=== PATIENT | male | born 1955 | race Caucasian/White ===

== ENCOUNTER 2019-06-05 11:23 | Outpatient (CLI) | payer OTHER, SELFPAY ==
[2019-06-05 11:47] LABS: Basophils Absolute Auto 0.04 K/mm3 (0.00-0.10); Basophils Percent Auto 0.4 % (0.0-1.0); Eosinophils Absolute Auto 0.12 K/mm3 (0.02-0.50); Eosinophils Percent Auto 1.1 % (1.0-6.0); Hematocrit 37.7 % (40.0-54.0); Hemoglobin 11.5 g/dL (14.0-18.0); Immature Granulocyte Absolute 0.04 K/mm3 (0.00-0.00); Immature Granulocyte Percent A 0.4 % (0.0-0.0); Lymphocytes Absolute Auto 0.83 K/mm3 (1.10-4.50); Lymphocytes Percent Auto 7.3 % (18.0-42.0); Mean Corpuscular HGB Conc 30.5 g/dL (32.0-36.0); Mean Corpuscular Hemoglobin 27.1 pg (27.0-31.0); Mean Corpuscular Volume 88.9 fL (78.0-102.0); Mean Platelet Volume 8.7 fl (8.7-11.0); Monocytes Absolute Auto 1.07 K/mm3 (0.10-0.90); Monocytes Percent Auto 9.5 % (2.0-11.0); Neutrophils Absolute Auto 9.2 K/mm3 (1.7-7.2); Neutrophils Percent Auto 81.3 % (50.0-70.0); Platelet Count Result 253 K/mm3 (150-420); Red Blood Count 4.24 M/mm3 (4.70-6.10); Red Cell Distribution Width 14.9 % (11.6-14.4); White Blood Count 11.3 K/mm3 (4.8-10.8)
[2019-06-05 12:00] LABS: INR 1.1; Partial Thromboplastin Time 34.8 SEC (22.3-31.6); Prothrombin Time 11.7 Seconds (9.64-11.0)
[2019-06-05 13:20] LABS: Alanine Aminotransferase 19 U/L (16-63); Albumin Level 2.6 g/dL (3.4-5.0); Alkaline Phosphatase 91 U/L (46-116); Anion Gap 12.7 mmol/L (7-16); Aspartate Amino Transferase 13 U/L (15-37); Bilirubin,Total 0.4 mg/dL (0.00-1.00); Blood Urea Nitrogen 24 mg/dL (7-18); Calcium 8.7 mg/dL (8.5-10.1); Carbon Dioxide 29 mmol/L (21-32); Chloride 103 mmol/L (98-108); Estimated Glomerular Filt Rate > 60; Ferritin 391 ng/mL (26-388); Glucose 147 mg/dL (70-99); Iron 23 ug/dL (65-175); Magnesium 2.1 mg/dL (1.8-2.4); Osmolality Calculated 297 mOsm/kg (285-295); Percent Iron Saturation 14 % (12-57); Potassium 4.7 mmol/L (3.5-5.1); Sodium 140 mmol/L (136-145); Thyroid Stimulating Hormone Reflex 1.09 u/IU/mL (0.36-3.74); Total Protein 7.8 g/dL (6.4-8.2); Vitamin B12 566 pg/mL (193-986)
[2019-06-05 13:21] LABS: Folic Acid > 20.0 ng/mL (8.6->20)
== END 2019-06-05 11:24 | disposition home or self-care (01) ==
LOC: CHSLAB 11:32
DX: I48.91 Unspecified atrial fibrillation (principal)
CPT/HCPCS: 36415; 80053; 82607; 82728; 82746; 83540; 83550; 83735; 84443; 85025; 85610; 85730

== ENCOUNTER 2019-06-26 14:07 | Outpatient (CLI) | payer OTHER, SELFPAY ==
[2019-06-26 14:26] LABS: Basophils Absolute Auto 0.04 K/mm3 (0.00-0.10); Basophils Percent Auto 0.4 % (0.0-1.0); Eosinophils Absolute Auto 0.29 K/mm3 (0.02-0.50); Eosinophils Percent Auto 3.3 % (1.0-6.0); Hematocrit 38.6 % (40.0-54.0); Hemoglobin 12.1 g/dL (14.0-18.0); Immature Granulocyte Absolute 0.03 K/mm3 (0.00-0.00); Immature Granulocyte Percent A 0.3 % (0.0-0.0); Lymphocytes Absolute Auto 1.45 K/mm3 (1.10-4.50); Lymphocytes Percent Auto 16.3 % (18.0-42.0); Mean Corpuscular HGB Conc 31.3 g/dL (32.0-36.0); Mean Corpuscular Hemoglobin 27.8 pg (27.0-31.0); Mean Corpuscular Volume 88.7 fL (78.0-102.0); Mean Platelet Volume 8.7 fl (8.7-11.0); Monocytes Absolute Auto 0.91 K/mm3 (0.10-0.90); Monocytes Percent Auto 10.2 % (2.0-11.0); Neutrophils Absolute Auto 6.2 K/mm3 (1.7-7.2); Neutrophils Percent Auto 69.5 % (50.0-70.0); Platelet Count Result 242 K/mm3 (150-420); Red Blood Count 4.35 M/mm3 (4.70-6.10); Red Cell Distribution Width 15.8 % (11.6-14.4); White Blood Count 8.9 K/mm3 (4.8-10.8)
[2019-06-26 14:40] LABS: Partial Thromboplastin Time 32.5 SEC (22.3-31.6); Prothrombin Time 10.6 Seconds (9.64-11.0)
[2019-06-26 15:36] LABS: Alanine Aminotransferase 15 U/L (16-63); Albumin Level 2.8 g/dL (3.4-5.0); Alkaline Phosphatase 91 U/L (46-116); Anion Gap 11.3 mmol/L (7-16); Aspartate Amino Transferase 17 U/L (15-37); Bilirubin,Total 0.6 mg/dL (0.00-1.00); Blood Urea Nitrogen 16 mg/dL (7-18); Calcium 9.1 mg/dL (8.5-10.1); Carbon Dioxide 31 mmol/L (21-32); Chloride 102 mmol/L (98-108); Estimated Glomerular Filt Rate > 60; Ferritin 182 ng/mL (26-388); Glucose 75 mg/dL (70-99); Iron 47 ug/dL (65-175); Osmolality Calculated 290 mOsm/kg (285-295); Percent Iron Saturation 24 % (12-57); Potassium 4.3 mmol/L (3.5-5.1); Sodium 140 mmol/L (136-145); Total Protein 7.6 g/dL (6.4-8.2); Vitamin B12 519 pg/mL (193-986)
[2019-06-26 15:45] LABS: Thyroid Stimulating Hormone Reflex 1.49 u/IU/mL (0.36-3.74)
== END 2019-06-26 14:08 | disposition home or self-care (01) ==
DX: I48.91 Unspecified atrial fibrillation (principal)
CPT/HCPCS: 36415; 80053; 82607; 82728; 82746; 83540; 83550; 83735; 84443; 85025; 85610; 85730

== ENCOUNTER 2020-01-15 13:18 | Inpatient (IN) | payer OTHER, SELFPAY ==
[2020-01-15] VITALS (36 sets, daily range): BP systolic 81–107; BP diastolic 56–70; PULSE 68–108; RESP 18–36; TEMP 36.3–37.2; O2SAT 94–100
--- NOTE | ~2020-01-15 | CT_ITS ---
EXAMINATION: CT chest wo con DATE: 01/15/2020 16:01 INDICATION: abnormal chest x-ray TECHNIQUE: Computed tomography (CT) of the chest was performed without intravenous contrast. Addition al 3D reconstructions utilizing coronal maximum intensity projection (MIP) were performed. Automated exposure control and iterative reconstruction technique were employed. The dose-length product was 15 9.97 mGy-cm. COMPARISON: None FINDINGS: Severe emphysema. Scattered bronchiectasis, bandlike lakes/consolidation, thick-walled cavitary lesio n as well as a few more discrete pulmonary nodules. This is most prominent in the right upper lobe, t he lateral basilar segment of the right lower lobe and to a lesser degree at the junction of the left upper lobe and lingula and in the right middle lobe. There are multiple smaller centrilobular pulmon rosibel nodules in the basilar segments of the right lower lobe and at the inferior lingula. No smooth se ptal line thickening to suggest pulmonary edema. Small right pleural effusion. There are few scattere d calcific pulmonary nodules along with calcified right hilar and mediastinal lymph nodes consistent with old granulomatous disease. Heart size is normal. No pericardial effusion. Vasculature is normal in caliber. There is dilation of the central pulmonary arteries consistent with pulmonary arterial hy pertension. Partially visualized at least 1.9 cm right renal cyst and 3.5 cm cyst in the left hepatic lobe. Mild thoracic spondylosis with severe spondylosis at the lower cervical and upper lumbar spine . IMPRESSION: 1. Severe emphysema. 2. Bronchiectasis and bilateral lung disease characterized by bandlike consolidation, thick-walled ca vitary lesions and multiple pulmonary nodules most consistent with infection other than COVID-19 (CO- RADS 2). Differential for any given nodule or thick-walled cavitary lesion would include malignancy a nd would recommend 3-6 month follow-up CT. 3. Small right pleural effusion. 4. Enlargement of the central pulmonary arteries consistent with pulmonary arterial hypertension. Reviewed, dictated and finalized at location A. IMPRESSION: 1. Severe emphysema. 2. Bronchiectasis and bilateral lung disease characterized by bandlike consolid ation, thick-walled cavitary lesions and multiple pulmonary nodules most consis tent with infection other than COVID-19 (CO-RADS 2). Differential for any given nodule or thick-walled cavitary lesion would include malignancy and would aaliyah mmend 3-6 month follow-up CT. 3. Small right pleural effusion. 4. Enlargement of the central pulmonary arteries consistent with pulmonary mary carmen rial hypertension.
--- NOTE | ~2020-01-15 | XR_ITS ---
EXAMINATION: XR chest 1V portable INDICATION: Post bronchoscopy TECHNIQUE: Portable AP chest at 1535 hours COMPARISON: 01/15/2020 FINDINGS: There is severe emphysema. The previously described cavitary lesion of the right lung apex is unchanged. No pneumothorax is identified. There is bandlike airspace opacity of the right lower pretty ng zone, not significantly changed, consistent with atelectasis. No pleural effusion is present. The cardiomediastinal silhouette is stable. IMPRESSION: 1. No pneumothorax. 2. Cavitary lesion of the right lung apex, consistent with malignancy versus infection. Reviewed, dictated and finalized at location A. IMPRESSION: 1. No pneumothorax. 2. Cavitary lesion of the right lung apex, consistent with malignancy versus in fection.
--- NOTE | ~2020-01-15 | XR_ITS ---
EXAMINATION: XR chest 2V DATE: 01/15/2020 14:42 INDICATION: Shortness of breath TECHNIQUE: frontal and lateral views of the chest were obtained. COMPARISON: None FINDINGS: Hyperexpansion of lungs with increased lucency and architectural distortion in the upper lung zones a nd at the medial right lower lung zone consistent with emphysema. Patchy airspace opacities at the le ft upper lung zone and throughout the right lung. No pulmonary edema, pleural effusion or pneumothora x. Small calcified nodule at the left lower lung zone consistent with old granulomatous disease. The cardiomediastinal silhouette is normal. Mild thoracic and moderate upper lumbar spondylosis. IMPRESSION: 1. Patchy bilateral lung disease, right greater than left concerning for pneumonia with differential including atelectasis/scarring. 2. Emphysema. Reviewed, dictated and finalized at location A. IMPRESSION: 1. Patchy bilateral lung disease, right greater than left concerning for pneumo vance with differential including atelectasis/scarring. 2. Emphysema.
--- NOTE | 2020-01-15 13:42 | ED.SOB ---
HPI - SOB/Dyspnea General Chief Complaint: Shortness of Breath/Dyspnea Stated Complaint: coughing up blood/diff breathing Time Seen by Provider: 01/15/20 13:30 History of Present Illness HPI Narrative: 64 yo male w/ h/o COPD presnets to the ED for SOB. He is SOB at baseline. Significant increase recently. Associated with intermittent hemoptysis and fatigue. He is on 2.5 liters O2 at all times. No fever, chills, CP. Related Data Home Medications Medication Instructions Recorded Confirmed albuterol sulfate [ProAir HFA] 2 puff INHALATION Q4H PRN 01/15/20 01/15/20 famotidine [Pepcid] 40 mg PO BID 01/15/20 01/15/20 oxycodone-acetaminophen 2 tablet Q6H PRN 01/15/20 01/15/20 potassium chloride 20 meq PO DAILY 01/15/20 01/15/20 sotalol 40 mg PO BID 01/15/20 01/15/20 umeclidinium [Incruse Ellipta] See Rx Instructions .ROUTE .COMPLEX 01/15/20 01/15/20 Allergies Allergy/AdvReac Type Severity Reaction Status Date / Time No Known Allergies Allergy Verified 01/15/20 13:28 Review of Systems Review of Systems: All systems reviewed & are unremarkable except as noted in HPI and below Constitutional: Constitutional: Denies fever(s) and Reports weakness ENT: Denies dizziness Cardiovascular: Cardiovascular: Denies chest pain Respiratory: Respiratory: Reports cough and Reports dyspnea Gastrointestinal: Gastrointestinal: Denies abdominal pain and Denies nausea Neurologic: Denies dizziness and Denies focal weakness Endocrine: Endocrine: Reports fatigue PMFSH Past Medical History Medical History Anxiety Chronic anemia Chronic respiratory failure with hypoxia, on home oxygen therapy COPD with emphysema Paroxysmal atrial fibrillation No longer on anticoagulation. Pulmonary Mycobacterium avium complex (MAC) infection Treated for 1.5 years with ethambutol and rifampin, completed treatment June 2019. Surgical History Surgical History History of lung biopsy Family History Family History Sibling Colon cancer Father Lymphoma Mother Uterine cancer Daughter Crohn's disease Social History Social History Social History: He designates his as his surrogate decision maker and wishes to be a full code. Smoking packs per day: 2 Smoking cigarettes per day: 40.0 Smoking status: Former smoker Alcohol intake: never Substance use: never Additional living arrangements comments: Lives with his in [place], [place]. 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 Gender identity (if verbalized by the patient): Male Spiritual care concerns: No Exam Const: General: no acute distress, alert and ill appearing Nutritional Appearance: thin Orientation/consciousness: patient oriented x3 HENMT: Head: normal to inspection Neck: Neck: normal visual inspection Chest: Chest palpation & inspection: no tenderness Resp: Effort & Inspection: tachypneic Auscultation: wheezes and diminished lung sounds Cardio: Rate: regular rate Rhythm: regular rhythm GI: GI Palp: Yes Soft to palpation and No Tenderness to palpation present (GI) Skin: General skin exam: normal color Neuro: General: patient oriented x3, moves all extremities, no focal motor deficits and CN's II-XI intact bilaterally Speech: normal speech Extrem: General: no edema Course Vital Signs Vital signs: Vital Signs Temperature 36.6 C 01/15/20 13:24 Pulse Rate 108 H 01/15/20 13:24 Respiratory Rate 22 H 01/15/20 13:24 Blood Pressure 98/56 L 01/15/20 13:24 Pulse Oximetry 100 01/15/20 13:24 Temperature 36.3 C L 01/17/20 14:51 Pulse Rate 75 01/17/20 14:51 Respiratory Rate 32 H 01/17/20 14:51 Blood Pressure 90/49 L 01/17/20 14:51 Pulse Oximetry 97 01/17/20 14:51
--- NOTE | 2020-01-15 13:49 | ECG_ITS ---
Measurements Intervals [place] Rate: 72 P: 86 [place]: 132 QRS: 80 QRSD: 96 T: 73 QT: 375 QTc: 413 Interpretive Statements SINUS RHYTHM INCOMPLETE RIGHT BUNDLE BRANCH BLOCK BORDERLINE T WAVE ABNORMALITY- HIGH LATERAL LEADS BASELINE ARTIFACT- AVL, V1, V3-V5 BORDERLINE ECG Electronically Signed On 01-15-2020 15:10:20 CDT by Odell Montero D.O.
[2020-01-15] MEDS: SODIUM CHLORIDE 0.9% IV 500 ML 999 ML IV CONT (14:01)
[2020-01-15] MEDS: methylPREDNISolone SOD SUCC 125 MG VIAL IV PUSH (14:01)
[2020-01-15] MEDS: ALBUTEROL SULFATE NEB 2.5 MG/0.5 ML INH 10 MG INHALATION (14:03)
[2020-01-15] MEDS: IPRATROPIUM BR 0.02% INH SOLN 0.5 MG/2.5 ML VIAL 1 MG INHALATION (14:03)
[2020-01-15 14:16] LABS: Basophils Absolute Auto 0.1 K/mm3 (0.0-0.1); Basophils Percent Auto 0.6 % (0.2-1.2); Eosinophils Absolute Auto 0.3 K/mm3 (0-0.3); Eosinophils Percent Auto 2.5 % (0-4.4); Hematocrit 33.9 % (42.0-52.0); Hemoglobin 10.1 g/dL (14.0-18.0); Immature Granulocyte Absolute 0.07 K/mm3 (0.00-0.031); Immature Granulocyte Percent A 0.6 % (0-0.5); Lymphocytes Absolute Auto 1.48 K/mm3 (0.9-3.2); Lymphocytes Percent Auto 13.2 % (18.3-44.2); Mean Corpuscular HGB Conc 29.8 g/dl (32-36); Mean Corpuscular Hemoglobin 26.2 pg (26-34); Mean Corpuscular Volume 87.8 fl (80-100); Mean Platelet Volume 8.9 fl (7.4-10.4); Monocytes Absolute Auto 0.9 K/mm3 (0.1-0.6); Monocytes Percent Auto 7.8 % (2.6-8.5); Neutrophils Absolute Auto 8.4 K/mm3 (1.3-6.7); Neutrophils Percent Auto 75.3 % (45.5-73.1); Platelet Count Result 487 k/mm3 (150-375); Red Blood Count 3.86 M/mm3 (4.6-6.20); Red Cell Distribution Width 14.4 % (11.5-14.5); White Blood Count 11.2 K/mm3 (4.5-10.0)
[2020-01-15 14:26] LABS: Anion Gap 5 mmol/L (8-16); Blood Urea Nitrogen 21 mg/dL (9-20); Calcium 9.5 mg/dL (8.4-10.2); Carbon Dioxide 36 mmol/L (22-30); Chloride 98 mmol/L (98-107); Estimated CRCL calculation 70 ml/min; Estimated Glomerular Filt Rate > 60; Glucose 126 mg/dL (75-110); Potassium 4.5 mmol/L (3.4-5.0); Sodium 139 mmol/L (137-145)
[2020-01-15 14:29] LABS: Alveolar/Arterial O2 Gradient 61.5 mmHg; Base Excess ABG 2.4 mEq/l (+/-2.0); Fractional Inspired Oxygen 32 %; HCO3 ABG 27.3 mEq/l (22.0-26.0); Oxygen Content ABG 13.9 %vol (16.0-22.0); Oxygen Saturation ABG 98.2 % (95.0-100.0); Oxyhemoglobin 97.5 % THb (90.0-100.0); PCO2 ABG 43.7 mmHg (35.0-45.0); PO2 ABG 115.5 mmHg (80.0-100.0); PO2 FiO2 Ratio Arterial Blood 3.61 %; Reduced Hemoglobin 2.5 %THb (0-5.0); pH ABG 7.413 (7.350-7.450)
[2020-01-15 14:38] LABS: Device NASAL CANNULA; Modified Allen's Test Pass; Site Drawn LEFT RADIAL
--- NOTE | 2020-01-15 17:26 | ADMGEN ---
This patient, Ramakrishna Zavala, was admitted to Medical Room 257-01. Patient/family oriented to hospital policies and general routines including ID bracelet, bed and alarms, visiting hours, pain management, procedures, bathroom and other care routines, personal items, smoking policy, room service/diet, and visiting hours. Valuables list has been completed. Information on how to activate the Rapid Response Team has been discussed. Patient/Family are encouraged to report perceived risks to care and to ask questions if they do not understand what they are told or what they should do.
[2020-01-15] MEDS: methylPREDNISolone SOD SUCC 125 MG VIAL 60 MG IV PUSH ×2 (18:38→23:16)
[2020-01-15] MEDS: HYDROcodone/acetaminophen (*CRX) 5-325 MG TABLET 2 TAB PO (20:33)
[2020-01-15] MEDS: ALBUTEROL SULFATE NEB 2.5 MG/0.5 ML INH 5 MG INHALATION (20:40)
[2020-01-15] MEDS: IPRATROPIUM BR 0.02% INH SOLN 0.5 MG/2.5 ML VIAL INHALATION (20:40)
--- NOTE | 2020-01-15 21:30 | PM.IMHP ---
H&P: HPI History of Present Illness Date/Time: 01/15/20 21:30 Chief complaint: Shortness of breath. Narrative: Ramakrishna Zavala is a very pleasant 64-year-old gentleman with severe COPD/emphysema, chronic respiratory failure on 2.5 L nasal cannula, MAC lung infection, and paroxysmal atrial fibrillation no longer on anticoagulation who presented to the emergency department earlier today for evaluation of shortness of breath and hemoptysis. He has chronic dyspnea on exertion however over the past 6 months or so it has gotten to the point where he has to rest for 5 minutes after walking from the house to the car before he recovers. He completed a course of what sounds like rifampin and ethambutol for MAC infection sometime in June 2019. He apparently took that combination of drugs for 1 year, and that was extended for another 6 months after repeat chest CT continue to show disease. 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 Jimenez in the next couple of weeks. In any regard, he feels as though his shortness of breath has progressively gotten worse since June, with intermittent cough productive of pinkish colored sputum. He also continues to lose weight; over the years has gone from 160 lb to about 110 lb, despite having a good appetite. He reports being cold all of the time, but denies fever and night sweats. He has not had chest pain or pleuritic pain. No recent travel or sick contacts. He has not had nausea, vomiting, or diarrhea. Review of Systems Review of Systems: Narrative: Twelve systems were reviewed with pertinent positives and negatives as per HPI. No fever or sweats. He reports being cold all of the time. He denies sinus congestion, rhinorrhea, otalgia, and odynophagia. No orthopnea, PND, or lower extremity edema. He states compliance with his maintenance inhaler. He has been using his rescue inhaler a bit more frequently over the past couple of weeks, maybe 2 times per day. He does not have nebulizers at home. He has not noticed lymphadenopathy. No epistaxis. No history of venous thromboembolism. He denies melena. He is somewhat depressed regarding his decline and increased dyspnea on lesser and lesser exertion. Last year he and his family enjoyed going to [employer] and he was able to walk about the park, with minimal shortness of breath. Understandably he is disheartened that his shortness of breath is now a limiting factor in what activities he can do. Except as documented, all other systems were reviewed and are negative. [facility] Past Medical History Medical History (Updated 01/15/20 @ 23:59 by Magnolia West PA-C) Anxiety Chronic anemia Chronic respiratory failure with hypoxia, on home oxygen therapy COPD with emphysema Paroxysmal atrial fibrillation No longer on anticoagulation. Pulmonary Mycobacterium avium complex (MAC) infection Treated for 1.5 years with ethambutol and rifampin, completed treatment June 2019. Surgical History Surgical History (Updated 01/15/20 @ 23:52 by Magnolia West PA-C) History of lung biopsy Family History Family History (Updated 01/15/20 @ 23:53 by Magnolia West PA-C) Sibling Colon cancer Father Lymphoma Mother Uterine cancer Daughter Crohn's disease Social History Social History (Updated 01/15/20 @ 23:55 by Magnolia West PA-C) Social History: He designates his as his surrogate decision maker and wishes to be a full code. Smoking packs per day: 2 Smoking cigarettes per day: 40.0 Smoking status: Former smoker Alcohol intake: never Substance use: never Additional living arrangements comments: Lives with his in [place], [place]. 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 Gender identity (if verbalized by the patient): Male Spiritual care concerns: No Meds Home Medications and Allergies Home Medications Medication Ins
[2020-01-16] VITALS (21 sets, daily range): BP systolic 90–113; BP diastolic 45–63; PULSE 63–95; RESP 20–24; TEMP 36.1–37.1; O2SAT 95–100
[2020-01-16] MEDS: guaiFENesin 12 HR 600 MG TABCR PO ×3 (02:36→20:49)
[2020-01-16] MEDS: ALBUTEROL SULFATE NEB 2.5 MG/0.5 ML INH 5 MG INHALATION ×4 (02:41→21:16)
[2020-01-16] MEDS: IPRATROPIUM BR 0.02% INH SOLN 0.5 MG/2.5 ML VIAL INHALATION ×4 (02:41→21:16)
[2020-01-16] MEDS: FAMOTIDINE 20 MG TABLET PO ×3 (03:21→11:44)
[2020-01-16] MEDS: HYDROcodone/acetaminophen (*CRX) 5-325 MG TABLET 2 TAB PO ×3 (03:23→20:50)
[2020-01-16 05:28] LABS: Basophils Percent Auto 0.1 % (0.2-1.2); Hematocrit 29.7 % (42.0-52.0); Hemoglobin 8.8 g/dL (14.0-18.0); Immature Granulocyte Absolute 0.05 K/mm3 (0.00-0.031); Immature Granulocyte Percent A 0.6 % (0-0.5); Lymphocytes Absolute Auto 0.51 K/mm3 (0.9-3.2); Lymphocytes Percent Auto 5.9 % (18.3-44.2); Mean Corpuscular HGB Conc 29.6 g/dl (32-36); Mean Corpuscular Hemoglobin 25.8 pg (26-34); Mean Corpuscular Volume 87.1 fl (80-100); Mean Platelet Volume 8.7 fl (7.4-10.4); Monocytes Absolute Auto 0.1 K/mm3 (0.1-0.6); Monocytes Percent Auto 1.5 % (2.6-8.5); Neutrophils Percent Auto 91.9 % (45.5-73.1); Platelet Count Result 422 k/mm3 (150-375); Red Blood Count 3.41 M/mm3 (4.6-6.20); Red Cell Distribution Width 14.3 % (11.5-14.5); White Blood Count 8.7 K/mm3 (4.5-10.0)
[2020-01-16 05:39] LABS: Alanine Aminotransferase 15 U/L (4-50); Albumin Level 3.2 g/dL (3.5-5.1); Alkaline Phosphatase 62 U/L (38-126); Anion Gap 5 mmol/L (8-16); Aspartate Amino Transferase 18 U/L (17-59); Bilirubin,Total 0.2 mg/dL (0.2-1.3); Blood Urea Nitrogen 22 mg/dL (9-20); Calcium 9.1 mg/dL (8.4-10.2); Carbon Dioxide 30 mmol/L (22-30); Chloride 102 mmol/L (98-107); Estimated CRCL calculation 78 ml/min; Estimated Glomerular Filt Rate > 60; Glucose 152 mg/dL (75-110); Potassium 4.2 mmol/L (3.4-5.0); Sodium 137 mmol/L (137-145)
[2020-01-16] MEDS: AMPICILLIN SULB 1.5 GM/NS 50ML 1.5 GM/50 ML VIAL IVPB ×3 (08:26→20:51)
[2020-01-16 08:39] LABS: Lactate Dehydrogenase 234 U/L (313-618)
[2020-01-16 08:42] LABS: CRP 3.8 mg/dL (<1.0)
[2020-01-16 09:20] LABS: HIV 1/2 Ab P24 Ag Result Negative (Negative)
--- NOTE | 2020-01-16 10:06 | PM.IMPN ---
Progress Note: A&P Assessment and Plan (1) Bilateral pneumonia: Code(s): J18.9 - Pneumonia, unspecified organism Status: Acute Assessment and Plan: -----CT shows and thick walled cavitary lesions and multiple pulmonary nodules consistent with a reaction but also could be malignancy. COVID-19 less likely. Patient states he has been quarantining. As per the H and P, the patient has been treated for over a year and a half for MAC in the past I believe. He underwent a bronch and HIV testing which we don't have those records at this time. This was all done at [facility]. He is feeling better since being admitted. Will continue Unasyn, vancomycin and azithromycin but I have asked Infectious Disease and pulmonology for additional recommendations. Will obtain 3 AF sputum cultures and sputum for cytology. (2) Hemoptysis: Code(s): R04.2 - Hemoptysis Status: Acute Assessment and Plan: -----2/2 to above. (3) Chronic respiratory failure with hypoxia, on home oxygen therapy: Code(s): J96.11 - Chronic respiratory failure with hypoxia; Z99.81 - Dependence on supplemental oxygen Status: Acute Assessment and Plan: -----Pt is his home o2 settings and we will continue with that to keep sats >90 (4) COPD with emphysema: Code(s): J43.9 - Emphysema, unspecified Status: Acute Assessment and Plan: -----Continue abx, albuterol and atrovent. Looks like he uses incruse ellipta at home. (5) Abnormal chest CT: Code(s): R93.89 - Abnormal findings on diagnostic imaging of other specified body structures Status: Acute Assessment and Plan: -----see above. (6) Paroxysmal atrial fibrillation: Code(s): I48.0 - Paroxysmal atrial fibrillation Status: Acute Assessment and Plan: -----RRR on my exam and on EKG on admission. (7) Anxiety: Code(s): F41.9 - Anxiety disorder, unspecified Status: Acute Assessment and Plan: -----chronic and controlled. (8) Chronic anemia: Code(s): D64.9 - Anemia, unspecified Status: Acute Assessment and Plan: -----hemoglobin 8.8 which is a little lower than yesterday. He has not coughed up blood today but will recheck an H&H later today. Anemia studies earlier this year alec anemia of chronic disease. monitor. Time Spent With Patient Time with patient: 25 - 35 minutes Subjective Date/time seen: 01/16/20 10:06 Interval history: Pt is a 64-year-old male here for shortness of breath and found to have cavitary lesion. Patient seen today and states he is feeling much better compared to yesterday. He is no longer having shortness of breath at rest but does have shortness of breath when walking but that has improved too. He was coughing up more phlegm prior but is still able to get some a. He has not had any fevers. Denies nausea, vomiting, diarrhea, constipation, chest pain or leg swelling. He had all of his previous workup at [facility] in [place] and we are awaiting the records. Review of Systems Review of Systems: All systems reviewed & are unremarkable except as noted in HPI and below Exam Narrative: Exam Narrative: General: Cachectic appearing patient resting comfortably in bed in no acute distress HEENT: normocephalic Neck: supple Neuro: Alert and oriented x4 CV:RRR. Telemetry with no significant abnormalities Resp: 2.5 L of oxygen applied. Some expiratory wheezing and some rhonchi Abd: Soft, non distended. No pain to palpation. Positive bowel sounds Extremities: No swelling, erythema, or pain to palpation. Objective Data Vital Signs Vital Signs: Vital Signs - 24 hr 01/15/20 13:24 01/15/20 13:35 01/15/20 13:38 Temperature 97.9 F Pulse Rate 108 H 82 78 Respiratory Rate 22 H 28 H Blood Pressure 98/56 L Pulse Oximetry 100 100 01/15/20 13:39 01/15/20 13:45 01/15/20 13:47 Tempera
--- NOTE | 2020-01-16 10:35 | PC.NURSE ---
1035-Patient transferred to room 209 for negative pressure room. Report given to IMU RN.
[2020-01-16] MEDS: SOTALOL HCL 40 MG TABLET PO ×2 (11:43→20:49)
[2020-01-16] MEDS: POTASSIUM CHLORIDE 20 MEQ TABLET.ER PO (11:44)
[2020-01-16 11:58] LABS: Hematocrit 30.4 % (42.0-52.0); Hemoglobin 9.1 g/dL (14.0-18.0)
--- NOTE | 2020-01-16 14:02 | PC.NURSE ---
Patient transferred from [address] [place] [address] to [facility] for negative pressure room needs at 1030 01/16/20.
--- NOTE | 2020-01-16 15:24 | PC.NURSE ---
This patient, Ramakrishna Zavala, was received from [facility] on 01/16/20 at 1030. Personal belongings list checked and signed. Patient/family oriented to unit policies and routines
--- NOTE | 2020-01-16 16:35 | PM.CNPUL ---
Assessment and Plan Assessment and plan (1) COPD with emphysema: Code(s): J43.9 - Emphysema, unspecified Status: Acute Assessment and Plan: - duonebs Q6h scheuled - home oxygen assessment prior to discharge - resume Incruses with prn albuterol upon discharge (2) Hemoptysis: Code(s): R04.2 - Hemoptysis Status: Acute (3) Atypical pneumonia: Code(s): J18.9 - Pneumonia, unspecified organism Status: Acute Additional Plan CT findings could be suggestive of recurrent MAC but could also be community acquired pneumonia, malignancy or invasive aspergillosis. - agree with sputum samples for AFB stains but patient says he is no longer producing sputum. - will schedule for bronchoscopy with BAL and possible brushings - recommend continued Ceftriaxone and Azithromycin but consider discontinuing Unasyn - obtain notes and records from Dr. Kate's office as well as last CT chest to compare. - NPO after midnight for possible bronchoscopy tomorrow with Dr. Wu History of Present Illness History of Present Illness Consult date: 01/16/20 Chief complaint: Shortness of breath. Narrative: 64 y/o male with severe COPD/emphysema with history of MAC lung disease is admitted with increasing dyspnea cough productive of some pink colored sputum as well as fatigue weakness and significant weight loss. He was treated for about 18 months with Ethambutol, Rifampin and Azithromycin by Dr. Kate at [facility] he says but I do not have records to confirm. His insurance plan changed and could no longer f/u with Dr. Kate and has been lost to followup. He says a few weeks after stopping the triple cocktail therapy his symptoms from MAC began to slowly come back. He has a long smoking history but quit about two years ago. His CT chest on admission shows RUL subpleural thickening, some consolidation around multiple emphysetamous bullae. Threre is no prior CT chest to compare to. Review of Systems Review of Systems: All systems reviewed & are unremarkable except as noted in HPI and below PMFSH Past Medical History Medical History (Updated 01/16/20 @ 16:47 by Татьяна Jimenez MD) Anxiety Chronic anemia Chronic respiratory failure with hypoxia, on home oxygen therapy COPD with emphysema Paroxysmal atrial fibrillation No longer on anticoagulation. Pulmonary Mycobacterium avium complex (MAC) infection Treated for 1.5 years with ethambutol and rifampin, completed treatment June 2019. Surgical History Surgical History (Updated 01/15/20 @ 23:52 by Magnolia West PA-C) History of lung biopsy Family History Family History (Updated 01/15/20 @ 23:53 by Magnolia West PA-C) Sibling Colon cancer Father Lymphoma Mother Uterine cancer Daughter Crohn's disease Social History Social History (Updated 01/15/20 @ 23:55 by Magnolia West PA-C) Social History: He designates his as his surrogate decision maker and wishes to be a full code. Smoking packs per day: 2 Smoking cigarettes per day: 40.0 Smoking status: Former smoker Alcohol intake: never Substance use: never Additional living arrangements comments: Lives with his in [place], [place]. 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 Gender identity (if verbalized by the patient): Male Spiritual care concerns: No Meds Home Medications and Allergies Home Medications Medication Instructions Recorded Confirmed Type albuterol sulfate [ProAir HFA] 2 puff INHALATION Q4H PRN 01/15/20 01/15/20 History famotidine [Pepcid] 40 mg PO BID 01/15/20 01/15/20 History oxycodone-acetaminophen 2 tablet Q6H PRN 01/15/20 01/15/20 History potassium chloride 20 meq PO DAILY 01/15/20 01/15/20 History sotalol 40 mg PO BID 01/15/20 01/15/20 History umeclidinium [Incruse Ellipta] See Rx Instructions .ROUTE .COMPLEX 01/15/20 01/15/20 History Allergies Allergy/AdvReac Type Severity Reaction Statu
[2020-01-16] MEDS: FAMOTIDINE 20 MG TABLET 40 MG PO (20:49)
[2020-01-17] VITALS (25 sets, daily range): BP systolic 73–155; BP diastolic 44–116; PULSE 58–92; RESP 18–33; TEMP 35.8–36.6; O2SAT 95–100; BMI 17.7
[2020-01-17] MEDS: IPRATROPIUM BR 0.02% INH SOLN 0.5 MG/2.5 ML VIAL INHALATION ×4 (02:30→20:42)
[2020-01-17] MEDS: ALBUTEROL SULFATE NEB 2.5 MG/0.5 ML INH 5 MG INHALATION ×4 (02:30→20:42)
[2020-01-17] MEDS: AMPICILLIN SULB 1.5 GM/NS 50ML 1.5 GM/50 ML VIAL IVPB ×2 (03:03→09:31)
[2020-01-17] MEDS: HYDROcodone/acetaminophen (*CRX) 5-325 MG TABLET 2 TAB PO ×3 (04:00→20:40)
[2020-01-17 04:54] LABS: Basophils Percent Auto 0.3 % (0.2-1.2); Eosinophils Absolute Auto 0.1 K/mm3 (0-0.3); Eosinophils Percent Auto 0.6 % (0-4.4); Hematocrit 29.3 % (42.0-52.0); Hemoglobin 8.6 g/dL (14.0-18.0); Immature Granulocyte Absolute 0.08 K/mm3 (0.00-0.031); Immature Granulocyte Percent A 0.5 % (0-0.5); Lymphocytes Absolute Auto 1.77 K/mm3 (0.9-3.2); Lymphocytes Percent Auto 11.2 % (18.3-44.2); Mean Corpuscular HGB Conc 29.4 g/dl (32-36); Mean Corpuscular Hemoglobin 25.9 pg (26-34); Mean Corpuscular Volume 88.3 fl (80-100); Mean Platelet Volume 8.7 fl (7.4-10.4); Monocytes Absolute Auto 1.1 K/mm3 (0.1-0.6); Monocytes Percent Auto 7.1 % (2.6-8.5); Neutrophils Absolute Auto 12.7 K/mm3 (1.3-6.7); Neutrophils Percent Auto 80.3 % (45.5-73.1); Platelet Count Result 388 k/mm3 (150-375); Red Blood Count 3.32 M/mm3 (4.6-6.20); Red Cell Distribution Width 14.5 % (11.5-14.5); White Blood Count 15.8 K/mm3 (4.5-10.0)
[2020-01-17 05:13] LABS: Anion Gap 2 mmol/L (8-16); Blood Urea Nitrogen 21 mg/dL (9-20); Carbon Dioxide 36 mmol/L (22-30); Chloride 101 mmol/L (98-107); Estimated CRCL calculation 72 ml/min; Estimated Glomerular Filt Rate > 60; Glucose 110 mg/dL (75-110); Potassium 4.3 mmol/L (3.4-5.0); Sodium 139 mmol/L (137-145)
--- NOTE | 2020-01-17 07:00 | ECG_ITS ---
Measurements Intervals [place] Rate: 53 P: 87 SC: 148 QRS: 74 QRSD: 90 T: 73 QT: 421 QTc: 399 Interpretive Statements SINUS BRADYCARDIA INCOMPLETE RIGHT BUNDLE BRANCH BLOCK BASELINE ARTIFACT- V2, V5 BORDERLINE ECG Electronically Signed On 01-17-2020 10:21:08 CDT by Odell Montero D.O.
--- NOTE | 2020-01-17 08:06 | PM.IMPN ---
Progress Note: A&P Assessment and Plan (1) Bilateral pneumonia: Code(s): J18.9 - Pneumonia, unspecified organism Status: Acute Assessment and Plan: -----CT shows and thick walled cavitary lesions and multiple pulmonary nodules consistent with a reaction but also could be malignancy. COVID-[address] report to compare it to. Previous records per [facility] in [place] show he tested negative for TB 04/2018 and had a bronch with bx 04/2018 positive for chronic infec and neg for malignancy. There is a report from [facility] that indicate confirmed MAC infection. He was treated for this but unfortunately pt started to gradually have symptoms again. This cavitary lesion is likely MAC infection recurrance. Pt has no high risk activities such as birds at home. He is HIV negative. TB is on the differential but is less likely. Will ask ID to see if we should test him again for TB. If not, may be able to remove isolation so patient can have visitors. Continue IV abx for now and I will ask Dr. Piper on his recommendations. First AF sputum cx pending. Pt states he is no longer producing sputum. I believe he may go for a bronhoscopy today. (2) Hemoptysis: Code(s): R04.2 - Hemoptysis Status: Acute Assessment and Plan: -----Resolved. 2/ to above. (3) Chronic respiratory failure with hypoxia, on home oxygen therapy: Code(s): J96.11 - Chronic respiratory failure with hypoxia; Z99.81 - Dependence on supplemental oxygen Status: Acute Assessment and Plan: -----Pt is his home o2 settings and we will continue with that to keep sats >90 (4) COPD with emphysema: Code(s): J43.9 - Emphysema, unspecified Status: Acute Assessment and Plan: -----Continue abx, albuterol and atrovent. Looks like he uses incruse ellipta at home. (5) Abnormal chest CT: Code(s): R93.89 - Abnormal findings on diagnostic imaging of other specified body structures Status: Acute Assessment and Plan: -----see above. (6) Paroxysmal atrial fibrillation: Code(s): I48.0 - Paroxysmal atrial fibrillation Status: Acute Assessment and Plan: -----RRR on my exam and on EKG on admission. (7) Anxiety: Code(s): F41.9 - Anxiety disorder, unspecified Status: Acute Assessment and Plan: -----chronic and controlled. (8) Chronic anemia: Code(s): D64.9 - Anemia, unspecified Status: Acute Assessment and Plan: -----hemoglobin 8.6 and appear stable. Anemia studies earlier this year alec anemia of chronic disease. monitor. Subjective Date/time seen: 01/17/20 08:06 Interval history: Pt is a 64-year-old male here for shortness of breath and found to have cavitary lesion. Patient seen today and states he is still feeling better. He has been up walking around and doing okay. He is not longer coughing up blood or sputum. He would like for his to be able to come up and visit. He had a BM today and has been eating and drinking well. Previous records show he tested negative for TB 04/2018 and had a bronch with bx 04/2018 positive for chronic infec and neg for malignancy. I did not see any micro reports or CT scans. Exam Narrative: Exam Narrative: General: Cachectic appearing patient resting comfortably in bed in no acute distress HEENT: normocephalic Neck: supple Neuro: Alert and oriented x4 CV:RRR. Telemetry with no significant abnormalities Resp: 2.5 L of oxygen applied. Some expiratory wheezing and some rhonchi Abd: Soft, non distended. No pain to palpation. Positive bowel sounds Extremities: No swelling, erythema, or pain to palpation. Objective Data Vital Signs Vital Signs: Vital Signs - 24 hr 01/16/20 09:00 01/16/20 09:13 01/16/20 11:43 Temperature Pulse Rate 79 88 88 Respiratory Rate 20 20 Blood Pressure Pulse Oximetry 95 01/16/20 12:00 01/16/20
[2020-01-17 08:37] LABS: Magnesium 2.1 mg/dL (1.6-2.3)
[2020-01-17] MEDS: guaiFENesin 12 HR 600 MG TABCR PO ×2 (09:34→20:42)
[2020-01-17] MEDS: FAMOTIDINE 20 MG TABLET 40 MG PO ×2 (09:34→20:42)
[2020-01-17] MEDS: SOTALOL HCL 40 MG TABLET PO ×2 (09:34→20:42)
[2020-01-17] MEDS: POTASSIUM CHLORIDE 20 MEQ TABLET.ER PO (09:34)
--- NOTE | 2020-01-17 12:20 | WPDINFPN2 ---
Progress Note: A&P Assessment and Plan (1) Bilateral pneumonia: Code(s): J18.9 - Pneumonia, unspecified organism Status: Acute Assessment and Plan: 1. Pulmonary MAC, non cavitary, rx azithro/ethambutol/rifampin x 18 months, partial response clinically (although no repeat sputum done) 2. COPD exacerbation REC New endobronchial cultures for routine/fungal/AFB. Ctx #1 (antibiotic #3). No isolation. Re-treatment anticipated, guided by new culture. Subjective Date/time seen: 01/17/20 12:20 Objective Data Vital Signs Vital Signs: Vital Signs - 24 hr 01/16/20 12:36 01/16/20 15:03 01/16/20 15:15 Temperature 36.4 C Pulse Rate 95 74 81 Respiratory Rate 20 20 20 Blood Pressure 113/63 Pulse Oximetry 100 01/16/20 16:00 01/16/20 20:00 01/16/20 21:06 Temperature 37.1 C Pulse Rate 72 85 Respiratory Rate 24 H Blood Pressure 105/59 L Pulse Oximetry 99 98 01/16/20 21:16 01/16/20 21:26 01/16/20 21:37 Temperature Pulse Rate 73 76 78 Respiratory Rate 20 20 Blood Pressure Pulse Oximetry 01/16/20 23:24 01/16/20 23:26 01/17/20 02:30 Temperature 36.1 C L Pulse Rate 63 63 63 Respiratory Rate 24 H 20 Blood Pressure 92/50 L Pulse Oximetry 100 01/17/20 02:47 01/17/20 03:18 01/17/20 03:20 Temperature 36.1 C L Pulse Rate 60 58 L 58 L Respiratory Rate 20 22 H Blood Pressure 96/44 L Pulse Oximetry 100 01/17/20 08:00 01/17/20 08:01 01/17/20 08:08 Temperature 36.1 C L Pulse Rate 66 59 L 64 Respiratory Rate 18 22 H 22 H Blood Pressure 90/62 L Pulse Oximetry 100 99 01/17/20 09:34 01/17/20 12:00 Temperature Pulse Rate 60 61 Respiratory Rate Blood Pressure Pulse Oximetry Intake/Output Intake/Output: Intake & Output 01/14/20 01/15/20 01/16/20 01/17/20 23:59 23:59 23:59 23:59 Intake Total 790 1330 930 Output Total 1075 800 Balance 790 255 130 Meds/Results Medications: Active Medications Generic Name Dose Route Start Last Admin Trade Name Freq PRN Reason Stop Dose Admin Hydrocodone Bitart/Acetaminophen 2 tab 01/16/20 02:43 01/17/20 09:34 [place] 5-325 Mg PO 2 tab Q4H PRN Administration Pain Rated 4-6 Albuterol 5 mg 01/15/20 20:00 01/17/20 08:00 Albuterol Sulf Neb 2.5mg/0.5ml INHALATION 5 mg Q6HRT ROBBI Administration Famotidine 40 mg 01/16/20 21:00 01/17/20 09:34 Pepcid PO 40 mg Q12HR ROBBI Administration Guaifenesin 600 mg 01/16/20 00:10 01/17/20 09:34 Mucinex 12 Hr Tab PO 600 mg Q12HR ROBBI Administration Lactated Ringer's 1,000 mls @ 150 mls/hr 01/17/20 08:40 Lr - Lactated Ringers Iv IV CONT .Q6H40M ROBBI Ceftriaxone Sodium/Dextrose 1 gm in 50 mls @ 100 mls/hr 01/17/20 12:20 Rocephin 1 Gm/D5w 50 Ml IVPB Q24H ROBBI Ipratropium [place] 0.5 mg 01/15/20 20:00 01/17/20 08:00 Atrovent Neb INHALATION 0.5 mg Q6HRT ROBBI Administration Potassium Chloride 20 meq 01/16/20 09:00 01/17/20 09:34 Kcl Tablet PO 20 meq DAILY ROBBI Administration Sotalol HCl 40 mg 01/16/20 09:00 01/17/20 09:34 Betapace PO 40 mg Q12HR ROBBI Administration Radiology Results: ITS Impressions Chest X-Ray 01/15/20 14:44 IMPRESSION: 1. Patchy bilateral lung disease, right greater than left concerning for pneumonia with differential including atelectasis/scarring. 2. Emphysema. Chest CT 01/15/20 16:12 IMPRESSION: 1. Severe emphysema. 2. Bronchiectasis and bilateral lung disease characterized by bandlike consolidation, thick-walled cavitary lesions and multiple pulmonary nodules most consistent with infection other than COVID-19 (CO-RADS 2). Differential for any given nodule or thick-walled cavitary lesion would include malignancy and would recommend 3-6 month follow-up CT. 3. Small right pleural effusion. 4. Enlargement of the central pulmonary arteries consistent with pulmonary arterial hypertension. Labs Labs: Laboratory Results - last
--- NOTE | 2020-01-17 12:22 | WPDANESEPPF ---
Anes - Initial Pre Proc Eval Procedure: Operation Date: 01/17/20 13:30 Proposed Procedures p Bronchoscopy - Coreen Wu MD Date/Time: 01/17/20 12:22 Surgeon: Kandace Rosario PA-C Pre Op Diagnosis: Shortness of breath. Patient Data Age: 64 Gender: M Height: 5 ft 9 in Weight: 54.5 kg Last Vital Signs Temp 97.0 F L 01/17/20 08:00 Pulse 61 01/17/20 12:00 Resp 22 H 01/17/20 08:08 BP 90/62 L 01/17/20 08:00 Pulse Ox 99 01/17/20 08:01 Allergies Allergy/AdvReac Type Severity Reaction Status Date / Time No Known Allergies Allergy Verified 01/15/20 13:28 Home Medications Medication Instructions Recorded Confirmed Type albuterol sulfate [ProAir HFA] 2 puff INHALATION Q4H PRN 01/15/20 01/15/20 History famotidine [Pepcid] 40 mg PO BID 01/15/20 01/15/20 History oxycodone-acetaminophen 2 tablet Q6H PRN 01/15/20 01/15/20 History potassium chloride 20 meq PO DAILY 01/15/20 01/15/20 History sotalol 40 mg PO BID 01/15/20 01/15/20 History umeclidinium [Incruse Ellipta] See Rx Instructions .ROUTE .COMPLEX 01/15/20 01/15/20 History Laboratory Tests 01/17/20 01/17/20 01/17/20 04:31 04:34 04:34 WBC 15.8 K/mm3 H K/mm3 (4.5-10.0) RBC 3.32 M/mm3 L M/mm3 (4.6-6.20) Hgb 8.6 g/dL L g/dL (14.0-18.0) Hct 29.3 % L % (42.0-52.0) MCV 88.3 fl fl (80-100) MCH 25.9 pg L pg (26-34) MCHC 29.4 g/dl L g/dl (32-36) RDW 14.5 % % (11.5-14.5) Plt Count 388 k/mm3 H k/mm3 (150-375) MPV 8.7 fl fl (7.4-10.4) Immature Gran % (Auto) 0.5 % % (0-0.5) Neut % (Auto) 80.3 % H % (45.5-73.1) Lymph % (Auto) 11.2 % L % (18.3-44.2) [place] % (Auto) 7.1 % % (2.6-8.5) Eos % (Auto) 0.6 % % (0-4.4) Baso % (Auto) 0.3 % % (0.2-1.2) Lymph # (Auto) 1.77 K/mm3 K/mm3 (0.9-3.2) [place] # (Auto) 1.1 K/mm3 H K/mm3 (0.1-0.6) Eos # (Auto) 0.1 K/mm3 K/mm3 (0-0.3) Baso # (Auto) 0.0 K/mm3 K/mm3 (0.0-0.1) Abs Immat Gran (auto) 0.08 K/mm3 H K/mm3 (0.00-0.031) Absolute Neuts (auto) 12.7 K/mm3 H K/mm3 (1.3-6.7) Absolute Nucleated RBC 0.0 K/mm3 K/mm3 (0.0-0.012) Nucleated RBC % 0.0 % % (0.0-0.2) Sodium 139 mmol/L mmol/L (137-145) Potassium 4.3 mmol/L mmol/L (3.4-5.0) Chloride 101 mmol/L mmol/L (98-107) Carbon Dioxide 36 mmol/L H mmol/L (22-30) Anion Gap 2 mmol/L L mmol/L (8-16) BUN 21 mg/dL H mg/dL (9-20) Creatinine 0.70 mg/dL mg/dL (0.7-1.3) Estim Creat Clear Calc 72 ml/min ml/min Estimated GFR > 60 (59 - ) Glucose 110 mg/dL mg/dL (75-110) Calcium 9.0 mg/dL mg/dL (8.4-10.2) Magnesium 2.1 mg/dL mg/dL (1.6-2.3) Patient hx anesthesia problems: none Family hx anesthesia problems: none PENDING SALE TO [facility] Past Medical History Medical History (Updated 01/16/20 @ 16:47 by Татьяна Jimenez MD) Anxiety Chronic anemia Chronic respiratory failure with hypoxia, on home oxygen therapy COPD with emphysema Paroxysmal atrial fibrillation No longer on anticoagulation. Pulmonary Mycobacterium avium complex (MAC) infection Treated for 1.5 years with ethambutol and rifampin, completed treatment June 2019. Surgical History Surgical History (Updated 01/15/20 @ 23:52 by Magnolia West PA-C) History of lung biopsy Family History Family History (Updated 01/15/20 @ 23:53 by Magnolia West PA-C) Sibling Colon cancer Father Lymphoma Mother Uterine cancer Daughter Crohn's disease Social History Social History (Updated 01/15/20 @ 23:55 by Magnolia West PA-C) Social History: He designates his as his surrogate decision maker and wishes to be a full code. Smoking packs per day: 2 Smoking cigarettes per day: 40.0 Smok
--- NOTE | 2020-01-17 12:44 | PM.PNPUL ---
Progress Note: A&P Assessment and Plan (1) COPD with emphysema: Code(s): J43.9 - Emphysema, unspecified Status: Acute Assessment and Plan: - duonebs Q6h scheuled - home oxygen assessment prior to discharge - resume Incruse with prn albuterol upon discharge (2) Hemoptysis: Code(s): R04.2 - Hemoptysis Status: Acute Assessment and Plan: None since admission. (3) Atypical pneumonia: Code(s): J18.9 - Pneumonia, unspecified organism Status: Acute Assessment and Plan: Bilateral infiltrates after treatment ofr 18 months for MAC. He is now on Ceftriaxone alone, and additional therapy witll Additional Plan CT findings could be suggestive of recurrent MAC but could also be community acquired pneumonia, malignancy or invasive aspergillosis. - agree with sputum samples for AFB stains but patient says he is no longer producing sputum. - bronchoscopy later today with BAL and possible brushings - antibiotics per Dr Piper's recommendations, Ceftriaxone alone. - obtain notes and records from Dr. Kate's office as well as last CT chest to compare. Subjective Date/time seen: 01/17/20 12:44 This 64 yo man is seen in follow up before a bronchoscopy for bilateral pneumonia, MAC treatment for 18 months which stopped after he had to change insurances and lost coverage for his doctor and medications. He has lost 25 lb over many months, has a cough with scant infrequent hemoptysis. We talked about the bronchoscopy. He agrees with this procedure and wants to proceed. Review of Systems Review of Systems: All systems reviewed & are unremarkable except as noted in HPI and below Exam Const: General: comfortable and no acute distress Eyes: General: appearance normal, both eyes and all related structures Neck: Neck: supple and no JVD Resp: Auscultation: wheezes and diminished lung sounds Cardio: Rate: regular rate Rhythm: regular rhythm Heart sounds: no murmurs GI: Auscultation: normal bowel sounds Skin: General skin exam: normal color and no rashes or lesions noted Neuro: Speech: normal speech Extrem: General: normal to inspection Psych: Mental Status: mental status grossly normal Objective Data Vital Signs Vital Signs: Vital Signs - 24 hr 01/16/20 15:03 01/16/20 15:15 01/16/20 16:00 Temperature Pulse Rate 74 81 72 Respiratory Rate 20 20 Blood Pressure Pulse Oximetry 01/16/20 20:00 01/16/20 21:06 01/16/20 21:16 Temperature 37.1 C Pulse Rate 85 73 Respiratory Rate 24 H 20 Blood Pressure 105/59 L Pulse Oximetry 99 98 01/16/20 21:26 01/16/20 21:37 01/16/20 23:24 Temperature Pulse Rate 76 78 63 Respiratory Rate 20 Blood Pressure Pulse Oximetry 01/16/20 23:26 01/17/20 02:30 01/17/20 02:47 Temperature 36.1 C L Pulse Rate 63 63 60 Respiratory Rate 24 H 20 20 Blood Pressure 92/50 L Pulse Oximetry 100 01/17/20 03:18 01/17/20 03:20 01/17/20 08:00 Temperature 36.1 C L 36.1 C L Pulse Rate 58 L 58 L 66 Respiratory Rate 22 H 18 Blood Pressure 96/44 L 90/62 L Pulse Oximetry 100 100 01/17/20 08:01 01/17/20 08:08 01/17/20 09:34 Temperature Pulse Rate 59 L 64 60 Respiratory Rate 22 H 22 H Blood Pressure Pulse Oximetry 99 01/17/20 12:00 Temperature Pulse Rate 61 Respiratory Rate Blood Pressure Pulse Oximetry Intake/Output Intake/Output: Intake & Output 01/14/20 01/15/20 01/16/20 01/17/20 23:59 23:59 23:59 23:59 Intake Total 790 1330 930 Output Total 1075 800 Balance 790 255 130 Meds/Results Medications: Active Medications Generic Name Dose Route Start Last Admin Trade Name Freq PRN Reason Stop Dose Admin Hydrocodone Bitart/Acetaminophen 2 tab 01/16/20 02:43 01/17/20 09:34 [place] 5-325 Mg PO 2 tab Q4H PRN Administrat
[2020-01-17] MEDS: LACTATED RINGERS 1,000 ML 150 ML IV CONT (13:13)
--- NOTE | 2020-01-17 14:34 | SUR.OPER ---
130 ML 0.9% Sodium Chloride uses for Bronchoscopy Irrigation, BAL Washings
--- NOTE | 2020-01-17 15:34 | SUR.PHASEII ---
PCXR DONE IN ENDOSCOPY RM 10
[2020-01-17] MEDS: LACTATED RINGERS 500 ML 999 ML IV CONT (17:13)
[2020-01-17 17:37] LABS: Appearance Bronchial Fluid Turbid; Color Bronchial Fluid White; Neutrophils Bronchial Fluid 89 %; Source Bronchial Fluid Bronchial Washings
[2020-01-17 17:38] LABS: Eosinophils Bronchial Fluid 0 %; Lymphocytes Bronchial Fluid 3 %; Macrophages Bronchial Fluid 1; Monocytes Bronchial Fluid 7 %; Other Cells Bronchial Fluid 0 %
--- NOTE | 2020-01-17 17:42 | CONS_ITS ---
DATE OF CONSULTATION: 01/17/2020 REASON FOR CONSULTATION: Pulmonary MAC. HISTORY OF PRESENT ILLNESS: A 64-year-old male who has not been in this hospital previously. He was hospitalized at [facility] for approximately 3 weeks at the end of 2017 and beginning of 2018. He had a bronchoscopy performed at that time for shortness of breath, cough, weight loss, and abnormal radiographs. Culture revealed pulmonary MAC. Fax reports do not indicate susceptibilities being done. He was given azithromycin, ethambutol 800 mg daily and rifampin 600 mg daily for 18 months. This is in contrast to the discharge summary, which indicates azithromycin being given only for several days after discharge. Regardless, the patient reports he took his antibiotics faithfully for the next 18 months. At 12 months, he reports his pulmonary medicine specialist found persistent abnormalities on chest CT and medication was continued for another 6 months. His specialist then moved out of the area and the patient did not get further refills since September of this year. Over those 18 months, he had some improvement in his symptoms. He remained on home O2 p.r.n. 2.5 L. He still had some persistent fatigue, but no cough, sputum production, fever, or chest pain. He did have dyspnea on exertion, relieved with O2. Soon after his antibiotics and until the present admission, he had return in dyspnea on exertion, even with oxygen, sputum production, and generalized weakness. The patient denies any acute events, which prompted his visit to the emergency room on January 14. Other than his insisting that he do so. When was admitted, he has been given ceftriaxone, vancomycin, ampicillin sulbactam, and azithromycin various time. Also was given steroids in the form of methylprednisolone 3 doses. No other steroids. No other recent antibiotics in the last 3 months. He has had no exposures recently, though he was told cleaning birds nests in his attic may have led to his present illness. The patient in recent weeks has been on continuous O2, still at 2.5 L. He has had some blood-tinged sputum. ALLERGIES: NONE KNOWN. PRESENT MEDICATIONS: List reviewed. No ongoing steroids. HABITS: Ex-smoker. No alcohol. No illicit drugs. PAST MEDICAL HISTORY: In addition to the above, PAF, anxiety and chronic anemia. FAMILY HISTORY: No tuberculosis and the patient had a QuantiFERON nonreactive in [place], 21 months ago. Crohn's disease and cancer do run in his family. REVIEW OF SYSTEMS: Weight loss, which had stabilized about 130 pounds earlier this year. Now has lost another 13 pounds since October, down to 117. 14-point review otherwise negative. Appetite has been excellent. PHYSICAL EXAMINATION: GENERAL: This is a cachectic male, in no respiratory distress. VITAL SIGNS: Afebrile since arrival, 99% on 2.5 L, pulse 64, respirations 22, 90/62, similar to previous values. SKIN: Warm and dry. Decreased turgor. No rashes. No jaundice. NODES: He has no supraclavicular, cervical adenopathy. EENT: Pupils equal, round, and reactive to light. He is edentulous. Oropharynx, oral mucosa normal. Sinuses without tenderness, erythema, edema. LUNGS: Diminished breath sounds. Mildly prolonged expiratory phase. No wheezes or rhonchi. Breath sounds are vesicular. Clear to percussion. Chest equal expansion. Normal AP diameter. CARDIAC: Soft, S1, S2. Regular rate and rhythm at present time. Pulses 2+ and equal at radials. ABDOMEN: Scaphoid, nontender. No masses, organomegaly. Nondistended. EXTREMITIES: No clubbing, cyanosis, edema. He does have muscle wasting over the face as well as the upper and lower extremities. LABORATORY DATA: White count was 11.2 on admission, 8.7 yesterday, 15.8 today, hemoglobin 8
[2020-01-17] MEDS: BENZONATATE 100 MG CAPSULE 200 MG PO (17:47)
[2020-01-17] MEDS: guaiFENesin/DEXTROMETHORPHAN 10 ML UDC 5 ML PO ×2 (17:47→23:04)
[2020-01-17] MEDS: LACTATED RINGERS 1,000 ML 100 ML IV CONT ×2 (17:52→23:03)
[2020-01-18] VITALS (23 sets, daily range): BP systolic 91–121; BP diastolic 43–67; PULSE 56–172; RESP 18–24; TEMP 36.2–36.6; O2SAT 96–100
[2020-01-18] MEDS: IPRATROPIUM BR 0.02% INH SOLN 0.5 MG/2.5 ML VIAL INHALATION ×3 (01:55→13:36)
[2020-01-18] MEDS: ALBUTEROL SULFATE NEB 2.5 MG/0.5 ML INH 5 MG INHALATION ×3 (01:55→13:36)
[2020-01-18] MEDS: HYDROcodone/acetaminophen (*CRX) 5-325 MG TABLET 2 TAB PO ×4 (03:46→22:51)
[2020-01-18 04:51] LABS: Basophils Absolute Auto 0.1 K/mm3 (0.0-0.1); Basophils Percent Auto 0.6 % (0.2-1.2); Eosinophils Absolute Auto 0.4 K/mm3 (0-0.3); Eosinophils Percent Auto 3.7 % (0-4.4); Hematocrit 31.8 % (42.0-52.0); Hemoglobin 9.3 g/dL (14.0-18.0); Immature Granulocyte Absolute 0.08 K/mm3 (0.00-0.031); Immature Granulocyte Percent A 0.7 % (0-0.5); Lymphocytes Percent Auto 14.3 % (18.3-44.2); Mean Corpuscular HGB Conc 29.2 g/dl (32-36); Mean Corpuscular Hemoglobin 25.7 pg (26-34); Mean Corpuscular Volume 87.8 fl (80-100); Mean Platelet Volume 8.2 fl (7.4-10.4); Monocytes Absolute Auto 1.1 K/mm3 (0.1-0.6); Monocytes Percent Auto 9.2 % (2.6-8.5); Neutrophils Absolute Auto 8.5 K/mm3 (1.3-6.7); Neutrophils Percent Auto 71.5 % (45.5-73.1); Platelet Count Result 407 k/mm3 (150-375); Red Blood Count 3.62 M/mm3 (4.6-6.20); Red Cell Distribution Width 14.5 % (11.5-14.5); White Blood Count 11.9 K/mm3 (4.5-10.0)
[2020-01-18 05:08] LABS: Alanine Aminotransferase 21 U/L (4-50); Alkaline Phosphatase 56 U/L (38-126); Anion Gap -0.00001 mmol/L (8-16); Aspartate Amino Transferase 25 U/L (17-59); Bilirubin,Total 0.2 mg/dL (0.2-1.3); Blood Urea Nitrogen 21 mg/dL (9-20); CRP 2.2 mg/dL (<1.0); Carbon Dioxide > 40 mmol/L (22-30); Chloride 99 mmol/L (98-107); Estimated CRCL calculation 74 ml/min; Estimated Glomerular Filt Rate > 60; Glucose 84 mg/dL (75-110); Magnesium 2.1 mg/dL (1.6-2.3); Phosphorus 4.3 mg/dL (2.5-4.5); Potassium 4.8 mmol/L (3.4-5.0); Sodium 139 mmol/L (137-145)
--- NOTE | 2020-01-18 07:36 | WPDANESPN ---
Anes - Prog Note Post-Op Date/Time: 01/18/20 07:36 Cardiovascular status: normal Respiratory status: other (baseline SOB, unproductive cough) Airway patency: baseline Mental status: baseline Post-Op hydration status: normal Vital Signs: Last Vital Signs Temp 36.6 C 01/17/20 23:02 Pulse 63 01/18/20 04:00 Resp 24 H 01/18/20 02:03 BP 94/60 L 01/17/20 23:02 Pulse Ox 100 01/17/20 23:02 Pain Score (VAS): 0 I/O: Intake & Output 01/17/20 01/17/20 01/18/20 15:59 23:59 07:59 Intake Total 450 2610 1000 Output Total 200 1280 Balance 450 2410 -280 Laboratory Tests 01/18/20 04:41 01/18/20 04:41 01/17/20 01/17/20 01/17/20 04:31 14:49 14:49 WBC RBC Hgb Hct MCV MCH MCHC RDW Plt Count MPV Immature Gran % (Auto) Neut % (Auto) Lymph % (Auto) [place] % (Auto) Eos % (Auto) Baso % (Auto) Lymph # (Auto) [place] # (Auto) Eos # (Auto) Baso # (Auto) Abs Immat Gran (auto) Absolute Neuts (auto) Absolute Nucleated RBC Nucleated RBC % Sodium Potassium Chloride Carbon Dioxide Anion Gap BUN Creatinine Estim Creat Clear Calc Estimated GFR Glucose Calcium Phosphorus Magnesium 2.1 Total Bilirubin AST ALT Alkaline Phosphatase C-Reactive Protein Total Protein Albumin TSH (Reflex) Bronch Specimen Source Bronchial washings Bronchial Fluid Color White Bronchial Fluid Appearance Turbid Bronchial Neutrophils 89 Bronchial Lymphocytes 3 Bronchial Monocytes 7 Bronchial Eosinophils 0 Bronchial Macrophages 1 Bronchial Other Cells 0 Resp Virus Cult Rapid Pending 01/18/20 01/18/20 01/18/20 04:41 04:41 04:41 WBC 11.9 H RBC 3.62 L Hgb 9.3 L Hct 31.8 L MCV 87.8 MCH 25.7 L MCHC 29.2 L RDW 14.5 Plt Count 407 H MPV 8.2 Immature Gran % (Auto) 0.7 H Neut % (Auto) 71.5 Lymph % (Auto) 14.3 L [place] % (Auto) 9.2 H Eos % (Auto) 3.7 Baso % (Auto) 0.6 Lymph # (Auto) 1.70 [place] # (Auto) 1.1 H Eos # (Auto) 0.4 H Baso # (Auto) 0.1 Abs Immat Gran (auto) 0.08 H Absolute Neuts (auto) 8.5 H Absolute Nucleated RBC 0.0 Nucleated RBC % 0.0 Sodium 139 Potassium 4.8 Chloride 99 Carbon Dioxide > 40 H Anion Gap -0.99904 L BUN 21 H Creatinine 0.70 Estim Creat Clear Calc 74 Estimated GFR > 60 Glucose 84 Calcium 9.0 Phosphorus 4.3 Magnesium 2.1 Total Bilirubin 0.2 AST 25 ALT 21 Alkaline Phosphatase 56 C-Reactive Protein 2.2 H Total Protein 7.0 Albumin 3.0 L TSH (Reflex) 2.510 Bronch Specimen Source Bronchial Fluid Color Bronchial Fluid Appearance Bronchial Neutrophils Bronchial Lymphocytes Bronchial Monocytes Bronchial Eosinophils Bronchial Macrophages Bronchial Other Cells Resp Virus Cult Rapid Microbiology 01/16/20 10:03 Sputum Acid Fast Bacilli Culture - Preliminary Post-procedural complaints: none Patient Feedback: Patient satisfied with anesthetic care.
[2020-01-18] MEDS: FAMOTIDINE 20 MG TABLET 40 MG PO ×2 (09:12→20:24)
[2020-01-18] MEDS: POTASSIUM CHLORIDE 20 MEQ TABLET.ER PO (09:13)
[2020-01-18] MEDS: BENZONATATE 100 MG CAPSULE 200 MG PO ×3 (09:13→17:06)
[2020-01-18] MEDS: guaiFENesin 12 HR 600 MG TABCR PO ×2 (09:13→20:24)
--- NOTE | 2020-01-18 12:49 | PM.IMPN ---
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 Imaging shows a cavitary lesion. Infectious disease and pulmonology following. Appreciate further recommendations. S/p bronchoscopy yesterday 01/16. Today he remains on ceftriaxone monotherapy while awaiting cultures from bronchoscopy washings. (2) Hemoptysis: Code(s): R04.2 - Hemoptysis Status: Acute Assessment and Plan: Secondary to above (3) Chronic respiratory failure with hypoxia, on home oxygen therapy: Code(s): J96.11 - Chronic respiratory failure with hypoxia; Z99.81 - Dependence on supplemental oxygen Status: Acute Assessment and Plan: Patient uses 2.5L/min O2 home. Tolerating his home requirement today. (4) COPD with emphysema: Code(s): J43.9 - Emphysema, unspecified Status: Acute Assessment and Plan: Continue nebulized bronchodilator therapy with albuterol and Atrovent. Incruse Ellipta held in light of duo nebs. Appreciate pulmonology input. (5) Abnormal chest CT: Code(s): R93.89 - Abnormal findings on diagnostic imaging of other specified body structures Status: Acute Assessment and Plan: Imaging shows bronchiectasis and bilateral lung disease with bandlike consolidation, thick-walled cavitary lesions and multiple pulmonary nodules. Follow-up CT in 3-6 months is recommended to rule out malignancy. (6) Paroxysmal atrial fibrillation: Code(s): I48.0 - Paroxysmal atrial fibrillation Status: Acute Assessment and Plan: In sinus rhythm this morning. Given his hypotension, will decrease sotalol and monitor. (7) Anxiety: Code(s): F41.9 - Anxiety disorder, unspecified Status: Acute Assessment and Plan: Stable. (8) Chronic anemia: Code(s): D64.9 - Anemia, unspecified Status: Acute Assessment and Plan: Chronic. H&H low but stable. Anemia studies earlier this year appear consistent with anemia of chronic disease. No evidence of acute bleeding. Monitor CBC. Subjective Date/time seen: 01/18/20 0915 Interval history: Mr. Zavala is a 64yo M admitted for pulmonary mycobacterium avium infection with COPD. He reports feeling a bit improved today. He denies any chest pain per se but is having lower anterior chest wall tenderness with coughing and deep breaths. Coughed up a bit of a sputum this morning that was pink which he describes was new today. Slept well last night. Tolerating oral intake without nausea vomiting. Review of Systems Review of Systems: Narrative: Twelve systems were reviewed with pertinent positives and negatives as per HPI. Exam Narrative: Exam Narrative: General: Cachectic male resting sitting on edge of bed in no acute distress. HEENT: Normocephalic, EOMI, oral mucosa tacky. Cardiovascular: Rate and rhythm are regular. Respiratory: Diffuse expiratory wheezing and rhonchi throughout all [place]. Respirations are even and nonlabored. Tolerating 2.5 L/min NC. Abdomen: Soft, non-tender, non-distended, bowel sounds present. Extremities: Peripheral pulses intact. No edema. Neuro: No focal neurological deficits. Speech is clear. Objective Data Vital Signs Vital Signs: Last Vital Signs Temp 97.8 F 01/18/20 12:31 Pulse 79 01/18/20 1
--- NOTE | 2020-01-18 13:35 | WPDINFPN2 ---
Progress Note: A&P Assessment and Plan (1) Bilateral pneumonia: Code(s): J18.9 - Pneumonia, unspecified organism Status: Acute Assessment and Plan: 1. Pulmonary MAC, non cavitary, rx azithro/ethambutol/rifampin x 18 months, partial response clinically (although no repeat sputum done). New AFB smear negative 2. COPD exacerbation REC New endobronchial cultures for routine/fungal/AFB in process. Ctx #2 (antibiotic #4), maybe for 1 -2 days more. No isolation. Re-treatment anticipated, guided by new culture. If no AFB growth, I plan 12 months more of the same 3 drugs, though back down to 3 times weekly rather than daily. In absence of demonstrable drug resistance, or radiographic/clinical relapse in the next 18 months, I don't think that her requires a totally new regimen. Latter would by necessity be more complex and with higher side effect/toxicity potential. Subjective Date/time seen: 01/18/20 13:35 Interval history: coughing spell x 30 minutes this am, resulting in chest pain. Some hemoptysis Exam Narrative: Exam Narrative: afebrile Const: General: no acute distress Eyes: General: appearance normal, both eyes and all related structures Resp: Effort & Inspection: normal respiratory effort Auscultation: clear to auscultation bilaterally and diminished lung sounds Cardio: Rate: regular rate Rhythm: regular rhythm Heart sounds: no gallops and no murmurs GI: Inspection: non-distended GI Palp: Yes Soft to palpation and No Tenderness to palpation present (GI) Objective Data Vital Signs Vital Signs: Vital Signs - 24 hr 01/17/20 14:31 01/17/20 14:41 01/17/20 14:51 Temperature 36.5 C 36.3 C L Pulse Rate 92 90 75 Respiratory Rate 18 31 H 32 H Blood Pressure 150/116 H 155/97 H 90/49 L Pulse Oximetry 96 95 97 01/17/20 15:01 01/17/20 15:11 01/17/20 15:21 Temperature Pulse Rate 66 63 65 Respiratory Rate 30 H 33 H Blood Pressure 79/50 L 78/55 L 73/45 L Pulse Oximetry 97 98 100 01/17/20 15:31 01/17/20 16:00 01/17/20 16:14 Temperature 35.8 C L Pulse Rate 63 80 86 Respiratory Rate 27 H 20 28 H Blood Pressure 83/51 L 81/59 L Pulse Oximetry 98 100 01/17/20 16:21 01/17/20 17:53 01/17/20 19:56 Temperature Pulse Rate 71 85 Respiratory Rate 28 H Blood Pressure 92/62 L Pulse Oximetry 01/17/20 20:42 01/17/20 20:53 01/17/20 23:01 Temperature Pulse Rate 75 73 58 L Respiratory Rate 24 H 24 H Blood Pressure Pulse Oximetry 98 01/17/20 23:02 01/18/20 01:55 01/18/20 02:03 Temperature 36.6 C Pulse Rate 61 70 73 Respiratory Rate 22 H 24 H 24 H Blood Pressure 94/60 L Pulse Oximetry 100 01/18/20 04:00 01/18/20 07:00 01/18/20 08:00 Temperature Pulse Rate 63 88 56 L Respiratory Rate 20 Blood Pressure Pulse Oximetry 01/18/20 08:10 01/18/20 09:13 01/18/20 10:00 Temperature 36.4 C Pulse Rate 63 84 80 Respiratory Rate 21 H Blood Pressure 91/43 L Pulse Oximetry 100 01/18/20 12:00 01/18/20 12:31 Temperature 36.6 C Pulse Rate 75 79 Respiratory Rate 22 H Blood Pressure 100/66 Pulse Oximetry 100 Intake/Output Intake/Output: Intake & Output 01/15/20 01/16/20 01/17/20 01/18/20 23:59 23:59 23:59 23:59 Intake Total 790 1330 3940 3110 Output Total 1075 1000 1280 Balance 169 954 2454 1830 Meds/Results Medications: Active Medications Generic Name Dose Route Start Last Admin Trade Name Freq PRN Reason Stop Dose Admin Hydrocodone Bitart/Acetaminophen 1 tab 01/18/20 09:38 [place] 5-325 Mg PO Q4H PRN Pain Rated 4-6 Hydrocodone Bitart/Acetaminophen 2 tab 01/18/20 09:37 01/18/20 12:33 [place] 5-325 Mg PO 2 tab Q4H PRN Administration Pain Rated 7-10 Albuterol 5 mg 01/15/20 20:00 01/18/20 08:27 Albuterol Sulf Neb 2.5mg/0.5ml INHALATION 5 mg Q6HRT ROBBI Administration Benzonatate 200 mg 01/17/20 17:00 01/18/20 12:36 Tessalon Perles PO 200 mg TID ROBBI Administration
[2020-01-18] MEDS: guaiFENesin/DEXTROMETHORPHAN 10 ML UDC 5 ML PO (17:06)
--- NOTE | 2020-01-18 17:19 | PM.PNPUL ---
Progress Note: A&P Assessment and Plan (1) COPD with emphysema: Qualifiers: Emphysema type: unspecified Qualified Code(s): J43.9 - Emphysema, unspecified Code(s): J43.9 - Emphysema, unspecified Status: Acute Assessment and Plan: - will stop duonebs, change to Xopenex with tachycardia Q6h scheduled - home oxygen assessment prior to discharge - resume Incruse with p.r.n. Xopenex upon discharge; he was on Symbicort at one point however his insurance would not cover this. He was able to obtain Incruse - umeclidinium, LAMA alone - he needs 3 inhaled meds for his advanced COPD. - he has bronchiectasis and thick cavitary lesions mixed with emphysema. He may be a candidate for a vibratory vest to assist with clearance of secretions. (2) Hemoptysis: Code(s): R04.2 - Hemoptysis Status: Acute Assessment and Plan: Jan 6 - today he had a small amount of blood with an intense coughing episode this morning; Also he had some prior to admission; The bronchoscopy may have irritated his airways. (3) Atypical pneumonia: Code(s): J18.9 - Pneumonia, unspecified organism Status: Acute Assessment and Plan: Bilateral infiltrates after treatment for 18 months for MAC. He is now on Ceftriaxone alone, and additional therapy will be changed based on bronch results. These may take a while to finalize, as AFB can take up to [address] findings could be suggestive of recurrent MAC but could also be community acquired pneumonia, malignancy or invasive aspergillosis. Bronch so far showed no fungi or AFB in the specimen; Gram stain - mixed bacterial soo. - antibiotics per Dr Piper's recommendations; he is awaiting the culture results from the bronchoscopy yesterday. - obtain notes and records from Dr. Kate's office as well as last CT chest to compare. (4) Paroxysmal atrial fibrillation: Code(s): I48.0 - Paroxysmal atrial fibrillation Status: Acute Assessment and Plan: He has had this in the past; his prenatal nurse is Dr Steiner at [place]. He received his sotalol early, may need something else. His blood pressure has been low, so this is the problem with giving him rate controlling medications. Will order echo for tomorrow. He has likely had one at Dr Steiner's office, however he needs this here to assure to document pulmonary pressures as well as cardiac function. His chest CT shows enlarged pulmonary arteries. Subjective Date/time seen: 01/18/20 17:19 This patient is seen in follow up after a bronchoscopy yesterday. He had MAC infection treated for 18 months, then lost coverage for medications and his doctor. He was without treatment, had weight loss and worsening symptoms. Today, he had an intense coughing episode and had a small amount of hemoptysis as well. Coughing blood can happen with extreme coughing. He is now in atrial fib with rapid ventricular response, 150-170s. He got his sotalol early at 16:30 instead of 21:00. his Eileen is at the bedside. His specimens so far show no fungal or AFB. The Gram stain showed lower respiratory tract microorganisms with many WBC, so a specimen that is manufacturer representative of the lower respiratory tract. The cultures are pending. He is on ceftriaxone. Plans noted to treat with his prior regimen for MAC x 18 months if this is recovered on the bronchoscopy specimen. Review of Systems Review of Systems: Narrative: He is eating more, trying to put on weight. Musculoskeletal: Comments: left lower chest pain from coughing Exam Const: General: comfortable and no acute distress Eyes: General: appearance normal, both eyes and all related structures Neck: Neck: supple
--- NOTE | 2020-01-18 17:50 | ECG_ITS ---
Measurements Intervals [place] Rate: 153 P: [place]: 0 QRS: 72 QRSD: 87 T: 71 QT: 267 QTc: 426 Interpretive Statements ATRIAL FIBRILLATION WITH RAPID VENTRICULAR RESPONSE INCOMPLETE RIGHT BUNDLE BRANCH BLOCK BORDERLINE ST-T WAVE ABNORMALITY- ANT/HIGH LAT LEADS ABNORMAL ECG Electronically Signed On 01-18-2020 19:35:58 CDT by Odell Montero D.O.
[2020-01-18] MEDS: SOTALOL HCL 20 MG TABLET PO ×2 (18:05→18:23)
[2020-01-18] MEDS: LEVALBUTEROL HFA (*SP) 15 GM INHALER 2 PUFF INHALATION (20:10)
[2020-01-19] VITALS (24 sets, daily range): BP systolic 92–108; BP diastolic 57–83; PULSE 55–162; RESP 18–22; TEMP 35.7–36.4; O2SAT 97–100
--- NOTE | 2020-01-19 | ECHO_ITS ---
Patient Info Name: Ramakrishna Zavala Age: 64 years : 1955 Gender: Male Ht: 69 in Wt: 108 lbs BSA: 1.53 m2 HR: 71 bpm BP: 96 / 65 mmHg Heart Rhythm: Sinus Rhythm Technical Quality: Good Exam Date: 01/19/2020 1:40 PM Exam Location: [facility] Patient Status: Inpatient Admit Date: 01/17/2020 Staff Ordering Physician: Coreen Wu MD Shoemaking Cutter: Nathaniel Eubanks RDCS, RT Attending Provider: Thalia Cantor PA-C Referring Physician: Jazmin CRABTREE; Exam Type: CA echo doppler color flow Study Info Indications I48.1 - Persistent atrial fibrillation Complete two-dimensional, color flow and Doppler transthoracic echocardiogram is performed. Summary 1. Complete two-dimensional, color flow and Doppler transthoracic echocardiogram is performed. 2. Left ventricular chamber size, wall thickness, systolic and diastolic function are normal with no regional wall motion abnormalities with an estimated ejection fraction of 60-65%. 3. Right ventricular chamber dimension is mildly enlarged with moderate hypokinesis. 4. Mild pulmonary hypertension, estimated pulmonary arterial systolic pressure is 41 mmHg. 5. No significant valve disease. 6. Normal sinus rhythm. Left Ventricle Left ventricular chamber dimension is normal. Left ventricular systolic function is normal, estimated at 60-65%. There is no increased left ventricular wall thickness. Left ventricular septal wall motion is normal. The left ventricular diastolic function is normal. Left ventricular chamber size, wall thickness, systolic and diastolic function are normal with no regional wall motion abnormalities with an estimated ejection fraction of 60-65%. Right Ventricle Right ventricular chamber dimension is mildly enlarged with moderate hypokinesis. Right ventricular systolic function is reduced. Left Atria Left atrial chamber dimension is normal. Right Atria Right atrial chamber dimension is normal. Aortic Valve The aortic valve is trileaflet. There is no aortic valve sclerosis. There is no aortic valve stenosis. There is no aortic valve regurgitation. Pulmonic Valve The pulmonic valve is normal. There is no pulmonic valve stenosis. There is no pulmonic regurgitation. Mitral Valve The mitral valve has normal leaflets. There is no mitral valve stenosis. There is no mitral valve regurgitation. Tricuspid Valve The tricuspid valve leaflets are normal. There is no significant tricuspid valve stenosis. There is trace tricuspid valve regurgitation. Mild pulmonary hypertension, estimated pulmonary arterial systolic pressure is 41 mmHg. Pericardium/Pleural The pericardium appears normal. There is no pericardial effusion. Inferior Vena Cava Normal inferior vena cava with >50% collapse upon inspiration consistent with Empty right atrial pressure, 10 mmHg. Aorta The aortic root size at the sinus of Valsalva is normal. The prox ascending aorta size is normal. Left Ventricular Outflow Tract Name Value Normal LVOT 2D LVOT Diameter 2.0 cm LVOT Doppler LVOT Peak Gradient 2 mmHg
[2020-01-19] MEDS: LEVALBUTEROL HFA (*SP) 15 GM INHALER 2 PUFF INHALATION ×4 (00:01→19:45)
[2020-01-19] MEDS: HYDROcodone/acetaminophen (*CRX) 5-325 MG TABLET 2 TAB PO ×5 (04:29→23:18)
[2020-01-19 05:20] LABS: Basophils Absolute Auto 0.1 K/mm3 (0.0-0.1); Basophils Percent Auto 0.5 % (0.2-1.2); Eosinophils Absolute Auto 0.6 K/mm3 (0-0.3); Eosinophils Percent Auto 3.7 % (0-4.4); Hemoglobin 9.5 g/dL (14.0-18.0); Immature Granulocyte Absolute 0.19 K/mm3 (0.00-0.031); Immature Granulocyte Percent A 1.1 % (0-0.5); Lymphocytes Absolute Auto 2.12 K/mm3 (0.9-3.2); Lymphocytes Percent Auto 12.4 % (18.3-44.2); Mean Corpuscular HGB Conc 29.7 g/dl (32-36); Mean Corpuscular Volume 87.7 fl (80-100); Mean Platelet Volume 8.6 fl (7.4-10.4); Monocytes Absolute Auto 1.8 K/mm3 (0.1-0.6); Monocytes Percent Auto 10.5 % (2.6-8.5); Neutrophils Absolute Auto 12.2 K/mm3 (1.3-6.7); Neutrophils Percent Auto 71.8 % (45.5-73.1); Platelet Count Result 457 k/mm3 (150-375); Red Blood Count 3.65 M/mm3 (4.6-6.20); Red Cell Distribution Width 14.7 % (11.5-14.5); White Blood Count 17.1 K/mm3 (4.5-10.0)
[2020-01-19 05:37] LABS: Anion Gap 5 mmol/L (8-16); Blood Urea Nitrogen 26 mg/dL (9-20); Calcium 8.9 mg/dL (8.4-10.2); Carbon Dioxide 37 mmol/L (22-30); Chloride 97 mmol/L (98-107); Estimated CRCL calculation 57 ml/min; Estimated Glomerular Filt Rate > 60; Glucose 104 mg/dL (75-110); Potassium 4.5 mmol/L (3.4-5.0); Sodium 139 mmol/L (137-145)
[2020-01-19] MEDS: SOTALOL HCL 40 MG TABLET PO ×2 (08:10→20:55)
[2020-01-19] MEDS: FAMOTIDINE 20 MG TABLET 40 MG PO ×2 (08:10→20:56)
[2020-01-19] MEDS: MIDODRINE HCL 10 MG TABLET PO ×3 (08:11→16:29)
[2020-01-19] MEDS: guaiFENesin 12 HR 600 MG TABCR PO ×2 (08:11→20:56)
[2020-01-19] MEDS: POTASSIUM CHLORIDE 20 MEQ TABLET.ER PO (08:11)
[2020-01-19] MEDS: BENZONATATE 100 MG CAPSULE 200 MG PO ×3 (08:11→16:29)
[2020-01-19] MEDS: DIGOXIN INJ 250 MCG/ML 2 ML AMP (*BKC) 500 MCG IV PUSH (08:40)
--- NOTE | 2020-01-19 11:00 | ECG_ITS ---
Measurements Intervals [place] Rate: 101 P: NC: 0 QRS: 69 QRSD: 88 T: 85 QT: 313 QTc: 406 Interpretive Statements ATRIAL FIBRILLATION WITH RAPID VENTRICULAR RESPONSE INCOMPLETE RIGHT BUNDLE BRANCH BLOCK NONSPECIFIC T-WAVE ABNORMALITY- LATERAL LEADS BASELINE ARTIFACT- III, V1-V3, V5-V6 ABNORMAL ECG Electronically Signed On 01-19-2020 10:55:07 CDT by Odell Montero D.O.
--- NOTE | 2020-01-19 11:15 | WPDCN ---
Assessment and Plan Assessment and plan (1) Paroxysmal atrial fibrillation: Code(s): I48.0 - Paroxysmal atrial fibrillation Status: Acute Assessment and Plan: Patient with a history of PAF, went back and AFib RVR last night partly due to the physiologic stress of his pulmonary problems and perhaps also since his sotalol dose was decreased because of his low blood pressure. In any case he was given a dose of digoxin 0.5 mg IV push and has subsequently converted to sinus rhythm. Echo is pending If recurrent a fib or he can't tolerate usual dose of sotalol, can continue p.o. digoxin at a low dose ( 0.125 mg q.d.) as the patient's muscle mass seems to be diminished. Try to continue sotalol 40 mg b.i.d. if blood pressure allows (2) Low blood pressure: Code(s): I95.9 - Hypotension, unspecified Status: Acute Assessment and Plan: patient's blood pressures been running 90-100 for the most part, asymptomatic. Started on midodrine this morning Continue to follow (3) Atypical pneumonia: Code(s): J18.9 - Pneumonia, unspecified organism Status: Acute Assessment and Plan: On antibiotics and Dr. Piper has been consulted. History of MAC (4) COPD with emphysema: Qualifiers: Emphysema type: unspecified Qualified Code(s): J43.9 - Emphysema, unspecified Code(s): J43.9 - Emphysema, unspecified Status: Acute Assessment and Plan: treatment per hospitalist. HPI Data of Consult Date/Time: 01/19/20 11:15 Requesting Physician: ARNULFO Feng Primary Care Provider: PHYSICIAN NOT ON STAFF Consult Narrative Narrative: Date of service: 2019 Ramakrishna Zavala is a 64 year old male whom I was asked to see at the request of hospitalist LEXIE Feng, for my advice and opinion regarding his AFib RVR, in consultation. The patient has history of PAF followed by Dr. Steiner at [place]. He also had history COPD, MAC. The patient was admitted on January 14 with an exacerbation of COPD and atypical pneumonia. He had lost his insurance coverage and was without his meds for his MAC. He has been having problems with hypotension (chronically runs a SBP in the 90's), and his sotalol was reduced on 01/18/2020 from 40 mg BID to 20 mg b.i.d.. However, he went and AFib RVR with heart rates up to the 170s. His blood pressure remains in the 90s, so he was started on midodrine. He was given his sotalol 40 mg this morning but is AFib rate was still high. He only felt minor palps. I was consulted and I recommended digoxin 0.5 mg IV push x1. Subsequently sinus rhythm has been restored. Overall his breathing is better than on admission. The patient's AFib started about a year ago. He is followed by Dr. Steiner and tells me his heart is strong by Echo and heart catheterization showed no blockages. He was started on sotalol. He was on warfarin for while but because of hemoptysis and irregular INR follow-up this was discontinued. He does not notice the AFib much, just feels a little fluttering when it occurs. No dizziness, or chest pain but has chronic HARMON. Review of Systems Constitutional: Constitutional: Reports fatigue Eyes: Eyes: Reports no additional eye complaints ENT: Denies epistaxis Cardiovascular: Cardiovascular: Denies chest pain, Reports pedal edema (None for a long time), Reports leg edema, Denies lightheadedness and Reports palpitations Respiratory: Respiratory: Reports chest congestion, Reports cough, Reports hemoptysis, Reports dyspnea and Reports dyspnea on exertion Gastrointestinal: Gastrointestinal: Denies abdominal pain and Reports nausea (Meds for MAC cause GI problems) Genitourinary: Genitourinary: Denie
--- NOTE | 2020-01-19 12:25 | WPDINFPN2 ---
Progress Note: A&P Assessment and Plan (1) Bilateral pneumonia: Code(s): J18.9 - Pneumonia, unspecified organism Status: Acute Assessment and Plan: 1. Pulmonary MAC, non cavitary, rx azithro/ethambutol/rifampin x 18 months, partial response clinically (although no repeat sputum done). New AFB smear negative 2. COPD exacerbation 3. Rapid AF 4. Leukocytosis due to #2, also due to corticosteroids given earlier in hospital stay REC New endobronchial cultures for routine/fungal/AFB in process. Ctx #3 (antibiotic #5), continue at least 1 day more. No isolation. Re-treatment anticipated, guided by new culture. Subjective Date/time seen: 01/19/20 12:25 Interval history: palpitations Exam Narrative: Exam Narrative: afebrile Const: General: no acute distress Resp: Effort & Inspection: normal respiratory effort Auscultation: clear to auscultation bilaterally and diminished lung sounds Cardio: Rate: regular rate Rhythm: abnormal rhythm Other: tachycardic earlier GI: Inspection: non-distended GI Palp: Yes Soft to palpation and No Tenderness to palpation present (GI) Objective Data Vital Signs Vital Signs: Vital Signs - 24 hr 01/18/20 12:31 01/18/20 13:37 01/18/20 14:00 Temperature 36.6 C Pulse Rate 79 87 70 Respiratory Rate 22 H Blood Pressure 100/66 Pulse Oximetry 100 01/18/20 15:31 01/18/20 16:00 01/18/20 17:57 Temperature 36.6 C Pulse Rate 86 67 172 H Respiratory Rate 22 H 22 H Blood Pressure 98/57 L 121/67 Pulse Oximetry 98 98 01/18/20 18:00 01/18/20 18:05 01/18/20 18:23 Temperature Pulse Rate 167 H 167 H 171 H Respiratory Rate Blood Pressure Pulse Oximetry 01/18/20 19:43 01/18/20 20:00 01/18/20 22:00 Temperature 36.2 C L Pulse Rate 153 H 137 H 148 H Respiratory Rate 18 18 Blood Pressure 102/61 Pulse Oximetry 98 98 01/18/20 22:30 01/18/20 23:02 01/19/20 00:00 Temperature 36.4 C Pulse Rate 155 H 139 H 153 H Respiratory Rate 20 Blood Pressure 106/62 Pulse Oximetry 96 01/19/20 03:09 01/19/20 04:00 01/19/20 05:32 Temperature 36.2 C L Pulse Rate 138 H 148 H 148 H Respiratory Rate 20 Blood Pressure 92/71 L Pulse Oximetry 100 01/19/20 05:34 01/19/20 08:00 01/19/20 08:10 Temperature Pulse Rate 150 H 147 H 162 H Respiratory Rate Blood Pressure Pulse Oximetry 01/19/20 08:25 01/19/20 08:37 01/19/20 08:40 Temperature 36.3 C L Pulse Rate 154 H 156 H Respiratory Rate 21 H Blood Pressure 96/65 L Pulse Oximetry 98 99 01/19/20 09:47 01/19/20 10:00 Temperature Pulse Rate 114 H Respiratory Rate Blood Pressure 107/83 Pulse Oximetry Intake/Output Intake/Output: Intake & Output 01/16/20 01/17/20 01/18/20 01/19/20 23:59 23:59 23:59 23:59 Intake Total 1330 3940 3990 730 Output Total 1075 1000 1680 225 Balance 255 2940 2310 505 Meds/Results Medications: Active Medications Generic Name Dose Route Start Last Admin Trade Name Freq PRN Reason Stop Dose Admin Hydrocodone Bitart/Acetaminophen 1 tab 01/18/20 09:38 [place] 5-325 Mg PO Q4H PRN Pain Rated 4-6 Hydrocodone Bitart/Acetaminophen 2 tab 01/18/20 09:37 01/19/20 10:08 [place] 5-325 Mg PO 2 tab Q4H PRN Administration Pain Rated 7-10 Benzonatate 200 mg 01/17/20 17:00 01/19/20 08:11 Tessalon Perles PO 200 mg TID ROBBI Administration Famotidine 40 mg 01/16/20 21:00 01/19/20 08:10 Pepcid PO 40 mg Q12HR ROBBI Administration Guaifenesin 600 mg 01/16/20 00:10 01/19/20 08:11 Mucinex 12 Hr Tab PO 600 mg Q12HR ROBBI Administration Guaifenesin/Dextromethorphan 5 ml 01/17/20 17:19 01/18/20 17:06 Robitussin-Dm Syrup PO 5 ml Q4H PRN Administration Cough Ceftriaxone Sodium/Dextrose 1 gm in 50 mls @ 100 mls/hr 01/17/20 13:00 01/18/20 13:32 Rocephin 1 Gm/D5w 50 Ml IVPB Infused Q24H ROBBI Infusion Levalbuterol HCl 2 puff 01/18/20 20:00
[2020-01-19] MEDS: guaiFENesin/DEXTROMETHORPHAN 10 ML UDC 5 ML PO (12:31)
--- NOTE | 2020-01-19 15:50 | PM.IMPN ---
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 Imaging shows a cavitary lesion. Infectious disease on board S/p bronchoscopy yesterday 01/16. one more day o ABX (2) Hemoptysis: Code(s): R04.2 - Hemoptysis Status: Resolved Assessment and Plan: Resolved (3) Chronic respiratory failure with hypoxia, on home oxygen therapy: Code(s): J96.11 - Chronic respiratory failure with hypoxia; Z99.81 - Dependence on supplemental oxygen Status: Acute Assessment and Plan: Patient uses 2.5L/min O2 home.Always on oxygen (4) COPD with emphysema: Qualifiers: Emphysema type: unspecified Qualified Code(s): J43.9 - Emphysema, unspecified Code(s): J43.9 - Emphysema, unspecified Status: Acute Assessment and Plan: Continue nebulized bronchodilator therapy with albuterol and Atrovent. Incruse Ellipta held in light of hipolitoo nebs. Appreciate pulmonology input. (5) Abnormal chest CT: Code(s): R93.89 - Abnormal findings on diagnostic imaging of other specified body structures Status: Acute Assessment and Plan: Imaging shows bronchiectasis and bilateral lung disease with bandlike consolidation, thick-walled cavitary lesions and multiple pulmonary nodules. Follow-up CT in 3-6 months. (6) Paroxysmal atrial fibrillation: Code(s): I48.0 - Paroxysmal atrial fibrillation Status: Acute Assessment and Plan: HR high all last night better now (7) Anxiety: Code(s): F41.9 - Anxiety disorder, unspecified Status: Acute Assessment and Plan: Stable. (8) Chronic anemia: Code(s): D64.9 - Anemia, unspecified Status: Acute Assessment and Plan: Chronic. H&H low but stable. Subjective Date/time seen: 01/19/20 15:50 Interval history: Mr. Zavala is a 64yo M admitted for pulmonary mycobacterium avium infection with COPD. Heart rate has been high overnite. Pt seen by ID follow recommendations. Heart rate better today, no cough today. Hopefully home tomorrow. Review of Systems Constitutional: Constitutional: Reports fatigue and Reports weakness Cardiovascular: Cardiovascular: Denies chest pain Respiratory: Respiratory: Denies cough, Denies hemoptysis, Reports dyspnea and Denies wheezing Gastrointestinal: Gastrointestinal: Denies no additional gastrointestinal complaints Musculoskeletal: Musculoskeletal: Denies no additional musculoskeletal complaints Psychiatric: Psychiatric: Denies no additional psychiatric complaints Exam Narrative: Exam Narrative: General: Cachectic male chronically ill appearing HEENT: Normocephalic Cardiovascular: Rate and rhythm are regular.@100 now Respiratory: Diffuse BL wheezing Abdomen: Soft, non-tender, non-distended, bowel sounds present. Extremities: Peripheral pulses intact. No edema. Neuro: No focal neurological deficits. Objective Data Vital Signs Vital Signs: Vital Signs - 24 hr 01/18/20 16:00 01/18/20 17:57 01/18/20 18:00 Temperature Pulse Rate 67 172 H 167 H Respiratory Rate 22 H Blood Pressure 121/67 Pulse Oximetry 98 01/18/20 18:05 01/18/20 18:23 01/18/20 19:43 Temperature 36.2 C L Pulse Rate 167 H 171 H 153 H Respiratory Rate 18 Blood Pressure 102/61 Pu
--- NOTE | 2020-01-19 18:05 | PM.PNPUL ---
Progress Note: A&P Assessment and Plan (1) COPD with emphysema: Qualifiers: Emphysema type: unspecified Qualified Code(s): J43.9 - Emphysema, unspecified Code(s): J43.9 - Emphysema, unspecified Status: Acute Assessment and Plan: - continue Xopenex; will add additional levalbuterol to use p.r.n. as this inhaler is not providing the same bronchodilation. He does not have tachycardia at present, converted back to sinus rhythm with a rate in the 60s. - home oxygen assessment prior to discharge - resume Incruse with p.r.n. Xopenex upon discharge; he was on Symbicort at one point however his insurance would not cover this. He was able to obtain Incruse - umeclidinium, LAMA alone - he needs 3 inhaled medications for his advanced COPD. - he has bronchiectasis and thick cavitary lesions mixed with emphysema. He may be a candidate for a vibratory vest to assist with clearance of secretions. (2) Hemoptysis: Code(s): R04.2 - Hemoptysis Status: Resolved Assessment and Plan: Jan 6 - today he had a small amount of blood with an intense coughing episode, resolved. Also he had some prior to admission; The bronchoscopy may have irritated his airways. (3) Atypical pneumonia: Code(s): J18.9 - Pneumonia, unspecified organism Status: Acute Assessment and Plan: Bilateral infiltrates after treatment for 18 months for MAC. He is now on Ceftriaxone alone, and additional therapy will be changed based on bronch results. These may take a while to finalize, as AFB can take up to [address] findings could be suggestive of recurrent MAC but could also be community acquired pneumonia, malignancy or invasive aspergillosis. Bronch so far showed no fungi or AFB in the specimen; Gram stain - mixed bacterial soo. - antibiotics per Dr Piper's recommendations; he is awaiting the culture results from the bronchoscopy yesterday. - obtain notes and records from Dr. Kate's office as well as last CT chest to compare. (4) Paroxysmal atrial fibrillation: Code(s): I48.0 - Paroxysmal atrial fibrillation Status: Acute Assessment and Plan: Resolved. 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 His blood pressure has been low, now on Midodrine. Echo reviewed. This shows only mild pulmonary hypertension 41 mmHg which was suggested on his chest CT with enlarged pulmonary arteries. Additional Plan CT findings could be suggestive of recurrent MAC but could also be community acquired pneumonia, malignancy or invasive aspergillosis. Bronch so far showed no fungi or AFB in the specimen; Gram stain - mixed bacterial soo. - antibiotics per Dr Piper's recommendations; he is awaiting the culture results from the bronchoscopy yesterday. - obtain notes and records from Dr. Kate's office as well as last CT chest to compare. Subjective Date/time seen: 01/19/20 18:05 This 64 yo man is seen for severe emphysema, MAC infection treated for 18 months, stopped Rx with loss of coverage; was off 5 months, worsening symptoms; weight loss, increased shortness of breath, CXR changes. He is on day#3 ceftriaxone. He can tell that the Xopenex inhaler is not as effective as the nebulized treatments with albterol & Ipratropium; these were stopped due to PAF. Today he feels better; Rapid atrial fib converted with IV digoxin. He is not coughing excessively any longer. No hemoptysis today. *Bronch Oct 5 -no growth to date. No fungal or AFB. Gram stain - lower respiratory tract microorganisms with many WBC. Cultures so far negative. *01/19/2020 echo 1.
[2020-01-20] VITALS (12 sets, daily range): BP systolic 95–118; BP diastolic 61–68; PULSE 49–74; RESP 18–20; TEMP 35.9–36.1; O2SAT 97–100
[2020-01-20] MEDS: LEVALBUTEROL HFA (*SP) 15 GM INHALER 2 PUFF INHALATION ×2 (01:35→09:30)
[2020-01-20] MEDS: HYDROcodone/acetaminophen (*CRX) 5-325 MG TABLET 2 TAB PO ×3 (04:49→13:42)
[2020-01-20 05:51] LABS: Hematocrit 30.1 % (42.0-52.0); Hemoglobin 8.9 g/dL (14.0-18.0); Mean Corpuscular HGB Conc 29.6 g/dl (32-36); Mean Corpuscular Hemoglobin 26.1 pg (26-34); Mean Corpuscular Volume 88.3 fl (80-100); Mean Platelet Volume 9.1 fl (7.4-10.4); Platelet Count Result 382 k/mm3 (150-375); Red Blood Count 3.41 M/mm3 (4.6-6.20); White Blood Count 11.4 K/mm3 (4.5-10.0)
[2020-01-20] MEDS: FAMOTIDINE 20 MG TABLET 40 MG PO (08:49)
[2020-01-20] MEDS: guaiFENesin 12 HR 600 MG TABCR PO (08:49)
[2020-01-20] MEDS: SOTALOL HCL 40 MG TABLET PO (08:49)
[2020-01-20] MEDS: BENZONATATE 100 MG CAPSULE 200 MG PO ×3 (08:49→16:34)
[2020-01-20] MEDS: MIDODRINE HCL 10 MG TABLET PO ×3 (08:50→16:35)
[2020-01-20] MEDS: POTASSIUM CHLORIDE 20 MEQ TABLET.ER PO (08:50)
--- NOTE | 2020-01-20 10:45 | PCNFU ---
Nutrition Follow-Up Complete: Involuntary weight loss related to unknown etiology (possibly hx MAC pneumonia vs possible new dx - bronch scheduled) as evidenced by 50 pound weight loss without trying, despite good appetite/intake. Patient to consume 75% of meals/supplements or greater and maintain weight. Goal: Met Pt current nutrition is appropriate, which is regular diet and protein supplement Ensure. Recommend increase Ensure delivery with every meal (3x daily), per pt request. Nutrition recommendation: continue intake with goal of 2,335 calories and at least 55-65g protein, in addition to protein shake supplement. Last recorded weight is 55 kg. Bowel Motility: last recorded BM 01/17 Labs Reviewed: Hgb (8.9), Hct (30.1), BUN (26) Meds Noted: [place], Rocephin, Xopenex Hfa Additional Notes: pt integumentary integrity is WNL Follow up every 5 days.
--- NOTE | 2020-01-20 11:29 | PCNSR ---
On 01/20/20, the student, Cherry Zavala, provided care and completed [facility] documentation on this patient. I have reviewed the student's documentation and agree with the findings.
--- NOTE | 2020-01-20 11:44 | PM.PNCARD ---
Progress Note: A&P Assessment and Plan (1) Paroxysmal atrial fibrillation: Code(s): I48.0 - Paroxysmal atrial fibrillation Status: Acute Assessment and Plan: Maintaining NSR with his usual dose of sotalol. Tolerating sotalol better with the addition of midodrine for his low blood pressure. If recurrent a fib or he can't tolerate usual dose of sotalol, can start p.o. digoxin at a low dose ( 0.125 mg q.d.) as the patient's muscle mass seems to be diminished. 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 Will follow the distance, thank you for asking us to participate in this patient's care. (2) Low blood pressure: Code(s): I95.9 - Hypotension, unspecified Status: Acute Assessment and Plan: Patient's blood pressures been running 90- low 100's for the most part, asymptomatic. Started on midodrine. Continue to follow (3) Atypical pneumonia: Code(s): J18.9 - Pneumonia, unspecified organism Status: Acute Assessment and Plan: On antibiotics per Dr. Piper. History of MAC (4) COPD with emphysema: Qualifiers: Emphysema type: unspecified Qualified Code(s): J43.9 - Emphysema, unspecified Code(s): J43.9 - Emphysema, unspecified Status: Acute Assessment and Plan: treatment per hospitalist. Subjective Date/time seen: 01/20/20 11:44 64-year-old male with SevereCOPD, atypical pneumonia, hemoptysis and MAC whom we are seeing for his paroxysmal atrial fibrillation. His sotalol had been reduced and held because of low blood pressure; his usual blood pressure runs in the 90s. 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 Phillips. Date of service: 01/20/2020 The patient converted to sinus rhythm after resumtion of his usual dose of sotalol and 1 dose of digoxin and has maintained NSR. He was started on midodrine for his low blood pressure and his blood pressure runs 90-105 mmHg. Echo showed EF of 60-65% but right ventricular enlargement and hypokinesis. Does have some wheezing this morning, HARMON has improved since admission, no further hemoptysis. Review of Systems Constitutional: Constitutional: Reports no additional constitutional complaints Cardiovascular: Cardiovascular: Denies chest pain, Denies pedal edema, Denies leg edema, Denies lightheadedness, Reports dyspnea and Reports dyspnea on exertion Respiratory: Respiratory: Reports chest congestion, Denies dyspnea, Reports dyspnea on exertion and Reports wheezing Gastrointestinal: Gastrointestinal: Denies abdominal pain, Denies hematochezia and Denies diarrhea Musculoskeletal: Musculoskeletal: Reports no additional musculoskeletal complaints Integumentary/Breasts: Skin/Breast: Reports system reviewed and no additional complaints, except as docu Neurologic: Reports system reviewed and no additional complaints, except as documented, Denies behavioral changes and Denies confusion Psychiatric: Psychiatric: Denies behavioral changes and Denies confusion Exam Const: General: cooperative, healthy appearing and comfortable; No confusion Orientation/consciousness: oriented to person, patient oriented x3 and No confusion Resp: Effort & Inspection: normal respiratory effort Auscultation: wheezes and diminished lung sounds Other: Mild expiratory wheezes Cardio: Rate: regular rate Rhythm: regular rhythm Heart sounds: no murmurs GI: Inspection: normal to inspection GI Palp: No abdominal tenderness Neuro: General: oriented to person, patient oriented x3 and No confusion Extrem: Right lower extremity: no edema Left lower extremity: no edema Psych: Appearance: grossly normal Mental Status: mental status grossly normal Objective Data Vital Signs
--- NOTE | 2020-01-20 13:48 | WPDINFPN2 ---
Progress Note: A&P Assessment and Plan (1) Bilateral pneumonia: Code(s): J18.9 - Pneumonia, unspecified organism Status: Acute Assessment and Plan: 1. Pulmonary MAC, non cavitary, rx azithro/ethambutol/rifampin x 18 months, partial response clinically (although no repeat sputum done). New AFB smear negative 2. COPD exacerbation 3. Rapid AF 4. Leukocytosis due to #2, also due to corticosteroids given earlier in hospital stay. WBC lower. REC New endobronchial cultures for fungal/AFB in process, routine = no pathogens. Stop Ctx #4 (antibiotic #6). No isolation. Re-treatment anticipated, guided by new culture. Ok discharge, followup with me in office in 3-4 weeks once AFB culture is available. Subjective Date/time seen: 01/20/20 13:48 Interval history: cough. No palpitations Exam Narrative: Exam Narrative: afebrile Resp: Auscultation: clear to auscultation bilaterally Percussion: percussion normal Cardio: Rate: regular rate Rhythm: regular rhythm Heart sounds: S1 normal heart sound present, S2 normal heart sound present and no murmurs GI: GI Palp: No abdominal tenderness Objective Data Vital Signs Vital Signs: Vital Signs - 24 hr 01/19/20 14:00 01/19/20 16:00 01/19/20 16:42 Temperature 36.4 C L Pulse Rate 72 78 81 Respiratory Rate 22 H Blood Pressure 95/64 L Pulse Oximetry 100 01/19/20 18:00 01/19/20 19:41 01/19/20 19:47 Temperature 36.2 C L Pulse Rate 85 76 Respiratory Rate 18 Blood Pressure 99/63 L Pulse Oximetry 100 97 01/19/20 20:00 01/19/20 20:55 01/19/20 22:00 Temperature Pulse Rate 68 72 59 L Respiratory Rate 18 Blood Pressure Pulse Oximetry 97 01/19/20 23:55 01/20/20 00:00 01/20/20 02:00 Temperature 35.7 C L Pulse Rate 67 71 62 Respiratory Rate 18 Blood Pressure 108/60 Pulse Oximetry 100 01/20/20 04:00 01/20/20 04:18 01/20/20 06:00 Temperature 36.1 C L Pulse Rate 54 L 65 49 L Respiratory Rate 18 20 Blood Pressure 95/63 L Pulse Oximetry 100 98 01/20/20 07:52 01/20/20 08:00 01/20/20 09:30 Temperature 35.9 C L Pulse Rate 60 54 L Respiratory Rate 20 Blood Pressure 98/68 L Pulse Oximetry 100 97 01/20/20 09:58 01/20/20 12:00 01/20/20 12:40 Temperature 36.1 C L Pulse Rate 73 63 63 Respiratory Rate 20 Blood Pressure 118/61 Pulse Oximetry 100 Intake/Output Intake/Output: Intake & Output 01/17/20 01/18/20 01/19/20 01/20/20 23:59 23:59 23:59 23:59 Intake Total 3940 3990 1500 350 Output Total 1000 1680 525 Balance 2940 2310 975 350 Meds/Results Medications: Active Medications Generic Name Dose Route Start Last Admin Trade Name Freq PRN Reason Stop Dose Admin Hydrocodone Bitart/Acetaminophen 1 tab 01/18/20 09:38 [place] 5-325 Mg PO Q4H PRN Pain Rated 4-6 Hydrocodone Bitart/Acetaminophen 2 tab 01/18/20 09:37 01/20/20 13:42 Hydrocodone/Acetaminophen (*Crx) 5-325 Mg Tablet PO 2 tab Q4H PRN Administration Pain Rated 7-10 Benzonatate 200 mg 01/17/20 17:00 01/20/20 11:50 Tessalon Perles PO 200 mg TID ROBBI Administration Famotidine 40 mg 01/16/20 21:00 01/20/20 08:49 Pepcid PO 40 mg Q12HR ROBBI Administration Guaifenesin 600 mg 01/16/20 00:10 01/20/20 08:49 Mucinex 12 Hr Tab PO 600 mg Q12HR ROBBI Administration Guaifenesin/Dextromethorphan 5 ml 01/17/20 17:19 01/19/20 12:31 Robitussin-Dm Syrup PO 5 ml Q4H PRN Administration Cough Ceftriaxone Sodium/Dextrose 1 gm in 50 mls @ 100 mls/hr 01/17/20 13:00 01/20/20 12:22 Rocephin 1 Gm/D5w 50 Ml IVPB Infused Q24H ROBBI Infusion Levalbuterol HCl 2 puff 01/18/20 20:00 01/20/20 09:30 Xopenex Hfa INHALATION 2 puff Q6HRT ROBBI Administration Midodrine 10 mg 01/19/20 08:00 01/20/20 11:50 Midodrine Hcl PO 10 mg TIDWM ROBBI Administration Potassium Chloride 20 meq 01/16/20 09:00 01/20/20 08:50 Kcl Tablet PO 20 meq DAILY ROBBI
--- NOTE | 2020-01-20 16:40 | PM.DS ---
DS: Admitting Diagnosis Admitting Diagnosis Admitting Diagnosis: Shortness of breath. 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 Imaging shows a cavitary lesion. Infectious disease on board in the hospital. S/p bronchoscopy 01/16 by pulmology. Pt treated with IV rocephin for 6 days, ok for discharge as per BLANCA NAYLOR Followup with Dr Piper in office in 3-4 weeks once AFB culture is back. (2) Hemoptysis: Code(s): R04.2 - Hemoptysis Status: Resolved Assessment and Plan: Resolved (3) Chronic respiratory failure with hypoxia, on home oxygen therapy: Code(s): J96.11 - Chronic respiratory failure with hypoxia; Z99.81 - Dependence on supplemental oxygen Status: Acute Assessment and Plan: Patient uses 2.5L/min O2 home.Always on oxygen. Continue oxygen at home. Pt can follow with Dr Kate or Dr Wu or Dr Vaz pulmology on discharge. Please send bronchoscopy and echo report to Dr Kate. (4) COPD with emphysema: Qualifiers: Emphysema type: unspecified Qualified Code(s): J43.9 - Emphysema, unspecified Code(s): J43.9 - Emphysema, unspecified Status: Acute Assessment and Plan: Continue nebulized bronchodilator therapy with xopenox. Continue symbicort and incruse. (5) Abnormal chest CT: Code(s): R93.89 - Abnormal findings on diagnostic imaging of other specified body structures Status: Acute Assessment and Plan: Imaging shows bronchiectasis and bilateral lung disease with bandlike consolidation, thick-walled cavitary lesions and multiple pulmonary nodules. Follow-up CT in 3-6 months. 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 Echo shows Ef of 65% combined diastolic and systolic heart failure. (7) Anxiety: Code(s): F41.9 - Anxiety disorder, unspecified Status: Acute Assessment and Plan: Stable. (8) Chronic anemia: Code(s): D64.9 - Anemia, unspecified Status: Acute Assessment and Plan: Chronic. Hb is 8.9 DS: Summary Time Spent with Patient Time attestation: Total time spent providing and/or coordinating discharge services:40 minutes on day of discharge Exam Narrative: Exam Narrative: General: Thin male chronically ill appearing HEENT: Normocephalic Cardiovascular: Rate and rhythm are regular.@100 now Respiratory: Diffuse BL wheezing Abdomen: Soft, non-tender, non-distended, bowel sounds present. Extremities: Peripheral pulses intact. No edema. Neuro: No focal neurological deficits. DS: Data Data Completed and Pending Completed studies during hospitalization: Pending at discharge 01/16/20 08:04 Cytology [PTH] Routine 01/17/20 14:53 Cytology [PTH] Routine Labs on day of discharge: Labs from last 24 hours 01/20/20 04:45 WBC 11.4 H RBC 3.41 L Hgb 8.9 L Hct 30.1 L MCV 88.3 MCH 26.1 MCHC 29.6 L RDW 15.0 H Plt Count 382 H MPV 9.1 Preliminary micro results at discharge 01/17/20 14:49 Fungal Culture - Preliminary Bronchial Washings Right Upper Lobe 01/17/20 14:
== END 2020-01-20 18:22 | disposition home or self-care (01) | DRG 139 ==
LOC: ANHED 14:26 → ANH2MED 16:52 → ANHIMU 01-16 10:34
PROVIDERS: Internal Medicine Critical Care Medicine; Physician Assistant; Admitting Provider Family Medicine; Emergency Provider Emergency Medicine; Visit Provider Family Medicine
PROC: 0BJ08ZZ Inspection of Tracheobronchial Tree, Via Natural or Artificial Opening Endoscopic (ICD-10-PCS; CPT 31622; principal; 2020-01-17 13:30)
DX: J18.9 Pneumonia, unspecified organism (principal); R04.2 Hemoptysis; J96.11 Chronic respiratory failure with hypoxia; Z99.81 Dependence on supplemental oxygen; I95.9 Hypotension, unspecified; J43.9 Emphysema, unspecified; R93.89 Abnormal findings on diagnostic imaging of other specified body structures; I48.0 Paroxysmal atrial fibrillation; F41.9 Anxiety disorder, unspecified; D64.9 Anemia, unspecified; R63.4 Abnormal weight loss; Z28.21 Immunization not carried out because of patient refusal; Z79.899 Other long term (current) drug therapy; Z86.19 Personal history of other infectious and parasitic diseases; Z87.891 Personal history of nicotine dependence
CPT/HCPCS: 36415; 36600; 71045; 71046; 71250; 80048; 80053; 82375; 82805; 83050; 83615; 83735; 84100; 84443; 85014; 85018; 85025; 85027; 85999; 86140; 86703; 87015; 87040; 87070; 87102; 87116; 87149; 87205; 87206; 88104; 88108; 88160; 88305; 93005; 93306; 94640; 94667; 94668; 96361; 96365; 96366; 96367; 96375; 96376; 99285; A9270; G0378; G0379; G0432; J0131; J0295; J0330; J0456; J0696; J1160; J2310; J2370; J2704; J2930; J3010; J3370; J7040; J7120

== ENCOUNTER 2020-02-25 09:39 | Outpatient (CLI) | payer OTHER, SELFPAY ==
[2020-02-25 09:45] VITALS: PULSE 78; O2SAT 86
[2020-02-25 09:50] VITALS: PULSE 76; O2SAT 88
[2020-02-25 10:00] VITALS: PULSE 87; O2SAT 91
[2020-02-25 10:05] VITALS: PULSE 91; O2SAT 90
[2020-02-25 10:15] VITALS: O2SAT 90
--- NOTE | 2020-02-25 10:41 | HOMEO2EVAL ---
Home Oxygen Evaluation RC: Home Oxygen (O2) Evaluation Start: 02/25/20 10:28 Freq: Status: Active Protocol: RPE Activity Type Activity Date Activity User E-Sign Co-Sign Detail Recorded Client Recorded Date Recorded By Document 02/25/20 09:45 DJO [email or web address] 02/25/20 10:41 DJO Document 02/25/20 09:50 DJO [email or web address] 02/25/20 10:41 DJO Document 02/25/20 10:00 DJO [email or web address] 02/25/20 10:41 DJO Document 02/25/20 10:05 [email or web address] [email or web address] 02/25/20 10:41 DJO Document 02/25/20 10:15 DJO [email or web address] 02/25/20 10:41 DJO 02/25/20 02/25/20 02/25/20 09:45 09:50 10:00 Home O2 Evaluation Test Phase Resting Resting Resting Oxygen Delivery Room Air Nasal Cannula Nasal Cannula Oxygen Flow Rate (L/min) 1 2 Pulse Oximetry (90-100 %) 86 L 88 L 91 Pulse Rate (60-100 beats/min) 78 76 87 Activity Tolerance Fair Rating of Perceived Dyspnea (PD) Rate of Perceived Exertion (PE) Ambulation Distance (feet) Treatment Charges O2 Evaluation 02/25/20 02/25/20 10:05 10:15 Home O2 Evaluation Test Phase Exercise Resting Oxygen Delivery Nasal Cannula Nasal Cannula Oxygen Flow Rate (L/min) 2 2 Pulse Oximetry (90-100 %) 90 90 Pulse Rate (60-100 beats/min) 91 Activity Tolerance Rating of Perceived Dyspnea (PD) +3 Moderate Difficulty, But Can Continue Rate of Perceived Exertion (PE) 17 Very Hard Ambulation Distance (feet) 400 Treatment Charges
--- NOTE | 2020-02-25 10:43 | PCRCNOTE ---
PT CAME IN FOR PFT BUT WAS UNABLE TO PERFORM DUE TO SEVERE SHORTNESS OF BREATH. PATY AT DR. ELIZABETH'S OFFICE NOTIFIED.
== END 2020-02-25 09:40 | disposition home or self-care (01) ==
PROVIDERS: PCP Family Medicine; Visit Provider Internal Medicine Critical Care Medicine
DX: J43.9 Emphysema, unspecified (principal); J96.11 Chronic respiratory failure with hypoxia; Z99.81 Dependence on supplemental oxygen
CPT/HCPCS: 94618

== ENCOUNTER 2020-03-28 18:59 | Inpatient (IN) | payer OTHER, SELFPAY ==
--- NOTE | ~2020-03-28 | CT_ITS ---
EXAMINATION: CTA chest PE protocol EXAM DATE: 03/28/2020 20:35 INDICATION: Shortness of breath. History of MAC infection. Cough. TECHNIQUE: Spiral CTA of the chest (pulmonary arteries) was performed with 100 cc Omnipaque 350 intr avenous contrast injection. Images were acquired during the pulmonary arterial phase. Coronal maxi mum intensity projection 3D-reconstructions were created by the technologist on dedicated workstation . Axial, coronal and sagittal reformatted images were reviewed. The dose-length product (DLP) for t his examination was 427.92 mGy-cm. The exposure was tailored according to patient size (auto mA exp osure control), and iterative reconstruction (ASIR) was used as additional dose reduction technique. Correlation is made to noncontrast chest CT 01/15/2020. FINDINGS: Evidence of some webs/scarring within several right sided segmental pulmonary arteries, co uld be sequela from prior pulmonary emboli. Pulmonary arteries are otherwise clear, no evidence of tr eatable acute pulmonary embolism. No thoracic aortic dissection. There is severe emphysema. Large regions of right lung cavitation with thick wall, air-fluid levels w ithin the cavities with progression in the thickness of the andrews and amount of opacity overall. Ther e is also development of patchy consolidation which is multi segmental in the right lower lobe. Suspe ct this is most likely patient's chronic infectious process but can't exclude acute pneumonia. There is some debris within the trachea and right-sided bronchi. There are no pleural or pericardial effusions. The main, central pulmonary arteries are dilated whic h can indicate elevated pulmonary arterial pressure, pulmonary arterial hypertension. There is no me diastinal, hilar or axillary lymphadenopathy. There is no pneumothorax. Narrow cardiac size proba ele from the emphysema, hyperinflation. No evidence of coronary arterial calcification. Upper abdom en is unremarkable. There is thoracic spondylosis without osteoblastic or osteolytic lesions identi fied. There are no osteoblastic or osteolytic lesions identified. IMPRESSION: 1. Evidence of prior right-sided pulmonary arterial web/scarring, most likely sequela from previous emboli. No acute treatable intraluminal filling defects within pulmonary arteries. 2. Worsening right-sided airspace disease most likely chronic infectious process in patient with kno wn history of MAC infection. 3. New right lower lobe consolidation which could be this same infectious process or superimposed ac vivi infection. 4. Pulmonary arterial hypertension. 5. Severe emphysema. Reviewed, dictated and finalized at location A. OL DRIVER IMPRESSION: 1. Evidence of prior right-sided pulmonary arterial web/scarring, most likely sequela from previous emboli. No acute treatable intraluminal filling defects w ithin pulmonary arteries. 2. Worsening right-sided airspace disease most likely chronic infectious proce ss in patient with known history of MAC infection. 3. New right lower lobe consolidation which could be this same infectious proc ess or superimposed acute infection. 4. Pulmonary arterial hypertension. 5. Severe emphysema.
--- NOTE | ~2020-03-28 | XR_ITS ---
EXAMINATION: XR chest 1V portable EXAM DATE: 03/28/2020 20:13 INDICATION: Cough, shortness of breath. Symptoms 2 weeks. History COPD, MAC infection. TECHNIQUE: Portable AP frontal chest x-ray was obtained. Comparison is made to prior examination from 01/17/2020. FINDINGS: Again there is extensive right-sided predominant chronic airspace disease with regions of s carring, pleural thickening, cavitation. Probably sequela from chronic infectious process. Right-side d volume loss. There appears to be more airspace disease in the right lung than on previous examinati on, could be acute component or some increase in chronic airspace disease. Can't exclude malignancy w ith this appearance. No pneumothorax or pleural effusion. Cardiomediastinal silhouette is normal. The re are no osseous abnormalities identified. IMPRESSION: Extensive right-sided predominant chronic airspace disease with mild progression compared to 2 months ago, could be increase in chronic infectious process or possibly superimposed acute infe ction. Reviewed, dictated and finalized at location A. L MAKER IMPRESSION: Extensive right-sided predominant chronic airspace disease with mil d progression compared to 2 months ago, could be increase in chronic infectious process or possibly superimposed acute infection.
--- NOTE | 2020-03-28 19:04 | ECG_ITS ---
Measurements Intervals Echo Rate: 114 P: 80 AK: 113 QRS: 81 QRSD: 94 T: 68 QT: 317 QTc: 438 Interpretive Statements SINUS TACHYCARDIA WITH SHORT AK INTERVAL INCOMPLETE RIGHT BUNDLE BRANCH BLOCK BASELINE ARTIFACT- V3, V6 ABNORMAL ECG Electronically Signed On 03-29-2020 7:08:11 SYSTEM DEVELOPMENT MANAGER by Odell Montero D.O.
[2020-03-28 19:05] VITALS: BP 93/57; PULSE 119; RESP 29; TEMP 36.4; O2SAT 95
[2020-03-28 19:10] VITALS: PULSE 118
[2020-03-28 19:20] LABS: Alveolar/Arterial O2 Gradient 100.9 mmHg; Base Excess ABG -0.2 mEq/l (+/-2.0); Fractional Inspired Oxygen 30 %; HCO3 ABG 23.1 mEq/l (22.0-26.0); Oxygen Saturation ABG 95.8 % (95.0-100.0); Oxyhemoglobin 94.2 % THb (90.0-100.0); PCO2 ABG 32.9 mmHg (35.0-45.0); PO2 ABG 74.3 mmHg (80.0-100.0); PO2 FiO2 Ratio Arterial Blood 2.48 %; Total Hemoglobin 10.5 g/dL (12.0-18.0); pH ABG 7.465 (7.350-7.450)
[2020-03-28 19:21] LABS: Modified Allen's Test Pass; Site Drawn RIGHT RADIAL
[2020-03-28 19:22] LABS: Device NASAL CANNULA; Liters per Minute 2.5 LPM
[2020-03-28 19:23] LABS: Basophils Absolute Auto 0.1 K/mm3 (0.0-0.1); Basophils Percent Auto 0.4 % (0.2-1.2); Eosinophils Percent Auto 0.1 % (0-4.4); Hematocrit 30.8 % (42.0-52.0); Hemoglobin 9.6 g/dL (14.0-18.0); Immature Granulocyte Absolute 0.17 K/mm3 (0.00-0.031); Immature Granulocyte Percent A 0.7 % (0-0.5); Lymphocytes Absolute Auto 0.91 K/mm3 (0.9-3.2); Mean Corpuscular HGB Conc 31.2 g/dl (32-36); Mean Corpuscular Hemoglobin 27.1 pg (26-34); Mean Platelet Volume 8.5 fl (7.4-10.4); Monocytes Absolute Auto 2.2 K/mm3 (0.1-0.6); Monocytes Percent Auto 9.5 % (2.6-8.5); Neutrophils Absolute Auto 19.5 K/mm3 (1.3-6.7); Neutrophils Percent Auto 85.3 % (45.5-73.1); Platelet Count Result 513 k/mm3 (150-375); Red Blood Count 3.54 M/mm3 (4.6-6.20); Red Cell Distribution Width 14.9 % (11.5-14.5); White Blood Count 22.9 K/mm3 (4.5-10.0)
[2020-03-28] MEDS: SODIUM CHLORIDE 0.9% IV 1,000 ML 999 ML IV CONT ×2 (19:25→20:52)
[2020-03-28 19:33] LABS: INR 1.1; Prothrombin Time 14.9 Seconds (11.1-14.7)
[2020-03-28 19:34] LABS: Partial Thromboplastin Time 36.5 SECONDS (22.3-36.8)
[2020-03-28 19:36] LABS: Alanine Aminotransferase 18 U/L (4-50); Albumin Level 3.3 g/dL (3.5-5.1); Alkaline Phosphatase 121 U/L (38-126); Anion Gap 7 mmol/L (8-16); Aspartate Amino Transferase 27 U/L (17-59); Bilirubin,Total 0.3 mg/dL (0.2-1.3); Blood Urea Nitrogen 23 mg/dL (9-20); Calcium 8.7 mg/dL (8.4-10.2); Carbon Dioxide 29 mmol/L (22-30); Chloride 97 mmol/L (98-107); Estimated CRCL calculation 75 ml/min; Estimated Glomerular Filt Rate > 60; Glucose 130 mg/dL (75-110); Potassium 4.1 mmol/L (3.4-5.0); Sodium 133 mmol/L (137-145)
--- NOTE | 2020-03-28 19:36 | ED.GENADULT ---
HPI - General Adult General Chief complaint: Shortness of Breath/Dyspnea <Tejas Patel PA-C - Last Filed: 03/28/20 20:46> Stated complaint: SOB x two weeks <Tejas Patel PA-C - Last Filed: 03/28/20 20:46> Time Seen by Provider: 03/28/20 19:03 <Tejas Patel PA-C - Last Filed: 03/28/20 20:46> Source: patient, family and old records reviewed <DIANE Canas Last Filed: 03/28/20 20:46> Mode of arrival: ambulatory <DIANE Canas Last Filed: 03/28/20 20:46> Limitations: no limitations <DIANE Canas Last Filed: 03/28/20 20:46> History of Present Illness HPI narrative: Patient is 64-year-old male who presents to emergency department patient notes increasing shortness of breath with productive cough of phlegm with increasing phlegm production patient with complicated respiratory history for MAC lung infection with chronic respiratory failure on 2-1/2 L nasal cannula COPD emphysema former smoker patient develops this history of lung infection in the last 2 years has been in the hospital in January was supposed to follow infectious disease and was to be started on antibiotics but was never started on them with complication of being on sotalol and needing to be off it so he could start his antibiotics. Patient today was very weak was having difficulty adjusting his oxygen or with any activity. Patient's brought him into the emergency department for evaluation. Patient notes he has been compliant with his medications but did not follow-up after January. <DIANE Canas Last Filed: 03/28/20 20:46> Related Data Home medications: Home Medications Medication Instructions Recorded Confirmed Incruse Ellipta See Rx Instructions .ROUTE .COMPLEX 01/15/20 03/28/20 albuterol sulfate [ProAir HFA] 2 puff INHALATION Q4H PRN 01/15/20 03/28/20 famotidine [Pepcid] 40 mg PO BID 01/15/20 03/28/20 oxycodone-acetaminophen 2 tablet PO Q6H PRN 01/15/20 03/28/20 potassium chloride 20 meq PO DAILY 01/15/20 03/28/20 levalbuterol HCl 0.63 mg INHALATION BID PRN 03/28/20 03/28/20 <Tejas Patel PA-C - Last Filed: 03/28/20 20:46> Allergies/adverse reactions: Allergies Allergy/AdvReac Type Severity Reaction Status Date / Time No Known Allergies Allergy Verified 03/28/20 19:11 <Tejas Patel PA-C - Last Filed: 03/28/20 20:46> Review of Systems Review of Systems: All systems reviewed & are unremarkable except as noted in HPI and below <Tejas Patel PA-C - Last Filed: 03/28/20 20:46> [facility] Past Medical History Medical History: Medical History Anxiety Chronic anemia Chronic respiratory failure with hypoxia, on home oxygen therapy COPD with emphysema Paroxysmal atrial fibrillation No longer on anticoagulation. Pulmonary Mycobacterium avium complex (MAC) infection Treated for 1.5 years with ethambutol and rifampin, completed treatment June 2019. <Tejas Patel PA-C - Last Filed: 03/28/20 20:46> Surgical History Surgical History: Surgical History History of lung biopsy <Tejas Patel PA-C - Last Filed: 03/28/20 20:46> Family History Family History: Family History Sibling Colon cancer Father Lymphoma Mother Uterine cancer Daughter Crohn's disease <Tejas Patel PA-C - Last Filed: 03/28/20 20:46> Social History Social History: Social History Social History: He designates his as his surrogate decision maker and wishes to be a full code. Smoking packs per day: 2 Smoking cigarettes per day: 40.0 Smoking status: Former smoker Tobacco type: cigarettes Alcohol intake: never Substance use: never Additional living arrangements comments: Lives with h
[2020-03-28 19:47] LABS: NT Pro B Type Natriuretic Pept 1370 PG/ML (5-100)
[2020-03-28 19:57] LABS: Lactic Acid Reflex 1.3 mmol/L (0.7-2.1)
[2020-03-28] MEDS: DEXAMETHASONE SOD PHOS INJ 4 MG/ML VIAL 6 MG IV PUSH (19:58)
[2020-03-28 20:48] VITALS: BP 91/58; PULSE 91; RESP 18; O2SAT 97
--- NOTE | 2020-03-28 21:08 | PM.IMHP ---
H&P: HPI History of Present Illness Date/Time: 03/28/20 21:08 Cheif Complaint: Dyspnea Narrative: Ramakrishna Zavala is a 64 year old male with past medical history of MAC pneumonia, chronic respiratory failure on 2.5 L nasal cannula, history of COPD, history of paroxysmal AFib who presents to the ED with complaints of dyspnea. Patient has been fighting this MAC pneumonia for the past 3 years being on long-term antibiotics. The thought is he may have gotten macro He was on rifampin and ethambutol which had been for the last year which was to be continued. He lost his liquid compounder and try to reestablish with a new provider. He developed AFib with RVR despite on sotalol and had his sotalol increased. Because of concern for drug interaction between sotalol and his MAC antibiotics, he stop taking the MAC antibiotics and was lost to care with no antibiotics for last 2 months. 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 Steiner. Apparently his sotalol has also been stopped within the last month. Currently his med rec does not have any rate or rhythm controlling medications for his paroxysmal atrial fibrillation. In January 2020: Patient was hospitalized from 01/14-01/19. Patient was on Rocephin and azithromycin. Dr. piper was following for pulmonary MAC non cavitary with antibiotics azithromycin/ethambutol/rifampin for [address] piper recommendations of the timer to do ceftriaxone monotherapy. 01/17/2020 bronchoscopy moderate airway inflammation white mucoid secretions bilaterally. Patient was to follow up with Dr. Piper in 2-4 weeks after AFB culture results. Cardiology had recommended not to give usual doses sotalol and use digoxin because of loss of patient's muscle mass. Pulmonology recommended using Xopenex for patient was getting tachycardic. Recommendations were to continue with 3 inhaled medications for advanced COPD. Echocardiogram 01/19/2020 showed no regional wall motion abnormality, EF 60 65%, mild pulmonary hypertension. In the ED: Patient was acutely hypoxic went up to 4 L from his baseline 2.5 L. ER provider discussed with infectious disease specialist Dr. piper to start Rocephin for antibiotics. Patient was hypotensive, he was given a couple L fluid bolus. WBC elevated 22.9, ABG stable at 7.465/32.9/74.3/23.1, hyponatremia 133. EKG shows sinus tachycardia. Patient is status for COVID-19 and was given dexamethasone as well. Was concerning for super imposed acute infection on chronic infection process. CTA showed right-sided pulmonary artery web scarring a worsening right-sided airspace disease consistent with his history of MAC infection, with new right lower lobe consolidation. With acute decompensation of his hypoxia and history of MAC pneumonia with new consolidation patient admitted to the IMU for pneumonia and acute on chronic hypoxic respiratory failure. Review of Systems Review of Systems: Narrative: Constitutional: No Fever, No Chills, No Night Sweats. Endorses generalized weakness and fatigue. ENT/Mouth: No Hearing Changes, No Ear Pain, No Nasal Congestion, No Sinus Pain, No Hoarseness, No sore throat, No Rhinorrhea, No Swallowing Difficulty Eyes: No Eye Pain, No Redness, No Vision Changes Cardiovascular: No Chest Pain, No Palpitations, No Dyspnea on Exertion, No Orthopnea, No Claudication, No Edema Respiratory: Endorses worsening dyspnea, and cough. Gastrointestinal: No Nausea, No Vomiting, No Diarrhea, No Constipation, No Abdominal Pain, No Heartburn, No Hematochezia, No Melena Genitourinary: No Dysuria, No Urinary Frequency, No Hematuria, No Urinary Incontinence, No Urgency Musculoskeletal: No Arthralgias, No Myalgias, No Joint Swelling, No Joint Stiffness, No Back Pain Skin: No Skin Lesions, No Pruritis, No Hair Changes Neuro: No Numbness, No Paresthesias, No Loss of Consciousness, No Syncope, No Dizziness, No Headache Psych: No Anxiety/Panic, No Depression, No Insomnia Heme: No Bruising, No Bleeding Lymph: No Adenopathy En
[2020-03-28 21:55] VITALS: BP 100/61; PULSE 91; RESP 18; O2SAT 98
[2020-03-28 23:11] VITALS: BP 91/64; PULSE 98; RESP 20; TEMP 36.6; O2SAT 98
[2020-03-28] MEDS: LACTATED RINGERS 1,000 ML 75 ML IV CONT (23:22)
--- NOTE | 2020-03-28 23:28 | ADMGEN ---
This patient, Ramakrishna Zavala, was admitted to IMU Room 214-01. Patient/family oriented to hospital policies and general routines including ID bracelet, bed and alarms, visiting hours, pain management, procedures, bathroom and other care routines, personal items, smoking policy, room service/diet, and visiting hours. Information on how to activate the Rapid Response Team has been discussed. Patient/Family are encouraged to report perceived risks to care and to ask questions if they do not understand what they are told or what they should do. Report from Matt RODRIGUEZ arrived approx [id number]
[2020-03-28 23:29] VITALS: BMI 17.8
[2020-03-29] VITALS (21 sets, daily range): BP systolic 90–118; BP diastolic 52–70; PULSE 65–95; RESP 18–24; TEMP 35.9–36.6; O2SAT 94–100; BMI 18.0
[2020-03-29 05:55] LABS: Basophils Percent Auto 0.2 % (0.2-1.2); Hematocrit 27.5 % (42.0-52.0); Hemoglobin 8.2 g/dL (14.0-18.0); Immature Granulocyte Absolute 0.11 K/mm3 (0.00-0.031); Immature Granulocyte Percent A 0.6 % (0-0.5); Lymphocytes Absolute Auto 0.78 K/mm3 (0.9-3.2); Lymphocytes Percent Auto 4.3 % (18.3-44.2); Mean Corpuscular HGB Conc 29.8 g/dl (32-36); Mean Corpuscular Hemoglobin 26.5 pg (26-34); Mean Corpuscular Volume 88.7 fl (80-100); Mean Platelet Volume 8.6 fl (7.4-10.4); Monocytes Absolute Auto 0.6 K/mm3 (0.1-0.6); Monocytes Percent Auto 3.1 % (2.6-8.5); Neutrophils Absolute Auto 16.8 K/mm3 (1.3-6.7); Neutrophils Percent Auto 91.8 % (45.5-73.1); Platelet Count Result 479 k/mm3 (150-375); Red Cell Distribution Width 14.9 % (11.5-14.5); White Blood Count 18.3 K/mm3 (4.5-10.0)
[2020-03-29 06:13] LABS: Anion Gap 2 mmol/L (8-16); Blood Urea Nitrogen 17 mg/dL (9-20); Calcium 8.8 mg/dL (8.4-10.2); Carbon Dioxide 32 mmol/L (22-30); Chloride 103 mmol/L (98-107); Estimated CRCL calculation 98 ml/min; Estimated Glomerular Filt Rate > 60; Glucose 144 mg/dL (75-110); Potassium 4.4 mmol/L (3.4-5.0); Sodium 137 mmol/L (137-145)
[2020-03-29] MEDS: FAMOTIDINE 20 MG TABLET 40 MG PO ×2 (08:57→16:28)
[2020-03-29] MEDS: oxyCODONE/ACETAMINOPHEN (*CRX) 5-325 MG TABLET 2 TABLET PO ×3 (08:57→21:58)
[2020-03-29] MEDS: BENZONATATE 100 MG CAPSULE 200 MG PO ×3 (08:57→16:27)
[2020-03-29] MEDS: POTASSIUM CHLORIDE 20 MEQ TABLET.ER PO (08:58)
[2020-03-29] MEDS: LEVALBUTEROL HFA (*SP) 15 GM INHALER 2 PUFF INHALATION ×3 (08:58→20:44)
[2020-03-29] MEDS: ENOXAPARIN 40 MG/0.4 ML SYRINGE SUB-Q (08:58)
[2020-03-29 12:24] LABS: SARS-CoV-2 RNA PCR Negative
--- NOTE | 2020-03-29 14:01 | WPDINFPN2 ---
Progress Note: A&P Assessment and Plan (1) COPD with emphysema: Qualifiers: Emphysema type: unspecified Qualified Code(s): J43.9 - Emphysema, unspecified Code(s): J43.9 - Emphysema, unspecified Status: Acute Assessment and Plan: 1. COPD with exacerbation, CAP is also possible ( I see no new infiltrates on CXR, though radiologist reading is noted) 2. Pulmonary MAC 3. PAF, he stopped sotalol 03/27. QT interval normal now REC Ctx and doxy #2. On 04/02, he can begin Lily/Ethambutol/Rifabutin. [facility] unfortunately never did macrolide susceptibility on his January sputum isolate. Subjective Date/time seen: 03/29/20 14:01 Objective Data Vital Signs Vital Signs: Vital Signs - 24 hr 03/28/20 19:05 03/28/20 19:10 03/28/20 20:48 Temperature 36.4 C L Pulse Rate 119 H 118 H 91 Respiratory Rate 29 H 18 Blood Pressure 93/57 L 91/58 L Pulse Oximetry 95 97 03/28/20 21:55 03/28/20 23:11 03/29/20 00:00 Temperature 36.6 C 36.4 C L Pulse Rate 91 98 93 Respiratory Rate 18 20 24 H Blood Pressure 100/61 91/64 L 90/57 L Pulse Oximetry 98 98 98 03/29/20 02:00 03/29/20 04:00 03/29/20 06:00 Temperature 36.4 C L Pulse Rate 68 72 65 Respiratory Rate 20 Blood Pressure 102/55 L Pulse Oximetry 98 03/29/20 07:59 03/29/20 08:00 03/29/20 08:50 Temperature 35.9 C L Pulse Rate 77 88 Respiratory Rate 18 Blood Pressure 118/52 L Pulse Oximetry 100 100 03/29/20 10:00 03/29/20 11:54 03/29/20 12:00 Temperature 36.2 C L Pulse Rate 91 85 77 Respiratory Rate 22 H Blood Pressure 95/57 L Pulse Oximetry 100 100 Intake/Output Intake/Output: Intake & Output 03/26/20 03/27/20 03/28/20 03/29/20 23:59 23:59 23:59 23:59 Intake Total 2049 1794 Output Total 750 Balance 2049 1045 Meds/Results Medications: Active Medications Generic Name Dose Route Start Last Admin Trade Name Freq PRN Reason Stop Dose Admin Benzonatate 200 mg 03/29/20 09:00 03/29/20 13:34 Benzonatate 100 Mg Capsule PO 200 mg TID ROBBI Administration Budesonide/Formoterol Fumarate 2 puff 03/29/20 08:00 03/29/20 09:13 Budesonide/Form 160-4.5 Mcg (*Sp) INHALATION 2 puff Q12HRT ROBBI Administration Enoxaparin Sodium 40 mg 03/29/20 09:00 03/29/20 08:58 Enoxaparin 40 Mg/0.4 Ml Syringe SUB-Q 40 mg DAILY ROBBI Administration Famotidine 20 mg 03/28/20 21:00 03/29/20 08:53 Famotidine 20 Mg/2 Ml Vial IV PUSH Not Given Q12HR ROBBI Famotidine 40 mg 03/29/20 09:00 03/29/20 08:57 Famotidine 20 Mg Tablet PO 40 mg BID ROBBI Administration Acetaminophen 1,000 mg in 100 mls @ 400 mls/hr 03/28/20 20:47 03/28/20 23:54 Ofirmev 1,000 Mg Ivpb IVPB 03/29/20 20:48 400 mls/hr Q6H PRN Administration Mild Pain (1-3) or Fever Lactated Ringer's 1,000 mls @ 75 mls/hr 03/28/20 20:50 03/29/20 13:33 Lr - Lactated Ringers Iv IV CONT 75 mls/hr .[id number] ROBBI Infusion Ceftriaxone Sodium/Dextrose 1 gm in 50 mls @ 100 mls/hr 03/29/20 20:00 Rocephin 1 Gm/D5w 50 Ml IVPB Q24H ROBBI Levalbuterol HCl 4 puff 03/28/20 20:52 Levalbuterol Hfa (*Sp) 15 Gm Inhaler INHALATION Q6HRT PRN Shortness Of Breath Levalbuterol HCl 2 puff 03/29/20 08:00 03/29/20 13:34 Levalbuterol Hfa (*Sp) 15 Gm Inhaler INHALATION 2 puff Q6HRT ROBBI Administration Non-Formulary Medication 0.63 mg 03/29/20 03:01 Levalbuterol Hcl INHALATION BID PRN shortness of breath or wheezing Non-Formulary Medication 0 inhalation 03/29/20 03:15 Umeclidinium [place] .ROUTE 04/28/20 03:16 .COMPLEX ROBBI Ondansetron HCl 4 mg 03/28/20 20:47 Ondansetron Inj 4 Mg/2 Ml Vial IV PUSH Q4H PRN Nausea Oxycodone/Acetaminophen 2 tablet 03/29/20 03:01 03/29/20 08:57 Oxycodone/Acetaminophen (*Crx) 5-325 Mg Tablet PO 2 tablet Q6H PRN Administration Pain Rated 7-10 Potassium Chloride 20 meq 03/29/20 08:00 03/29/20 08:58 Po
--- NOTE | 2020-03-29 14:53 | CONS_ITS ---
DATE OF CONSULTATION: 03/29/2020 REASON FOR CONSULTATION: COPD exacerbation. HISTORY OF PRESENT ILLNESS: This is a 64-year-old male who was here in early January with COPD exacerbation. His history is outlined on his records and notably he was treated for MAC by another physician for 18 months, ending in the spring. A repeat sputum while he was here did reveal MAC once again, but [facility] did not perform macrolide susceptibility, in spite of its necessity. He has not been treated for that reason and also due to treatment with sotalol, but after I discussed the patient's case with Dr. Steiner, the patient stopped sotalol 1 day before admission. Unfortunately, last 4 days, he has had chest tightness, cough, sputum production without hemoptysis, shortness of breath, dyspnea on exertion, fatigue, and anorexia. He presented to the hospital yesterday and was admitted. He has been started on ceftriaxone and doxycycline. He has been on no recent immunosuppressants. No antibiotics otherwise. The plan was to resume his MAC treatments after being off the sotalol for 7 days. ALLERGIES: NONE KNOWN. PRESENT MEDICATIONS: Ceftriaxone. He was also given a single dose of dexamethasone. No systemic immunosuppressants otherwise. HABITS: Ex-smoker. PAST MEDICAL HISTORY: In addition to the above, chronic respiratory failure, anemia, anxiety. REVIEW OF SYSTEMS: Weight has been stable in the last 2 months, bruisability, 14-point review otherwise negative. FAMILY HISTORY: Crohn disease, colon cancer, lymphoma. SOCIAL HISTORY: He is retired, lives in [place], [place]. . No family at the bedside currently. PHYSICAL EXAMINATION: GENERAL: This is a cachectic male who appears older than his actual age, in mild respiratory distress. VITAL SIGNS: Afebrile, 77, 100% saturation on 4 L, 95/57. SKIN: Warm and dry. Ecchymoses. No rashes. NODES: He has no cervical or occipital adenopathy. EENT: Pupils equal, round. The oral mucosa is well hydrated. NECK: No masses or meningismus. LUNGS: Breath sounds are vesicular. No fremitus. He has right-sided inspiratory wheezing and he has diffuse soft rales. CARDIAC: Distant S1, S2. Regular rate and rhythm. ABDOMEN: Nontender, scaphoid. No masses. No organomegaly. EXTREMITIES: No clubbing, cyanosis, edema. LABORATORY DATA: Blood cultures, no growth so far. White count is 18.3, was 22.9 on arrival; hemoglobin 8.2; platelets are 479. Differential is normal. His prothrombin time 14.9. Blood gases 7.47, 33, 74. AA gradient of 101. His chemistry panel today normal other than a glucose of 144, was 130 on arrival. His liver function tests normal. BNP elevated 1370. Albumin 3.3. RADIOLOGY: I personally reviewed his chest x-ray. He has chronic right worse than left consolidation and interstitial infiltrates with cavitation in the right upper lobe. Also read the radiologist's interpretation of the same x-ray. He reads right lower lobe consolidation is new. I also reviewed the CT chest reading from the radiologist. ASSESSMENT: 1. Chronic obstructive pulmonary disease with exacerbation and acute bronchitis, exam is indeterminate for pneumonia as is his chest x-ray and hence early community-acquired pneumonia remains a possibility. 2. Pulmonary Mycobacterium avium complex, 18 months prior treatment with persistent sputum culture positivity. 3. Possible bronchiectasis. 4. Paroxysmal atrial fibrillation, off sotalol. 5. Past tobacco. 6. Severe protein-calorie malnutrition from pulmonary disease. RECOMMENDATIONS: 1. Ceftriaxone, doxycycline. 2. Begin clarithromycin, ethambutol, and rifabutin in 4 days more. 3. Repeat sputum after some 3 months of treatment, with macrolide susceptibility required. 4.
--- NOTE | 2020-03-29 15:30 | PM.CNPUL ---
Assessment and Plan Assessment and plan (1) COPD exacerbation: Code(s): J44.1 - Chronic obstructive pulmonary disease with (acute) exacerbation Status: Acute Assessment and Plan: - continue levbuterol at current dose at Q6h - start ipratropium 0.5 mg Q6h and hold Incruse - start pulmicort 0.5 mg Q12h - start prednisone 30 mg PO OD for 5 days - sputum culture to r/o other resistant bacterial infections such as pseudomonas. (2) Mycobacterial disease, pulmonary: Code(s): A31.0 - Pulmonary mycobacterial infection Status: Acute Assessment and Plan: -if [facility] diagnostic lab is refusing to Macrolide susceptibility then we should find a lab which will -resumption of MAC Lung antibiotic regimen as soon as safe to do so - appreciate Dr. Piper's guidance on this. History of Present Illness History of Present Illness Consult date: 03/29/20 Chief complaint: sepsis, pneumonia, copd excerbation, dehydration Narrative: 64 y/o thin male with severe COPD, MAC lung disease has been admitted with acute COPD exacerbation and possibly MAC lung disease exacerbation. Unfortunately [facility] has not performed Macrolide susceptibilty as Dr. Piper requested. His MAC antibiotic regiment is in the process of being reintroduced once sotalol is out of his system safely. He complains of increase fatigue, chest tightness, wheezing and sputum that is yellowish/greenish and thick over the past few days. He was started on systemic steroids, ceftriaxone and doxycyline. CT chest shows slight worsening bilateral infiltrates, consolidations and fibrosis likely all related to MAC lung disease. He had a bronchoscopy in January of this which grew SEBASTI[place]N after 18 months of therapy. Review of Systems Review of Systems: All systems reviewed & are unremarkable except as noted in HPI and below PMFSH Past Medical History Medical History Anxiety Chronic anemia Chronic respiratory failure with hypoxia, on home oxygen therapy COPD with emphysema Paroxysmal atrial fibrillation No longer on anticoagulation. Pulmonary Mycobacterium avium complex (MAC) infection Treated for 1.5 years with ethambutol and rifampin, completed treatment June 2019. Surgical History Surgical History History of lung biopsy Family History Family History Sibling Colon cancer Father Lymphoma Mother Uterine cancer Daughter Crohn's disease Social History Social History Social History: He designates his as his surrogate decision maker and wishes to be a full code. Smoking packs per day: 2 Smoking cigarettes per day: 40.0 Smoking status: Former smoker Tobacco type: cigarettes Alcohol intake: never Substance use: never Additional living arrangements comments: Lives with his in [place], [place]. 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 Gender identity (if verbalized by the patient): Male Spiritual care concerns: No Meds Home Medications and Allergies Home Medications Medication Instructions Recorded Confirmed Type Incruse Ellipta See Rx Instructions .ROUTE .COMPLEX 01/15/20 03/28/20 History albuterol sulfate [ProAir HFA] 2 puff INHALATION Q4H PRN 01/15/20 03/28/20 History famotidine [Pepcid] 40 mg PO BID 01/15/20 03/28/20 History oxycodone-acetaminophen 2 tablet PO Q6H PRN 01/15/20 03/28/20 History potassium chloride 20 meq PO DAILY 01/15/20 03/28/20 History benzonatate 200 mg PO TID #30 cap 01/20/20 03/28/20 Rx budesonide-formoterol [Symbicort] 2 puff INHALATION Q12H #10.2 g 01/20/20 03/28/20 Rx levalbuterol tartrate [Xopenex HFA] 2 puff INHALATION Q6HRT #1 inh 01/20/20 03/28/20 Rx levalbuterol HCl 0.63 mg INHALATION BID PRN 03/28/20
[2020-03-29] MEDS: LACTATED RINGERS 1,000 ML 75 ML IV CONT (16:27)
[2020-03-29] MEDS: predniSONE 20 MG, predniSONE 10 MG 30 MG PO (16:27)
[2020-03-29] MEDS: DOXYCYCLINE HYCLATE 100 MG TABLET PO ×2 (16:29→20:39)
--- NOTE | 2020-03-29 18:22 | PM.IMPN ---
Progress Note: A&P Assessment and Plan (1) Pneumonia: Qualifiers: Laterality: right Lung location: lower lobe of lung Pneumonia type: due to unspecified organism Qualified Code(s): J18.9 - Pneumonia, unspecified organism Code(s): J18.9 - Pneumonia, unspecified organism Status: Acute Assessment and Plan: -chest x-ray and CT scan concerning for consistent MAC pneumonia as well as new consolidation right lower lung -DDx: worsening of the MAC pneumonia versus COVID-19 versus new community-acquired pneumonia -antibiotics: Continue Rocephin ID and pulmology consulted see recommendations (2) Sepsis: Qualifiers: Sepsis acute organ dysfunction status: without acute organ dysfunction Sepsis type: sepsis due to unspecified organism Qualified Code(s): A41.9 - Sepsis, unspecified organism Code(s): A41.9 - Sepsis, unspecified organism Status: Acute Assessment and Plan: -sepsis with leukocytosis 24912 (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 piper infectious disease -last admission recommendations were for Rocephin monotherapy, will continue Rocephin monotherapy -consulting Dr. Piper and pulmonology to help manage MAC - PLan Ctx and doxy #2. On 04/02, he can begin Lily/Ethambutol/Rifabutin. (4) COPD with emphysema: Qualifiers: Emphysema type: unspecified Qualified Code(s): J43.9 - Emphysema, unspecified Code(s): J43.9 - Emphysema, unspecified Status: Acute (5) Chronic respiratory failure with hypoxia, on home oxygen therapy: Code(s): J96.11 - Chronic respiratory failure with hypoxia; Z99.81 - Dependence on supplemental oxygen Status: Acute Assessment and Plan: -chronic, continue inhalers -xopenox instead of albuterol as he was previously getting tachycardic with the albuterol -patient is on Incruse Ellipta, Xopenex inhaler, Symbicort -home oxygen level was 2.5 L, patient oxygen saturation 98% on 4 L, can wean down to home level (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 with meals Subjective Date/time seen: 03/29/20 18:22 Exam Narrative: Exam Narrative: - GENERAL: Frail thin male, comfortable off oxyen - HENT: Dry oral mucosa. - ABDOMEN: Soft, non-tender and non-distended. - EXTREMITIES: No edema. Thin. Peripheral pulses 2+. Non-tender. - NEUROLOGIC: No focal neurological deficits. CN II-XII grossly intact. - PSYCHIATRIC: Awake, Alert and oriented x 3. Appropriate mood and affect. - SKIN: No rashes or lesions. Warm. Objective Data Vital Signs Vital Signs: Vital Signs - 24 hr 03/28/20 19:05 03/28/20 19:10 03/28/20 20:48 Temperature 36.4 C L Pulse Rate 119 H 118 H 91 Respiratory Rate 29 H 18 Blood Pressure 93/57 L 91/58 L Pulse Oximetry 95 97 03/28/20 21:55 03/28/20 23:11 03/29/20 00:00 Temperature 36.6 C 36.4 C L Pulse Rate 91 98 93 Respiratory Rate 18 20 24 H Blood Pressure 100/61 91/64 L 90/57 L Pulse Oximetry 98 98 98 03/29/20 02:00 03/29/20 04:00 03/29/20 06:00 Temperature 36.4 C L Pulse Rate 68 72 65 Respiratory Rate 20 Blood Pressure 102/55 L Pulse Oximetry 98 03/29/20 07:59 03/29/20 08:00 03/29/20 08:50 Temperature 35.9 C L Pulse Rate 77 88 Respiratory Rate 18 Blood Pressure 118/52 L Pulse Oximetry 100 100 03/29/20 10:00 03/29/20 11:54 03/29/20 12:00 Temperature 36.2 C L Pulse Rate 91 85 77 Respiratory Rate 22 H Blood Pressure 95/57 L Pulse Oximetry 100 100 03/29/20 14:00 03/29/20 16:00 03/29/20 16:30 Temperature 36.4 C L Pulse Rate 95 83 Respiratory Rate 24 H Blood Pressure 102/70 Pulse Oximetry 100 100 03/29/20
[2020-03-29] MEDS: FAMOTIDINE 20 MG/2 ML VIAL IV PUSH (20:39)
[2020-03-29] MEDS: ALPRAZolam (*CRX) 0.25 MG TABLET PO (21:52)
[2020-03-29] MEDS: IPRATROPIUM BR 0.02% INH SOLN 0.5 MG/2.5 ML VIAL INHALATION (22:23)
[2020-03-29] MEDS: BUDESONIDE RESPULE NEB 0.5 MG/2 ML AMP INHALATION (22:23)
[2020-03-30] VITALS (21 sets, daily range): BP systolic 100–139; BP diastolic 65–96; PULSE 58–98; RESP 18–28; TEMP 35.8–36.9; O2SAT 94–100
[2020-03-30] MEDS: LEVALBUTEROL HFA (*SP) 15 GM INHALER 2 PUFF INHALATION ×4 (00:58→19:55)
[2020-03-30] MEDS: IPRATROPIUM BR 0.02% INH SOLN 0.5 MG/2.5 ML VIAL INHALATION ×4 (03:15→19:55)
[2020-03-30 04:33] LABS: Hemoglobin 7.6 g/dL (14.0-18.0); Mean Corpuscular HGB Conc 30.4 g/dl (32-36); Mean Platelet Volume 8.5 fl (7.4-10.4); Platelet Count Result 420 k/mm3 (150-375); Red Blood Count 2.81 M/mm3 (4.6-6.20); Red Cell Distribution Width 14.9 % (11.5-14.5); White Blood Count 18.3 K/mm3 (4.5-10.0)
[2020-03-30 04:47] LABS: Anion Gap 3 mmol/L (8-16); Blood Urea Nitrogen 21 mg/dL (9-20); Calcium 8.7 mg/dL (8.4-10.2); Carbon Dioxide 33 mmol/L (22-30); Chloride 103 mmol/L (98-107); Estimated CRCL calculation 88 ml/min; Estimated Glomerular Filt Rate > 60; Glucose 188 mg/dL (75-110); Magnesium 2.1 mg/dL (1.6-2.3); Potassium 4.4 mmol/L (3.4-5.0); Sodium 139 mmol/L (137-145)
[2020-03-30] MEDS: LACTATED RINGERS 1,000 ML 75 ML IV CONT (05:50)
[2020-03-30] MEDS: oxyCODONE/ACETAMINOPHEN (*CRX) 5-325 MG TABLET 2 TABLET PO ×2 (05:53→18:12)
[2020-03-30] MEDS: POTASSIUM CHLORIDE 20 MEQ TABLET.ER PO (08:11)
[2020-03-30] MEDS: DOXYCYCLINE HYCLATE 100 MG TABLET PO ×2 (08:11→20:27)
[2020-03-30] MEDS: BENZONATATE 100 MG CAPSULE 200 MG PO ×3 (08:11→17:35)
[2020-03-30] MEDS: FAMOTIDINE 20 MG TABLET 40 MG PO ×2 (08:11→17:35)
[2020-03-30] MEDS: predniSONE 20 MG, predniSONE 10 MG 30 MG PO (08:11)
[2020-03-30] MEDS: ENOXAPARIN 40 MG/0.4 ML SYRINGE SUB-Q (08:11)
[2020-03-30] MEDS: BUDESONIDE RESPULE NEB 0.5 MG/2 ML AMP INHALATION ×2 (08:25→19:54)
--- NOTE | 2020-03-30 10:29 | PM.PNPUL ---
Progress Note: A&P Assessment and Plan (1) COPD exacerbation: Code(s): J44.1 - Chronic obstructive pulmonary disease with (acute) exacerbation Status: Acute Assessment and Plan: - continue levbuterol at current dose at Q6h - start ipratropium 0.5 mg Q6h and hold Incruse - start pulmicort 0.5 mg Q12h - start prednisone 30 mg PO OD for 5 days - sputum culture to r/o other resistant bacterial infections such as pseudomonas. (2) Mycobacterial disease, pulmonary: Code(s): A31.0 - Pulmonary mycobacterial infection Status: Acute Assessment and Plan: -if [facility] diagnostic lab is refusing to Macrolide susceptibility then we should find a lab which can -resumption of MAC Lung antibiotic regimen as soon as safe to do so - appreciate Dr. Piper's guidance on this. Subjective Date/time seen: 03/30/20 10:29 Interval history: Feeling slightly better today, less sputum production Review of Systems Review of Systems: All systems reviewed & are unremarkable except as noted in HPI and below Exam Const: General: cooperative, healthy appearing, comfortable, no acute distress, alert, awake, Physically active and tired appearing Nutritional Appearance: overweight and thin HENMT: Head: normal to inspection, normocephalic and atraumatic Eyes: General: appearance normal, both eyes and all related structures Neck: Neck: normal visual inspection, trachea midline and supple Resp: Effort & Inspection: normal respiratory effort Auscultation: wheezes, breath sounds absent and diminished lung sounds Cardio: Jugular venous distension: no JVD Rate: regular rate Rhythm: regular rhythm Heart sounds: S1 normal heart sound present and S2 normal heart sound present GI: Inspection: normal to inspection Auscultation: normal bowel sounds Skin: General skin exam: normal color and no rashes or lesions noted Neuro: General: oriented to person, oriented to place, oriented to time and patient oriented x3 Cognition (Neuro): normal cognition Speech: normal speech Extrem: General: normal to inspection and no clubbing, cyanosis or edema Psych: Appearance: grossly normal Mental Status: mental status grossly normal Insight: Good insight present (Psych) Judgement: Good judgement present (Psych) Objective Data Vital Signs Vital Signs: Vital Signs - 24 hr 03/29/20 11:54 03/29/20 12:00 03/29/20 14:00 Temperature 36.2 C L Pulse Rate 85 77 95 Respiratory Rate 22 H Blood Pressure 95/57 L Pulse Oximetry 100 100 03/29/20 16:00 03/29/20 16:30 03/29/20 18:00 Temperature 36.4 C L Pulse Rate 83 71 Respiratory Rate 24 H Blood Pressure 102/70 Pulse Oximetry 100 100 03/29/20 18:28 03/29/20 20:00 03/29/20 20:19 Temperature 36.4 C 36.6 C Pulse Rate 79 76 78 Respiratory Rate 20 18 Blood Pressure 92/53 L 102/65 Pulse Oximetry 100 98 98 03/29/20 22:00 03/29/20 22:23 03/29/20 23:35 Temperature Pulse Rate 92 83 Respiratory Rate 20 Blood Pressure Pulse Oximetry 98 97 03/29/20 23:51 03/30/20 00:00 03/30/20 02:00 Temperature 35.9 C L Pulse Rate 84 90 60 Respiratory Rate 18 Blood Pressure 104/66 Pulse Oximetry 98 03/30/20 03:15 03/30/20 03:18 03/30/20 03:21 Temperature Pulse Rate 74 72 Respiratory Rate 20 20 Blood Pressure Pulse Oximetry 97 03/30/20 04:00 03/30/20 06:00 03/30/20 08:00 Temperature 35.8 C L 35.8 C L Pulse Rate 79 92 87 Respiratory Rate 18 28 H Blood Pressure 113/74 116/68 Pulse Oximetry 98 100 03/30/20 08:10 03/30/20 08:30 03/30/20 08:32 Temperature Pulse Rate 58 L 58 L Respiratory Rate 20 20 Blood Pressure Pulse Oximetry 97 97 03/30/20 10:00 Temperature Pulse Rate 65 Respiratory Rate Blood Pressure Pulse Oximetry Intake/Output Intake/Output: Intake & Output 03/27/20 03/28/20 03/29/20 03/30/20 23:59 23:59 23:59 23:59 Intake Total 2049 3570 1350 Output Total 1025 300 Balance 2049
--- NOTE | 2020-03-30 14:12 | PM.IMPN ---
Progress Note: A&P Assessment and Plan (1) Pneumonia: Qualifiers: Laterality: right Lung location: lower lobe of lung Pneumonia type: due to unspecified organism Qualified Code(s): J18.9 - Pneumonia, unspecified organism Code(s): J18.9 - Pneumonia, unspecified organism Status: Acute Assessment and Plan: -chest x-ray and CT scan concerning for consistent MAC pneumonia as well as new consolidation right lower lung -DDx: worsening of the MAC pneumonia versus COVID-19 versus new community-acquired pneumonia -antibiotics: Continue Rocephin and doxycyline ID and pulmology consulted see recommendations (2) Sepsis: Qualifiers: Sepsis acute organ dysfunction status: without acute organ dysfunction Sepsis type: sepsis due to unspecified organism Qualified Code(s): A41.9 - Sepsis, unspecified organism Code(s): A41.9 - Sepsis, unspecified organism Status: Acute Assessment and Plan: -sepsis with leukocytosis 07065 (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 piper infectious disease -last admission recommendations were for Rocephin monotherapy, will continue Rocephin monotherapy -consulting Dr. Piper and pulmonology to help manage MAC - PLan Rocephin and doxy #3. On 04/02, he can begin Lily/Ethambutol/Rifabutin. 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 with meals Additional Plan transfer to medical floor Subjective Date/time seen: 03/30/20 14:12 No specific complaints feels alot better since admission Review of Systems Review of Systems: All systems reviewed & are unremarkable except as noted in HPI and below Exam Narrative: Exam Narrative: - GENERAL: Frail thin male, comfortable off oxyen - HENT: Dry oral mucosa. - ABDOMEN: Soft, non-tender and non-distended. - EXTREMITIES: No edema. Thin. Peripheral pulses 2+. Non-tender. - NEUROLOGIC: No focal neurological deficits. CN II-XII grossly intact. - PSYCHIATRIC: Awake, Alert and oriented x 3. Appropriate mood and affect. - SKIN: No rashes or lesions. Warm. Objective Data Vital Signs Vital Signs: Vital Signs - 24 hr 03/29/20 16:00 03/29/20 16:30 03/29/20 18:00 Temperature 36.4 C L Pulse Rate 83 71 Respiratory Rate 24 H Blood Pressure 102/70 Pulse Oximetry 100 100 03/29/20 18:28 03/29/20 20:00 03/29/20 20:19 Temperature 36.4 C 36.6 C Pulse Rate 79 76 78 Respiratory Rate 20 18 Blood Pressure 92/53 L 102/65 Pulse Oximetry 100 98 98 03/29/20 22:00 03/29/20 22:23 03/29/20 23:35 Temperature Pulse Rate 92 83 Respiratory Rate 20 Blood Pressure Pulse Oximetry 98 97 03/29/20 23:51 03/30/20 00:00 03/30/20 02:00 Temperature 35.9 C L Pulse Rate 84 90 60 Respiratory Rate 18 Blood Pressure 104/66 Pulse Oximetry 98 03/30/20 03:15 03/30/20 03:18 03/30/20 03:21 Temperature Pulse Rate 74 72 Respiratory Rate 20 20 Blood Pressure Pulse Oximetry 97 03/30/20 04:00 03/30/20 06:00 03/30/20 08:00 Temperature 35.8 C L 35.8 C
--- NOTE | 2020-03-30 16:59 | WPDINFPN2 ---
Progress Note: A&P Assessment and Plan (1) COPD with emphysema: Qualifiers: Emphysema type: unspecified Qualified Code(s): J43.9 - Emphysema, unspecified Code(s): J43.9 - Emphysema, unspecified Status: Acute Assessment and Plan: 1. COPD with exacerbation, CAP is also possible 2. Pulmonary MAC 3. PAF, he stopped sotalol 03/27. QT interval normal now 4. Multifactorial leukocytosis REC Ctx and doxy #3. On 04/02, he can begin Lily/Ethambutol/Rifabutin. Subjective Date/time seen: 03/30/20 16:59 Interval history: cough, some blood tinge Exam Narrative: Exam Narrative: afebrile Const: General: no acute distress Resp: Effort & Inspection: abnormal respiratory effort Auscultation: rales, no wheezes and diminished lung sounds Cardio: Rate: regular rate Rhythm: regular rhythm Heart sounds: no murmurs GI: Inspection: non-distended GI Palp: Yes Soft to palpation and No Tenderness to palpation present (GI) Objective Data Vital Signs Vital Signs: Vital Signs - 24 hr 03/29/20 18:00 03/29/20 18:28 03/29/20 20:00 Temperature 36.4 C Pulse Rate 71 79 76 Respiratory Rate 20 Blood Pressure 92/53 L Pulse Oximetry 100 98 03/29/20 20:19 03/29/20 22:00 03/29/20 22:23 Temperature 36.6 C Pulse Rate 78 92 83 Respiratory Rate 18 20 Blood Pressure 102/65 Pulse Oximetry 98 98 03/29/20 23:35 03/29/20 23:51 03/30/20 00:00 Temperature 35.9 C L Pulse Rate 84 90 Respiratory Rate 18 Blood Pressure 104/66 Pulse Oximetry 97 98 03/30/20 02:00 03/30/20 03:15 03/30/20 03:18 Temperature Pulse Rate 60 74 Respiratory Rate 20 Blood Pressure Pulse Oximetry 97 03/30/20 03:21 03/30/20 04:00 03/30/20 06:00 Temperature 35.8 C L Pulse Rate 72 79 92 Respiratory Rate 20 18 Blood Pressure 113/74 Pulse Oximetry 98 03/30/20 08:00 03/30/20 08:10 03/30/20 08:30 Temperature 35.8 C L Pulse Rate 87 58 L Respiratory Rate 28 H 20 Blood Pressure 116/68 Pulse Oximetry 100 97 03/30/20 08:32 03/30/20 10:00 03/30/20 12:00 Temperature 35.9 C L Pulse Rate 58 L 65 83 Respiratory Rate 20 22 H Blood Pressure 120/73 Pulse Oximetry 97 99 03/30/20 13:59 03/30/20 14:00 Temperature Pulse Rate 92 91 Respiratory Rate 20 Blood Pressure Pulse Oximetry Intake/Output Intake/Output: Intake & Output 03/27/20 03/28/20 03/29/20 03/30/20 23:59 23:59 23:59 23:59 Intake Total 2049 357 1590 Output Total 1025 800 Balance 2049 1845 790 Meds/Results Medications: Active Medications Generic Name Dose Route Start Last Admin Trade Name Freq PRN Reason Stop Dose Admin Alprazolam 0.25 mg 03/29/20 21:01 03/29/20 21:52 Alprazolam (*Crx) 0.25 Mg Tablet PO 0.25 mg BID PRN Administration Anxiety Benzonatate 200 mg 03/29/20 09:00 03/30/20 14:43 Benzonatate 100 Mg Capsule PO 200 mg TID ROBBI Administration Budesonide 0.5 mg 03/29/20 20:00 03/30/20 08:25 Budesonide Respule Neb 0.5 Mg/2 Ml Amp INHALATION 0.5 mg Q12HRT ROBBI Administration Doxycycline Hyclate 100 mg 03/29/20 14:10 03/30/20 08:11 Doxycycline Hyclate 100 Mg Tablet PO 100 mg Q12HR ROBBI Administration Enoxaparin Sodium 40 mg 03/29/20 09:00 03/30/20 08:11 Enoxaparin 40 Mg/0.4 Ml Syringe SUB-Q 40 mg DAILY ROBBI Administration Famotidine 40 mg 03/29/20 09:00 03/30/20 08:11 Famotidine 20 Mg Tablet PO 40 mg BID ROBBI Administration Lactated Ringer's 1,000 mls @ 75 mls/hr 03/28/20 20:50 03/30/20 05:50 Lr - Lactated Ringers Iv IV CONT 75 mls/hr .[id number] ROBBI Administration Ceftriaxone Sodium/Dextrose 1 gm in 50 mls @ 100 mls/hr 03/29/20 20:00 03/29/20 20:39 Rocephin 1 Gm/D5w 50 Ml IVPB 100 mls/hr Q24H ROBBI Administration Ipratropium [facility] 0.5 mg 03/29/20 20:00 03/30/20 13:59 Ipratropium Br 0.02% Inh Soln 0.5 Mg/2.5 Ml Vial INHALATION 0.5 mg Q6HRT ROBBI Administration Levalbuterol HCl
[2020-03-30] MEDS: ALPRAZolam (*CRX) 0.25 MG TABLET PO (20:36)
[2020-03-31] VITALS (13 sets, daily range): BP systolic 102–103; BP diastolic 65–70; PULSE 76–98; RESP 16–26; TEMP 36.4–37.1; O2SAT 91–100
[2020-03-31] MEDS: oxyCODONE/ACETAMINOPHEN (*CRX) 5-325 MG TABLET 2 TABLET PO ×4 (00:16→21:49)
[2020-03-31] MEDS: IPRATROPIUM BR 0.02% INH SOLN 0.5 MG/2.5 ML VIAL INHALATION ×4 (01:35→20:25)
[2020-03-31] MEDS: LEVALBUTEROL HFA (*SP) 15 GM INHALER 2 PUFF INHALATION ×4 (02:48→20:25)
[2020-03-31 05:06] LABS: Hemoglobin 8.1 g/dL (14.0-18.0); Mean Corpuscular Hemoglobin 26.9 pg (26-34); Mean Corpuscular Volume 89.7 fl (80-100); Mean Platelet Volume 8.3 fl (7.4-10.4); Platelet Count Result 446 k/mm3 (150-375); Red Blood Count 3.01 M/mm3 (4.6-6.20); White Blood Count 14.1 K/mm3 (4.5-10.0)
[2020-03-31 05:21] LABS: Blood Urea Nitrogen 20 mg/dL (9-20); Carbon Dioxide > 40 mmol/L (22-30); Chloride 97 mmol/L (98-107); Estimated CRCL calculation 90 ml/min; Estimated Glomerular Filt Rate > 60; Glucose 98 mg/dL (75-110); Potassium 4.4 mmol/L (3.4-5.0); Sodium 136 mmol/L (137-145)
[2020-03-31] MEDS: BUDESONIDE RESPULE NEB 0.5 MG/2 ML AMP INHALATION ×2 (07:47→20:25)
[2020-03-31] MEDS: POTASSIUM CHLORIDE 20 MEQ TABLET.ER PO (08:27)
[2020-03-31] MEDS: predniSONE 20 MG, predniSONE 10 MG 30 MG PO (08:28)
[2020-03-31] MEDS: FAMOTIDINE 20 MG TABLET 40 MG PO ×2 (08:28→16:11)
[2020-03-31] MEDS: BENZONATATE 100 MG CAPSULE 200 MG PO ×3 (08:28→16:11)
[2020-03-31] MEDS: DOXYCYCLINE HYCLATE 100 MG TABLET PO ×2 (08:29→20:44)
[2020-03-31] MEDS: ENOXAPARIN 40 MG/0.4 ML SYRINGE SUB-Q (08:29)
--- NOTE | 2020-03-31 09:15 | PC.NURSE ---
This patient, Ramakrishna Zavala, was transferred to [[facility]] on 03/31/20 at 0914. Personal belongings sent with patient. Report given to [JENNIFER Rudolph ]. Appropriate documentation sent with patient.
--- NOTE | 2020-03-31 16:11 | WPDINFPN2 ---
Progress Note: A&P Assessment and Plan (1) COPD with emphysema: Qualifiers: Emphysema type: unspecified Qualified Code(s): J43.9 - Emphysema, unspecified Code(s): J43.9 - Emphysema, unspecified Status: Acute Assessment and Plan: 1. COPD with exacerbation, CAP is also possible, stable 2. Pulmonary MAC 3. PAF, he stopped sotalol 03/27. QT interval normal now 4. Multifactorial leukocytosis REC Ctx and doxy #4, continue. On 04/02, he will begin Lily/Ethambutol/Rifampin (rifabutin is non formulary as inpatient). I will use daily (rather than tiw) antibiotics due to cavitary illness and prior macrolide use. See orders. Stop Doxycycline after tomorrow due to the new regimen. Subjective Date/time seen: 03/31/20 16:11 Interval history: some cough, no hemoptysis Exam Narrative: Exam Narrative: afebrile Const: General: no acute distress Resp: Effort & Inspection: abnormal respiratory effort Auscultation: rales, rhonchi and diminished lung sounds Cardio: Rate: regular rate Rhythm: regular rhythm GI: Inspection: non-distended GI Palp: Yes Soft to palpation and No Tenderness to palpation present (GI) Objective Data Vital Signs Vital Signs: Vital Signs - 24 hr 03/30/20 19:59 03/30/20 20:00 03/30/20 20:06 Temperature 36.8 C Pulse Rate 84 84 98 Respiratory Rate 28 H 22 H 28 H Blood Pressure 121/72 Pulse Oximetry 98 94 03/30/20 20:26 03/30/20 23:40 03/31/20 01:45 Temperature 36.9 C Pulse Rate 68 77 Respiratory Rate 20 26 H Blood Pressure 100/65 Pulse Oximetry 94 97 03/31/20 02:49 03/31/20 07:50 03/31/20 07:51 Temperature Pulse Rate 76 81 Respiratory Rate 24 H 16 Blood Pressure Pulse Oximetry 91 03/31/20 08:00 03/31/20 08:04 03/31/20 09:25 Temperature 36.5 C Pulse Rate 85 89 Respiratory Rate 18 20 20 Blood Pressure 102/70 Pulse Oximetry 97 96 03/31/20 13:55 03/31/20 14:05 03/31/20 14:15 Temperature 37.1 C Pulse Rate 86 92 98 Respiratory Rate 18 18 20 Blood Pressure 103/70 Pulse Oximetry 98 Intake/Output Intake/Output: Intake & Output 03/28/20 03/29/20 03/30/20 03/31/20 23:59 23:59 23:59 23:59 Intake Total 2049 3570 4264 1520 Output Total 1025 2550 2525 Balance 2049 2545 1714 -1005 Meds/Results Medications: Active Medications Generic Name Dose Route Start Last Admin Trade Name Freq PRN Reason Stop Dose Admin Alprazolam 0.25 mg 03/29/20 21:01 03/30/20 20:36 Alprazolam (*Crx) 0.25 Mg Tablet PO 0.25 mg BID PRN Administration Anxiety Benzonatate 200 mg 03/29/20 09:00 03/31/20 12:24 Benzonatate 100 Mg Capsule PO 200 mg TID ROBBI Administration Budesonide 0.5 mg 03/29/20 20:00 03/31/20 07:47 Budesonide Respule Neb 0.5 Mg/2 Ml Amp INHALATION 0.5 mg Q12HRT ROBBI Administration Clarithromycin 500 mg 04/02/20 09:00 Clarithromycin 500 Mg Tablet PO DAILY ROBBI Doxycycline Hyclate 100 mg 03/29/20 14:10 03/31/20 08:29 Doxycycline Hyclate 100 Mg Tablet PO 04/01/20 23:59 100 mg Q12HR ROBBI Administration Enoxaparin Sodium 40 mg 03/29/20 09:00 03/31/20 08:29 Enoxaparin 40 Mg/0.4 Ml Syringe SUB-Q 40 mg DAILY ROBBI Administration Ethambutol HCl 800 mg 04/02/20 09:00 Ethambutol Hcl 400 Mg Tablet PO QAM ROBBI Famotidine 40 mg 03/29/20 09:00 03/31/20 08:28 Famotidine 20 Mg Tablet PO 40 mg BID ROBBI Administration Ceftriaxone Sodium/Dextrose 1 gm in 50 mls @ 100 mls/hr 03/29/20 20:00 03/30/20 23:21 Rocephin 1 Gm/D5w 50 Ml IVPB Infused Q24H ROBBI Infusion Ipratropium [place] 0.5 mg 03/29/20 20:00 03/31/20 13:55 Ipratropium Br 0.02% Inh Soln 0.5 Mg/2.5 Ml Vial INHALATION 0.5 mg Q6HRT ROBBI Administration Levalbuterol HCl 4 puff 03/28/20 20:52 Levalbuterol Hfa (*Sp) 15 Gm Inhaler INHALATION Q6HRT PRN Shortness Of Breath Levalbuterol HCl 2 puff 03/29/20 08:00 03/31/20 13:50 Levalbuterol Hfa (*Sp) 15 Gm I
--- NOTE | 2020-03-31 17:18 | PM.IMPN ---
Progress Note: A&P Assessment and Plan (1) Pneumonia: Qualifiers: Laterality: right Lung location: lower lobe of lung Pneumonia type: due to unspecified organism Qualified Code(s): J18.9 - Pneumonia, unspecified organism Code(s): J18.9 - Pneumonia, unspecified organism Status: Acute Assessment and Plan: -chest x-ray and CT scan concerning for consistent MAC pneumonia as well as new consolidation right lower lung -DDx: worsening of the MAC pneumonia versus COVID-19 versus new community-acquired pneumonia -antibiotics: Continue Rocephin and doxycyline, stop doxcycline 04/02 ID and pulmology consulted see recommendations (2) Sepsis: Qualifiers: Sepsis acute organ dysfunction status: without acute organ dysfunction Sepsis type: sepsis due to unspecified organism Qualified Code(s): A41.9 - Sepsis, unspecified organism Code(s): A41.9 - Sepsis, unspecified organism Status: Acute Assessment and Plan: -sepsis with leukocytosis [id number] (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 piper infectious disease -last admission recommendations were for Rocephin monotherapy, will continue Rocephin monotherapy -consulting Dr. Piper and pulmonology to help manage MAC - PLan Rocephin and doxy #4. On 04/02, he can begin Lily/Ethambutol/Rifabutin. (4) COPD with emphysema: Qualifiers: Emphysema type: unspecified Qualified Code(s): J43.9 - Emphysema, unspecified Code(s): J43.9 - Emphysema, unspecified Status: Acute (5) Chronic respiratory failure with hypoxia, on home oxygen therapy: Code(s): J96.11 - Chronic respiratory failure with hypoxia; Z99.81 - Dependence on supplemental oxygen Status: Acute Assessment and Plan: -chronic, continue inhalers -xopenox instead of albuterol as he was previously getting tachycardic with the albuterol -patient is on Incruse Ellipta, Xopenex inhaler, Symbicort -home oxygen level was 3l, pt is at baseline (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 with meals Subjective Date/time seen: 03/31/20 17:18 Pt seen and examined in room, complaints of dry cough and abdominal cramps no diarrhea or vomiting Review of Systems Review of Systems: All systems reviewed & are unremarkable except as noted in HPI and below Exam Narrative: Exam Narrative: - GENERAL: Frail thin male - HENT: Dry oral mucosa. - ABDOMEN: Soft, non-tender and non-distended. - EXTREMITIES: No edema. Thin. Peripheral pulses 2+. Non-tender. - NEUROLOGIC: No focal neurological deficits. CN II-XII grossly intact. - PSYCHIATRIC: Awake, Alert and oriented x 3. Appropriate mood and affect. - SKIN: No rashes or lesions. Warm. Objective Data Vital Signs Vital Signs: Vital Signs - 24 hr 03/30/20 19:59 03/30/20 20:00 03/30/20 20:06 Temperature 36.8 C Pulse Rate 84 84 98 Respiratory Rate 28 H 22 H 28 H Blood Pressure 121/72 Pulse Oximetry 98 94 03/30/20 20:26 03/30/20 23:40 03/31/20 01:45 Temperature 36.9 C Pulse Rate 68 77 Respiratory Rate 20 26 H Blood Pressure 100/65 Pulse Oximetry 94 97 03/31/20 02:49 03/31/20 07:50 03/31/20 07:51 Temperature Pulse Rate 76 81 Respiratory Rate 24 H 16 Blood Pressure Pulse Oximetry 91 03/31/20 08:00 03/31/20 08:04 03/31/20 09:25 Temperature 36.5 C Pulse Rate 85 89 Respiratory Rate 18 20 20 Blood Pressure 102/70 Pulse Oximetry 97 96 03/31/20 13:55 03/31/20 14:05 03/31/20 14:15 Temperature 37.1 C Pulse Rate 86 92 98 Respiratory Rate 18 18 20 Blood Pressure 103/70 Pulse Oximetry 98 Intake/Output Intake/Output: Intake & Output 12
[2020-03-31] MEDS: ALPRAZolam (*CRX) 0.25 MG TABLET PO (20:44)
[2020-04-01] VITALS (14 sets, daily range): BP systolic 104–121; BP diastolic 65–78; PULSE 81–110; RESP 18–20; TEMP 36.1–37.1; O2SAT 92–98
[2020-04-01] MEDS: LEVALBUTEROL HFA (*SP) 15 GM INHALER 2 PUFF INHALATION ×4 (01:34→21:16)
[2020-04-01] MEDS: IPRATROPIUM BR 0.02% INH SOLN 0.5 MG/2.5 ML VIAL INHALATION ×4 (01:34→21:16)
[2020-04-01] MEDS: oxyCODONE/ACETAMINOPHEN (*CRX) 5-325 MG TABLET 2 TABLET PO ×4 (03:57→23:09)
[2020-04-01 06:19] LABS: Potassium 4.4 mmol/L (3.4-5.0)
[2020-04-01] MEDS: BUDESONIDE RESPULE NEB 0.5 MG/2 ML AMP INHALATION ×2 (08:09→21:15)
[2020-04-01] MEDS: ENOXAPARIN 40 MG/0.4 ML SYRINGE SUB-Q (09:22)
[2020-04-01] MEDS: FAMOTIDINE 20 MG TABLET 40 MG PO ×2 (09:22→17:07)
[2020-04-01] MEDS: SACCHAROMYCES BOULARDII 250 MG CAPSULE PO ×2 (09:22→17:07)
[2020-04-01] MEDS: BENZONATATE 100 MG CAPSULE 200 MG PO ×3 (09:23→17:07)
[2020-04-01] MEDS: DOXYCYCLINE HYCLATE 100 MG TABLET PO ×2 (09:23→20:47)
[2020-04-01] MEDS: POTASSIUM CHLORIDE 20 MEQ TABLET.ER PO (09:23)
[2020-04-01] MEDS: predniSONE 20 MG, predniSONE 10 MG 30 MG PO (09:23)
[2020-04-01] MEDS: ALPRAZolam (*CRX) 0.25 MG TABLET PO ×2 (09:26→23:09)
--- NOTE | 2020-04-01 12:33 | PM.IMPN ---
Progress Note: A&P Assessment and Plan (1) Pneumonia: Qualifiers: Laterality: right Lung location: lower lobe of lung Pneumonia type: due to unspecified organism Qualified Code(s): J18.9 - Pneumonia, unspecified organism Code(s): J18.9 - Pneumonia, unspecified organism Status: Acute Assessment and Plan: -chest x-ray and CT scan concerning for consistent MAC pneumonia as well as new consolidation right lower lung -DDx: worsening of the MAC pneumonia versus COVID-19 versus new community-acquired pneumonia -antibiotics: Continue Rocephin and doxycyline, stopped doxcycline yesterday ID and pulmology consulted see recommendations (2) Sepsis: Qualifiers: Sepsis acute organ dysfunction status: without acute organ dysfunction Sepsis type: sepsis due to unspecified organism Qualified Code(s): A41.9 - Sepsis, unspecified organism Code(s): A41.9 - Sepsis, unspecified organism Status: Acute Assessment and Plan: -sepsis with leukocytosis [id number] (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 piper infectious disease -last admission recommendations were for Rocephin monotherapy, will continue Rocephin monotherapy -consulting Dr. Piper and pulmonology to help manage MAC - PLan Rocephin #5 and doxy #4. On 04/02, he can begin Lily/Ethambutol/Rifabutin. (4) COPD with emphysema: Qualifiers: Emphysema type: unspecified Qualified Code(s): J43.9 - Emphysema, unspecified Code(s): J43.9 - Emphysema, unspecified Status: Acute (5) Chronic respiratory failure with hypoxia, on home oxygen therapy: Code(s): J96.11 - Chronic respiratory failure with hypoxia; Z99.81 - Dependence on supplemental oxygen Status: Acute Assessment and Plan: -chronic, continue inhalers -xopenox instead of albuterol as he was previously getting tachycardic with the albuterol -patient is on Incruse Ellipta, Xopenex inhaler, Symbicort -home oxygen level was 3l, pt is at baseline (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 with meals Subjective Date/time seen: 04/01/20 12:33 Interval history: Pt seen and examined in room, complaints of dry cough, pt sputum has grown pseudomonas Review of Systems Review of Systems: All systems reviewed & are unremarkable except as noted in HPI and below Exam Narrative: Exam Narrative: - GENERAL: Frail thin male - HENT: Dry oral mucosa. - ABDOMEN: Soft, non-tender and non-distended. - EXTREMITIES: No edema. Thin. Peripheral pulses 2+. Non-tender. - NEUROLOGIC: No focal neurological deficits. CN II-XII grossly intact. - PSYCHIATRIC: Awake, Alert and oriented x 3. Appropriate mood and affect. - SKIN: No rashes or lesions. Warm. Objective Data Vital Signs Vital Signs: Vital Signs - 24 hr 03/31/20 13:55 03/31/20 14:05 03/31/20 14:15 Temperature 37.1 C Pulse Rate 86 92 98 Respiratory Rate 18 18 20 Blood Pressure 103/70 Pulse Oximetry 98 03/31/20 20:25 03/31/20 20:38 03/31/20 22:00 Temperature 36.4 C L Pulse Rate 84 90 83 Respiratory Rate 18 18 21 H Blood Pressure 103/65 Pulse Oximetry 96 100 04/01/20 01:34 04/01/20 01:43 04/01/20 06:08 Temperature 36.5 C Pulse Rate 81 85 110 H Respiratory Rate 20 20 18 Blood Pressure 118/78 Pulse Oximetry 92 04/01/20 08:00 04/01/20 08:13 04/01/20 08:14 Temperature Pulse Rate 83 85 Respiratory Rate 20 20 Blood Pressure Pulse Oximetry 92 04/01/20 09:30 Temperature Pulse Rate 85 Respiratory Rate 20 Blood Pressure Pulse Oximetry 92 Intake/Output Intake/Output: Intake & Output 03/29/20 03/30/20 03/31/20 04/01/20 23:59 23
[2020-04-02] VITALS (18 sets, daily range): BP systolic 96–116; BP diastolic 47–79; PULSE 69–168; RESP 18–24; TEMP 35.7–37; O2SAT 93–100
[2020-04-02] MEDS: IPRATROPIUM BR 0.02% INH SOLN 0.5 MG/2.5 ML VIAL INHALATION ×4 (03:10→21:15)
[2020-04-02] MEDS: LEVALBUTEROL HFA (*SP) 15 GM INHALER 2 PUFF INHALATION ×2 (03:11→07:40)
[2020-04-02] MEDS: oxyCODONE/ACETAMINOPHEN (*CRX) 5-325 MG TABLET 2 TABLET PO ×3 (05:24→19:29)
[2020-04-02 06:23] LABS: Alanine Aminotransferase 38 U/L (4-50); Albumin Level 2.8 g/dL (3.5-5.1); Alkaline Phosphatase 100 U/L (38-126); Aspartate Amino Transferase 30 U/L (17-59); Bilirubin,Total 0.1 mg/dL (0.2-1.3); Blood Urea Nitrogen 22 mg/dL (9-20); Calcium 8.8 mg/dL (8.4-10.2); Carbon Dioxide > 40 mmol/L (22-30); Chloride 96 mmol/L (98-107); Estimated CRCL calculation 105 ml/min; Estimated Glomerular Filt Rate > 60; Glucose 88 mg/dL (75-110); Potassium 4.8 mmol/L (3.4-5.0); Sodium 137 mmol/L (137-145)
[2020-04-02] MEDS: BUDESONIDE RESPULE NEB 0.5 MG/2 ML AMP INHALATION ×2 (07:40→21:15)
[2020-04-02] MEDS: ENOXAPARIN 40 MG/0.4 ML SYRINGE SUB-Q (08:55)
[2020-04-02] MEDS: ETHAMBUTOL HCL 400 MG TABLET 800 MG PO (08:56)
[2020-04-02] MEDS: BENZONATATE 100 MG CAPSULE 200 MG PO ×3 (08:56→19:28)
[2020-04-02] MEDS: POTASSIUM CHLORIDE 20 MEQ TABLET.ER PO (08:57)
[2020-04-02] MEDS: rifAMPin 300 MG CAPSULE PO (08:57)
[2020-04-02] MEDS: SACCHAROMYCES BOULARDII 250 MG CAPSULE PO ×2 (08:57→19:29)
[2020-04-02] MEDS: CLARITHROMYCIN 500 MG TABLET PO (08:57)
[2020-04-02] MEDS: predniSONE 20 MG, predniSONE 10 MG 30 MG PO (08:57)
[2020-04-02] MEDS: FAMOTIDINE 20 MG TABLET 40 MG PO ×2 (08:58→19:28)
--- NOTE | 2020-04-02 11:17 | ECG_ITS ---
Measurements Intervals [place] Rate: 170 P: [place]: 0 QRS: 40 QRSD: 161 T: -85 QT: 231 QTc: 389 Interpretive Statements ATRIAL FLUTTER/TACHYCARDIA WITH RAPID VENTRICULAR RESPONSE INCOMPLETE RIGHT BUNDLE BRANCH BLOCK BORDERLINE ST-T WAVE ABNORMALITY- ANTEROLATERAL LEADS BASELINE WANDER- II, III, AVF ABNORMAL ECG Electronically Signed On 04-02-2020 15:29:15 AIR CONDITIONING ENGINEER by Odell Montero D.O.
--- NOTE | 2020-04-02 12:15 | PC.NURSE ---
This patient, Ramakrishna Zavala, was transferred to [ [facility]] on 04/02/20 at 1215. Personal belongings sent with patient. Report given to [[facility]]. Appropriate documentation sent with patient.
--- NOTE | 2020-04-02 13:47 | PM.CNCAR ---
Assessment and Plan Assessment and plan (1) Paroxysmal atrial fibrillation: Code(s): I48.0 - Paroxysmal atrial fibrillation Status: Acute Assessment and Plan: Recurrent atrial fibrillation. Was formally on sotalol but what I can gather is that the sotalol was stopped because of possible interaction with antibiotics. Presumably QT prolongation was a concern. He is also not on anticoagulation because of difficulty in controlling INRs and his inability to routinely get to the lab. I am not certain as to why a direct oral anticoagulant though is not being considered. Will request records from [facility]. In the meantime, he did surprisingly respond very well to digoxin at last visit. Therefore will give him a dose of IV digoxin 0.5 mg IV x1. He does not need another echocardiogram as 1 was just performed 2 months ago. Will discontinue the echocardiogram that was ordered. Will repeat an EKG for the morning. Telemetry monitoring. (2) COPD with emphysema: Qualifiers: Emphysema type: unspecified Qualified Code(s): J43.9 - Emphysema, unspecified Code(s): J43.9 - Emphysema, unspecified Status: Acute Assessment and Plan: Per pulmonology (3) Chronic respiratory failure with hypoxia, on home oxygen therapy: Code(s): J96.11 - Chronic respiratory failure with hypoxia; Z99.81 - Dependence on supplemental oxygen Status: Acute Assessment and Plan: Per ID and pulmonology (4) Pulmonary Mycobacterium avium complex (MAC) infection: Code(s): A31.0 - Pulmonary mycobacterial infection Status: Acute Assessment and Plan: Per ID History of Present Illness History of Present Illness Consult date/time: 04/02/20 13:47 Requesting physician: Collin Brown MD Consult reason: atrial fibrillation Reason For Visit: sepsis, pneumonia, copd excerbation, dehydration Narrative: Date of service 04/02/2020 Reason for consultation: Atrial fibrillation History: Patient is a 64-year-old male who normally follows with Dr. Steiner at [facility]. He was seen by Dr. Cooper for similar issues back in January. He was admitted to this hospital because of worsening and recurrent pneumonia. He has been battling MAC pneumonia, chronic respiratory failure, COPD. He was found to be hypoxic on 4 L at presentation to the emergency department. His white count was also 22,000 and he was admitted for superimposed infection. CT scan was concerning for right lower lobe consolidation. Patient was on on the medical floor when his heart rate was noted to be elevated today. EKG showed atrial fibrillation with rapid ventricular response. He was transferred to IMU for further workup evaluation and cardiology consultation. Patient currently is feeling okay and denies any chest pain. He sometimes feel palpitations but does not feel them at present. He denies any syncope, presyncope, paroxysmal nocturnal dyspnea, orthopnea. No edema. He has had some worsening shortness of breath as of late. He use to be on warfarin but had difficulty getting to the lab and could not have his INR control. I am not certain as to why a DOAC has not been considered. Review of Systems Review of Systems: All systems reviewed & are unremarkable except as noted in HPI and below Constitutional: Constitutional: Denies body ache(s) Eyes: Eyes: Denies blurry vision ENT: Reports Normal hearing present Cardiovascular: Cardiovascular: Denies chest pain and Reports palpitations Respiratory: Respiratory: Reports dyspnea Gastrointestinal: Gastrointestinal: Denies abdominal pain Genitourinary: Genitourinary: Denies dysuria Musculoskeletal: Musculoskeletal: Denies back pain and Denies neck pain Integumentary/Breasts: Skin/Breast: Denies dry skin and Denies unusual bruising Neurologic: Denies headache(s) and Denies numbness Psychiatric: Psychiatric: Denies anxiety and Denies confusion Endocrine:
[2020-04-02] MEDS: DIGOXIN INJ 250 MCG/ML 2 ML AMP (*BKC) 500 MCG IV PUSH (14:25)
--- NOTE | 2020-04-02 16:55 | PM.IMPN ---
Progress Note: A&P Assessment and Plan (1) Pneumonia: Qualifiers: Laterality: right Lung location: lower lobe of lung Pneumonia type: due to unspecified organism Qualified Code(s): J18.9 - Pneumonia, unspecified organism Code(s): J18.9 - Pneumonia, unspecified organism Status: Acute Assessment and Plan: -chest x-ray and CT scan concerning for consistent MAC pneumonia as well as new consolidation right lower lung -DDx: worsening of the MAC pneumonia versus COVID-19 versus new community-acquired pneumonia -antibiotics: Continue Rocephin and doxycyline, stopped doxcycline yesterday ID and pulmology consulted see recommendations 04/02/20 16:55 Patient is 64-year-old male is found to have exacerbation of COPD with community-acquired pneumonia as well as pulmonary MAC, is seen by Dr. piper recommending the continue Rocephin and doxycycline recommended with community-acquired pneumonia and started, oral clarithromycin, Ethambutol and rifampin from 04/02, and stopped the doxycycline, patient was doing clinically better he has a history of proximal atrial fibrillation apparently he was taking sotalol and it was stopped possibly with direction with antibiotics and QT interval and had not been taking any anticoagulation, however today patient went into atrial fibrillation with RVR he was seen by grain scooper and was given IV digoxin it has helped in the past his rate is controlled now, currently is not on anticoagulation, patient is clinically stable will continue to monitor, will be seen by Dr. Piper and grain scooper and further recommendation to follow (2) Sepsis: Qualifiers: Sepsis acute organ dysfunction status: without acute organ dysfunction Sepsis type: sepsis due to unspecified organism Qualified Code(s): A41.9 - Sepsis, unspecified organism Code(s): A41.9 - Sepsis, unspecified organism Status: Acute Assessment and Plan: -sepsis with leukocytosis [id number] (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 piper infectious disease -last admission recommendations were for Rocephin monotherapy, will continue Rocephin monotherapy -consulting Dr. Piper and pulmonology to help manage MAC - PLan Rocephin #5 and doxy #4. On 04/02, he can begin Lily/Ethambutol/Rifabutin. (4) COPD with emphysema: Qualifiers: Emphysema type: unspecified Qualified Code(s): J43.9 - Emphysema, unspecified Code(s): J43.9 - Emphysema, unspecified Status: Acute (5) Chronic respiratory failure with hypoxia, on home oxygen therapy: Code(s): J96.11 - Chronic respiratory failure with hypoxia; Z99.81 - Dependence on supplemental oxygen Status: Acute Assessment and Plan: -chronic, continue inhalers -xopenox instead of albuterol as he was previously getting tachycardic with the albuterol -patient is on Incruse Ellipta, Xopenex inhaler, Symbicort -home oxygen level was 3l, pt is at baseline (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 with meals Subjective Date/time seen: 04/02/20 16:55 Patient is 64-year-old male is found to have exacerbation of COPD with community-acquired pneumonia as well as pulmonary MAC, is seen by Dr. piper recommending the continue Rocephin and doxycycline recommended with community-acquired pneumonia and started, oral clarithromycin, Ethambutol and rifampin from 04/02, and stopped the doxycycline, patient was doing clinically better he has a history of proximal atrial fibrillation apparently he was taking sotalol and it was stopped possibly with direction with antibiotics and QT interval and had not been taking any anticoagulation, however today radhika
[2020-04-02] MEDS: LEVALBUTEROL HFA (*SP) 15 GM INHALER 4 PUFF INHALATION (20:36)
[2020-04-02] MEDS: ALPRAZolam (*CRX) 0.25 MG TABLET PO (21:38)
[2020-04-03] VITALS (18 sets, daily range): BP systolic 103–141; BP diastolic 57–97; PULSE 69–110; RESP 16–32; TEMP 35.8–36.3; O2SAT 92–98
[2020-04-03] MEDS: oxyCODONE/ACETAMINOPHEN (*CRX) 5-325 MG TABLET 2 TABLET PO ×4 (01:59→20:03)
[2020-04-03] MEDS: IPRATROPIUM BR 0.02% INH SOLN 0.5 MG/2.5 ML VIAL INHALATION ×4 (02:49→20:36)
[2020-04-03 05:24] LABS: Basophils Percent Auto 0.1 % (0.2-1.2); Eosinophils Absolute Auto 0.1 K/mm3 (0-0.3); Eosinophils Percent Auto 0.8 % (0-4.4); Hematocrit 27.2 % (42.0-52.0); Hemoglobin 7.9 g/dL (14.0-18.0); Immature Granulocyte Absolute 0.31 K/mm3 (0.00-0.031); Immature Granulocyte Percent A 2.4 % (0-0.5); Lymphocytes Percent Auto 11.8 % (18.3-44.2); Mean Corpuscular Hemoglobin 26.6 pg (26-34); Mean Corpuscular Volume 91.6 fl (80-100); Mean Platelet Volume 8.5 fl (7.4-10.4); Monocytes Absolute Auto 1.5 K/mm3 (0.1-0.6); Monocytes Percent Auto 11.4 % (2.6-8.5); Neutrophils Absolute Auto 9.4 K/mm3 (1.3-6.7); Neutrophils Percent Auto 73.5 % (45.5-73.1); Nucleated Red Blood Cells Perc 0.2 % (0.0-0.2); Platelet Count Result 463 k/mm3 (150-375); Red Blood Count 2.97 M/mm3 (4.6-6.20); Red Cell Distribution Width 15.3 % (11.5-14.5); White Blood Count 12.8 K/mm3 (4.5-10.0)
[2020-04-03 05:34] LABS: Blood Urea Nitrogen 20 mg/dL (9-20); Calcium 8.7 mg/dL (8.4-10.2); Carbon Dioxide > 40 mmol/L (22-30); Chloride 95 mmol/L (98-107); Estimated CRCL calculation 103 ml/min; Estimated Glomerular Filt Rate > 60; Glucose 114 mg/dL (75-110); Potassium 4.5 mmol/L (3.4-5.0); Sodium 136 mmol/L (137-145)
[2020-04-03] MEDS: POTASSIUM CHLORIDE 20 MEQ TABLET.ER PO (08:01)
[2020-04-03] MEDS: BENZONATATE 100 MG CAPSULE 200 MG PO ×3 (08:02→16:53)
[2020-04-03] MEDS: ENOXAPARIN 40 MG/0.4 ML SYRINGE SUB-Q (08:03)
[2020-04-03] MEDS: predniSONE 20 MG, predniSONE 10 MG 30 MG PO (08:03)
[2020-04-03] MEDS: CLARITHROMYCIN 500 MG TABLET PO (08:03)
[2020-04-03] MEDS: ETHAMBUTOL HCL 400 MG TABLET 800 MG PO (08:03)
[2020-04-03] MEDS: rifAMPin 300 MG CAPSULE PO (08:05)
[2020-04-03] MEDS: SACCHAROMYCES BOULARDII 250 MG CAPSULE PO ×2 (08:06→16:54)
[2020-04-03] MEDS: FAMOTIDINE 20 MG TABLET 40 MG PO ×2 (08:06→16:53)
[2020-04-03] MEDS: BUDESONIDE RESPULE NEB 0.5 MG/2 ML AMP INHALATION ×2 (08:42→20:36)
[2020-04-03] MEDS: ALPRAZolam (*CRX) 0.25 MG TABLET PO ×2 (10:33→21:33)
--- NOTE | 2020-04-03 11:06 | PM.PNCARD ---
Progress Note: A&P Assessment and Plan (1) Paroxysmal atrial fibrillation: Code(s): I48.0 - Paroxysmal atrial fibrillation Status: Acute Assessment and Plan: Recurrent atrial fibrillation. Was formally on sotalol but possibly stopped because of possible interaction with antibiotics. Presumably QT prolongation was a concern. He is also not on anticoagulation because of difficulty in controlling INRs and his inability to routinely get to the lab. Not certain as to why a direct oral anticoagulant though is not being considered. Requested records from [facility]. Converted to normal sinus rhythm with IV digoxin 0.5 mg IV x1. Does get tachycardic with coughing and movement but maintaining normal sinus rhythm. Repeat EKG (2) COPD with emphysema: Qualifiers: Emphysema type: unspecified Qualified Code(s): J43.9 - Emphysema, unspecified Code(s): J43.9 - Emphysema, unspecified Status: Acute Assessment and Plan: Per pulmonology (3) Chronic respiratory failure with hypoxia, on home oxygen therapy: Code(s): J96.11 - Chronic respiratory failure with hypoxia; Z99.81 - Dependence on supplemental oxygen Status: Acute Assessment and Plan: Per pulmonology (4) Pulmonary Mycobacterium avium complex (MAC) infection: Code(s): A31.0 - Pulmonary mycobacterial infection Status: Acute Assessment and Plan: Per ID Time Spent With Patient Time: Plan discussed Dr. Dc 1125 04/03/2020 Subjective Date/time seen: 04/03/20 11:06 Interval history: Follow-up for: Atrial fibrillation with rapid ventricular response, COPD-oxygen dependent, MAC Date of service: 04/03/2020 Subjective: Denied chest discomfort. Chronic mid back pain waxes and wanes. Shortness of breath slightly improved after treatment today. No lightheadedness or palpitations. Review of Systems Constitutional: Constitutional: Denies body ache(s), Denies excessive sweating, Denies fatigue and Denies headache(s) Eyes: Eyes: Denies blurry vision ENT: Reports Normal hearing present, Denies headache(s), Denies lip swelling and Denies neck pain Cardiovascular: Cardiovascular: Denies chest pain, Reports palpitations and Reports dyspnea Respiratory: Respiratory: Reports dyspnea Gastrointestinal: Gastrointestinal: Denies abdominal pain Genitourinary: Genitourinary: Denies dysuria Musculoskeletal: Musculoskeletal: Reports back pain (Chronic ), Denies neck pain and Denies numbness Integumentary/Breasts: Skin/Breast: Denies dry skin and Denies unusual bruising Neurologic: Reports Normal hearing present, Denies confusion, Denies headache(s) and Denies numbness Psychiatric: Psychiatric: Denies anxiety and Denies confusion Endocrine: Endocrine: Denies excessive sweating, Denies fatigue, Denies flushing and Reports palpitations Hematologic/Lymphatic: Hematologic/Lymphatic: Denies easy bleeding Allergic/Immunologic: Allergic/Immunologic: Denies GI upset with certain foods and Denies lip swelling Exam Narrative: Exam Narrative: Frail male who appears older than stated age laying comfortably in bed. Const: General: comfortable and no acute distress Orientation/consciousness: patient oriented x3 HENMT: General nose exam: Normal nares present Eyes: Sclera: sclerae normal Neck: Neck: supple and no JVD Resp: Auscultation: wheezes (Right greater than left) expiratory wheezes and diminished lung sounds Cardio: Rate: tachycardic Rhythm: regular rhythm Heart sounds: no murmurs Peripheral pulses: Peripheral pulses 2+ throughout Skin: General skin exam: normal color Neuro: General: No confusion Cranial nerves: Yes Normal hearing present Cognition (Neuro): normal cognition Speech: normal speech Extrem: General: normal to inspection, no clubbing, cyanosis o
--- NOTE | 2020-04-03 11:16 | ECG_ITS ---
Measurements Intervals [place] Rate: 108 P: 87 [place]: 123 QRS: 59 QRSD: 97 T: 68 QT: 308 QTc: 414 Interpretive Statements SINUS TACHYCARDIA INCOMPLETE RIGHT BUNDLE BRANCH BLOCK BASELINE ARTIFACT- AVL, V1-V3 ABNORMAL ECG Electronically Signed On 04-03-2020 15:21:37 MEDICAL DEVICE ENGINEER by Odell Montero D.O.
--- NOTE | 2020-04-03 12:42 | PCNFU ---
Nutrition Follow-Up Complete: Inadequate oral intake related to chronic health issue as evidenced by BMI of 18.1. Goal: Patient to consume 75% of meals/supplements or greater. Patient has met goal. No new goal. Pt current nutrition is Regular. Nutrition recommendation: Agree Last recorded weight is 58 kg, up from 55.5 kg on admit. Bowel Motility:+BM reported 04/03 Labs Reviewed:Na 136,Cr 0.5,Glu 114 Meds Noted:Florastor,Pepsid,Lovenox,Prednisone. Additional Notes:Nutrition follow up. Patient is currently on a Regular diet order with Ensure Enlive TID. Oral Intake has been 100% of trays. Agree with diet orders. Monitoring: Follow up every 7 days.
--- NOTE | 2020-04-03 14:35 | WPDINFPN2 ---
Progress Note: A&P Assessment and Plan (1) COPD with emphysema: Qualifiers: Emphysema type: unspecified Qualified Code(s): J43.9 - Emphysema, unspecified Code(s): J43.9 - Emphysema, unspecified Status: Acute Assessment and Plan: 1. COPD with exacerbation, CAP is also possible, stable 2. Pulmonary MAC 3. PAF 4. Multifactorial leukocytosis, declining REC Ctx #7, stop after today's dose. Lily/Ethambutol/Rifampin (rifabutin is non formulary as inpatient). Using daily (rather than tiw) antibiotics due to cavitary illness and prior macrolide use. Subjective Date/time seen: 04/03/20 14:35 Interval history: sleeping, no disturbed Exam Narrative: Exam Narrative: afebrile, Mcdonnell draining clear yellow urine. Looks comfortable, no rashes Objective Data Vital Signs Vital Signs: Vital Signs - 24 hr 04/02/20 14:53 04/02/20 15:00 04/02/20 16:00 Temperature Pulse Rate 101 H 102 H 81 Respiratory Rate 24 H 24 H Blood Pressure Pulse Oximetry 97 04/02/20 17:21 04/02/20 20:00 04/02/20 21:15 Temperature 35.7 C L 36.6 C Pulse Rate 95 87 96 Respiratory Rate 22 H 20 20 Blood Pressure 105/47 L 113/65 Pulse Oximetry 100 99 99 04/02/20 21:27 04/02/20 23:37 04/03/20 00:00 Temperature 35.9 C L Pulse Rate 97 78 78 Respiratory Rate 20 18 18 Blood Pressure 116/69 Pulse Oximetry 93 93 04/03/20 02:30 04/03/20 02:49 04/03/20 03:39 Temperature 35.9 C L Pulse Rate 78 89 83 Respiratory Rate 20 20 Blood Pressure 113/71 Pulse Oximetry 98 04/03/20 04:00 04/03/20 05:21 04/03/20 08:00 Temperature 36.2 C L Pulse Rate 83 70 71 Respiratory Rate 20 28 H Blood Pressure 141/97 H Pulse Oximetry 98 96 04/03/20 08:44 04/03/20 10:00 04/03/20 12:00 Temperature 35.8 C L Pulse Rate 96 109 H 90 Respiratory Rate 22 H 32 H Blood Pressure 103/57 L Pulse Oximetry 97 94 Intake/Output Intake/Output: Intake & Output 03/31/20 04/01/20 04/02/20 04/03/20 23:59 23:59 23:59 23:59 Intake Total 2170 2785 2220 1260 Output Total 3425 1800 1480 200 Balance -1255 163 166 3178 Meds/Results Medications: Active Medications Generic Name Dose Route Start Last Admin Trade Name Freq PRN Reason Stop Dose Admin Alprazolam 0.25 mg 03/29/20 21:01 04/03/20 10:33 Alprazolam (*Crx) 0.25 Mg Tablet PO 0.25 mg BID PRN Administration Anxiety Benzonatate 200 mg 03/29/20 09:00 04/03/20 13:50 Benzonatate 100 Mg Capsule PO 200 mg TID ROBBI Administration Budesonide 0.5 mg 03/29/20 20:00 04/03/20 08:42 Budesonide Respule Neb 0.5 Mg/2 Ml Amp INHALATION 0.5 mg Q12HRT ROBBI Administration Clarithromycin 500 mg 04/02/20 09:00 04/03/20 08:03 Clarithromycin 500 Mg Tablet PO 500 mg DAILY ROBBI Administration Enoxaparin Sodium 40 mg 03/29/20 09:00 04/03/20 08:03 Enoxaparin 40 Mg/0.4 Ml Syringe SUB-Q 40 mg DAILY ROBBI Administration Ethambutol HCl 800 mg 04/02/20 09:00 04/03/20 08:03 Ethambutol Hcl 400 Mg Tablet PO 800 mg QAM ROBBI Administration Famotidine 40 mg 03/29/20 09:00 04/03/20 08:06 Famotidine 20 Mg Tablet PO 40 mg BID ROBBI Administration Ceftriaxone Sodium/Dextrose 1 gm in 50 mls @ 100 mls/hr 03/29/20 20:00 04/02/20 22:00 Rocephin 1 Gm/D5w 50 Ml IVPB Infused Q24H ROBBI Infusion Ipratropium [place] 0.5 mg 03/29/20 20:00 04/03/20 08:42 Ipratropium Br 0.02% Inh Soln 0.5 Mg/2.5 Ml Vial INHALATION 0.5 mg Q6HRT ROBBI Administration Levalbuterol HCl 4 puff 03/28/20 20:52 04/02/20 20:36 Levalbuterol Hfa (*Sp) 15 Gm Inhaler INHALATION 4 puff Q6HRT PRN Administration Shortness Of Breath Levalbuterol HCl 1.25 mg 04/02/20 14:00 04/03/20 08:42 Levalbuterol Neb 1.25 Mg/0.5 Ml INHALATION 1.25 mg Q6HRT ROBBI Administration Oxycodone/Acetaminophen 2 tablet 03/29/20 03:01 04/03/20 13:50 Oxycodone/Acetaminophen (*Crx) 5-325 Mg Tablet PO 2 tablet Q6H PRN Administrati
--- NOTE | 2020-04-03 16:42 | PM.IMPN ---
Progress Note: A&P Assessment and Plan (1) Pneumonia: Qualifiers: Laterality: right Lung location: lower lobe of lung Pneumonia type: due to unspecified organism Qualified Code(s): J18.9 - Pneumonia, unspecified organism Code(s): J18.9 - Pneumonia, unspecified organism Status: Acute Assessment and Plan: -chest x-ray and CT scan concerning for consistent MAC pneumonia as well as new consolidation right lower lung -DDx: worsening of the MAC pneumonia versus COVID-19 versus new community-acquired pneumonia -antibiotics: Continue Rocephin and doxycyline, stopped doxcycline yesterday ID and pulmology consulted see recommendations 04/03/20 16:42 Patient is 64-year-old male is found to have exacerbation of COPD with community-acquired pneumonia as well as pulmonary MAC, is seen by Dr. piper and stopped Rocephin as patient has completed 7 day course and doxycycline for community-acquired pneumonia and started, oral clarithromycin, Ethambutol and rifampin from 04/02, and stopped the doxycycline, patient was doing clinically better he has a history of proximal atrial fibrillation apparently he was taking sotalol and it was stopped possibly with interaction with antibiotics and QT interval and had not been taking any anticoagulation, however on 04/02 patient went into atrial fibrillation with RVR he was seen by director cardiology and was given IV digoxin 0.5mg one time, it has helped in the past his rate is controlled now, currently is not on anticoagulation, patient is clinically stable will continue to monitor, will be seen by director cardiology again tomorrow and further recommendation to follow, and possibly discharge home. (2) Sepsis: Qualifiers: Sepsis acute organ dysfunction status: without acute organ dysfunction Sepsis type: sepsis due to unspecified organism Qualified Code(s): A41.9 - Sepsis, unspecified organism Code(s): A41.9 - Sepsis, unspecified organism Status: Acute Assessment and Plan: -sepsis with leukocytosis [id number] (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 piper infectious disease -last admission recommendations were for Rocephin monotherapy, will continue Rocephin monotherapy -consulting Dr. Piper and pulmonology to help manage MAC - PLan Rocephin #5 and doxy #4. On 04/02, he can begin Lily/Ethambutol/Rifabutin. (4) COPD with emphysema: Qualifiers: Emphysema type: unspecified Qualified Code(s): J43.9 - Emphysema, unspecified Code(s): J43.9 - Emphysema, unspecified Status: Acute (5) Chronic respiratory failure with hypoxia, on home oxygen therapy: Code(s): J96.11 - Chronic respiratory failure with hypoxia; Z99.81 - Dependence on supplemental oxygen Status: Acute Assessment and Plan: -chronic, continue inhalers -xopenox instead of albuterol as he was previously getting tachycardic with the albuterol -patient is on Incruse Ellipta, Xopenex inhaler, Symbicort -home oxygen level was 3l, pt is at baseline (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 with meals Subjective Date/time seen: 04/03/20 16:42 Patient is 64-year-old male is found to have exacerbation of COPD with community-acquired pneumonia as well as pulmonary MAC, is seen by Dr. piper and stopped Rocephin as patient has completed 7 day course and doxycycline for community-acquired pneumonia and started, oral clarithromycin, Ethambutol and rifampin from 04/02, and stopped the doxycycline, patient was doing clinically better he has a history of proximal atrial fibrillation apparently he was taking sotalol and it was stopped possibly with interaction with antibiotics
[2020-04-03] MEDS: IBUPROFEN 400 MG TABLET PO (22:16)
[2020-04-03] MEDS: BENZOCAINE/MENTHOL (*BKC) 18 EA LOZENGE 1 LOZENGE PO (22:17)
[2020-04-04] VITALS (24 sets, daily range): BP systolic 89–120; BP diastolic 46–65; PULSE 83–140; RESP 18–30; TEMP 36–36.6; O2SAT 91–98
[2020-04-04] MEDS: oxyCODONE/ACETAMINOPHEN (*CRX) 5-325 MG TABLET 2 TABLET PO ×4 (02:09→20:07)
[2020-04-04] MEDS: IPRATROPIUM BR 0.02% INH SOLN 0.5 MG/2.5 ML VIAL INHALATION ×4 (02:11→19:32)
[2020-04-04 04:57] LABS: Basophils Percent Auto 0.2 % (0.2-1.2); Eosinophils Absolute Auto 0.2 K/mm3 (0-0.3); Eosinophils Percent Auto 1.6 % (0-4.4); Hematocrit 28.5 % (42.0-52.0); Hemoglobin 8.5 g/dL (14.0-18.0); Immature Granulocyte Absolute 0.29 K/mm3 (0.00-0.031); Immature Granulocyte Percent A 2.7 % (0-0.5); Lymphocytes Absolute Auto 1.72 K/mm3 (0.9-3.2); Lymphocytes Percent Auto 15.8 % (18.3-44.2); Mean Corpuscular HGB Conc 29.8 g/dl (32-36); Mean Corpuscular Hemoglobin 26.4 pg (26-34); Mean Corpuscular Volume 88.5 fl (80-100); Mean Platelet Volume 8.7 fl (7.4-10.4); Monocytes Absolute Auto 1.7 K/mm3 (0.1-0.6); Monocytes Percent Auto 15.3 % (2.6-8.5); Neutrophils Percent Auto 64.4 % (45.5-73.1); Nucleated Red Blood Cells Perc 0.2 % (0.0-0.2); Platelet Count Result 538 k/mm3 (150-375); Red Blood Count 3.22 M/mm3 (4.6-6.20); Red Cell Distribution Width 15.6 % (11.5-14.5); White Blood Count 10.9 K/mm3 (4.5-10.0)
[2020-04-04 05:27] LABS: Anion Gap 3 mmol/L (8-16); Blood Urea Nitrogen 24 mg/dL (9-20); Calcium 8.6 mg/dL (8.4-10.2); Carbon Dioxide 36 mmol/L (22-30); Chloride 95 mmol/L (98-107); Estimated CRCL calculation 103 ml/min; Estimated Glomerular Filt Rate > 60; Glucose 97 mg/dL (75-110); Potassium 4.5 mmol/L (3.4-5.0); Sodium 134 mmol/L (137-145)
[2020-04-04 06:04] LABS: Hypochromasia 1+ (NORMAL); Platelet Estimate Adequate (Adequate)
[2020-04-04] MEDS: POTASSIUM CHLORIDE 20 MEQ TABLET.ER PO (08:17)
[2020-04-04] MEDS: ENOXAPARIN 40 MG/0.4 ML SYRINGE SUB-Q (08:17)
[2020-04-04] MEDS: BENZONATATE 100 MG CAPSULE 200 MG PO ×3 (08:18→17:18)
[2020-04-04] MEDS: ETHAMBUTOL HCL 400 MG TABLET 800 MG PO (08:18)
[2020-04-04] MEDS: CLARITHROMYCIN 500 MG TABLET PO (08:18)
[2020-04-04] MEDS: rifAMPin 300 MG CAPSULE PO (08:19)
[2020-04-04] MEDS: FAMOTIDINE 20 MG TABLET 40 MG PO ×2 (08:19→17:18)
[2020-04-04] MEDS: SACCHAROMYCES BOULARDII 250 MG CAPSULE PO ×2 (08:19→17:19)
[2020-04-04] MEDS: BUDESONIDE RESPULE NEB 0.5 MG/2 ML AMP INHALATION ×2 (08:37→19:32)
[2020-04-04] MEDS: DIGOXIN INJ 250 MCG/ML 2 ML AMP (*BKC) 500 MCG IV PUSH (09:57)
[2020-04-04] MEDS: ALPRAZolam (*CRX) 0.25 MG TABLET PO ×2 (10:03→21:27)
--- NOTE | 2020-04-04 12:09 | WPDINFPN2 ---
Progress Note: A&P Assessment and Plan (1) COPD with emphysema: Qualifiers: Emphysema type: unspecified Qualified Code(s): J43.9 - Emphysema, unspecified Code(s): J43.9 - Emphysema, unspecified Status: Acute Assessment and Plan: 1. COPD with exacerbation, CAP is also possible, improving 2. Pulmonary MAC 3. PAF 4. Multifactorial leukocytosis, almost back to normal REC Lily/Ethambutol/Rifampin (rifabutin is non formulary as inpatient). Using daily (rather than tiw) antibiotics due to cavitary illness and prior macrolide use. ok discharge Subjective Date/time seen: 04/04/20 12:09 Interval history: cough, some sputum, no chest pain, drinking Ensure Exam Narrative: Exam Narrative: afebrile Const: General: no acute distress Other: cachectic Resp: Auscultation: rales, no wheezes and diminished lung sounds Cardio: Rate: regular rate Rhythm: regular rhythm Heart sounds: no murmurs GI: Inspection: non-distended GI Palp: Yes Soft to palpation and No Tenderness to palpation present (GI) Objective Data Vital Signs Vital Signs: Vital Signs - 24 hr 04/03/20 14:45 04/03/20 14:51 04/03/20 16:00 Temperature 36.3 C L Pulse Rate 100 104 H 83 Respiratory Rate 16 20 32 H Blood Pressure 111/68 Pulse Oximetry 92 04/03/20 18:00 04/03/20 20:00 04/03/20 20:37 Temperature 36.1 C L Pulse Rate 110 H 102 H 87 Respiratory Rate 24 H 28 H Blood Pressure 114/62 Pulse Oximetry 96 95 04/03/20 20:38 04/03/20 22:00 04/04/20 00:00 Temperature 36.3 C L Pulse Rate 87 99 91 Respiratory Rate 28 H 22 H Blood Pressure 106/59 L Pulse Oximetry 95 04/04/20 02:00 04/04/20 02:12 04/04/20 04:00 Temperature 36.1 C L Pulse Rate 93 91 83 Respiratory Rate 24 H 18 Blood Pressure 95/56 L Pulse Oximetry 98 04/04/20 06:00 04/04/20 07:45 04/04/20 08:00 Temperature 36.3 C L Pulse Rate 85 123 H 137 H Respiratory Rate 30 H Blood Pressure 120/65 Pulse Oximetry 98 98 12/22/20 08:37 04/04/20 09:57 04/04/20 10:00 Temperature Pulse Rate 137 H 122 H 122 H Respiratory Rate 22 H Blood Pressure Pulse Oximetry 95 04/04/20 12:00 Temperature 36.2 C L Pulse Rate 133 H Respiratory Rate 24 H Blood Pressure 91/56 L Pulse Oximetry 91 Intake/Output Intake/Output: Intake & Output 04/01/20 04/02/20 04/03/20 04/04/20 23:59 23:59 23:59 23:59 Intake Total 2785 2220 2220 200 Output Total 1800 1480 1600 900 Balance 985 740 620 -700 Meds/Results Medications: Active Medications Generic Name Dose Route Start Last Admin Trade Name Freq PRN Reason Stop Dose Admin Alprazolam 0.25 mg 03/29/20 21:01 04/04/20 10:03 Alprazolam (*Crx) 0.25 Mg Tablet PO 0.25 mg BID PRN Administration Anxiety Benzocaine 1 lozenge 04/03/20 21:39 04/03/20 22:17 Benzocaine/Menthol (*Bkc) 18 Ea Lozenge PO 1 lozenge PRN PRN Administration Sore Throat Benzonatate 200 mg 03/29/20 09:00 04/04/20 08:18 Benzonatate 100 Mg Capsule PO 200 mg TID ROBBI Administration Budesonide 0.5 mg 03/29/20 20:00 04/04/20 08:37 Budesonide Respule Neb 0.5 Mg/2 Ml Amp INHALATION 0.5 mg Q12HRT ROBBI Administration Clarithromycin 500 mg 04/02/20 09:00 04/04/20 08:18 Clarithromycin 500 Mg Tablet PO 500 mg DAILY ROBBI Administration Enoxaparin Sodium 40 mg 03/29/20 09:00 04/04/20 08:17 Enoxaparin 40 Mg/0.4 Ml Syringe SUB-Q 40 mg DAILY ROBBI Administration Ethambutol HCl 800 mg 04/02/20 09:00 04/04/20 08:18 Ethambutol Hcl 400 Mg Tablet PO 800 mg QAM ROBBI Administration Famotidine 40 mg 03/29/20 09:00 04/04/20 08:19 Famotidine 20 Mg Tablet PO 40 mg BID ROBBI Administration Ibuprofen 400 mg 04/03/20 21:40 04/03/20 22:16 Ibuprofen 400 Mg Tablet PO 400 mg ONCE PRN Administration sore throat Ipratropium [place] 0.5 mg 03/29/20 20:00 04/04/20 08:37 Ipratropium Br 0.02% Inh Soln 0.5 Mg/2.5 Ml Vial INHA
[2020-04-04] MEDS: METOPROLOL TARTRATE INJ 5 MG/5 ML VIAL 2.5 MG IV PUSH (14:50)
--- NOTE | 2020-04-04 14:51 | PM.PNCARD ---
Progress Note: A&P Assessment and Plan (1) Paroxysmal atrial fibrillation: Code(s): I48.0 - Paroxysmal atrial fibrillation Status: Acute Assessment and Plan: Recurrent atrial fibrillation. Was formally on sotalol but possibly stopped because of possible interaction with antibiotics. Presumably QT prolongation was a concern. He is also not on anticoagulation because of difficulty in controlling INRs and his inability to routinely get to the lab. Not certain as to why a direct oral anticoagulant though is not being considered. Requested records from [facility]. No records have been sent. Will call again Converted to normal sinus rhythm with IV digoxin 0.5 mg IV x1 04/02/2020. Was getting tachycardic with coughing and movement but was maintaining normal sinus rhythm. Has been tachycardic today. Dose of digoxin repeated without effect. Metoprolol 2.5 mg slow IVP now. If effect on heart rate, BP stable and lungs able to tolerate will start Metoprolol tartrate 12.5 mg q 8 hours with holding parameters. (2) COPD with emphysema: Qualifiers: Emphysema type: unspecified Qualified Code(s): J43.9 - Emphysema, unspecified Code(s): J43.9 - Emphysema, unspecified Status: Acute Assessment and Plan: Per pulmonology and hospitalist. (3) Chronic respiratory failure with hypoxia, on home oxygen therapy: Code(s): J96.11 - Chronic respiratory failure with hypoxia; Z99.81 - Dependence on supplemental oxygen Status: Acute Assessment and Plan: Per pulmonology and hospitalist (4) Pulmonary Mycobacterium avium complex (MAC) infection: Code(s): A31.0 - Pulmonary mycobacterial infection Status: Acute Assessment and Plan: Per ID Additional Plan Plan discussed with Dr Kaylee Campo 04/04/2020 Subjective Date/time seen: 04/04/20 14:51 Interval history: Follow-up for: Atrial fibrillation with rapid ventricular response, COPD-oxygen dependent, MAC Date of service: 04/04/2020 Subjective: Denied chest discomfort. Chronic mid back pain. Shortness of breath not as good as it could be . Better after neb treatments. No lightheadedness or palpitations. Review of Systems Constitutional: Constitutional: Denies body ache(s), Denies excessive sweating, Denies fatigue and Denies headache(s) Eyes: Eyes: Denies blurry vision ENT: Reports Normal hearing present, Denies headache(s), Denies lip swelling and Denies neck pain Cardiovascular: Cardiovascular: Denies chest pain, Reports palpitations and Reports dyspnea Respiratory: Respiratory: Reports dyspnea Gastrointestinal: Gastrointestinal: Denies abdominal pain Genitourinary: Genitourinary: Denies dysuria Musculoskeletal: Musculoskeletal: Reports back pain (Chronic ), Denies neck pain and Denies numbness Integumentary/Breasts: Skin/Breast: Denies dry skin and Denies unusual bruising Neurologic: Reports Normal hearing present, Denies headache(s) and Denies numbness Psychiatric: Psychiatric: Denies anxiety Endocrine: Endocrine: Denies excessive sweating, Denies fatigue, Denies flushing and Reports palpitations Hematologic/Lymphatic: Hematologic/Lymphatic: Denies easy bleeding Allergic/Immunologic: Allergic/Immunologic: Denies GI upset with certain foods and Denies lip swelling Exam Narrative: Exam Narrative: Frail male who appears older than stated age laying in bed. Slightly distress with breathing Const: General: no acute distress and uncomfortable Orientation/consciousness: patient oriented x3 HENMT: General nose exam: Normal nares present Eyes: Sclera: sclerae normal Neck: Neck: supple and no JVD Resp: Auscultation: wheezes (Right greater than left) expiratory wheezes Other: Prolonged expiratory phase Cardio: Rate: tachycardic Rhythm: regular rhythm Heart soun
--- NOTE | 2020-04-04 16:56 | PM.IMPN ---
Progress Note: A&P Assessment and Plan (1) Pneumonia: Qualifiers: Laterality: right Lung location: lower lobe of lung Pneumonia type: due to unspecified organism Qualified Code(s): J18.9 - Pneumonia, unspecified organism Code(s): J18.9 - Pneumonia, unspecified organism Status: Acute Assessment and Plan: -chest x-ray and CT scan concerning for consistent MAC pneumonia as well as new consolidation right lower lung -DDx: worsening of the MAC pneumonia versus COVID-19 versus new community-acquired pneumonia -antibiotics: Continue Rocephin and doxycyline, stopped doxcycline yesterday ID and pulmology consulted see recommendations 04/04/20 16:56 Patient is 64-year-old male is found to have exacerbation of COPD with community-acquired pneumonia as well as pulmonary MAC, is seen by Dr. piper and stopped Rocephin as patient has completed 7 day course and doxycycline for community-acquired pneumonia and started, oral clarithromycin, Ethambutol and rifampin from 04/02, and stopped the doxycycline, patient was doing clinically better he has a history of proximal atrial fibrillation apparently he was taking sotalol and it was stopped possibly with interaction with antibiotics and QT interval and had not been taking any anticoagulation, however on 04/02 patient went into atrial fibrillation with RVR he was seen by commercial reporter and was given IV digoxin 0.5mg one time, it had helped in the past his rate was controlled, currently is not on anticoagulation, today patient clinically stable however his heart rate is trending up patient is seen by commercial reporter and was given 1 time dose of digoxin 0.5 mg IV however this time heart rate dementia elevated and patient was given low-dose of beta-jay 2.5 mg IV times which did help with rate control and patient is now started on metoprolol 12.5 mg every 8 hours will continue to monitor patient remains clinically stable (2) Sepsis: Qualifiers: Sepsis acute organ dysfunction status: without acute organ dysfunction Sepsis type: sepsis due to unspecified organism Qualified Code(s): A41.9 - Sepsis, unspecified organism Code(s): A41.9 - Sepsis, unspecified organism Status: Acute Assessment and Plan: -sepsis with leukocytosis [id number] (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 piper infectious disease -last admission recommendations were for Rocephin monotherapy, will continue Rocephin monotherapy -consulting Dr. Piper and pulmonology to help manage MAC - PLan Rocephin #5 and doxy #4. On 04/02, he can begin Lily/Ethambutol/Rifabutin. (4) COPD with emphysema: Qualifiers: Emphysema type: unspecified Qualified Code(s): J43.9 - Emphysema, unspecified Code(s): J43.9 - Emphysema, unspecified Status: Acute (5) Chronic respiratory failure with hypoxia, on home oxygen therapy: Code(s): J96.11 - Chronic respiratory failure with hypoxia; Z99.81 - Dependence on supplemental oxygen Status: Acute Assessment and Plan: -chronic, continue inhalers -xopenox instead of albuterol as he was previously getting tachycardic with the albuterol -patient is on Incruse Ellipta, Xopenex inhaler, Symbicort -home oxygen level was 3l, pt is at baseline (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 with meals Subjective Date/time seen: 04/04/20 16:56 Patient is 64-year-old male is found to have exacerbation of COPD with community-acquired pneumonia as well as pulmonary MAC, is seen by Dr. piper and stopped Rocephin as patient has completed 7 day course and doxycycline for community-acquired pneumonia and started, oral clarithromycin, Et
[2020-04-04] MEDS: METOPROLOL TARTRATE 12.5 MG TABLET PO (20:06)
[2020-04-05] VITALS (16 sets, daily range): BP systolic 90–92; BP diastolic 47–53; PULSE 94–118; RESP 20–30; TEMP 36.6–37.1; O2SAT 93–97
[2020-04-05] MEDS: IPRATROPIUM BR 0.02% INH SOLN 0.5 MG/2.5 ML VIAL INHALATION ×3 (01:07→14:44)
[2020-04-05] MEDS: oxyCODONE/ACETAMINOPHEN (*CRX) 5-325 MG TABLET 2 TABLET PO ×3 (02:54→15:08)
[2020-04-05] MEDS: ALPRAZolam (*CRX) 0.25 MG TABLET PO ×2 (04:00→11:59)
[2020-04-05 05:43] LABS: Basophils Percent Auto 0.2 % (0.2-1.2); Eosinophils Absolute Auto 0.1 K/mm3 (0-0.3); Eosinophils Percent Auto 0.7 % (0-4.4); Hematocrit 30.2 % (42.0-52.0); Hemoglobin 9.1 g/dL (14.0-18.0); Immature Granulocyte Absolute 0.29 K/mm3 (0.00-0.031); Immature Granulocyte Percent A 1.8 % (0-0.5); Lymphocytes Absolute Auto 1.35 K/mm3 (0.9-3.2); Lymphocytes Percent Auto 8.1 % (18.3-44.2); Mean Corpuscular HGB Conc 30.1 g/dl (32-36); Mean Corpuscular Hemoglobin 26.3 pg (26-34); Mean Corpuscular Volume 87.3 fl (80-100); Mean Platelet Volume 8.6 fl (7.4-10.4); Monocytes Absolute Auto 1.9 K/mm3 (0.1-0.6); Monocytes Percent Auto 11.6 % (2.6-8.5); Neutrophils Absolute Auto 12.9 K/mm3 (1.3-6.7); Neutrophils Percent Auto 77.6 % (45.5-73.1); Platelet Count Result 535 k/mm3 (150-375); Red Blood Count 3.46 M/mm3 (4.6-6.20); Red Cell Distribution Width 15.7 % (11.5-14.5); White Blood Count 16.6 K/mm3 (4.5-10.0)
[2020-04-05 05:56] LABS: Anion Gap 3 mmol/L (8-16); Blood Urea Nitrogen 21 mg/dL (9-20); Calcium 8.7 mg/dL (8.4-10.2); Carbon Dioxide 38 mmol/L (22-30); Chloride 91 mmol/L (98-107); Estimated CRCL calculation 88 ml/min; Estimated Glomerular Filt Rate > 60; Glucose 96 mg/dL (75-110); Potassium 4.5 mmol/L (3.4-5.0); Sodium 132 mmol/L (137-145)
[2020-04-05] MEDS: METOPROLOL TARTRATE 12.5 MG TABLET PO ×2 (06:08→15:09)
[2020-04-05 06:31] LABS: Hypochromasia 1+ (NORMAL); Platelet Estimate Adequate (Adequate)
[2020-04-05] MEDS: rifAMPin 300 MG CAPSULE PO (09:00)
[2020-04-05] MEDS: FAMOTIDINE 20 MG TABLET 40 MG PO (09:00)
[2020-04-05] MEDS: POTASSIUM CHLORIDE 20 MEQ TABLET.ER PO (09:00)
[2020-04-05] MEDS: BENZONATATE 100 MG CAPSULE 200 MG PO ×2 (09:00→11:59)
[2020-04-05] MEDS: BUDESONIDE RESPULE NEB 0.5 MG/2 ML AMP INHALATION (09:01)
[2020-04-05] MEDS: ENOXAPARIN 40 MG/0.4 ML SYRINGE SUB-Q (09:02)
[2020-04-05] MEDS: ETHAMBUTOL HCL 400 MG TABLET 800 MG PO (09:02)
[2020-04-05] MEDS: SACCHAROMYCES BOULARDII 250 MG CAPSULE PO (09:02)
[2020-04-05] MEDS: CLARITHROMYCIN 500 MG TABLET PO (09:03)
--- NOTE | 2020-04-05 12:13 | PM.PNCARD ---
Progress Note: A&P Assessment and Plan (1) Paroxysmal atrial fibrillation: Code(s): I48.0 - Paroxysmal atrial fibrillation Status: Acute Assessment and Plan: Recurrence of atrial fibrillation in the setting of MAC pneumonia. Previously on sotalol however this was discontinued due to interaction with his antibiotics. Converted initially with 1 dose of digoxin on 04/02/2020. Tachycardia yesterday. This resolved with Metoprolol dose. Received 2 doses of p.o. Metoprolol over the night. Rate is much better controlled. Discharge on 12.5 mg of Metoprolol tartrate q.12 hours. Follow-up in the office 3-4 weeks. [id number] score is 0. Aspirin 325 mg daily at discharge. (2) COPD with emphysema: Qualifiers: Emphysema type: unspecified Qualified Code(s): J43.9 - Emphysema, unspecified Code(s): J43.9 - Emphysema, unspecified Status: Acute Assessment and Plan: Per pulmonology and hospitalist. (3) Chronic respiratory failure with hypoxia, on home oxygen therapy: Code(s): J96.11 - Chronic respiratory failure with hypoxia; Z99.81 - Dependence on supplemental oxygen Status: Acute Assessment and Plan: Per pulmonology and hospitalist (4) Pulmonary Mycobacterium avium complex (MAC) infection: Code(s): A31.0 - Pulmonary mycobacterial infection Status: Acute Assessment and Plan: Per ID Additional Plan OK to discharge from cardiac standpoint See discharge instructions for follow-up Plan discussed with Dr Page [id number] 04/05/2020 Subjective Date/time seen: 04/05/20 12:13 Interval history: Follow-up for: Atrial fibrillation with rapid ventricular response, COPD-oxygen dependent, MAC Date of service: 04/05/2020 Subjective: Anxious to go home. Denied any chest discomfort. Breathing is better than yesterday. No lightheadedness or palpitations. Review of Systems Constitutional: Constitutional: Denies body ache(s), Denies excessive sweating, Denies fatigue and Denies headache(s) Eyes: Eyes: Denies blurry vision ENT: Reports Normal hearing present, Denies headache(s), Denies lip swelling and Denies neck pain Cardiovascular: Cardiovascular: Denies chest pain, Reports palpitations and Reports dyspnea Respiratory: Respiratory: Reports dyspnea Gastrointestinal: Gastrointestinal: Denies abdominal pain Genitourinary: Genitourinary: Denies dysuria Musculoskeletal: Musculoskeletal: Reports back pain (Chronic ), Denies neck pain and Denies numbness Integumentary/Breasts: Skin/Breast: Denies dry skin and Denies unusual bruising Neurologic: Reports Normal hearing present, Denies headache(s) and Denies numbness Psychiatric: Psychiatric: Denies anxiety Endocrine: Endocrine: Denies excessive sweating, Denies fatigue, Denies flushing and Reports palpitations Hematologic/Lymphatic: Hematologic/Lymphatic: Denies easy bleeding Allergic/Immunologic: Allergic/Immunologic: Denies GI upset with certain foods and Denies lip swelling Exam Narrative: Exam Narrative: Frail male who appears older than stated age laying in bed. No distress. More comfortable today. Const: General: no acute distress Orientation/consciousness: patient oriented x3 HENMT: General nose exam: Normal nares present Eyes: Sclera: sclerae normal Neck: Neck: supple and no JVD Resp: Auscultation: wheezes (Right greater than left) expiratory wheezes Other: Prolonged expiratory phase Cardio: Rate: tachycardic Rhythm: regular rhythm Heart sounds: no murmurs Peripheral pulses: Peripheral pulses 2+ throughout GI: Auscultation: normal bowel sounds Skin: General skin exam: normal color Neuro: General: patient oriented x3 Cranial nerves: Yes Normal hearing present Cognition (Neuro): normal cognition Speech: normal speech Extrem: General: normal to inspection, no c
--- NOTE | 2020-04-05 13:56 | PM.DS ---
DS: Admitting Diagnosis Admitting Diagnosis Admitting Diagnosis: Dyspnea DS: Discharge Diagnosis Discharge Diagnosis (1) Pneumonia: Qualifiers: Laterality: right Lung location: lower lobe of lung Pneumonia type: due to unspecified organism Qualified Code(s): J18.9 - Pneumonia, unspecified organism Code(s): J18.9 - Pneumonia, unspecified organism Status: Acute Assessment and Plan: -chest x-ray and CT scan concerning for consistent MAC pneumonia as well as new consolidation right lower lung -DDx: worsening of the MAC pneumonia versus COVID-19 versus new community-acquired pneumonia -antibiotics: Continue Rocephin and doxycyline, stopped doxcycline yesterday ID and pulmology consulted see recommendations 04/04/20 16:56 Patient is 64-year-old male is found to have exacerbation of COPD with community-acquired pneumonia as well as pulmonary MAC, is seen by Dr. piper and stopped Rocephin as patient has completed 7 day course and doxycycline for community-acquired pneumonia and started, oral clarithromycin, Ethambutol and rifampin from 04/02, and stopped the doxycycline, patient was doing clinically better he has a history of proximal atrial fibrillation apparently he was taking sotalol and it was stopped possibly with interaction with antibiotics and QT interval and had not been taking any anticoagulation, however on 04/02 patient went into atrial fibrillation with RVR he was seen by electric organ inspector and repairer and was given IV digoxin 0.5mg one time, it had helped in the past his rate was controlled, currently is not on anticoagulation, today patient clinically stable however his heart rate is trending up patient is seen by electric organ inspector and repairer and was given 1 time dose of digoxin 0.5 mg IV however this time heart rate dementia elevated and patient was given low-dose of beta-jay 2.5 mg IV times which did help with rate control and patient is now started on metoprolol 12.5 mg every 8 hours will continue to monitor patient remains clinically stable (2) Sepsis: Qualifiers: Sepsis acute organ dysfunction status: without acute organ dysfunction Sepsis type: sepsis due to unspecified organism Qualified Code(s): A41.9 - Sepsis, unspecified organism Code(s): A41.9 - Sepsis, unspecified organism Status: Acute Assessment and Plan: -sepsis with leukocytosis 40350 (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 piper infectious disease -last admission recommendations were for Rocephin monotherapy, will continue Rocephin monotherapy -consulting Dr. Piper and pulmonology to help manage MAC - PLan Rocephin #5 and doxy #4. On 04/02, he can begin Lily/Ethambutol/Rifabutin. (4) COPD with emphysema: Qualifiers: Emphysema type: unspecified Qualified Code(s): J43.9 - Emphysema, unspecified Code(s): J43.9 - Emphysema, unspecified Status: Acute (5) Chronic respiratory failure with hypoxia, on home oxygen therapy: Code(s): J96.11 - Chronic respiratory failure with hypoxia; Z99.81 - Dependence on supplemental oxygen Status: Acute Assessment and Plan: -chronic, continue inhalers -xopenox instead of albuterol as he was previously getting tachycardic with the albuterol -patient is on Incruse Ellipta, Xopenex inhaler, Symbicort -home oxygen level was 3l, pt is at baseline (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 with meals DS: Summary Hospital Course Reason for hospitalization: Cheif Complaint: Dyspnea Narrative: Ramakrishna Zavala is a 64 year old male with past medical history of MAC pneumonia, chronic respiratory failure on 2.5 L nasal cannula, history of COPD, history of p
--- NOTE | 2020-04-05 16:44 | PC.NURSE ---
Patient ready for discharge about 1500 and waiting for daughter to come pick him up.
== END 2020-04-05 16:27 | disposition home or self-care (01) | DRG 137 ==
LOC: ANHED 19:38 → ANHIMU 03-29 00:11 → ANH2MED 04-10 16:45 → ANHIMU 04-10 16:45
PROVIDERS: Emergency Medicine Emergency Medical Services; Family Medicine; Admitting Provider Student in an Organized Health Care Education/Training Program; Emergency Provider Emergency Medicine; PCP Family Medicine; Visit Provider Family Medicine
DX: A31.0 Pulmonary mycobacterial infection (principal); J18.9 Pneumonia, unspecified organism; J43.8 Other emphysema; Z20.828 Contact with and (suspected) exposure to other viral communicable diseases; E87.1 Hypo-osmolality and hyponatremia; R64 Cachexia; Z68.1 Body mass index [BMI] 19.9 or less, adult; E43 Unspecified severe protein-calorie malnutrition; J96.11 Chronic respiratory failure with hypoxia; D64.9 Anemia, unspecified; F41.9 Anxiety disorder, unspecified; I48.20 Chronic atrial fibrillation, unspecified; E86.0 Dehydration; Z87.891 Personal history of nicotine dependence; Z99.81 Dependence on supplemental oxygen
CPT/HCPCS: 36415; 36600; 71045; 71275; 80048; 80053; 82805; 83605; 83735; 83880; 84132; 84484; 85025; 85027; 85610; 85730; 87040; 87070; 87077; 87186; 87205; 87635; 93005; 94640; 96361; 96365; 96366; 96372; 96375; 99285; A9270; C9803; G0378; G0379; J0131; J0696; J1100; J1160; J1650; J7030; J7120; J7512; Q9967; U0003

== ENCOUNTER 2021-01-06 09:25 | Outpatient (CLI) | payer OTHER, SELFPAY ==
--- NOTE | ~2021-01-06 | XR_ITS ---
EXAMINATION: XR chest 2V EXAM DATE: 01/06/2021 09:49 INDICATION: Atypical mycobacterial infection,. TECHNIQUE: Frontal and lateral projections of the chest obtained and reviewed. Comparison is made to prior examination from 03/28/2020. FINDINGS: Chronic bullous disease right upper lobe, extensive scarring in the right lung causing hector e relative volume loss. The left lung is severely hyperinflated which can be seen with chronic obstru ctive pulmonary disease (a clinical diagnosis of functional impairment), but is not diagnostic of it. There is narrow cardiac silhouette from the hyperinflated lungs. Again there is scattered left upper lobe scarring. No evidence of superimposed acute airspace disease. Mild thoracic spondylosis. Accoun ting for differences in technique, there is no significant interval change. IMPRESSION: 1. Chronic severe right lung scarring and left apical postinfectious residua. 2. Chronic hyperinflation. Reviewed, dictated and finalized at location A.
== END 2021-01-06 09:26 | disposition home or self-care (01) ==
LOC: ANHIMG 09:31
PROVIDERS: PCP Family Medicine; Visit Provider Internal Medicine Infectious Disease
DX: A31.9 Mycobacterial infection, unspecified (principal); R91.8 Other nonspecific abnormal finding of lung field
CPT/HCPCS: 71046

== ENCOUNTER 2021-02-20 11:19 | Outpatient (CLI) | payer OTHER, SELFPAY ==
[2021-02-20 11:46] LABS: Hematocrit 33.3 % (42.0-52.0); Hemoglobin 10.1 g/dL (14.0-18.0); Mean Corpuscular HGB Conc 30.3 g/dl (32-36); Mean Corpuscular Hemoglobin 27.2 pg (26-34); Mean Corpuscular Volume 89.8 fl (80-100); Mean Platelet Volume 9.6 fl (7.4-10.4); Platelet Count Result 168 k/mm3 (150-375); Red Blood Count 3.71 M/mm3 (4.6-6.20); Red Cell Distribution Width 14.5 % (11.5-14.5); White Blood Count 6.2 K/mm3 (4.5-10.0)
[2021-02-20 12:57] LABS: Alanine Aminotransferase 13 U/L (4-50); Albumin Level 3.9 g/dL (3.5-5.1); Alkaline Phosphatase 86 U/L (38-126); Anion Gap 9 mmol/L (8-16); Aspartate Amino Transferase 27 U/L (17-59); Bilirubin,Total 0.4 mg/dL (0.2-1.3); Blood Urea Nitrogen 22 mg/dL (9-20); Calcium 9.3 mg/dL (8.4-10.2); Carbon Dioxide 30 mmol/L (22-30); Chloride 100 mmol/L (98-107); Estimated Glomerular Filt Rate > 60; Glucose 94 mg/dL (65-110); Potassium 4.6 mmol/L (3.4-5.0); Sodium 139 mmol/L (137-145)
== END 2021-02-20 11:20 | disposition home or self-care (01) ==
LOC: ANHLAB 11:22
PROVIDERS: PCP Family Medicine; Visit Provider Internal Medicine Infectious Disease
DX: A31.9 Mycobacterial infection, unspecified (principal)
CPT/HCPCS: 36415; 80053; 85027

== ENCOUNTER 2021-03-21 14:04 | Outpatient (CLI) | payer OTHER, SELFPAY ==
--- NOTE | ~2021-03-21 | CT_ITS ---
EXAMINATION: CT diagnostic chest wo con DATE: 03/21/2021 14:42 INDICATION: A31.0 - Pulmonary mycobacterial infection TECHNIQUE: Computed tomography (CT) of the chest was performed without intravenous contrast. Addition al 3D reconstructions utilizing coronal maximum intensity projection (MIP) were performed. Automated exposure control and iterative reconstruction technique were employed. The dose-length product was 18 5.14 mGy-cm. COMPARISON: 03/28/2020 FINDINGS: Severe emphysema with interval increase in size but decrease in thickness of the now smooth mildly th ickened peripheral wall of a large cavitation which occupies a significant portion of the cephalad th ird of the right hemithorax. Volume loss with additional thick-walled cavitation occupying portions o f the now nearly completely collapsed and consolidated right lower lobe. Multiple unchanged calcified and noncalcified pulmonary nodules along with calcified right hilar and mediastinal lymph nodes cons istent with old granulomatous disease. No definitive new or enlarging pulmonary nodules identified. S cattered bronchiectasis most prominent in the left upper lobe which is likely sequela of chronic infe ction. Small right pleural effusion. Heart size is normal. No pericardial effusion. Thoracic aorta is normal in caliber. Enlargement of th e central pulmonary arteries consistent with pulmonary arterial hypertension. No pathologically enlar ged thoracic lymphadenopathy. 3.7 cm left hepatic cyst and 2.0 cm right renal cyst. Splenic calcifica tion consistent with old granulomatous disease. Mild thoracic spondylosis. IMPRESSION: 1. Severe bullous emphysema with interval near complete collapse and consolidation of the right lower lobe raising suspicion for associated pneumonia. 2. Scattered bronchiectatic change in multiple unchanged scattered calcified and noncalcified nodules likely sequela of chronic infection. 3. Small right pleural effusion. 4. Enlargement of the central pulmonary arteries consistent with pulmonary arterial hypertension. Reviewed, dictated and finalized at location B. [facility] IMPRESSION: 1. Severe bullous emphysema with interval near complete collapse and consolidat ion of the right lower lobe raising suspicion for associated pneumonia. 2. Scattered bronchiectatic change in multiple unchanged scattered calcified an d noncalcified nodules likely sequela of chronic infection. 3. Small right pleural effusion. 4. Enlargement of the central pulmonary arteries consistent with pulmonary mary carmen rial hypertension.
== END 2021-03-21 14:05 | disposition home or self-care (01) ==
LOC: ANHIMG 14:09
PROVIDERS: PCP Family Medicine; Visit Provider Physician Assistant
DX: A31.0 Pulmonary mycobacterial infection (principal); J43.9 Emphysema, unspecified; J90 Pleural effusion, not elsewhere classified
CPT/HCPCS: 71250

== ENCOUNTER 2021-06-27 12:37 | Outpatient (CLI) | payer MEDICARE, MEDICAID, SELFPAY ==
[2021-06-27 13:00] VITALS: PULSE 112; O2SAT 87
[2021-06-27 13:05] VITALS: PULSE 115; O2SAT 87
[2021-06-27 13:07] VITALS: O2SAT 94
--- NOTE | 2021-06-27 14:03 | HOMEO2EVAL ---
Evaluation was performed at [facility]
--- NOTE | 2021-06-27 14:04 | HOMEO2EVAL ---
Evaluation was performed at [facility]
== END 2021-06-27 12:38 | disposition home or self-care (01) ==
LOC: ANHPFT 12:44
PROVIDERS: PCP Family Medicine; Visit Provider Physician Assistant
DX: R06.02 Shortness of breath (principal)
CPT/HCPCS: 94618

== ENCOUNTER 2021-07-24 10:25 | Inpatient (IN) | payer MEDICARE, MEDICAID, SELFPAY ==
[2021-07-24] VITALS (44 sets, daily range): BP systolic 67–122; BP diastolic 56–82; PULSE 98–169; RESP 16–43; TEMP 36.1–37.5; O2SAT 86–100; BMI 16.2
--- NOTE | ~2021-07-24 | CT_ITS ---
EXAMINATION: CTA chest PE protocol DATE: 07/24/2021 17:55 INDICATION: hemoptysis TECHNIQUE: Computed tomography angiography (CTA) of the chest was performed with 100 mL Omnipaque-350 intravenous contrast timed to evaluate the pulmonary arteries. Coronal maximum intensity projection 3D-reconstructions were created by the technologist. The dose-length product (DLP) was 261.96 mGy-cm. Automated exposure control and iterative reconstruction technique were employed. COMPARISON: X-ray chest 07/24/2021, CT chest 03/21/2021. FINDINGS: Study quality: Adequate. Lines and tubes and devices: Endotracheal tube terminating in the mid thoracic trachea. NG tube, side port near the GE junction. Pulmonary arteries: No pulmonary emboli detected. Severe pulmonary artery dilation. No active extrava sation. Thoracic aorta: Normal. Lung parenchyma and airways: Severe emphysema with extensive architectural distortion, upper lung sca rring, hyperexpansion on the right, volume loss the left, and numerous bullae. Large right apical bul la contains a gas fluid level, fluid measures 51HU. Extensive airway debris in right lower lobe bronc hi. Right lower lobe volume loss, consolidation, and evidence of necrosis. Similar changes in a small er portion of residual right midlung. Thoracic inlet, axillae and chest wall: Unremarkable. Mediastinum: Normal. Heart and pericardium: Normal. Coronary artery calcifications: Absent. Pleura: Unremarkable. Upper abdomen: No significant finding. Bones: No acute osseous finding. IMPRESSION: No CT evidence of acute pulmonary embolus. No acute arterial extravasation in the chest. Hyperdense f luid within the large right upper lung bulla represent represent infectious or proteinaceous fluid or hemorrhage. Necrotic infection suspected in the right lower lobe and a portion of the right midlung in combination with and likely related to extensive right lung aspiration. Reviewed, dictated and finalized at location K. IMPRESSION: No CT evidence of acute pulmonary embolus. No acute arterial extravasation in t he chest. Hyperdense fluid within the large right upper lung bulla represent re present infectious or proteinaceous fluid or hemorrhage. Necrotic infection monika pected in the right lower lobe and a portion of the right midlung in combinatio n with and likely related to extensive right lung aspiration.
--- NOTE | ~2021-07-24 | XR_ITS ---
EXAM: XR abdomen NG/feed tube insert HISTORY: OG PLACEMENT COMPARISON: None available FINDINGS: Interval NG tube placement, tip overlying the stomach, side port near the GE junction. Lef t lung hyperexpansion. Right lung volume loss. Bilateral fibrolinear scarring and bullae in the upper lungs. IMPRESSION: NG tube side port near the GE junction, consider advancing 3 cm. Reviewed, dictated and finalized at location K.
--- NOTE | ~2021-07-24 | XR_ITS ---
EXAMINATION: XR chest 1V portable Exam Date/Time: 07/25/2021 17:22 CDT CLINICAL HISTORY: intubation Comparison: 07/25/2021 at 5:54 AM. RESULT: Lines, tubes, and devices: Endotracheal and NG tubes remain in stable and good position. Lungs and pleura: Unchanged pulmonary opacities and lucencies. Cardiomediastinal silhouette: Stable cardiomediastinal silhouette. Other: No acute osseous or upper abdominal finding. IMPRESSION: Stable NG and endotracheal tubes. Unchanged cardiopulmonary exam. Reviewed, dictated and finalized at location K.
--- NOTE | ~2021-07-24 | XR_ITS ---
EXAMINATION: XR chest ET placement DATE: 07/24/2021 17:22 INDICATION: Intubation. TECHNIQUE: A single frontal view of the chest was obtained. COMPARISON: Chest single view 07/24/2021, chest CT 03/21/2021 FINDINGS: The lung bases are excluded. The patient is rotated to his right. There are lucencies in th e lungs, consistent with severe emphysema. There are airspace opacities in the upper lobes and right lower lobe with volume loss. No pleural effusion or pneumothorax. The heart size is normal. The endot robert tube tip is 7.7 cm above the jair. The nasogastric tube tip is beyond the inferior margin o f the radiograph, but at least to the stomach. IMPRESSION: 1. Airspace opacities with volume loss involving the upper lobes and right lower lobe, consistent wit h scarring versus pneumonia. 2. Severe emphysema. Reviewed, dictated and finalized at location A. IMPRESSION: 1. Airspace opacities with volume loss involving the upper lobes and right lowe r lobe, consistent with scarring versus pneumonia. 2. Severe emphysema.
--- NOTE | ~2021-07-24 | XR_ITS ---
EXAMINATION: XR chest 1V portable DATE: 07/25/2021 06:06 INDICATION: Intubated. TECHNIQUE: A single frontal view of the chest was obtained on 2 radiographs. COMPARISON: Chest single view 07/24/2021, chest CT 07/24/2021 FINDINGS: The patient is rotated to his right. There are lucencies in the lungs, consistent with emph ysema. There are airspace opacities in all right lung zones. There are chronic airspace opacities in left upper lobe and left lower lobe, likely scarring. No pleural effusion or pneumothorax. The heart size is normal. The endotracheal tube tip is 7.1 cm above the jair. The nasogastric tube tip is in the stomach. IMPRESSION: 1. Worsened airspace opacities in right lung, consistent with pneumonia. 2. Severe emphysema with stable scarring in left lung. Reviewed, dictated and finalized at location A.
--- NOTE | ~2021-07-24 | XR_ITS ---
EXAMINATION: XR chest 1V portable INDICATION: Shortness of breath TECHNIQUE: Portable AP chest at 1142 hours COMPARISON: 01/06/2021; CT, 03/21/2021 FINDINGS: The lungs are hyperinflated. There is stable chronic cavitation in the right lung apex. No acute airspace opacities are identified. There is no pleural effusion or pneumothorax. The cardiomedi astinal silhouette is stable. IMPRESSION: 1. No acute cardiopulmonary abnormality. Reviewed, dictated and finalized at location A.
--- NOTE | 2021-07-24 10:46 | ECG_ITS ---
Measurements Intervals [place] Rate: 107 P: 98 [place]: 130 QRS: 69 QRSD: 94 T: 76 QT: 319 QTc: 427 Interpretive Statements SINUS TACHYCARDIA INCOMPLETE RIGHT BUNDLE BRANCH BLOCK Electronically Signed On 07-24-2021 12:10:25 CDT by Piyush Francisco M.D.
--- NOTE | 2021-07-24 10:49 | ED.SOB ---
HPI - SOB/Dyspnea General Chief Complaint: Shortness of Breath/Dyspnea Stated Complaint: hemoptysis Time Seen by Provider: 07/24/21 10:39 Source: patient and family Mode of arrival: ambulatory Limitations: no limitations History of Present Illness HPI Narrative: Pt presens with progressively worsening SOB over the last several days. Today is worse and coughed up blood this morning. Pt denies CP or fever. Pt has hx of MAC infection. MD elicited complaint: shortness of breath and cough Pertinent past history: other (MAC) Onset (ago): day(s) Timing: constant Severity: severe Exacerbating factors: exertion Relieving factors: nothing Known history of: COPD Associated symptoms: denies other symptoms Related Data Home Medications Medication Instructions Recorded Confirmed famotidine [Pepcid] 40 mg PO BID 01/15/20 02/20/21 potassium chloride 20 meq PO DAILY 01/15/20 02/20/21 metoprolol tartrate 25 mg PO Q12H 07/24/21 Allergies Allergy/AdvReac Type Severity Reaction Status Date / Time No Known Allergies Allergy Verified 07/03/21 09:53 Review of Systems Review of Systems: All systems reviewed & are unremarkable except as noted in HPI and below PMFSH Past Medical History Medical History Anxiety Chronic anemia Chronic respiratory failure with hypoxia, on home oxygen therapy COPD with emphysema Paroxysmal atrial fibrillation No longer on anticoagulation. Pulmonary Mycobacterium avium complex (MAC) infection Surgical History Surgical History History of lung biopsy Family History Family History Sibling Colon cancer Father Lymphoma Mother Uterine cancer Daughter Crohn's disease Social History Social History Social History: He designates his as his surrogate decision maker and wishes to be a full code. Smoking packs per day: 2 Smoking cigarettes per day: 40.0 Smoking status: Former smoker Tobacco type: cigarettes Alcohol intake: never Substance use: never Additional living arrangements comments: Lives with his in [place], [place]. 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 Gender identity (if verbalized by the patient): Male Spiritual care concerns: No Exam Const: General: ill appearing Orientation/consciousness: patient oriented x3 HENMT: Mouth: Yes dry mucous membranes Eyes: Conjunctivae: conjunctivae normal Neck: Neck: normal visual inspection and no meningeal signs Chest: Chest palpation & inspection: normal inspection of the chest Resp: Effort & Inspection: labored and tachypneic Other: diminishe breath sounds GI: GI Palp: Yes Soft to palpation Auscultation: Hypoactive bowel sounds present Skin: General skin exam: normal color Rashes: no rashes Neuro: General: patient oriented x3, moves all extremities, no meningeal signs and no focal motor deficits Speech: normal speech Extrem: General: normal to inspection and no clubbing, cyanosis or edema Psych: Mental Status: mental status grossly normal Thought content: Yes Normal thought content present Course Course Emergency Course: d/w dr conklin will see pt in consult pt much improved on bipap d/w yordan chin agrees to admit IMU Vital Signs Vital signs: Vital Signs Temperature 97.8 F 07/24/21 10:29 Pulse Rate 123 H 07/24/21 10:29 Respiratory Rate 25 H 07/24/21 10:29 Blood Pressure 108/67 07/24/21 10:29 Pulse Oximetry 86 L 07/24/21 10:29 Temperature 97.8 F 07/24/21 10:29 Pulse Rate 107 H 07/24/21 13:33 Respiratory Rate 23 H 07/24/21 13:33 Blood Pressure 107/76 07/24/21 13:33 Pulse Oximetry 100 07/24/21 13:33 MDM - SOB/Dyspnea Lab Data Result diagrams: 07/24/21 10:54 07/24/21 10:54 Labs
[2021-07-24 11:05] LABS: Basophils Absolute Auto 0.1 K/mm3 (0.0-0.1); Basophils Percent Auto 0.6 % (0.2-1.2); Eosinophils Absolute Auto 0.2 K/mm3 (0-0.3); Eosinophils Percent Auto 1.1 % (0-4.4); Hematocrit 34.2 % (42.0-52.0); Hemoglobin 9.8 g/dL (14.0-18.0); Immature Granulocyte Percent A 0.5 % (0-0.5); Lymphocytes Absolute Auto 1.23 K/mm3 (0.9-3.2); Lymphocytes Percent Auto 6.3 % (18.3-44.2); Mean Corpuscular HGB Conc 28.7 g/dl (32-36); Mean Corpuscular Hemoglobin 27.3 pg (26-34); Mean Corpuscular Volume 95.3 fl (80-100); Mean Platelet Volume 9.3 fl (7.4-10.4); Monocytes Absolute Auto 1.4 K/mm3 (0.1-0.6); Neutrophils Absolute Auto 16.6 K/mm3 (1.3-6.7); Neutrophils Percent Auto 84.5 % (45.5-73.1); Platelet Count Result 378 k/mm3 (150-375); Red Blood Count 3.59 M/mm3 (4.6-6.20); Red Cell Distribution Width 16.7 % (11.5-14.5); White Blood Count 19.6 K/mm3 (4.5-10.0)
[2021-07-24 11:06] LABS: Base Excess ABG 8.7 mEq/l (+/-2.0); Fractional Inspired Oxygen 100 %; HCO3 ABG 36.6 mEq/l (22.0-26.0); Oxygen Content ABG 14.5 %vol (16.0-22.0); Oxygen Saturation ABG 99.6 % (95.0-100.0); Oxyhemoglobin 98.6 % THb (90.0-100.0); PO2 ABG 295.2 mmHg (80.0-100.0); PO2 FiO2 Ratio Arterial Blood 2.95 %; Total Hemoglobin 9.9 g/dL (12.0-18.0); pH ABG 7.325 (7.350-7.450)
[2021-07-24 11:07] LABS: Device NON-REBREATHER MASK; Modified Allen's Test Pass; PCO2 ABG 71.8 mmHg (35.0-45.0); Site Drawn LEFT RADIAL
[2021-07-24 11:13] LABS: Alanine Aminotransferase 17 U/L (4-50); Albumin Level 3.7 g/dL (3.5-5.1); Alkaline Phosphatase 79 U/L (38-126); Aspartate Amino Transferase 26 U/L (17-59); Bilirubin,Total 0.2 mg/dL (0.2-1.3); Blood Urea Nitrogen 18 mg/dL (9-20); Calcium 9.5 mg/dL (8.4-10.2); Carbon Dioxide > 40 mmol/L (22-30); Chloride 95 mmol/L (98-107); Estimated CRCL calculation 84 ml/min; Estimated Glomerular Filt Rate > 60; Glucose 145 mg/dL (65-110); Magnesium 2.1 mg/dL (1.6-2.3); Potassium 5.1 mmol/L (3.4-5.0); Sodium 140 mmol/L (137-145)
[2021-07-24] MEDS: IPRATROPIUM BR 0.02% INH SOLN 0.5 MG/2.5 ML VIAL INHALATION ×2 (11:15→20:01)
[2021-07-24] MEDS: ALBUTEROL SULFATE NEB 2.5 MG/0.5 ML INH 5 MG INHALATION (11:15)
[2021-07-24 11:18] LABS: Anisocytosis 1+ (NORMAL); Hypochromasia 1+ (NORMAL); Partial Thromboplastin Time 37.3 SECONDS (22.3-36.8); Platelet Estimate Adequate (Adequate)
[2021-07-24 11:29] LABS: NT Pro B Type Natriuretic Pept 236 pg/mL (5-100); Troponin I < 0.012 ng/mL (0.000-0.034)
--- NOTE | 2021-07-24 14:30 | PM.IMHP ---
H&P: HPI History of Present Illness Date/Time: 07/24/21 14:30 Chief Complaint: Coughing up blood. Narrative: This is a very pleasant 66-year-old male with chronic obstructive pulmonary disease, chronic respiratory failure on 3.5 L nasal cannula, MAC infection for over 3 years on rifampin/ethambutol/clarithromycin daily, and paroxysmal atrial fibrillation who presented to the emergency department via private vehicle from home for evaluation hemoptysis. At baseline he will get winded when walking from room to room in the home and in fact he rarely leaves his home except when he goes to a doctor's appointments. Over the last several days he has had increasing short of breath on lesser and lesser exertion and this morning around 04:00 he had several coughing fits in which he produced about a handful of bright red blood. This continued throughout the morning and his insisted on bringing him in for evaluation. On arrival to the ER his SpO2 was 71% on 4 L nasal cannula and he was in respiratory distress. Chest x-ray on arrival showed airspace opacities with volume loss involving the upper lobes and right lower lobe consistent with scarring versus pneumonia as well as severe emphysema. He was immediately started on BiPAP with improvement in his work of breathing and he was admitted to the IMU for further evaluation and treatment. At the time my evaluation, he is sitting up in bed and is comfortable on the BiPAP. Patient reports that he feels much better though he remains tachypneic. Aside from worsening shortness of breath and hemoptysis, he has not had any new symptoms. He has intermittent anterior pleuritic chest pain although this has been going on for years and is unchanged. His appetite has been pretty good though he is not able to gain weight. He denies fever, chills, and sweats. No sinus congestion, rhinorrhea, otalgia, or odynophagia. No dysphagia or concerns for aspiration. No nausea, vomiting, or diarrhea. No sick contacts. A rapid response was called about 2 hours after I initially saw the patient. When I entered the room the patient was extremely anxious, pulling at the BiPAP mask, and was actively coughing up bright red blood. He kept repeating that he felt as though he were suffocating. During our earlier visit, I had a long discussion with the patient and his regarding code status and possible intubation. Though reluctant at 1st, the patient did agree to be a full code and said he was okay with intubation. After a quick reassessment, I felt it would be best to transfer the patient to the ICU for intubation due to increasing distress and for airway protection due to hemoptysis. He and his were both in agreement and he was transferred to the ICU where he was intubated easily and on 1st attempt. Review of Systems Review of Systems: Twelve systems were reviewed. He lost nearly 60 lb over the last 3 and half years but weight has remained stable. His appetite has been good and he drinks Boost daily though he has not been able to gain weight. Except as documented, all other systems were reviewed and are negative. [facility] Past Medical History Medical History (Updated 07/24/21 @ 18:09 by Magnolia West PA-C) Anxiety Chronic anemia Chronic respiratory failure with hypoxia, on home oxygen therapy COPD with emphysema Paroxysmal atrial fibrillation No longer on anticoagulation. Pulmonary Mycobacterium avium complex (MAC) infection Surgical History Surgical History History of lung biopsy Family History Family History Sibling Colon cancer Father Lymphoma Mother Uterine cancer Daughter Crohn's disease Social History Social History (Updated 07/24/21 @ 18:03 by Magnolia West PA-C) Social History: Surrogate decision maker: Eileen Zavala, . Code status: Full code. Smoking packs per day: 2 Smoking cigare
--- NOTE | 2021-07-24 16:20 | PM.EVENT ---
Event Note Event Note Event Note: Rapid response called: 16:18. Arrived to patient room: 16:19. Subjective: Rapid response called due to increasing hemoptysis and respiratory distress. Patient is extremely anxious and I feel like I am suffocating.? Dr. Kowalski and Dr. Wu also responded at the same time. Objective: Quite a change from when I saw the patient 2 hours ago. He is now sitting at the side of the bed in a tripod position in your respiratory extremis. The BiPAP is half off and he is coughing up bright red blood. Patient is diaphoretic, tachypneic, and tachycardic. Assessment: Respiratory distress with impending respiratory failure and hemoptysis. Plan: Case discussed with responding nurses, respiratory therapists, and physicians. Decision made to transfer the patient to the ICU for urgent intubation to protect airway.
--- NOTE | 2021-07-24 16:27 | PM.CNPUL ---
Assessment and Plan Assessment and plan (1) Hemoptysis: Code(s): R04.2 - Hemoptysis Status: Resolved Assessment and Plan: This started this morning and has worsened throughout the day. He was intubated to protect his airway as well as to stabilize him for bronchoscopy He does not have coagulopathy, Protime is normal, D-dimer 1.27 He has not had aspirin in 2-3 days. Does not take any other anticoagulants. He has not had episodes of hemoptysis previously. There is no history of collagen vascular disease or immune disorders. He has not had fever, pleuritic chest pain, or increased coughing or sputum from baseline. He has SEBASTIÁN on treatment since 2019, not losing weight and stable CXR. Causes for hemoptysis include infections, cancer, collagen vascular diseases, trauma, drugs including e-cigarettes, and foreign bodies. Will know more after CTA. (2) Acute and chronic respiratory failure: Qualifiers: Respiratory failure complication: hypercapnia Qualified Code(s): J96.22 - Acute and chronic respiratory failure with hypercapnia Code(s): J96.20 - Acute and chronic respiratory failure, unspecified whether with hypoxia or hypercapnia Status: Acute Assessment and Plan: Intubated, adjusting vent settings to ventilate and oxygenate Add IV steroids, IV antibiotics as well as MAC meds Continue bronchodilators NPO CTA chest now to look for PE as a cause of hemoptysis as well as to localize a site of bleeding He may He need bronchoscopy to locate the source of bleeding. (3) Mycobacterial disease, pulmonary: Code(s): A31.0 - Pulmonary mycobacterial infection Status: Acute Assessment and Plan: Was diagnosed with SEBASTIÁN over 3 years ago, remains on 3 drug regimen clarithromycin, rifampin, ethambutol. He has not been able to expectorate any sputum lately. His last positive sputum for MAC was Jan 2020. 03/30/2020 sputum grew heavy growth Pseudomonas aeruginosa, madden sensitive. History of Present Illness History of Present Illness Consult date: 07/24/21 Requesting physician: Magnolia West PA-C Reason for consult: other (hemoptysis) Chief complaint: Respiratory Failure Narrative: NEW: Ramakrishna Zavala is a 66 year old man in our practice, last visit was July 03 to re-certify him for oxygen. This morning around 4:00 a.m. he started coughing large amounts of blood and clots. His woke around 8:00 a.m., and when she saw all the paper towels with blood and his shortness of breath, she insisted on taking him to the hospital. He came to the ER, had acute on chronic hypercapnic hypoxemic respiratory failure, was non-committal about being intubated although the ER doctor said that he looked like it was going to be needed until after he was set up on BiPAP. He had another episode of hemoptysis with moderate amounts of blood and increased shortness of breath with a Rapid Response called at 4:18 p.m. He complained of feeling like he was suffocating as he was coughing up large amounts of blood, BiPPA was not completely on, and he complained of suffocating. He was moved from Room 209 IMU to ICU Room 2, and he was intubated. PMH: COPD, chronic respiratory failure on O2; he has had SEBASTIÁN infection for over 3 years, on rifampin 300 mg a day, ethambutol 800 mg a day, clarithromycin 500 mg a day; He has not had a sputum specimen sent to the lab since late 2019. He is very tired and weak. He does not have much of an appetite. COPD: Levalbuterol, nebulizer up to 2 x day. Levalbuterol inhaler for use when he is out of the house. Daliresp 500 mcg a day. He has a cough with discolored sputum, sometimes is pink and blood-streaked but lately it is more khan which is his normal color. He has a Cornet vibratory valve at h
--- NOTE | 2021-07-24 16:30 | WPDPROCEDUR ---
Procedures Intubation Intubation Date: 07/24/21 <DIANE Muro Last Filed: 07/24/21 17:19> Intubation Time: 16:30 <DIANE Muro Last Filed: 07/24/21 17:19> Consent: Patient and gave verbal consent. <DIANE Muro Last Filed: 07/24/21 17:19> A pre-procedural Time-Out was completed immediately before starting the procedure and confirmed: Patient Identification, Site, Procedure, Patient Position and the Availability of Requisite Equipment: Yes <DIANE Muro Last Filed: 07/24/21 17:19> Sedative: etomidate <DIANE Muro Last Filed: 07/24/21 17:19> Mg given: 10 <DIANE Muro Last Filed: 07/24/21 17:19> Mg given: 80 <DIANE Muro Last Filed: 07/24/21 17:19> Laryngoscope: fiber optic video scope (GlideScope 3 MAC) <DIANE Muro Last Filed: 07/24/21 17:19> Assist device used: fiber optic device <DIANE Muro Last Filed: 07/24/21 17:19> ET tube size: cuffed <DIANE Muro Last Filed: 07/24/21 17:19> Tube secured depth (cm): 23 <DIANE Muro Last Filed: 07/24/21 17:19> Tube secured location: lips <DIANE Muro Last Filed: 07/24/21 17:19> Tube placement confirmation: visualized tube passing through cords, equal breath sounds bilaterally, no breath sounds over epigastrium and confirmation by capnometry <DIANE Muro Last Filed: 07/24/21 17:19> Patient tolerated procedure: well <DIANE Muro Last Filed: 07/24/21 17:19> Intubation complications: none <Magnolia West PA-C - Last Filed: 07/24/21 17:19> Additional comments: Patient was intubated easily and on first attempt. Only a small amount of blood was noted along the vocal cords but prior to intubation the patient continued to cough up a large amount of bright red blood. Vent settings and sedation per Dr. Duque. Dr. Santiago, attending ED physician, was available if needed. <Magnolia West PA-C - Last Filed: 07/24/21 17:19>
[2021-07-24] MEDS: FENTANYL 2,500MCG/NS250ML(*CRX 2,500 MCG/250 ML BAG 10 MCG IV CONT (16:51)
[2021-07-24] MEDS: MIDAZOLAM 100MG/NS 100ML(*CRX) 100 MG/100 ML BAG IV CONT (16:51)
[2021-07-24 17:18] LABS: Hematocrit 30.9 % (42.0-52.0); Hemoglobin 8.9 g/dL (14.0-18.0); Mean Corpuscular HGB Conc 28.8 g/dl (32-36); Mean Corpuscular Hemoglobin 27.6 pg (26-34); Mean Corpuscular Volume 95.7 fl (80-100); Mean Platelet Volume 9.4 fl (7.4-10.4); Platelet Count Result 358 k/mm3 (150-375); Red Blood Count 3.23 M/mm3 (4.6-6.20); Red Cell Distribution Width 16.5 % (11.5-14.5); White Blood Count 17.8 K/mm3 (4.5-10.0)
[2021-07-24 17:31] LABS: Alveolar/Arterial O2 Gradient 291.6 mmHg; Base Excess ABG 10.8 mEq/l (+/-2.0); Carboxyhemoglobin 0.1 % THb (0-2.0); Fractional Inspired Oxygen 80 %; HCO3 ABG 42.6 mEq/l (22.0-26.0); Methemoglobin ABG 0.3 %THb (0-1.5); Oxygen Content ABG 13.6 %vol (16.0-22.0); Oxyhemoglobin 97.6 % THb (90.0-100.0); PO2 ABG 149.2 mmHg (80.0-100.0); PO2 FiO2 Ratio Arterial Blood 1.87 %; Total Hemoglobin 9.7 g/dL (12.0-18.0)
[2021-07-24 17:31] LABS: INR 1.1; Prothrombin Time 13.9 Seconds (11.1-14.7)
[2021-07-24 17:32] LABS: Device VENTILATOR; Modified Allen's Test Pass; PCO2 ABG 123.4 mmHg (35.0-45.0); Site Drawn RIGHT RADIAL; pH ABG 7.156 (7.350-7.450)
[2021-07-24 17:32] LABS: Fibrinogen 709 mg/dl (215-510); Partial Thromboplastin Time 39.2 SECONDS (22.3-36.8)
[2021-07-24 17:33] LABS: Arterial Blood Gas PEEP 5 cmH2O; Arterial Blood Gas Tidal Volume 400 ml; Arterial Blood Gas Vent Mode ASSIST CONTROL; Arterial Blood Gas Ventilator rate 20 /MIN
[2021-07-24 17:35] LABS: D Dimer 1.27 ug/mL (<0.48)
[2021-07-24] MEDS: PROPOFOL IV EMULSION 100 ML 1.5 MG IV CONT (17:45)
[2021-07-24 18:09] LABS: Lactic Acid Reflex 1.5 mmol/L (0.7-2.1)
[2021-07-24 18:11] LABS: Alanine Aminotransferase 19 U/L (4-50); Albumin Level 3.8 g/dL (3.5-5.1); Alkaline Phosphatase 77 U/L (38-126); Anion Gap 1 mmol/L (8-16); Aspartate Amino Transferase 30 U/L (17-59); Bilirubin,Total 0.2 mg/dL (0.2-1.3); Blood Urea Nitrogen 24 mg/dL (9-20); CRP 4.8 mg/dL (<1.0); Calcium 9.2 mg/dL (8.4-10.2); Carbon Dioxide 39 mmol/L (22-30); Chloride 96 mmol/L (98-107); Estimated CRCL calculation 74 ml/min; Estimated Glomerular Filt Rate > 60; Glucose 117 mg/dL (65-110); Magnesium 2.1 mg/dL (1.6-2.3); Potassium 5.3 mmol/L (3.4-5.0); Sodium 136 mmol/L (137-145)
[2021-07-24] MEDS: methylPREDNISolone SOD SUCC 125 MG VIAL 60 MG IV PUSH ×2 (18:17→23:33)
[2021-07-24 18:21] LABS: Procalcitonin 0.2 ng/mL
[2021-07-24] MEDS: SODIUM CHLORIDE 0.9% IV 1,000 ML 999 ML IV CONT ×2 (18:50→21:25)
[2021-07-24] MEDS: SODIUM CHLORIDE 0.9% IV 1,000 ML 75 ML IV CONT (18:51)
--- NOTE | 2021-07-24 19:05 | PCRCNOTE ---
ETT advanced 3 cm @ 18:55 per Magnolia West. ETT currently at 26.
--- NOTE | 2021-07-24 19:31 | PC.NURSE ---
This patient, Darwin Zavala, was received from Pavithra RODRIGUEZ on 07/24/21 at 1650. Patient/family oriented to unit policies and routines
[2021-07-24 20:48] LABS: Alveolar/Arterial O2 Gradient 383.7 mmHg; Base Excess ABG 9.8 mEq/l (+/-2.0); Fractional Inspired Oxygen 80 %; HCO3 ABG 37.1 mEq/l (22.0-26.0); Oxygen Content ABG 12.3 %vol (16.0-22.0); Oxygen Saturation ABG 97.8 % (95.0-100.0); Oxyhemoglobin 97.3 % THb (90.0-100.0); PO2 ABG 113.6 mmHg (80.0-100.0); PO2 FiO2 Ratio Arterial Blood 1.42 %; Total Hemoglobin 8.8 g/dL (12.0-18.0); pH ABG 7.345 (7.350-7.450)
[2021-07-24 20:50] LABS: Device VENTILATOR; PCO2 ABG 69.6 mmHg (35.0-45.0); Site Drawn RIGHT BRACHIAL
[2021-07-24 20:51] LABS: Arterial Blood Gas PEEP 5 cmH2O; Arterial Blood Gas Tidal Volume 450 ml; Arterial Blood Gas Vent Mode CMV; Arterial Blood Gas Ventilator rate 22 /MIN
--- NOTE | 2021-07-24 21:27 | ECG_ITS ---
Measurements Intervals [place] Rate: 139 P: [place]: 0 QRS: 59 QRSD: 83 T: 31 QT: 289 QTc: 440 Interpretive Statements ATRIAL FIBRILLATION WITH RAPID VENTRICULAR RESPONSE POSSIBLE RIGHT VENTRICULAR CONDUCTION DELAY [RSR (QR) IN V1/V2] NONSPECIFIC T-WAVE ABNORMALITY ABNORMAL RHYTHM ECG COMPARED TO ECG 07/24/2021 10:52:07 ATRIAL FIBRILLATION NOW PRESENT T-WAVE ABNORMALITY NOW PRESENT Electronically Signed On 07-25-2021 15:45:21 CDT by Luís Ibarra M.D.
[2021-07-24] MEDS: AMIODARONE 150 MG/D5W 100 ML 150 MG/100 ML BAG 600 MG IV CONT (21:30)
[2021-07-24] MEDS: NOREPINEPHRINE 8 MG/D5W 250 ML 8 MG/250 ML BAG 9.38 MG IV CONT (21:40)
[2021-07-24] MEDS: AMIODARONE 360 MG/D5W 200 ML 360 MG/200 ML BAG 33.33 MG IV CONT (21:45)
--- NOTE | 2021-07-24 22:15 | P.PCNBED_ITS ---
Procedures Central Line Placement Right Femoral: Central Line Date: 07/24/21 Central Line Time: 22:15 Discussed w/ the patient/family/POA,the placement of a central venous catheter, including its clinical necessity/indication & associated potential risks, benifits and alternatives.: Yes The patient/family/POA understand(s) and acknowledge(s) the need to proceed with central venous catheter insertion as an important element of the patient's clinical management.: Yes Time Out Performed: Yes Patient Position: supine Patient placed on monitor/pulse ox: Yes Provider Prep: mask, sterile gown, sterile gloves, Max. sterile barrier precautions, cap and hand hygiene with conventional soap/water or alcohol based hand rub Central line prep: 2% Chlorhexidine scrub Local anesthesia used: lidocaine 1% Amount of anesthesia used (ml): 3 Sterile US Technique with sterile gel/sterile probe covers: Yes Central line lumen inserted: triple Greenlandic: 7 Length (cm): 20 Post Procedure: sutured in place, good blood return, all ports aspirated, flushed, capped, transparent dressing, antimicrobial product, securement product and aseptic technique maintained throughout procedure Post procedure x-ray: other (n/a with femoral line placement) Patient tolerated procedure: well Complications: none Additional comments: Dr. Santiago, attending ED physician, was available if needed.
[2021-07-24] MEDS: MINERAL OIL/WHITE PETROLATUM OINTMENT 1 APPLIC EACH EYE (22:32)
[2021-07-24] MEDS: FAMOTIDINE 20 MG/2 ML VIAL IV PUSH (22:32)
[2021-07-24 23:31] LABS: Hematocrit 26.5 % (42.0-52.0); Hemoglobin 7.6 g/dL (14.0-18.0)
[2021-07-24 23:54] LABS: Anion Gap 3 mmol/L (8-16); Blood Urea Nitrogen 23 mg/dL (9-20); Calcium 8.7 mg/dL (8.4-10.2); Carbon Dioxide 34 mmol/L (22-30); Chloride 98 mmol/L (98-107); Estimated CRCL calculation 87 ml/min; Estimated Glomerular Filt Rate > 60; Glucose 197 mg/dL (65-110); Potassium 4.7 mmol/L (3.4-5.0); Sodium 135 mmol/L (137-145)
[2021-07-25] VITALS (61 sets, daily range): BP systolic 73–116; BP diastolic 57–93; PULSE 55–117; RESP 16–28; TEMP 36.4–37.5; O2SAT 96–100; BMI 17.4
--- NOTE | 2021-07-25 | ECHO_ITS ---
Patient Info Name: Darwin Zavala Age: 66 years : 1955 Gender: Male Ht: 69 in Wt: 118 lbs BSA: 1.60 m2 HR: 65 bpm BP: 92 / 58 mmHg Heart Rhythm: Sinus Rhythm Technical Quality: Fair Exam Date: 07/25/2021 1:05 PM Exam Location: [facility] Patient Status: Inpatient Admit Date: 07/24/2021 Staff Ordering Physician: Coreen Wu MD Collar Cutter: Chantel Orr RDCS Attending Provider: Collin Brown MD Referring Physician: Jazmin CRABTREE; Exam Type: CA echo doppler color flow Study Info Indications - SHORTNESS OF BREATH Complete two-dimensional, color flow and Doppler transthoracic echocardiogram is performed. Summary 1. Complete two-dimensional, color flow and Doppler transthoracic echocardiogram is performed. 2. Left ventricular chamber dimension is normal. 3. Left ventricular systolic function is mildly reduced, estimated at 45-50%. 4. There is no increased left ventricular wall thickness. 5. Left ventricular septal wall motion is abnormal with septal motion related to bundle branch block. 6. The left ventricular diastolic function is normal. 7. Right ventricular chamber dimension is severely enlarged. 8. Right ventricular systolic function is reduced. 9. Left atrial chamber dimension is mildly enlarged. 10. Right atrial chamber dimension is mildly enlarged. 11. There is mild mitral valve regurgitation. 12. There is mild tricuspid valve regurgitation. 13. Moderate pulmonary hypertension, estimated pulmonary arterial systolic pressure is 49 mmHg. Left Ventricle Left ventricular chamber dimension is normal. Left ventricular systolic function is mildly reduced, estimated at 45-50%. There is no increased left ventricular wall thickness. Left ventricular septal wall motion is abnormal with septal motion related to bundle branch block. The left ventricular diastolic function is normal. Right Ventricle Right ventricular chamber dimension is severely enlarged. Right ventricular systolic function is reduced. Left Atria Left atrial chamber dimension is mildly enlarged. Right Atria Right atrial chamber dimension is mildly enlarged. Atrial Septum Intact interatrial septum visualized by color flow imaging. Aortic Valve The aortic valve is trileaflet. There is mild aortic valve sclerosis. There is no aortic valve stenosis. There is trace aortic valve regurgitation. Pulmonic Valve The pulmonic valve is not well visualized. Mitral Valve The mitral valve has normal leaflets. There is no mitral valve stenosis. There is mild mitral valve regurgitation. Tricuspid Valve The tricuspid valve leaflets are normal. There is no significant tricuspid valve stenosis. There is mild tricuspid valve regurgitation. Moderate pulmonary hypertension, estimated pulmonary arterial systolic pressure is 49 mmHg. Pericardium/Pleural The pericardium appears normal. There is no pericardial effusion. Inferior Vena Cava Dilated inferior vena cava with <50% collapse upon inspiration consistent with elevated right atrial pressure, 20 mmHg. Aorta The aortic root size at the sinus of Valsalva is not well visualized. Left Ventricular Outflow Tract Name Value Normal LVOT 2D LVOT
[2021-07-25] MEDS: IPRATROPIUM BR 0.02% INH SOLN 0.5 MG/2.5 ML VIAL INHALATION ×4 (01:15→20:11)
--- NOTE | 2021-07-25 02:28 | ECG_ITS ---
Measurements Intervals [place] Rate: 70 P: 72 [place]: 147 QRS: 44 QRSD: 94 T: 85 QT: 396 QTc: 428 Interpretive Statements SINUS RHYTHM POSSIBLE RIGHT VENTRICULAR CONDUCTION DELAY [RSR (QR) IN V1/V2] MINIMAL VOLTAGE CRITERIA FOR LVH, CONSIDER NORMAL VARIANT [MEETS CRITERIA IN ONE OF: R(aVL), S(V1), R(V5), R(V5/V6)+S(V1)] NONSPECIFIC ST AND T-WAVE ABNORMALITY ABNORMAL ECG COMPARED TO ECG 07/24/2021 22:10:20 SINUS RHYTHM NOW PRESENT Electronically Signed On 07-25-2021 15:48:06 CDT by Luís Ibarra M.D.
[2021-07-25] MEDS: AMIODARONE 360 MG/D5W 200 ML 360 MG/200 ML BAG 16.67 MG IV CONT (03:15)
[2021-07-25 04:44] LABS: Alveolar/Arterial O2 Gradient 228.2 mmHg; Base Excess ABG 5.1 mEq/l (+/-2.0); Carboxyhemoglobin 0.1 % THb (0-2.0); Fractional Inspired Oxygen 55 %; HCO3 ABG 31.8 mEq/l (22.0-26.0); Methemoglobin ABG 0.3 %THb (0-1.5); Oxygen Content ABG 14.5 %vol (16.0-22.0); Oxygen Saturation ABG 97.1 % (95.0-100.0); PCO2 ABG 58.6 mmHg (35.0-45.0); PO2 ABG 98.8 mmHg (80.0-100.0); Reduced Hemoglobin 3.6 %THb (0-5.0); Total Hemoglobin 10.6 g/dL (12.0-18.0); pH ABG 7.353 (7.350-7.450)
[2021-07-25 04:45] LABS: Arterial Blood Gas Ventilator rate 22 /MIN; Device VENTILATOR; Site Drawn RIGHT BRACHIAL
[2021-07-25 04:46] LABS: Arterial Blood Gas PEEP 5 cmH2O; Arterial Blood Gas Tidal Volume 450 ml; Arterial Blood Gas Vent Mode CMV
[2021-07-25 05:01] LABS: Basophils Percent Auto 0.1 % (0.2-1.2); Hematocrit 25.9 % (42.0-52.0); Hemoglobin 7.6 g/dL (14.0-18.0); Immature Granulocyte Absolute 0.13 K/mm3 (0.00-0.031); Immature Granulocyte Percent A 0.6 % (0-0.5); Lymphocytes Absolute Auto 0.56 K/mm3 (0.9-3.2); Lymphocytes Percent Auto 2.5 % (18.3-44.2); Mean Corpuscular HGB Conc 29.3 g/dl (32-36); Mean Corpuscular Hemoglobin 27.7 pg (26-34); Mean Corpuscular Volume 94.5 fl (80-100); Mean Platelet Volume 9.3 fl (7.4-10.4); Monocytes Absolute Auto 0.5 K/mm3 (0.1-0.6); Monocytes Percent Auto 2.2 % (2.6-8.5); Neutrophils Absolute Auto 21.5 K/mm3 (1.3-6.7); Neutrophils Percent Auto 94.6 % (45.5-73.1); Platelet Count Result 298 k/mm3 (150-375); Red Blood Count 2.74 M/mm3 (4.6-6.20); Red Cell Distribution Width 16.3 % (11.5-14.5); White Blood Count 22.7 K/mm3 (4.5-10.0)
[2021-07-25 05:20] LABS: Alanine Aminotransferase 18 U/L (4-50); Albumin Level 3.1 g/dL (3.5-5.1); Alkaline Phosphatase 64 U/L (38-126); Anion Gap 2 mmol/L (8-16); Aspartate Amino Transferase 35 U/L (17-59); Bilirubin,Total 0.1 mg/dL (0.2-1.3); Blood Urea Nitrogen 20 mg/dL (9-20); Calcium 8.5 mg/dL (8.4-10.2); Carbon Dioxide 34 mmol/L (22-30); Chloride 97 mmol/L (98-107); Estimated CRCL calculation 93 ml/min; Estimated Glomerular Filt Rate > 60; Glucose 195 mg/dL (65-110); Magnesium 1.8 mg/dL (1.6-2.3); Potassium 4.6 mmol/L (3.4-5.0); Sodium 133 mmol/L (137-145)
[2021-07-25] MEDS: NOREPINEPHRINE 8 MG/D5W 250 ML 8 MG/250 ML BAG 26.25 MG IV CONT (05:24)
[2021-07-25] MEDS: methylPREDNISolone SOD SUCC 125 MG VIAL 60 MG IV PUSH ×4 (05:26→23:08)
[2021-07-25] MEDS: CENTRAL LINE FLUSH 10 ML IV PUSH ×4 (05:28→20:24)
[2021-07-25 05:49] LABS: Anisocytosis 1+ (NORMAL); Hypochromasia 1+ (NORMAL); Platelet Estimate Adequate (Adequate)
[2021-07-25] MEDS: MIDAZOLAM 100MG/NS 100ML(*CRX) 100 MG/100 ML BAG 6 MG IV CONT ×2 (07:45→23:57)
--- NOTE | 2021-07-25 08:20 | WPDCNINT ---
Assessment and Plan Assessment and plan (1) Acute on chronic respiratory failure with hypoxia and hypercapnia: Code(s): J96.21 - Acute and chronic respiratory failure with hypoxia; J96.22 - Acute and chronic respiratory failure with hypercapnia Status: Acute Assessment and Plan: Patient has baseline severe COPD, chronic hypoxic/hypercapnic respiratory failure and chronic SEBASTIÁN infection on home oxygen now acutely worsened with right lower lobe bacterial pneumonia and COPD exacerbation Right lower lobe pneumonia could be an aspiration Patient emergently intubated on 07/24 Continue full mechanical ventilation support to prevent hypoxemia/hypercarbia and end organ damage. ABG, a.m. chest x-ray and CT reviewed Continue current ventilator settings Wean FiO2 down which is 50% at this time Bronchodilators Check Sputum and blood cultures I will order influenza and COVID PCR Continue empiric antibiotics in the form of vancomycin moxifloxacin and Zosyn Continue Solu-Medrol Pulmonary plans to do a bronchoscopy today 07/24 CTA chest IMPRESSION: No CT evidence of acute pulmonary embolus. No acute arterial extravasation in the chest. Hyperdense fluid within the large right upper lung bulla represent represent infectious or proteinaceous fluid or hemorrhage. Necrotic infection suspected in the right lower lobe and a portion of the right midlung in combination with and likely related to extensive right lung aspiration. (2) Hemoptysis: Code(s): R04.2 - Hemoptysis Status: Resolved Assessment and Plan: Patient presented with hemoptysis. CTA chest was done yesterday and did not showed any pulmonary embolism or any active extravasation There is some material concerning of hemorrhage in his right lung bulla Plan for bronchoscopy today Continue to monitor hemoglobin and transfuse as needed Further plan depends on results of bronchoscopy Hold aspirin (3) Mycobacterial disease, pulmonary: Code(s): A31.0 - Pulmonary mycobacterial infection Status: Acute Assessment and Plan: Treatment per Pulmonary Continue ethambutol rifampin and Biaxin Plan for bronchoscopy today (4) COPD exacerbation: Code(s): J44.1 - Chronic obstructive pulmonary disease with (acute) exacerbation Status: Acute Assessment and Plan: See above (5) Pneumonia: Qualifiers: Laterality: right Lung location: lower lobe of lung Pneumonia type: due to unspecified organism Qualified Code(s): J18.9 - Pneumonia, unspecified organism Code(s): J18.9 - Pneumonia, unspecified organism Status: Acute (6) Paroxysmal atrial fibrillation: Code(s): I48.0 - Paroxysmal atrial fibrillation Status: Acute Assessment and Plan: Currently rate controlled with Amiodarone infusion which will be continued Check echocardiogram Not a candidate for anticoagulation at this time (7) Protein-energy malnutrition: Code(s): E46 - Unspecified protein-calorie malnutrition Status: Acute Assessment and Plan: Start tube feeds after bronchoscopy today (8) Septic shock: Code(s): A41.9 - Sepsis, unspecified organism; R65.21 - Severe sepsis with septic shock Status: Acute Assessment and Plan: Patient was hypotensive post intubation. His lactate is negative he does appear to have pneumonia. This may be compounded by AFib with RVR and sedation Continue IV fluids Continue Levophed Will give another fluid bolus Additional Plan DVT prophylaxis -SCDs Stress ulcer prophylaxis -Pepcid Nutrition -NPO at this time Will start tube feeds after bronchoscopy Code Status - Full Code Total Critical Care Time - 40 minutes Due to a high probability of clinically significant, life threatening deterioration, the patient required my highest level of preparedness to intervene emergently and I personally spent this critical care time directly and personally managing the patient. This critical
[2021-07-25 08:25] LABS: Glucose Point of Care 188 mg/dl (65-105)
[2021-07-25] MEDS: ETHAMBUTOL HCL 400 MG TABLET 800 MG PO (08:37)
[2021-07-25] MEDS: MINERAL OIL/WHITE PETROLATUM OINTMENT 1 APPLIC EACH EYE ×2 (08:37→20:23)
[2021-07-25] MEDS: CLARITHROMYCIN 500 MG TABLET PO (08:37)
[2021-07-25] MEDS: rifAMPin 300 MG CAPSULE PO (08:37)
[2021-07-25] MEDS: FAMOTIDINE 20 MG/2 ML VIAL IV PUSH ×2 (08:38→20:23)
[2021-07-25 09:14] LABS: Hematocrit 24.9 % (42.0-52.0); Hemoglobin 7.4 g/dL (14.0-18.0)
[2021-07-25 09:27] LABS: Influenza A QL RT-PCR Negative (Negative); Influenza B QL RT-PCR Negative (Negative); SARS-CoV-2 RNA PCR Negative
--- NOTE | 2021-07-25 11:55 | PM.PNPUL ---
Progress Note: A&P Assessment and Plan (1) Hemoptysis: Code(s): R04.2 - Hemoptysis Status: Resolved Assessment and Plan: This started this morning and has worsened throughout the day. He was intubated to protect his airway as well as to stabilize him for bronchoscopy He does not have coagulopathy, Protime is normal, D-dimer 1.27 He has not had aspirin in 2-3 days. Does not take any other anticoagulants. He has not had episodes of hemoptysis previously. There is no history of collagen vascular disease or immune disorders. He has not had fever, pleuritic chest pain, or increased coughing or sputum from baseline. He has SEBASTIÁN on treatment since 2019, not losing weight and stable CXR. Causes for hemoptysis include infections, cancer, collagen vascular diseases, trauma, drugs including e-cigarettes, and foreign bodies. Will know more after CTA. (2) Acute and chronic respiratory failure: Qualifiers: Respiratory failure complication: hypercapnia Qualified Code(s): J96.22 - Acute and chronic respiratory failure with hypercapnia Code(s): J96.20 - Acute and chronic respiratory failure, unspecified whether with hypoxia or hypercapnia Status: Acute Assessment and Plan: Intubated, adjusting vent settings to ventilate and oxygenate. His hypercapnia is improved. Continue IV steroids, IV antibiotics. I will stop his clarithromycin as he is now on moxifloxacin for his SEBASTIÁN, and continue EMB and Rifampin. Zosyn & Vanco are given for his pneumonia bhanu in the setting of previous heavy growth of Pseudomonas. Continue bronchodilators (3) Mycobacterial disease, pulmonary: Code(s): A31.0 - Pulmonary mycobacterial infection Status: Acute Assessment and Plan: Was diagnosed with SEBASTIÁN over 3 years ago, remains on 3 drug regimen clarithromycin, rifampin, ethambutol. He has not been able to expectorate any sputum lately. His last positive sputum for MAC was Jan 2020. 03/30/2020 sputum showed heavy growth Pseudomonas aeruginosa, madden sensitive. (4) Anemia: Code(s): D64.9 - Anemia, unspecified Status: Acute Assessment and Plan: He has anemia of chronic disease, worsening with acute blood loss from hemoptysis. Admitted with H/H 9.8/34.2 --> 7.4/24.9. Will require transfusion for acute losses, and this may help with his blood pressure support. Subjective Date/time seen: 07/25/21 11:55 Ramakrishna Zavala is 66 years old in ICU Room 2 with hemoptysis, intubated yesterday to control his airway. He is sedated with fentanyl and versed, on the ventilator, and continues to bleed from his ETT. I spoke with the flow worker Dr Duque, the RN Yasmine, and the patient's . We plan to perform a bronchoscopy today to identify the location and severity of bleeding. Interval history: Last night, he went into atrial fibrillation with RVR, required amiodarone bolus and drip. His heart rate slowed down at 2:15 am, so the amiodarone was stopped. He remains in atrial fibrillation with a rate at 60. He developed shock, is on levophed 6 mcg/minute through a Right femoral central line. Review of Systems Review of Systems: ROS unobtainable: Yes unobtainable due to endotracheal tube Exam Narrative: GEN: Sedated on fentanyl drip, Versed drip, orally intubated. He appears jaundiced, normal bilirubin. He was not this yellow yesterday. HEENT: pupils are equal, EOMI, symmetrical face. There is blood in the ETT. NECK: Trachea is midline CHEST: Equal air entry, symmetric excursion, decreased breath sounds CV: tachycardic regular S1S2 no m/g/r; monitor = sinus tachycardia ABD : few bowel sounds Extremities : no clubbing, cyanosis, or edema PS
[2021-07-25 12:30] LABS: Glucose Point of Care 98 mg/dl (65-105)
[2021-07-25] MEDS: FENTANYL 2,500MCG/NS250ML(*CRX 2,500 MCG/250 ML BAG 12.5 MCG IV CONT (12:32)
[2021-07-25] MEDS: SODIUM CHLORIDE 0.9% IV 1,000 ML 75 ML IV CONT (13:23)
[2021-07-25] MEDS: MIDAZOLAM HCL (*CRX) 2 MG/2 ML VIAL IV PUSH (14:10)
--- NOTE | 2021-07-25 14:10 | PC.NURSE ---
Addendum entered by PAVEL Palacio 07/25/21 15:33: 175 of fentanyl. Patient has no orders for propofol entered. Addendum entered by PAVEL Palacio 07/25/21 15:30: Titrated patient's sedation to 175 of propofol and 10 of midazolam during bronchoscopy procedure per Dr. Wu. Original Note: Titrated patient sedation to
--- NOTE | 2021-07-25 14:45 | PC.NURSE ---
Patient sedation returned to 125 of fentanyl and 6 of midazolam post bronchoscopy procedure.
--- NOTE | 2021-07-25 15:38 | SUR.OPER ---
FLUSHING OF 150 ML NORMAL SALINE, 4ML OF LIDOCAINE 2%, 6ML OF LIDOCAINE 1% WITH EPINEPHRINE, RETURN WASHINGS 161 MLS
[2021-07-25 15:56] LABS: Glucose Point of Care 123 mg/dl (65-105)
[2021-07-25 17:23] LABS: Hematocrit 23.1 % (42.0-52.0)
[2021-07-25 17:33] LABS: Hemoglobin 6.7 g/dL (14.0-18.0)
--- NOTE | 2021-07-25 17:34 | PM.IMPN ---
Subjective Date/time seen: 07/25/21 17:34 Objective Data Vital Signs Vital Signs: Vital Signs - 24 hr 07/24/21 17:45 07/24/21 18:00 07/24/21 18:09 Temperature Pulse Rate 120 H 121 H 136 H Respiratory Rate 22 H 22 H Blood Pressure Pulse Oximetry 95 07/24/21 18:19 07/24/21 18:20 07/24/21 18:21 Temperature Pulse Rate 121 H 120 H 120 H Respiratory Rate 22 H 22 H 22 H Blood Pressure Pulse Oximetry 07/24/21 18:52 07/24/21 18:55 07/24/21 19:21 Temperature Pulse Rate 129 H 125 H 127 H Respiratory Rate 26 H 23 H Blood Pressure Pulse Oximetry 94 07/24/21 20:00 07/24/21 20:03 07/24/21 20:16 Temperature 99.2 F Pulse Rate 121 H 122 H 120 H Respiratory Rate 22 H 22 H 22 H Blood Pressure 89/68 L Pulse Oximetry 99 07/24/21 21:15 07/24/21 21:30 07/24/21 21:40 Temperature Pulse Rate 126 H 167 H 168 H Respiratory Rate 22 H 22 H Blood Pressure 77/57 L 67/56 L Pulse Oximetry 07/24/21 21:45 07/24/21 22:00 07/24/21 22:39 Temperature 99.5 F Pulse Rate 161 H 131 H 110 H Respiratory Rate 22 H Blood Pressure 77/57 L 87/58 L Pulse Oximetry 100 99 07/24/21 22:45 07/25/21 00:00 07/25/21 00:15 Temperature 98.7 F Pulse Rate 130 H 110 H 102 H Respiratory Rate 22 H 22 H Blood Pressure 86/62 L 73/63 L 79/57 L Pulse Oximetry 100 07/25/21 01:16 07/25/21 01:20 07/25/21 01:21 Temperature Pulse Rate 109 H 113 H 112 H Respiratory Rate 22 H 22 H Blood Pressure Pulse Oximetry 100 07/25/21 02:00 07/25/21 02:15 07/25/21 03:15 Temperature 98.7 F Pulse Rate 117 H 79 68 Respiratory Rate 22 H 22 H Blood Pressure 104/68 106/70 110/60 Pulse Oximetry 99 99 07/25/21 04:00 07/25/21 04:48 07/25/21 05:18 Temperature 97.6 F Pulse Rate 66 65 67 Respiratory Rate 22 H 22 H Blood Pressure 104/67 Pulse Oximetry 99 100 07/25/21 05:21 07/25/21 05:24 07/25/21 06:00 Temperature 97.8 F Pulse Rate 64 66 64 Respiratory Rate 22 H 22 H Blood Pressure 104/69 110/69 Pulse Oximetry 100 07/25/21 06:36 07/25/21 07:45 07/25/21 07:51 Temperature Pulse Rate 78 115 H 68 Respiratory Rate 22 H Blood Pressure 99/64 L Pulse Oximetry 100 07/25/21 07:53 07/25/21 08:00 07/25/21 08:50 Temperature 98.0 F Pulse Rate 114 H 67 67 Respiratory Rate 22 H 22 H 22 H Blood Pressure 96/60 L Pulse Oximetry 100 07/25/21 09:22 07/25/21 10:00 07/25/21 10:55 Temperature 98.1 F Pulse Rate 65 66 64 Respiratory Rate 22 H 22 H Blood Pressure 92/58 L Pulse Oximetry 100 100 07/25/21 12:00 07/25/21 12:32 07/25/21 13:44 Temperature 98.1 F 98.0 F Pulse Rate 67 65 66 Respiratory Rate 22 H 22 H 22 H Blood Pressure 93/59 L 96/66 L Pulse Oximetry 100 100 07/25/21 14:00 07/25/21 14:08 07/25/21 14:13 Temperature 98.1 F 98.2 F Pulse Rate 72 65 82 Respiratory Rate 19 25 H Blood Pressure 101/67 98/68 L Pulse Oximetry 100 100 07/25/21 14:18 07/25/21 14:23 07/25/21 14:28 Temperature 98.2 F 98.2 F 98.3 F Pulse Rate 96 79 80 Respiratory Rate 18 22 H 21 H Blood Pressure 116/93 H 104/71 105/67 Pulse Oximetry 100 100 100 07/25/21 14:33 07/25/21 14:38 07/25/21 14:43 Temperature 98.3 F 98.4 F 98.4 F Pulse Rate 94 100 99 Respiratory Rate 16 20 18 Blood Pressure 102/68 103/83 101/76 Pulse Oximetry 100 100 100 07/25/21 14:48 07/25/21 14:53 07/25/21 14:56 Temperature 98.5 F 98.5 F 98.5 F Pulse Rate 101 H 93 78 Respiratory Rate 20 22 H 22 H Blood Pressure 115/77 114/62 102/63 Pulse Oximetry 100 100 100 07/25/21 15:00 07/25/21 16:00 07/25/21 17:34 Temperature 98.5 F Pulse Rate 75 64 67 Respiratory Rate 28 H 22 H Blood Pressure 102/72 Pulse Oximetry 100 100 Intake/Output Intake/Output: Intake & Output 07/22/21 07/23/21 07/24/21 07/25/21 23:59 23:59 23:59 23:59 Intake Total 2400 2450 Output Total 225 1350 Balance 2175 1100 Meds/Results Medications: Active Medications Generic N
[2021-07-25] MEDS: SODIUM CHLORIDE 0.9% IV 250 ML 30 ML IV CONT (18:02)
[2021-07-25 20:21] LABS: Appearance Bronchial Fluid Bloody; Color Bronchial Fluid Red; Source Bronchial Fluid Bronchial Washings
[2021-07-25 20:34] LABS: Lymphocytes Bronchial Fluid 9 %; Neutrophils Bronchial Fluid 91 %
[2021-07-25 20:39] LABS: Glucose Point of Care 165 mg/dl (65-105)
[2021-07-25 21:37] LABS: Hematocrit 25.1 % (42.0-52.0); Hemoglobin 7.6 g/dL (14.0-18.0)
[2021-07-25] MEDS: NOREPINEPHRINE 8 MG/D5W 250 ML 8 MG/250 ML BAG 11.25 MG IV CONT (23:07)
[2021-07-25 23:21] LABS: Glucose Point of Care 148 mg/dl (65-105)
--- NOTE | 2021-07-26 00:19 | PC.NURSE ---
Report had been given to Torie RODRIGUEZ at [facility]. Patient to go to room 412. Report given to [facility]. Patient loaded up. Torie RODRIGUEZ notified of departure. also notified of departure. All patient belongings had been given earlier in the evening.
--- NOTE | 2021-07-26 07:39 | PM.TDS ---
Transfer Discharge Sum: Prov Provider Date of admission: 07/24/21 12:45 Primary care physician: Joe Davis Admitting clinician: Collin Brown MD Consults: 07/24/21 Consult to Physician Routine Comment: saw pt today, , consult dictated Consulting Provider: Coreen Wu scallop dredger/MD group to consult: Dr Wu Reason for consultation: hempotysis Has provider been notified: Yes Consult to Physician Routine Comment: spoke to Dr. Duque @[phone] (,) Consulting Provider: Colten Duque scallop dredger/ group to consult: Dr. Duque Reason for consultation: respiratory failure with hemoptysis Has provider been notified: Yes DS: Admitting Diagnosis Discharge Date 07/26/21 Admitting Diagnosis hemoptysis DS: Discharge Diagnosis Discharge Diagnosis (1) Acute on chronic respiratory failure with hypoxia and hypercapnia: Code(s): J96.21 - Acute and chronic respiratory failure with hypoxia; J96.22 - Acute and chronic respiratory failure with hypercapnia Status: Acute Assessment and Plan: Patient has baseline severe COPD, chronic hypoxic/hypercapnic respiratory failure and chronic SEBASTIÁN infection on home oxygen now acutely worsened with right lower lobe bacterial pneumonia and COPD exacerbation Right lower lobe pneumonia could be an aspiration Patient emergently intubated on 07/24 Continue full mechanical ventilation support to prevent hypoxemia/hypercarbia and end organ damage. ABG, a.m. chest x-ray and CT reviewed Continue current ventilator settings Wean FiO2 down which is 50% at this time Bronchodilators Check Sputum and blood cultures I will order influenza and COVID PCR Continue empiric antibiotics in the form of vancomycin moxifloxacin and Zosyn Continue Solu-Medrol Pulmonary plans to do a bronchoscopy today 07/24 CTA chest IMPRESSION: No CT evidence of acute pulmonary embolus. No acute arterial extravasation in the chest. Hyperdense fluid within the large right upper lung bulla represent represent infectious or proteinaceous fluid or hemorrhage. Necrotic infection suspected in the right lower lobe and a portion of the right midlung in combination with and likely related to extensive right lung aspiration. (2) Hemoptysis: Code(s): R04.2 - Hemoptysis Status: Resolved Assessment and Plan: Patient presented with hemoptysis. CTA chest was done yesterday and did not showed any pulmonary embolism or any active extravasation There is some material concerning of hemorrhage in his right lung bulla Plan for bronchoscopy today Continue to monitor hemoglobin and transfuse as needed Further plan depends on results of bronchoscopy Hold aspirin (3) Mycobacterial disease, pulmonary: Code(s): A31.0 - Pulmonary mycobacterial infection Status: Acute Assessment and Plan: Treatment per Pulmonary Continue ethambutol rifampin and Biaxin Plan for bronchoscopy today (4) COPD exacerbation: Code(s): J44.1 - Chronic obstructive pulmonary disease with (acute) exacerbation Status: Acute Assessment and Plan: See above (5) Pneumonia: Qualifiers: Laterality: right Lung location: lower lobe of lung Pneumonia type: due to unspecified organism Qualified Code(s): J18.9 - Pneumonia, unspecified organism Code(s): J18.9 - Pneumonia, unspecified organism Status: Acute (6) Paroxysmal atrial fibrillation: Code(s): I48.0 - Paroxysmal atrial fibrillation Status: Acute Assessment and Plan: Currently rate controlled with Amiodarone infusion which will be continued Check echocardiogram Not a candidate for anticoagulation at this time (7) Protein-energy malnutrition: Code(s): E46 - Unspecified protein-calorie malnutrition Status: Acute Assessment and Plan: Start tube feeds after bronchoscopy today (8) Septic shock: Code(s): A41.9 - Sepsis, unspecified organism; R65.21 - Severe sepsis with septic
== END 2021-07-26 00:15 | disposition short-term general hospital (02) | DRG 871 ==
LOC: ANHED 12:44 → ANHIMU 13:51 → ANHICU 16:30
PROVIDERS: Internal Medicine; Internal Medicine Critical Care Medicine; Physician Assistant; Admitting Provider Family Medicine; Emergency Provider Emergency Medicine; Visit Provider Family Medicine
PROC: 0BJ08ZZ Inspection of Tracheobronchial Tree, Via Natural or Artificial Opening Endoscopic (ICD-10-PCS; CPT 31622; principal; 2021-07-25 14:00)
DX: A41.9 Sepsis, unspecified organism (principal); R65.21 Severe sepsis with septic shock; J96.21 Acute and chronic respiratory failure with hypoxia; J15.9 Unspecified bacterial pneumonia; J96.22 Acute and chronic respiratory failure with hypercapnia; R04.2 Hemoptysis; A31.0 Pulmonary mycobacterial infection; E46 Unspecified protein-calorie malnutrition; J43.9 Emphysema, unspecified; Z20.822 Contact with and (suspected) exposure to COVID-19; D64.9 Anemia, unspecified; F41.9 Anxiety disorder, unspecified; I48.0 Paroxysmal atrial fibrillation; Z99.81 Dependence on supplemental oxygen; Z87.891 Personal history of nicotine dependence; Z79.82 Long term (current) use of aspirin
CPT/HCPCS: 31500; 36415; 36430; 36600; 71045; 71275; 80048; 80053; 82375; 82805; 82948; 83050; 83605; 83735; 83880; 84145; 84443; 84484; 85014; 85018; 85025; 85027; 85380; 85384; 85610; 85730; 85999; 86140; 86850; 86900; 86901; 86920; 87015; 87040; 87070; 87077; 87086; 87102; 87116; 87149; 87184; 87186; 87205; 87206; 87502; 93005; 93306; 94002; 94003; 94640; 99291; A9270; C1751; C9803; J0171; J0282; J0330; J2250; J2280; J2543; J2704; J2930; J3010; J3370; J7030; J7050; P9016; Q9967; U0003; U0005

== ENCOUNTER 2021-08-15 14:54 | Inpatient (IN) | payer MEDICARE, MEDICAID, SELFPAY ==
[2021-08-15] VITALS (27 sets, daily range): BP systolic 93–102; BP diastolic 57–72; PULSE 75–97; RESP 21–35; TEMP 36.4–37; O2SAT 97–100; BMI 14.9
--- NOTE | ~2021-08-15 | XR_ITS ---
EXAMINATION: XR chest 1V portable INDICATION: Shortness of breath TECHNIQUE: Portable AP chest at 0532 hours COMPARISON: 08/15/2021 FINDINGS: Again seen is chronic cavitation of the right lung apex. The lungs are hyperinflated but fr ee of acute opacities. There is no pleural effusion or pneumothorax. The cardiomediastinal silhouette is normal. IMPRESSION: 1. No acute cardiopulmonary abnormality. Reviewed, dictated and finalized at location A.
--- NOTE | ~2021-08-15 | XR_ITS ---
EXAMINATION: XR chest 1V portable INDICATION: Shortness of breath, COVID positive TECHNIQUE: Portable AP chest at 1524 hours COMPARISON: 07/25/2021 FINDINGS: There is chronic cavitation of the right lung apex. The lungs are hyperinflated. There are airspace opacities of the left lung base there is no pleural effusion. The cardiomediastinal silhouet te is stable. IMPRESSION: 1. Left basilar airspace opacities, consistent with atelectasis versus pneumonia. Reviewed, dictated and finalized at location A. IMPRESSION: 1. Left basilar airspace opacities, consistent with atelectasis versus pneumoni a.
--- NOTE | ~2021-08-15 | US_ITS ---
EXAMINATION: US renal BI DATE: 08/17/2021 15:24 INDICATION: Hematuria. TECHNIQUE: Multiple ultrasound grayscale images of the kidneys were obtained. COMPARISON: None. FINDINGS: The right kidney measures 11.0 x 5.9 x 4.7 cm. The left kidney measures 11.8 x 5.5 x 5.5 cm. The kidn eys demonstrate normal parenchymal echogenicity. There is a 1.7 cm cyst in right kidney. There is no hydronephrosis. The bladder is decompressed by Mcdonnell catheter. IMPRESSION: 1. Normal kidney sizes. No hydronephrosis. Reviewed, dictated and finalized at location A.
--- NOTE | 2021-08-15 15:06 | ECG_ITS ---
Measurements Intervals [place] Rate: 85 P: 87 MS: 145 QRS: 65 QRSD: 94 T: 68 QT: 353 QTc: 421 Interpretive Statements SINUS RHYTHM INCOMPLETE RIGHT BUNDLE BRANCH BLOCK BORDERLINE T WAVE ABNORMALITY- HIGH LATERAL LEADS BASELINE ARTIFACT- I, AVL, V4-V6 BORDERLINE ECG Electronically Signed On 08-15-2021 15:19:01 CDT by Odell Montero D.O.
--- NOTE | 2021-08-15 15:14 | ED.SOB ---
HPI - SOB/Dyspnea General Chief Complaint: Shortness of Breath/Dyspnea Stated Complaint: Resp Distress Time Seen by Provider: 08/15/21 15:07 History of Present Illness HPI Narrative: 66-year-old male presents the emergency room from a local nursing rehab facility for evaluation of worsening shortness of breath respiratory distress. Patient states that he was hospitalized at [facility] in the ICU for possible esophageal varices(?) For 1 month and was recently transferred to rehab facility. Patient states that he was diagnosed with COVID 4 days ago. Patient states that he has had worsening shortness of breath. Has a history of emphysema/COPD and oxygen dependence. Denies fever. Related Data Home Medications Medication Instructions Recorded Confirmed famotidine [Pepcid] 40 mg PO BID 01/15/20 07/24/21 Saccharomyces boulardii [Florastor] 250 mg PO DAILY 07/24/21 07/24/21 levalbuterol HCl See Rx Instructions .ROUTE 07/24/21 07/24/21 .COMPLEX PRN metoprolol tartrate 25 mg PO DAILY 07/24/21 07/24/21 potassium chloride 99 mg PO DAILY 07/24/21 07/24/21 Allergies Allergy/AdvReac Type Severity Reaction Status Date / Time No Known Allergies Allergy Verified 08/15/21 15:07 Review of Systems Review of Systems: CONSTITUTIONAL: Denies fever, chills, or sweats. EYES: Denies visual changes, redness, or discharge. ENT: Denies rhinorrhea, congestion, sore throat, or otalgia. CARDIOVASCULAR: Denies chest pain, palpitations, or edema. RESPIRATORY: Reports shortness of breath GASTROINTESTINAL: Denies abdominal pain, nausea, vomiting, or diarrhea. GENITOURINARY: Denies dysuria or hematuria. SKIN: Denies rash or itching. MUSCULOSKELETAL: Denies back pain, joint pain, or myalgia. NEUROLOGIC: Denies headache, numbness, dizziness, or weakness. PSYCHIATRIC: Denies anxiety or depression. [facility] Past Medical History Medical History Anxiety Anxiety Chronic anemia Chronic respiratory failure with hypoxia, on home oxygen therapy COPD with emphysema Depression Mycobacterium avium infection Oxygen dependent Paroxysmal atrial fibrillation No longer on anticoagulation. Pulmonary Mycobacterium avium complex (MAC) infection Surgical History Surgical History History of lung biopsy Family History Family History Sibling Colon cancer Father Lymphoma Mother Uterine cancer Daughter Crohn's disease Social History Social History Social History: Surrogate decision maker: Eileen Zavala, . Code status has changed per [facility] paperwork. Patient currently is a DNR DNI but will need to discuss with patient patient lives in a multilevel home but he resides on the main level. They have an oxygen tank, front wheel walker and shower chair. Smoking packs per day: 3 Smoking cigarettes per day: 60.0 Years smoked: 40 Smoking pack-years: 120.00 Smoking status: Former smoker Tobacco type: cigarettes Alcohol intake: never Substance use: never Additional living arrangements comments: Lives with his in [place], [place]. 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 Spiritual care concerns: No Exam Narrative: GENERAL: Appears ill and cachectic HEAD: Normocephalic, atraumatic. EYES: PERRLA and EOMI. CHEST: Decreased breath sounds throughout HEART: Regular rate and rhythm. No murmur heard. Normal peripheral pulses. EXTREMITIES: Normal range of motion. No edema. SKIN: Jaundice NEURO: No focal deficits. Alert and oriented x3. cranial nerves II through XII intact PSYCH: Normal mood and affect. Course Vital Signs Vital signs: Vital Signs Temperature 37.0 C 08/15/21 15:01 Pulse Rate 83 08/15/21 15:01 Respiratory Rate 28 H 08/15/21 15:01
[2021-08-15 15:32] LABS: Basophils Percent Auto 0.1 % (0.2-1.2); Hematocrit 27.6 % (42.0-52.0); Hemoglobin 8.1 g/dL (14.0-18.0); Immature Granulocyte Absolute 0.03 K/mm3 (0.00-0.031); Immature Granulocyte Percent A 0.4 % (0-0.5); Lymphocytes Absolute Auto 0.28 K/mm3 (0.9-3.2); Lymphocytes Percent Auto 3.3 % (18.3-44.2); Mean Corpuscular HGB Conc 29.3 g/dl (32-36); Mean Corpuscular Hemoglobin 27.8 pg (26-34); Mean Corpuscular Volume 94.8 fl (80-100); Mean Platelet Volume 10.8 fl (7.4-10.4); Monocytes Absolute Auto 0.2 K/mm3 (0.1-0.6); Monocytes Percent Auto 1.8 % (2.6-8.5); Neutrophils Absolute Auto 8.1 K/mm3 (1.3-6.7); Neutrophils Percent Auto 94.4 % (45.5-73.1); Platelet Count Result 139 k/mm3 (150-375); Red Blood Count 2.91 M/mm3 (4.6-6.20); Red Cell Distribution Width 16.5 % (11.5-14.5); White Blood Count 8.6 K/mm3 (4.5-10.0)
[2021-08-15 15:42] LABS: Ammonia < 9 umol/L (9-30)
[2021-08-15 15:43] LABS: Lactic Acid Reflex 2.5 mmol/L (0.7-2.0)
[2021-08-15 15:43] LABS: Alanine Aminotransferase 20 U/L (4-50); Albumin Level 3.2 g/dL (3.5-5.1); Alkaline Phosphatase 76 U/L (38-126); Anion Gap 4 mmol/L (8-16); Aspartate Amino Transferase 25 U/L (17-59); Bilirubin,Total 0.1 mg/dL (0.2-1.3); Blood Urea Nitrogen 15 mg/dL (9-20); Calcium 8.5 mg/dL (8.4-10.2); Carbon Dioxide 32 mmol/L (22-30); Chloride 98 mmol/L (98-107); Estimated CRCL calculation 108 ml/min; Estimated Glomerular Filt Rate > 60; Glucose 179 mg/dL (65-110); Potassium 4.3 mmol/L (3.4-5.0); Sodium 134 mmol/L (137-145)
[2021-08-15 15:44] LABS: Alveolar/Arterial O2 Gradient 90.9 mmHg; Fractional Inspired Oxygen 32 %; HCO3 ABG 32.2 mEq/l (22.0-26.0); Oxygen Content ABG 11.8 %vol (16.0-22.0); Oxygen Saturation ABG 95.8 % (95.0-100.0); Oxyhemoglobin 94.5 % THb (90.0-100.0); PCO2 ABG 49.9 mmHg (35.0-45.0); PO2 ABG 78.9 mmHg (80.0-100.0); PO2 FiO2 Ratio Arterial Blood 2.47 %; Total Hemoglobin 8.8 g/dL (12.0-18.0); pH ABG 7.428 (7.350-7.450)
[2021-08-15 15:45] LABS: Device NASAL CANNULA; Modified Allen's Test Pass; Site Drawn RIGHT RADIAL
[2021-08-15 15:51] LABS: Platelet Estimate Decreased (Adequate)
[2021-08-15 15:52] LABS: Anisocytosis 2+ (NORMAL); Hypochromasia 1+ (NORMAL)
[2021-08-15 15:54] LABS: Troponin I < 0.012 ng/mL (0.000-0.034)
[2021-08-15] MEDS: SODIUM CHLORIDE 0.9% IV 1,000 ML 999 ML IV CONT (16:37)
[2021-08-15] MEDS: ALBUTEROL SULFATE NEB 2.5 MG/0.5 ML INH INHALATION ×2 (16:39→20:29)
[2021-08-15] MEDS: IPRATROPIUM BR 0.02% INH SOLN 0.5 MG/2.5 ML VIAL INHALATION ×2 (16:39→20:29)
--- NOTE | 2021-08-15 18:00 | PM.IMHP ---
H&P: HPI History of Present Illness Date/Time: 08/15/21 18:00 Chief Complaint: Shortness of breath. Narrative: This is a very pleasant 66-year-old male with chronic obstructive pulmonary disease, chronic respiratory failure on 3.5 L nasal cannula, MAC infection for over 3 years on rifampin/ethambutol/clarithromycin daily, and paroxysmal atrial fibrillation who presented to the emergency department via EMS from [facility] for evaluation of shortness of breath. He is known to myself and the hospitalist service from recent admission on 07/24/2021 at which time he was admitted for acute on chronic respiratory failure and hemoptysis. He ended up being intubated due to ongoing hemoptysis and respiratory distress and a bronchoscopy the following day showed a large amount of blood concentrated in the right lung as well as excessive airway debris in the right lower lung with evidence of consolidation necrosis. He was transferred to [facility] where he underwent embolization of a bleeding right bronchial artery. He was treated with broad-spectrum antibiotics and sputum culture ultimately grew out Serratia of which he completed a full course. He has some mild dysphagia postextubation however he reports his swallowing is been much improved. It should be noted that he tested positive for COVID while at [facility] though he showed no signs or symptoms and he received no treatment. He was admitted to rehab on 08/10/2021 and he has been participating in 3 hours of physical therapy each day. The last couple of days he has had mild body aches off and on and he has also been having coughing jags, worse when lying on his left side. This morning he had pretty significant coughing fit where he became hypoxic and he was sent back to the ER. Chest x-ray today did once again show chronic cavitation of the right lung apex in addition to left basilar airspace opacities consistent with atelectasis versus pneumonia. Due to his risk factors, he is being admitted for further care and observation. At the time my evaluation he reports feeling better. He denies fever, headache, sinus congestion, sore throat, chest pain, current shortness of breath, nausea, vomiting, and diarrhea. He denies concerns for aspiration. He was not vaccinated for COVID. Review of Systems Review of Systems: Twelve systems were reviewed and are negative except for as per HPI. [facility], [facility] Past Medical History Medical History (Updated 08/15/21 @ 23:53 by Magnolia West PA-C) Anxiety Chronic anemia Chronic respiratory failure with hypoxia, on home oxygen therapy COPD with emphysema Depression Mycobacterium avium infection Oxygen dependent Paroxysmal atrial fibrillation No longer on anticoagulation. Pulmonary Mycobacterium avium complex (MAC) infection Surgical History Surgical History (Updated 08/15/21 @ 23:50 by Magnolia West PA-C) History of lung biopsy History of recent vascular procedure (07/2021) Embolization of bleeding right bronchial artery. Family History Family History Sibling Colon cancer Father Lymphoma Mother Uterine cancer Daughter Crohn's disease Social History Social History (Updated 08/15/21 @ 23:51 by Magnolia West PA-C) Social History: Surrogate decision maker: Eileen Zavala, . Code status: Full code of 08/15/2021. Smoking packs per day: 2.5 Smoking cigarettes per day: 50.0 Years smoked: 40 Smoking pack-years: 100.00 Smoking status: Former smoker Tobacco type: cigarettes Alcohol intake: never Substance use: never Additional living arrangements comments: Lives with his in [place], [place]. 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 Spiritual care concerns: No Meds Home Medications and Allergies Home Medications Medication Instructions Recorded Confirmed Type famotidine [Pepcid] 20 mg P
[2021-08-15 18:30] LABS: Reflex Lactic Acid Yes or No Add Lactic
[2021-08-15 20:34] LABS: Lactic Acid 1.4 mmol/L (0.7-2.0)
[2021-08-15] MEDS: SODIUM CHLORIDE 0.9% IV 1,000 ML 125 ML IV CONT (21:02)
--- NOTE | 2021-08-15 21:57 | PC.NURSE ---
This patient, Darwin Zavala, was admitted to Medical Room 346-01. Patient/family oriented to hospital policies and general routines including ID bracelet, bed and alarms, visiting hours, pain management, procedures, bathroom and other care routines, personal items, smoking policy, room service/diet, and visiting hours. Information on how to activate the Rapid Response Team has been discussed. Patient/Family are encouraged to report perceived risks to care and to ask questions if they do not understand what they are told or what they should do.
[2021-08-16] VITALS (26 sets, daily range): BP systolic 100–129; BP diastolic 59–91; PULSE 59–90; RESP 12–22; TEMP 36.1–36.8; O2SAT 97–100; BMI 14.9
[2021-08-16 00:35] LABS: Appearance Urine Clear (Clear); Bilirubin Urine Negative (Negative); Blood Urine 2+ (Negative); Color Urine Yellow (Yellow); Glucose Urine UA 1+ mg/dL (Negative); Ketones Urine Negative (Negative); Leukocyte Esterase Ur Negative LEU/UL (Negative); Nitrate Urine Negative (Negative); Protein Urine 1+ mg/dL (Negative); Urobilinogen Urine 0.2 mg/dL (<2.0); pH Urine 7.5 (5.0-9.0)
[2021-08-16 00:49] LABS: Bacteria Urine Trace /hpf; Mucus Urine Rare /lpf; RBC Urine >75 /hpf (0-2)
[2021-08-16] MEDS: REMDESIVIR 200 MG/NS 250 ML 200 MG/250 ML BAG 250 MG IVPB (01:13)
[2021-08-16 02:17] LABS: Add Urine Microscopic? YES
[2021-08-16] MEDS: IPRATROPIUM BR 0.02% INH SOLN 0.5 MG/2.5 ML VIAL INHALATION ×3 (02:28→14:08)
[2021-08-16 05:43] LABS: Hematocrit 22.8 % (42.0-52.0); Mean Corpuscular HGB Conc 29.4 g/dl (32-36); Mean Corpuscular Hemoglobin 28.2 pg (26-34); Mean Corpuscular Volume 95.8 fl (80-100); Mean Platelet Volume 10.3 fl (7.4-10.4); Platelet Count Result 143 k/mm3 (150-375); Red Blood Count 2.38 M/mm3 (4.6-6.20); Red Cell Distribution Width 16.6 % (11.5-14.5); White Blood Count 5.9 K/mm3 (4.5-10.0)
[2021-08-16 05:50] LABS: Hemoglobin 6.7 g/dL (14.0-18.0)
[2021-08-16 06:03] LABS: Alanine Aminotransferase 15 U/L (4-50); Albumin Level 2.8 g/dL (3.5-5.1); Alkaline Phosphatase 65 U/L (38-126); Anion Gap 0 mmol/L (8-16); Aspartate Amino Transferase 20 U/L (17-59); Bilirubin,Total 0.2 mg/dL (0.2-1.3); Blood Urea Nitrogen 13 mg/dL (9-20); CRP 4.1 mg/dL (<1.0); Calcium 8.3 mg/dL (8.4-10.2); Carbon Dioxide 33 mmol/L (22-30); Chloride 104 mmol/L (98-107); Estimated CRCL calculation 123 ml/min; Estimated Glomerular Filt Rate > 60; Glucose 86 mg/dL (65-110); Lactate Dehydrogenase 233 U/L (313-618); Potassium 3.7 mmol/L (3.4-5.0); Sodium 137 mmol/L (137-145)
[2021-08-16 06:22] LABS: Procalcitonin 0.1 ng/mL
[2021-08-16] MEDS: oxyCODONE HCL (*CRX) 5 MG TAB IR PO ×3 (06:36→18:38)
[2021-08-16] MEDS: UMECLIDINIUM BROMIDE 62.5 MCG ELLIPTA 1 PUFF INHALATION (08:32)
[2021-08-16] MEDS: FLUTICASONE/SALMETEROL 230-21 MCG INHALER 1 PUFF 2 PUFF INHALATION ×2 (08:32→20:43)
[2021-08-16] MEDS: ALBUTEROL SULFATE (*SP) INHALER 2 PUFF INHALATION ×4 (08:33→20:43)
[2021-08-16] MEDS: ENOXAPARIN 40 MG/0.4 ML SYRINGE SUB-Q (09:27)
[2021-08-16] MEDS: FAMOTIDINE 20 MG TABLET PO ×2 (09:27→16:45)
[2021-08-16] MEDS: ETHAMBUTOL HCL 400 MG TABLET 800 MG PO (09:27)
[2021-08-16] MEDS: rifAMPin 300 MG CAPSULE PO (09:27)
[2021-08-16] MEDS: SODIUM CHLORIDE 0.9% IV 250 ML 30 ML IV CONT (09:27)
[2021-08-16] MEDS: METOPROLOL TARTRATE 50 MG TAB PO ×4 (09:28→20:51)
[2021-08-16] MEDS: guaiFENesin 12 HR 600 MG TABCR PO ×2 (09:28→20:51)
[2021-08-16] MEDS: polyethylene glycoL 3350 17 GM POWD.PACK PO (09:28)
[2021-08-16] MEDS: SERTRALINE HCL 50 MG TABLET PO (09:28)
[2021-08-16] MEDS: CLARITHROMYCIN 500 MG TABLET PO (09:28)
[2021-08-16] MEDS: SACCHAROMYCES BOULARDII 250 MG CAPSULE PO (09:29)
--- NOTE | 2021-08-16 11:47 | PM.IMPN ---
Progress Note: A&P Assessment and Plan (1) COVID-19: Code(s): U07.1 - COVID-19 Status: Acute Assessment and Plan: Place in COVID19 isolation precautions, cardiac monitoring, and continuous pulse ox Monitor serum electrolytes, CRP, Lactic acid, troponin, CBC, WBC, temperature curve and follow cultures Oxygen via NC; wean as tolerated. Keep spO2 greater than 91% Hold IV abx, minimal leuokocytosis, if patient appears to have a bacterial pneumonia, patient currently on antibiotics for MAC Consider Consulting Pulmonary if the patient has an increased oxygen demand. Patient does not wear oxygen at baseline. When appropriate start CPAP or Vapotherm to maintain oxygen saturation Pt is a candidate for Remdesivir and Dexamethasone, continue treatment according to suggested guidelines. Remdesivir 200 mg IV x1, then 100 mg IV x4 days, dexamethasone 6 mg IV daily x 10 days, or until discharge PRN albuterol MDI and mucinex BID PO. If oxygen requirement increase, consider baricitinib (JACOB inhibtor) 4 mg PO daily for 14 days, or until discharge. Add Imodium for diarrhea GI prophylaxis: PPI Hold IV fluids due to possible fluid volume overload due to COVID, consider IV Lasix if patient appears to be fluid volume overloaded (2) Chronic respiratory failure with hypoxia, on home oxygen therapy: Code(s): J96.11 - Chronic respiratory failure with hypoxia; Z99.81 - Dependence on supplemental oxygen Status: Acute Assessment and Plan: Continue with oxygen supplementation (3) COPD with emphysema: Qualifiers: Emphysema type: unspecified Qualified Code(s): J43.9 - Emphysema, unspecified Code(s): J43.9 - Emphysema, unspecified Status: Acute Assessment and Plan: Monitor vital signs, I&Os, neuro status and patient is a fall risk Monitor serum electrolytes, cultures and CBC Monitor Oxygen saturation, Oxygen via NC; wean oxygen as tolerated, keep SpO2 greater than 88% (4) Anemia: Code(s): D64.9 - Anemia, unspecified Status: Acute Assessment and Plan: Obtain iron panel B12 Obtain occult stool Blood loss occurred, unknown etiology (5) Mycobacterium avium infection: Code(s): A31.0 - Pulmonary mycobacterial infection Status: Acute Assessment and Plan: Continue chronic antibiotic therapy (6) Protein-calorie malnutrition, severe: Code(s): E43 - Unspecified severe protein-calorie malnutrition Status: Acute Assessment and Plan: Consult our registered dietitian Patient's weight is 45.8 kg and 14.9 kg/M2 Albumin 2.8, obtain prealbumin Subjective Date/time seen: 08/16/21 11:47 Patient is alert and oriented x4. He was recently discharged from [facility] after having esophageal bleeding. Patient was treated there for several weeks and was discharged to a skilled facility where he was there for 4 days and was diagnosed with COVID-19. Patient was presented to the emergency department for acute shortness of breath. He was started on dexamethasone and remdesivir. Patient's hemoglobin was noted to be 6.7 on 08/16/2021 and was added ordered 1 unit of packed red blood cells. Patient also had a significant history for COPD and MAC and is on, chronic antibiotic usage. The patient does wear oxygen at baseline. Discussed code status with the patient and potential outcomes as he was diagnosed with COVID and today is day 4 with increased oxygen demand. Patient was agreeable to try any new medications and drugs. Patient reported that he was interested in chest compressions, defibrillation, cardiac medications and intubation. Due to the patient's significant comorbidities he may decline and required a transfer a higher level of care at a later date within this facility. The patient is currently stable on 5 L of oxygen per nasal cannula. Prognosis, guarded Review of Systems Review of Systems: All systems reviewed & are unremarkable ex
[2021-08-16] MEDS: LORazepam (*CRX) 0.5 MG TABLET PO ×2 (12:00→18:38)
[2021-08-16 12:47] LABS: Iron 51 ug/dL (49-181)
--- NOTE | 2021-08-16 12:47 | PCNSR ---
On 08/16/21, the student, Shabana Gardiner, provided care and completed [facility] documentation on this patient. I have reviewed the student's documentation and agree with the findings.
[2021-08-16 12:54] LABS: Prealbumin 9.9 mg/dL (17.6-36.0)
[2021-08-16 12:57] LABS: Percent Iron Saturation 33 % (20-50)
[2021-08-16 13:57] LABS: Hematocrit 27.2 % (42.0-52.0); Hemoglobin 8.2 g/dL (14.0-18.0)
--- NOTE | 2021-08-16 17:53 | WPDGICN ---
Assessment and Plan Assessment and plan (1) Acute on chronic anemia: Code(s): D64.9 - Anemia, unspecified Status: Acute Assessment and Plan: he has chronic low hemoglobin and similar to previous hospitalization, last time he had significant hemoptysis that required transfer to interventional radiology in [facility] patient denies overt gib no indication for GI endoscopy at this point, he also has advanced copd with covid we can always complete GI work up of anemia as outpatient once he is more stable and recovered from respiratory condition will follow from afar, call if questions (2) Protein-calorie malnutrition, severe: Code(s): E43 - Unspecified severe protein-calorie malnutrition Status: Acute Assessment and Plan: chronic, frail elderly (3) Mycobacterium avium infection: Code(s): A31.0 - Pulmonary mycobacterial infection Status: Acute Assessment and Plan: on chronic suppression treatment (4) Oxygen dependent: Code(s): Z99.81 - Dependence on supplemental oxygen Status: Acute (5) Pneumonia due to severe acute respiratory syndrome coronavirus 2 (SARS-CoV-2): Code(s): U07.1 - COVID-19; J12.82 - Pneumonia due to coronavirus disease 2019 Status: Acute Assessment and Plan: on isolation, by primary team (6) Cough with hemoptysis: Code(s): R04.2 - Hemoptysis Status: Acute Assessment and Plan: he was seeing by pulmonary (7) COPD exacerbation: Code(s): J44.1 - Chronic obstructive pulmonary disease with (acute) exacerbation Status: Acute GI Consult Note Consult date/time: 08/16/21 17:53 Reason for consult: acute on chronic anemia, history of hemoptysis HPI: Darwin Zavala is a 66 year old male with history of chronic obstructive pulmonary disease, chronic respiratory failure on 3.5 L nasal cannula, chronic anemia with hb 7-9, MAC infection for over 3 years on rifampin/ethambutol/clarithromycin daily, and paroxysmal atrial fibrillation here via EMS from [facility] for evaluation of shortness of breath. He was admitted here about 1 month ago for acute on chronic respiratory failure and hemoptysis that required intubation and bronchoscopy revealed large amount of blood concentrated in the right lung then he was transferred to [facility] where he underwent embolization of a bleeding right bronchial artery. He also was positive COVID while at [facility]. Here with mild body aches and coughing up again, he was hypoxic and sent to ER. Chest x-ray reviewed and showed again chronic cavitation of the right lung apex in addition to left basilar airspace opacities consistent with atelectasis versus pneumonia. Hb 6.7 and received blood transfusion, denies overt gib. He is on isolation because of COVID. Review of Systems Constitutional: Constitutional: Reports weakness Eyes: Eyes: Denies blurry vision ENT: Reports Normal hearing present Cardiovascular: Cardiovascular: Denies chest pain Respiratory: Respiratory: Reports cough and Reports hemoptysis Gastrointestinal: Gastrointestinal: Denies abdominal pain Genitourinary: Genitourinary: Denies dysuria Musculoskeletal: Musculoskeletal: Denies arthralgias Integumentary/Breasts: Skin/Breast: Denies dry skin Neurologic: Denies headache(s) Psychiatric: Psychiatric: Denies behavioral changes [facility] Past Medical History Medical History (Updated 08/16/21 @ 17:57 by Junior Bosch MD) Acute on chronic anemia Anxiety Chronic anemia Chronic respiratory failure with hypoxia, on home oxygen therapy COPD with emphysema Depression Mycobacterium avium infection Oxygen dependent Paroxysmal atrial fibrillation No longer on anticoagulation. Pulmonary Mycobacterium avium complex (MAC) infection Surgical History Surgical History (Updated 08/15/21 @ 23:50 by Magnolia West PA-C) History of lung biopsy History of
[2021-08-16 19:09] LABS: Immunochemical Fecal Occult Bl Negative (N)
[2021-08-16 19:10] LABS: IFOB Positive Control Positive
[2021-08-16] MEDS: SENNOSIDES 8.6 MG TABLET PO (20:51)
[2021-08-16] MEDS: REMDESIVIR 100 MG/NS 250 ML 100 MG/250 ML BAG 250 MG IVPB (20:51)
[2021-08-16] MEDS: TAMSULOSIN HCL 0.4 MG CAPSULE PO (20:51)
[2021-08-17] VITALS (21 sets, daily range): BP systolic 98–116; BP diastolic 55–70; PULSE 60–78; RESP 14–22; TEMP 36.4–37.2; O2SAT 93–100
[2021-08-17 05:57] LABS: INR 1.1; Prothrombin Time 13.3 Seconds (11.1-14.7)
[2021-08-17] MEDS: oxyCODONE HCL (*CRX) 5 MG TAB IR PO ×3 (06:00→19:18)
[2021-08-17] MEDS: LORazepam (*CRX) 0.5 MG TABLET PO ×3 (06:01→19:18)
[2021-08-17 06:38] LABS: Alanine Aminotransferase 18 U/L (4-50); Estimated CRCL calculation 81 ml/min; Estimated Glomerular Filt Rate > 60
[2021-08-17] MEDS: ALBUTEROL SULFATE (*SP) INHALER 2 PUFF INHALATION ×4 (07:01→19:30)
[2021-08-17] MEDS: FLUTICASONE/SALMETEROL 230-21 MCG INHALER 1 PUFF 2 PUFF INHALATION ×2 (07:01→19:30)
[2021-08-17] MEDS: UMECLIDINIUM BROMIDE 62.5 MCG ELLIPTA 1 PUFF INHALATION (07:10)
[2021-08-17] MEDS: SERTRALINE HCL 50 MG TABLET PO (08:33)
[2021-08-17] MEDS: CLARITHROMYCIN 500 MG TABLET PO (08:33)
[2021-08-17] MEDS: SACCHAROMYCES BOULARDII 250 MG CAPSULE PO (08:33)
[2021-08-17] MEDS: guaiFENesin 12 HR 600 MG TABCR PO ×2 (08:33→21:24)
[2021-08-17] MEDS: FAMOTIDINE 20 MG TABLET PO ×2 (08:33→18:01)
[2021-08-17] MEDS: rifAMPin 300 MG CAPSULE PO (08:33)
[2021-08-17] MEDS: METOPROLOL TARTRATE 50 MG TAB PO ×4 (08:33→21:24)
[2021-08-17] MEDS: ETHAMBUTOL HCL 400 MG TABLET 800 MG PO (08:33)
[2021-08-17] MEDS: polyethylene glycoL 3350 17 GM POWD.PACK PO (08:45)
[2021-08-17 08:59] LABS: Basophils Percent Auto 0.4 % (0.2-1.2); Eosinophils Absolute Auto 0.1 K/mm3 (0-0.3); Eosinophils Percent Auto 1.2 % (0-4.4); Hematocrit 28.9 % (42.0-52.0); Hemoglobin 8.6 g/dL (14.0-18.0); Immature Granulocyte Absolute 0.02 K/mm3 (0.00-0.031); Immature Granulocyte Percent A 0.3 % (0-0.5); Lymphocytes Absolute Auto 1.02 K/mm3 (0.9-3.2); Mean Corpuscular HGB Conc 29.8 g/dl (32-36); Mean Corpuscular Hemoglobin 28.4 pg (26-34); Mean Corpuscular Volume 95.4 fl (80-100); Mean Platelet Volume 11.3 fl (7.4-10.4); Monocytes Absolute Auto 0.7 K/mm3 (0.1-0.6); Monocytes Percent Auto 9.6 % (2.6-8.5); Neutrophils Absolute Auto 5.4 K/mm3 (1.3-6.7); Neutrophils Percent Auto 74.5 % (45.5-73.1); Platelet Count Result 177 k/mm3 (150-375); Red Blood Count 3.03 M/mm3 (4.6-6.20); Red Cell Distribution Width 16.4 % (11.5-14.5); White Blood Count 7.3 K/mm3 (4.5-10.0)
[2021-08-17 09:12] LABS: Alanine Aminotransferase 18 U/L (4-50); Albumin Level 2.5 g/dL (3.5-5.1); Alkaline Phosphatase 66 U/L (38-126); Anion Gap 2 mmol/L (8-16); Aspartate Amino Transferase 22 U/L (17-59); Bilirubin,Total 0.2 mg/dL (0.2-1.3); Blood Urea Nitrogen 17 mg/dL (9-20); CRP 2.9 mg/dL (<1.0); Calcium 8.6 mg/dL (8.4-10.2); Carbon Dioxide 33 mmol/L (22-30); Chloride 100 mmol/L (98-107); Estimated CRCL calculation 81 ml/min; Estimated Glomerular Filt Rate > 60; Glucose 70 mg/dL (65-110); Potassium 4.2 mmol/L (3.4-5.0); Sodium 135 mmol/L (137-145)
--- NOTE | 2021-08-17 12:41 | PM.IMPN ---
Progress Note: A&P Assessment and Plan (1) COVID-19: Code(s): U07.1 - COVID-19 Status: Acute Assessment and Plan: Place in COVID19 isolation precautions, cardiac monitoring, and continuous pulse ox Monitor serum electrolytes, CRP, Lactic acid, troponin, CBC, WBC, temperature curve and follow cultures Oxygen via NC; wean as tolerated. Keep spO2 greater than 91% Hold IV abx, minimal leuokocytosis, if patient appears to have a bacterial pneumonia, patient currently on antibiotics for MAC Consider Consulting Pulmonary if the patient has an increased oxygen demand. Patient does not wear oxygen at baseline. When appropriate start CPAP or Vapotherm to maintain oxygen saturation Pt is a candidate for Remdesivir and Dexamethasone, continue treatment according to suggested guidelines. Remdesivir 200 mg IV x1, then 100 mg IV x4 days, dexamethasone 6 mg IV daily x 10 days, or until discharge PRN albuterol MDI and mucinex BID PO. If oxygen requirement increase, consider baricitinib (JACOB inhibtor) 4 mg PO daily for 14 days, or until discharge. Add Imodium for diarrhea GI prophylaxis: PPI Hold IV fluids due to possible fluid volume overload due to COVID, consider IV Lasix if patient appears to be fluid volume overloaded (2) Chronic respiratory failure with hypoxia, on home oxygen therapy: Code(s): J96.11 - Chronic respiratory failure with hypoxia; Z99.81 - Dependence on supplemental oxygen Status: Acute Assessment and Plan: Continue with oxygen supplementation (3) COPD with emphysema: Qualifiers: Emphysema type: unspecified Qualified Code(s): J43.9 - Emphysema, unspecified Code(s): J43.9 - Emphysema, unspecified Status: Acute Assessment and Plan: Monitor vital signs, I&Os, neuro status and patient is a fall risk Monitor serum electrolytes, cultures and CBC Monitor Oxygen saturation, Oxygen via NC; wean oxygen as tolerated, keep SpO2 greater than 88% (4) Anemia: Code(s): D64.9 - Anemia, unspecified Status: Acute Assessment and Plan: Occult stool negative Blood loss occurred, unknown etiology Patient has received 1 unit of packed red blood cells Gastroenterology was consulted due to the patient's acute anemia. Patient has had a esophageal bleed within the past 60 days. Patient was sent to [facility] at that time and was intubated. Continue to monitor for signs and symptoms of acute bleeding. Holding on anticoagulation due to the recent bleed And low hemoglobin. (5) Mycobacterium avium infection: Code(s): A31.0 - Pulmonary mycobacterial infection Status: Acute Assessment and Plan: Continue chronic antibiotic therapy (6) Protein-calorie malnutrition, severe: Code(s): E43 - Unspecified severe protein-calorie malnutrition Status: Acute Assessment and Plan: Consult our registered dietitian Patient's weight is 45.8 kg and 14.9 kg/M2 Albumin 2.8, obtain prealbumin Subjective Date/time seen: 08/17/21 12:41 Patient continues to receive medications for COVID-19 pneumonia. Patient reports he feels extremely fatigued this morning. He remains on 5 L of oxygen per nasal cannula. Discussed plan of care with RN at bedside. Gastroenterology was able to evaluate the patient in oblique views active bleeding. He had a negative Hemoccult stool. His acute anemia likely related to chronic anemia. She patient will have a renal ultrasound today due to hematuria found in his UA. Of note his echocardiogram was performed in July 2021 which revealed an LVEF of 45-50%. Monitor for fluid volume overload. No acute events reported by RN during the night. Prognosis guarded. Review of Systems Review of Systems: All systems reviewed & are unremarkable except as noted in HPI and below Exam Narrative: General: Cachectic, chronically ill-appearing male sitting up in bed. He actually appears much better from when I saw him during his last hospi
--- NOTE | 2021-08-17 13:27 | PCNFU ---
Nutrition Follow-Up Complete: Inadequate oral intake related to COVID as evidenced by BMI 14.9. Goal: Adequate intake of 75% of meals. Pt is progressing towards goal. Pt current nutrition is regular with Ensure Enlive BID: 350 kcals, 20 grams protein per shake. Last recorded weight is 46.4 kg. Weight is stable. Bowel Motility: + BM 08/16/2021 Labs Reviewed: Hgb: 8.6, Hct: 28.9, Alb:2.5, Na:135, Cr: 0.5 Meds Noted: Flomax, Florastor, Miralax, Lopressor, Lidoderm, Decadron Skin: WNL Additional Notes: Follow-up completed with nurse due to COVID precautions. Nurse reported pt is eating well, 75% breakfast, 75% lunch, 100% dinner 08/16/2021. She said he has been drinking his Ensure Enlive BID: 350 kcals, 20 grams protein per shake. Nurse had no further concerns. Monitor weight, labs, and intake and follow up in 5 days.
--- NOTE | 2021-08-17 14:09 | PCNSR ---
On 08/17/21, the student, Shabana Gardiner, provided care and completed [facility] documentation on this patient. I have reviewed the student's documentation and agree with the findings.
[2021-08-17] MEDS: REMDESIVIR 100 MG/NS 250 ML 100 MG/250 ML BAG 250 MG IVPB (21:23)
[2021-08-17] MEDS: TAMSULOSIN HCL 0.4 MG CAPSULE PO (21:24)
[2021-08-17] MEDS: SENNOSIDES 8.6 MG TABLET PO (21:24)
[2021-08-18] VITALS (16 sets, daily range): BP systolic 111–112; BP diastolic 56–69; PULSE 58–88; RESP 16–20; TEMP 36.6–37; O2SAT 93–100
[2021-08-18] MEDS: oxyCODONE HCL (*CRX) 5 MG TAB IR PO ×3 (03:25→19:50)
[2021-08-18] MEDS: LORazepam (*CRX) 0.5 MG TABLET PO (03:25)
[2021-08-18 07:38] LABS: Basophils Percent Auto 0.4 % (0.2-1.2); Eosinophils Absolute Auto 0.1 K/mm3 (0-0.3); Eosinophils Percent Auto 1.9 % (0-4.4); Hematocrit 28.9 % (42.0-52.0); Immature Granulocyte Absolute 0.03 K/mm3 (0.00-0.031); Immature Granulocyte Percent A 0.4 % (0-0.5); Lymphocytes Absolute Auto 0.98 K/mm3 (0.9-3.2); Lymphocytes Percent Auto 13.6 % (18.3-44.2); Mean Corpuscular HGB Conc 31.1 g/dl (32-36); Mean Corpuscular Hemoglobin 28.5 pg (26-34); Mean Corpuscular Volume 91.5 fl (80-100); Mean Platelet Volume 9.8 fl (7.4-10.4); Monocytes Absolute Auto 0.7 K/mm3 (0.1-0.6); Monocytes Percent Auto 9.4 % (2.6-8.5); Neutrophils Absolute Auto 5.4 K/mm3 (1.3-6.7); Neutrophils Percent Auto 74.3 % (45.5-73.1); Platelet Count Result 191 k/mm3 (150-375); Red Blood Count 3.16 M/mm3 (4.6-6.20); White Blood Count 7.2 K/mm3 (4.5-10.0)
[2021-08-18 07:46] LABS: Lactic Acid Reflex 1.1 mmol/L (0.7-2.0)
[2021-08-18 07:50] LABS: Alanine Aminotransferase 23 U/L (4-50); Albumin Level 2.9 g/dL (3.5-5.1); Alkaline Phosphatase 72 U/L (38-126); Anion Gap 0 mmol/L (8-16); Aspartate Amino Transferase 27 U/L (17-59); Bilirubin,Total 0.2 mg/dL (0.2-1.3); Blood Urea Nitrogen 19 mg/dL (9-20); CRP 2.9 mg/dL (<1.0); Calcium 8.3 mg/dL (8.4-10.2); Carbon Dioxide 38 mmol/L (22-30); Chloride 96 mmol/L (98-107); Estimated CRCL calculation 99 ml/min; Estimated Glomerular Filt Rate > 60; Glucose 82 mg/dL (65-110); Lactate Dehydrogenase 223 U/L (313-618); Magnesium 1.9 mg/dL (1.6-2.3); Potassium 3.9 mmol/L (3.4-5.0); Sodium 134 mmol/L (137-145)
[2021-08-18 07:51] LABS: INR 1.1
[2021-08-18 07:53] LABS: D Dimer 1.82 ug/mL (<0.48)
[2021-08-18 07:58] LABS: Troponin I < 0.012 ng/mL (0.000-0.034)
[2021-08-18] MEDS: FLUTICASONE/SALMETEROL 230-21 MCG INHALER 1 PUFF 2 PUFF INHALATION ×2 (09:35→20:58)
[2021-08-18] MEDS: UMECLIDINIUM BROMIDE 62.5 MCG ELLIPTA 1 PUFF INHALATION (09:35)
[2021-08-18] MEDS: SACCHAROMYCES BOULARDII 250 MG CAPSULE PO (09:49)
[2021-08-18] MEDS: rifAMPin 300 MG CAPSULE PO (09:49)
[2021-08-18] MEDS: METOPROLOL TARTRATE 50 MG TAB PO ×4 (09:49→23:17)
[2021-08-18] MEDS: ETHAMBUTOL HCL 400 MG TABLET 800 MG PO (09:49)
[2021-08-18] MEDS: CLARITHROMYCIN 500 MG TABLET PO (09:50)
[2021-08-18] MEDS: SERTRALINE HCL 50 MG TABLET PO (09:50)
[2021-08-18] MEDS: FAMOTIDINE 20 MG TABLET PO ×2 (09:50→17:57)
[2021-08-18] MEDS: guaiFENesin 12 HR 600 MG TABCR PO ×2 (09:50→19:50)
[2021-08-18] MEDS: polyethylene glycoL 3350 17 GM POWD.PACK PO (09:50)
--- NOTE | 2021-08-18 09:52 | PM.IMPN ---
Progress Note: A&P Assessment and Plan (1) COVID-19: Code(s): U07.1 - COVID-19 Status: Acute Assessment and Plan: Place in COVID19 isolation precautions, cardiac monitoring, and continuous pulse ox Monitor serum electrolytes, CRP, Lactic acid, troponin, CBC, WBC, temperature curve and follow cultures Oxygen via NC; wean as tolerated. Keep spO2 greater than 91% Hold IV abx, minimal leuokocytosis, if patient appears to have a bacterial pneumonia, patient currently on antibiotics for MAC Consider Consulting Pulmonary if the patient has an increased oxygen demand. Patient does not wear oxygen at baseline. When appropriate start CPAP or Vapotherm to maintain oxygen saturation Pt is a candidate for Remdesivir and Dexamethasone, continue treatment according to suggested guidelines. Remdesivir 200 mg IV x1, then 100 mg IV x4 days, dexamethasone 6 mg IV daily x 10 days, or until discharge PRN albuterol MDI and mucinex BID PO. If oxygen requirement increase, consider baricitinib (JACOB inhibtor) 4 mg PO daily for 14 days, or until discharge. Add Imodium for diarrhea GI prophylaxis: PPI Hold IV fluids due to possible fluid volume overload due to COVID, consider IV Lasix if patient appears to be fluid volume overloaded (2) Chronic respiratory failure with hypoxia, on home oxygen therapy: Code(s): J96.11 - Chronic respiratory failure with hypoxia; Z99.81 - Dependence on supplemental oxygen Status: Acute Assessment and Plan: Continue with oxygen supplementation (3) COPD with emphysema: Qualifiers: Emphysema type: unspecified Qualified Code(s): J43.9 - Emphysema, unspecified Code(s): J43.9 - Emphysema, unspecified Status: Acute Assessment and Plan: Monitor vital signs, I&Os, neuro status and patient is a fall risk Monitor serum electrolytes, cultures and CBC Monitor Oxygen saturation, Oxygen via NC; wean oxygen as tolerated, keep SpO2 greater than 88% (4) Anemia: Code(s): D64.9 - Anemia, unspecified Status: Acute Assessment and Plan: Occult stool negative Blood loss occurred, unknown etiology Patient has received 1 unit of packed red blood cells Gastroenterology was consulted due to the patient's acute anemia. Patient has had a esophageal bleed within the past 60 days. Patient was sent to [facility] at that time and was intubated. Continue to monitor for signs and symptoms of acute bleeding. Holding on anticoagulation due to the recent bleed And low hemoglobin. (5) Mycobacterium avium infection: Code(s): A31.0 - Pulmonary mycobacterial infection Status: Acute Assessment and Plan: Continue chronic antibiotic therapy (6) Protein-calorie malnutrition, severe: Code(s): E43 - Unspecified severe protein-calorie malnutrition Status: Acute Assessment and Plan: Consult our registered dietitian Patient's weight is 45.8 kg and 14.9 kg/M2 Albumin 2.8, obtain prealbumin Dietary supplements added to the patient's try and was changed to a regular diet. Subjective Date/time seen: 08/18/21 09:52 patient continues to receive narcotics around the clock. Patient received these are chronic for chronic back pain. They were decreased. Patient reported that his primary care physician no longer prescribe him narcotics he receives his narcotics he is in the hospital. Patient was disappointing liver I decreased his narcotic usage and sedated medications. I discussed that he has COVID and is having difficulty with his respiratory status at baseline and increasing with COVID and therefore it is not beneficial for him to continue narcotics due to his respiratory drive may be diminished. Patient was reluctant to obtain the information. On a positive note the patient reported that his oral intake has significantly become better and he believes is due to steroid injections during his hospitalization. He denies any nausea, vomiting upset stomach diarrhea. R
[2021-08-18] MEDS: ALBUTEROL SULFATE (*SP) AEROSOL 1 PUFF 2 PUFF INHALATION ×3 (09:58→17:42)
[2021-08-18] MEDS: LORazepam (*CRX) 0.5 MG TABLET 0.25 MG PO ×2 (14:15→22:42)
[2021-08-18] MEDS: TAMSULOSIN HCL 0.4 MG CAPSULE PO (19:54)
[2021-08-18] MEDS: SENNOSIDES 8.6 MG TABLET PO (19:56)
[2021-08-18] MEDS: REMDESIVIR 100 MG/NS 250 ML 100 MG/250 ML BAG 250 MG IVPB (22:43)
[2021-08-19] VITALS (16 sets, daily range): BP systolic 95–105; BP diastolic 53–66; PULSE 55–83; RESP 18–20; TEMP 35.8–36.6; O2SAT 97–100
[2021-08-19 07:25] LABS: Basophils Percent Auto 0.3 % (0.2-1.2); Eosinophils Absolute Auto 0.1 K/mm3 (0-0.3); Eosinophils Percent Auto 0.8 % (0-4.4); Hematocrit 30.6 % (42.0-52.0); Hemoglobin 9.1 g/dL (14.0-18.0); Immature Granulocyte Absolute 0.02 K/mm3 (0.00-0.031); Immature Granulocyte Percent A 0.3 % (0-0.5); Lymphocytes Absolute Auto 1.09 K/mm3 (0.9-3.2); Lymphocytes Percent Auto 15.3 % (18.3-44.2); Mean Corpuscular HGB Conc 29.7 g/dl (32-36); Mean Corpuscular Hemoglobin 27.8 pg (26-34); Mean Corpuscular Volume 93.6 fl (80-100); Mean Platelet Volume 9.9 fl (7.4-10.4); Monocytes Absolute Auto 0.7 K/mm3 (0.1-0.6); Monocytes Percent Auto 9.1 % (2.6-8.5); Neutrophils Absolute Auto 5.3 K/mm3 (1.3-6.7); Neutrophils Percent Auto 74.2 % (45.5-73.1); Platelet Count Result 236 k/mm3 (150-375); Red Blood Count 3.27 M/mm3 (4.6-6.20); Red Cell Distribution Width 15.9 % (11.5-14.5); White Blood Count 7.1 K/mm3 (4.5-10.0)
[2021-08-19 07:33] LABS: Alanine Aminotransferase 20 U/L (6-50); Estimated CRCL calculation 81 ml/min; Estimated Glomerular Filt Rate > 60
[2021-08-19 07:36] LABS: INR 1.1; Prothrombin Time 14.1 Seconds (11.1-14.7)
[2021-08-19 07:37] LABS: Alanine Aminotransferase 20 U/L (6-50); Albumin Level 2.9 g/dL (3.5-5.1); Alkaline Phosphatase 72 U/L (38-126); Anion Gap -2 mmol/L (8-16); Aspartate Amino Transferase 20 U/L (17-59); Bilirubin,Total 0.2 mg/dL (0.2-1.3); Blood Urea Nitrogen 21 mg/dL (9-20); CRP 3.3 mg/dL (<1.0); Calcium 8.3 mg/dL (8.4-10.2); Carbon Dioxide 37 mmol/L (22-30); Chloride 98 mmol/L (98-107); Estimated CRCL calculation 98 ml/min; Estimated Glomerular Filt Rate > 60; Glucose 75 mg/dL (65-110); Potassium 4.2 mmol/L (3.4-5.0); Sodium 133 mmol/L (137-145)
--- NOTE | 2021-08-19 08:47 | PM.IMPN ---
Progress Note: A&P Assessment and Plan (1) COVID-19: Code(s): U07.1 - COVID-19 Status: Acute Assessment and Plan: Place in COVID19 isolation precautions, cardiac monitoring, and continuous pulse ox Monitor serum electrolytes, CRP, Lactic acid, troponin, CBC, WBC, temperature curve and follow cultures Oxygen via NC; wean as tolerated. Keep spO2 greater than 91% Hold IV abx, minimal leuokocytosis, if patient appears to have a bacterial pneumonia, patient currently on antibiotics for MAC Pt is a candidate for Remdesivir and Dexamethasone, continue treatment according to suggested guidelines. Remdesivir 200 mg IV x1, then 100 mg IV x4 days, dexamethasone 6 mg IV daily x 10 days, or until discharge One more dose of remdesivir to complete 5 day course of remdesivir and transition to dexamethasone oral. Educated about 20 days of isolation diagnosis of COVID-19 PRN albuterol MDI and mucinex BID PO. GI prophylaxis: PPI --continue treatment. Patient is down to his home oxygen requirement. (2) Chronic respiratory failure with hypoxia, on home oxygen therapy: Code(s): J96.11 - Chronic respiratory failure with hypoxia; Z99.81 - Dependence on supplemental oxygen Status: Acute Assessment and Plan: Continue with oxygen supplementation (3) COPD with emphysema: Qualifiers: Emphysema type: unspecified Qualified Code(s): J43.9 - Emphysema, unspecified Code(s): J43.9 - Emphysema, unspecified Status: Acute Assessment and Plan: Monitor vital signs, I&Os, neuro status and patient is a fall risk Monitor serum electrolytes, cultures and CBC Monitor Oxygen saturation, Oxygen via NC; wean oxygen as tolerated, keep SpO2 greater than 88% (4) Anemia: Code(s): D64.9 - Anemia, unspecified Status: Acute Assessment and Plan: Occult stool negative Blood loss occurred, unknown etiology Patient has received 1 unit of packed red blood cells Gastroenterology was consulted due to the patient's acute anemia. Patient has had a esophageal bleed within the past 60 days. Patient was sent to [facility] at that time and was intubated. Continue to monitor for signs and symptoms of acute bleeding. Holding on anticoagulation due to the recent bleed And low hemoglobin. --resolved (5) Mycobacterium avium infection: Code(s): A31.0 - Pulmonary mycobacterial infection Status: Acute Assessment and Plan: Continue chronic antibiotic therapy (6) Protein-calorie malnutrition, severe: Code(s): E43 - Unspecified severe protein-calorie malnutrition Status: Acute Assessment and Plan: Consult our registered dietitian Patient's weight is 45.8 kg and 14.9 kg/M2 Albumin 2.8, obtain prealbumin Dietary supplements added to the patient's try and was changed to a regular diet. (7) Anxiety: Code(s): F41.9 - Anxiety disorder, unspecified Status: Acute Assessment and Plan: Decreased anxiety medications on 08/18/2021. The patient does not receive these medications by his primary care physician and he also does not receive narcotics by his primary care physician. Patient reports these medications are on his list due to multiple hospitalizations. Subjective Date/time seen: 08/19/21 08:47 Patient is improved and is back on his 4 L of oxygen, patient wears 3-4 L of oxygen per nasal cannula at home. He will receive 1 more dose of remdesivir and will be changed to oral dexamethasone. No acute concerns at this time. Review of Systems Review of Systems: All systems reviewed & are unremarkable except as noted in HPI and below Exam Narrative: General: Cachectic, chronically ill-appearing male sitting up in bed. He actually appears much better from when I saw him during his last hospitalization. Weight: 45.8 kg. BMI: 14.9. HEENT: PERRL, EOMI. Sclerae anicteric. Oral mucosa moist. Edentulous. Neck: Supple. No JVD or lymphadenopathy. Respiratory: Lung s
[2021-08-19 09:58] LABS: Hypochromasia 1+ (NORMAL); Platelet Estimate Adequate (Adequate)
[2021-08-19] MEDS: rifAMPin 300 MG CAPSULE PO (10:21)
[2021-08-19] MEDS: CLARITHROMYCIN 500 MG TABLET PO (10:21)
[2021-08-19] MEDS: oxyCODONE HCL (*CRX) 5 MG TAB IR PO ×2 (10:21→18:27)
[2021-08-19] MEDS: METOPROLOL TARTRATE 50 MG TAB PO ×4 (10:21→21:36)
[2021-08-19] MEDS: ETHAMBUTOL HCL 400 MG TABLET 800 MG PO (10:21)
[2021-08-19] MEDS: SACCHAROMYCES BOULARDII 250 MG CAPSULE PO (10:22)
[2021-08-19] MEDS: polyethylene glycoL 3350 17 GM POWD.PACK PO (10:22)
[2021-08-19] MEDS: SERTRALINE HCL 50 MG TABLET PO (10:22)
[2021-08-19] MEDS: FAMOTIDINE 20 MG TABLET PO ×2 (10:22→17:17)
[2021-08-19] MEDS: guaiFENesin 12 HR 600 MG TABCR PO ×2 (10:22→21:36)
[2021-08-19] MEDS: ALBUTEROL SULFATE (*SP) AEROSOL 1 PUFF 2 PUFF INHALATION ×3 (10:24→20:10)
[2021-08-19] MEDS: LORazepam (*CRX) 0.5 MG TABLET 0.25 MG PO (15:46)
[2021-08-19] MEDS: FLUTICASONE/SALMETEROL 230-21 MCG INHALER 1 PUFF 2 PUFF INHALATION (20:10)
[2021-08-19] MEDS: SENNOSIDES 8.6 MG TABLET PO (21:36)
[2021-08-19] MEDS: TAMSULOSIN HCL 0.4 MG CAPSULE PO (21:36)
[2021-08-19] MEDS: REMDESIVIR 100 MG/NS 250 ML 100 MG/250 ML BAG 250 MG IVPB (21:36)
[2021-08-20] VITALS (12 sets, daily range): BP systolic 91–108; BP diastolic 56–72; PULSE 63–86; RESP 2–18; TEMP 36.1–36.9; O2SAT 96–100
[2021-08-20 06:43] LABS: Basophils Absolute Auto 0.1 K/mm3 (0.0-0.1); Basophils Percent Auto 0.5 % (0.2-1.2); Eosinophils Absolute Auto 0.4 K/mm3 (0-0.3); Eosinophils Percent Auto 3.6 % (0-4.4); Hematocrit 32.7 % (42.0-52.0); Hemoglobin 9.9 g/dL (14.0-18.0); Immature Granulocyte Absolute 0.07 K/mm3 (0.00-0.031); Immature Granulocyte Percent A 0.7 % (0-0.5); Lymphocytes Absolute Auto 0.88 K/mm3 (0.9-3.2); Lymphocytes Percent Auto 9.1 % (18.3-44.2); Mean Corpuscular HGB Conc 30.3 g/dl (32-36); Mean Corpuscular Hemoglobin 28.1 pg (26-34); Mean Corpuscular Volume 92.9 fl (80-100); Mean Platelet Volume 9.4 fl (7.4-10.4); Monocytes Absolute Auto 0.8 K/mm3 (0.1-0.6); Monocytes Percent Auto 8.4 % (2.6-8.5); Neutrophils Absolute Auto 7.5 K/mm3 (1.3-6.7); Neutrophils Percent Auto 77.7 % (45.5-73.1); Platelet Count Result 241 k/mm3 (150-375); Red Blood Count 3.52 M/mm3 (4.6-6.20); Red Cell Distribution Width 16.1 % (11.5-14.5); White Blood Count 9.6 K/mm3 (4.5-10.0)
[2021-08-20] MEDS: oxyCODONE HCL (*CRX) 5 MG TAB IR PO ×2 (06:47→16:55)
[2021-08-20 07:00] LABS: Alanine Aminotransferase 21 U/L (6-50); Albumin Level 2.6 g/dL (3.5-5.1); Alkaline Phosphatase 72 U/L (38-126); Anion Gap 1 mmol/L (8-16); Aspartate Amino Transferase 20 U/L (17-59); Bilirubin,Total 0.1 mg/dL (0.2-1.3); Blood Urea Nitrogen 23 mg/dL (9-20); CRP 3.4 mg/dL (<1.0); Calcium 8.5 mg/dL (8.4-10.2); Carbon Dioxide 37 mmol/L (22-30); Chloride 97 mmol/L (98-107); Estimated CRCL calculation 100 ml/min; Estimated Glomerular Filt Rate > 60; Glucose 82 mg/dL (65-110); Potassium 4.5 mmol/L (3.4-5.0); Sodium 135 mmol/L (137-145)
[2021-08-20 07:23] LABS: INR 1.2; Prothrombin Time 14.5 Seconds (11.1-14.7)
[2021-08-20] MEDS: FLUTICASONE/SALMETEROL 230-21 MCG INHALER 1 PUFF 2 PUFF INHALATION ×2 (10:18→20:09)
[2021-08-20] MEDS: UMECLIDINIUM BROMIDE 62.5 MCG ELLIPTA 1 PUFF INHALATION (10:19)
[2021-08-20] MEDS: ALBUTEROL SULFATE (*SP) AEROSOL 1 PUFF 2 PUFF INHALATION ×2 (10:19→20:09)
[2021-08-20] MEDS: SACCHAROMYCES BOULARDII 250 MG CAPSULE PO (10:24)
[2021-08-20] MEDS: FAMOTIDINE 20 MG TABLET PO ×2 (10:24→16:55)
[2021-08-20] MEDS: ETHAMBUTOL HCL 400 MG TABLET 800 MG PO (10:24)
[2021-08-20] MEDS: DEXAMETHASONE 2 MG TABLET 6 MG PO (10:24)
[2021-08-20] MEDS: rifAMPin 300 MG CAPSULE PO (10:25)
[2021-08-20] MEDS: levoFLOXacin 750 MG TABLET PO (10:25)
[2021-08-20] MEDS: METOPROLOL TARTRATE 50 MG TAB PO ×4 (10:25→20:53)
[2021-08-20] MEDS: CLARITHROMYCIN 500 MG TABLET PO (10:25)
[2021-08-20] MEDS: SERTRALINE HCL 50 MG TABLET PO (10:25)
[2021-08-20] MEDS: guaiFENesin 12 HR 600 MG TABCR PO ×2 (10:25→20:53)
[2021-08-20] MEDS: polyethylene glycoL 3350 17 GM POWD.PACK PO (10:26)
[2021-08-20] MEDS: LORazepam (*CRX) 0.5 MG TABLET 0.25 MG PO (10:42)
--- NOTE | 2021-08-20 11:59 | PCRCNOTE ---
HOME O2 EVAL ORDERED HOWEVER PT. IS GOING TO SNF AT DISCHARGE. PT. WEARS 4LPM AT HOME. PT. STOOD UP ON SIDE OF BED FOR A BRIEF MOMENT AND DID NOT DROP BELOW 96% ON HIS HOME O2 SETTING OF 4LPM . OMAR COBB APRN NOTIFIED AND AWARE. NO ADDITIONAL OXYGEN NEEDED AT THE MOMENT. SNF WILL TITRATE AND SET PT. UP WITH ANY ADDITIONAL O2 NEEDS.
--- NOTE | 2021-08-20 13:34 | PM.IMPN ---
Progress Note: A&P Assessment and Plan (1) COVID-19: Code(s): U07.1 - COVID-19 Status: Acute Assessment and Plan: Place in COVID19 isolation precautions, cardiac monitoring, and continuous pulse ox Monitor serum electrolytes, CRP, Lactic acid, troponin, CBC, WBC, temperature curve and follow cultures Oxygen via NC; wean as tolerated. Keep spO2 greater than 91% Hold IV abx, minimal leuokocytosis, if patient appears to have a bacterial pneumonia, patient currently on antibiotics for MAC Pt is a candidate for Remdesivir and Dexamethasone, continue treatment according to suggested guidelines. Remdesivir 200 mg IV x1, then 100 mg IV x4 days, dexamethasone 6 mg IV daily x 10 days, or until discharge One more dose of remdesivir to complete 5 day course of remdesivir and transition to dexamethasone oral. Educated about 20 days of isolation diagnosis of COVID-19 PRN albuterol MDI and mucinex BID PO. GI prophylaxis: PPI --continue treatment. Patient is down to his home oxygen requirement. (2) Chronic respiratory failure with hypoxia, on home oxygen therapy: Code(s): J96.11 - Chronic respiratory failure with hypoxia; Z99.81 - Dependence on supplemental oxygen Status: Acute Assessment and Plan: Continue with oxygen supplementation (3) COPD with emphysema: Qualifiers: Emphysema type: unspecified Qualified Code(s): J43.9 - Emphysema, unspecified Code(s): J43.9 - Emphysema, unspecified Status: Acute Assessment and Plan: Monitor vital signs, I&Os, neuro status and patient is a fall risk Monitor serum electrolytes, cultures and CBC Monitor Oxygen saturation, Oxygen via NC; wean oxygen as tolerated, keep SpO2 greater than 88% (4) Anemia: Code(s): D64.9 - Anemia, unspecified Status: Acute Assessment and Plan: Occult stool negative Blood loss occurred, unknown etiology Patient has received 1 unit of packed red blood cells Gastroenterology was consulted due to the patient's acute anemia. Patient has had a esophageal bleed within the past 60 days. Patient was sent to [facility] at that time and was intubated. Continue to monitor for signs and symptoms of acute bleeding. Holding on anticoagulation due to the recent bleed And low hemoglobin. --resolved (5) Mycobacterium avium infection: Code(s): A31.0 - Pulmonary mycobacterial infection Status: Acute Assessment and Plan: Continue chronic antibiotic therapy (6) Protein-calorie malnutrition, severe: Code(s): E43 - Unspecified severe protein-calorie malnutrition Status: Acute Assessment and Plan: Consult our registered dietitian Patient's weight is 45.8 kg and 14.9 kg/M2 Albumin 2.8, obtain prealbumin Dietary supplements added to the patient's try and was changed to a regular diet. (7) Anxiety: Code(s): F41.9 - Anxiety disorder, unspecified Status: Acute Assessment and Plan: Decreased anxiety medications on 08/18/2021. The patient does not receive these medications by his primary care physician and he also does not receive narcotics by his primary care physician. Patient reports these medications are on his list due to multiple hospitalizations. Subjective Date/time seen: 08/20/21 13:34 Patient is alert and oriented. Patient reported he in on to go back to the [facility] facility. However use extremely weak. Ordered PT/OT to eval and treat the patient. Patient would benefit going back to the [facility] facility in order to regain strength after significant admission at [facility]. He is decreased mobility due to prolonged hospitalizations. Attempt to discuss this with the patient. He is reluctant to hear the information. Continue discussion with patient, case management and nursing staff. Review of Systems Review of Systems: All systems reviewed & are unremarkable except as noted in HPI and below Exam Narrative:
--- NOTE | 2021-08-20 16:20 | WPDURCON ---
Assessment and Plan Assessment and plan (1) BPH (benign prostatic hyperplasia): Code(s): N40.0 - Benign prostatic hyperplasia without lower urinary tract symptoms Status: Acute Assessment and Plan: Continue Tamsulosin 0.4mg QD HS, since he has been on this medication for 3 weeks, we will keep his shearer out and doing a voiding trial tonight. Scan his bladder to assess PVR after his first void, if >250cc replace shearer catheter, or we can replace it in the morning if nursing staff is unable to do so. (2) Acute retention of urine: Code(s): R33.8 - Other retention of urine Status: Acute Assessment and Plan: If he fails his voiding trial, I will recommend starting Finasteride 5mg QD along with Tamsulosin. We will re-assess in the morning. Urology Consult Note HPI Date Seen: 08/20/21 Requesting Physician: Boris Jones MD Primary Care Provider: WARD HELPER PHYSICIAN Consult Narrative Narrative: Nimisha Zavala is a 66 year old male who presented to the ER initially on 08/15/2021 for worsening shortness of breath after being diagnosed positive for COVID-19 4 days prior. He has been her since for treatment of COVID but developed leaking around his shearer catheter today which was new for him. He has had his shearer catheter in place for 3 weeks. [facility] rehab bed and that is where his shearer was placed for incidentally found retention. He was also placed on Tamsulosin at that time and has been on it since, but has also had a shearer in since. He is planned to be discharged back to SNF tomorrow and they were trying to remove his shearer to do a voiding trial, but met moderate resistance causing the patient severe pain and mild blood in the urine, so they stopped and called us for a consult to remove his shearer. When I arrived in the room OT was working with him at the bedside to ambulate with a walker and when he stood up, they reported that his shearer catheter fell out on it's own. He states that prior to his catheter placement, he had nocturia, straining and hesitancy for years but had never been diagnosed with BPH until [facility] hospitalized [facility]. He is currently afebrile and was weaned down to his home O2 level of 2L, as well as having a normal WBC today of 9.6 and creatinine of 0.40. He had a MARCELO on 08/17/21 which was normal. Review of Systems Cardiovascular: Cardiovascular: Denies chest pain Respiratory: Respiratory: Reports dyspnea Gastrointestinal: Gastrointestinal: Denies abdominal pain, Denies nausea and Denies vomiting Genitourinary: Genitourinary: Denies hematuria, Denies dysuria, Denies flank pain, Reports nocturia, Reports urinary frequency, Reports urinary hesitancy, Denies urinary incontinence and Reports urinary urgency [facility] Past Medical History Medical History Acute on chronic anemia Anxiety Chronic anemia Chronic respiratory failure with hypoxia, on home oxygen therapy COPD with emphysema Depression Mycobacterium avium infection Oxygen dependent Paroxysmal atrial fibrillation No longer on anticoagulation. Pulmonary Mycobacterium avium complex (MAC) infection Surgical History Surgical History History of lung biopsy History of recent vascular procedure (07/2021) Embolization of bleeding right bronchial artery. Family History Family History Sibling Colon cancer Father Lymphoma Mother Uterine cancer Daughter Crohn's disease Social History Social History Social History: Surrogate decision maker: Eileen Zavala, . Code status: Full code of 08/15/2021. Smoking packs per day: 2.5 Smoking cigarettes per day: 50.0 Years smoked: 40 Smoking pack-years: 100.00 Smoking status: Former smoker Tobac
[2021-08-20] MEDS: TAMSULOSIN HCL 0.4 MG CAPSULE PO (20:53)
[2021-08-20] MEDS: SENNOSIDES 8.6 MG TABLET PO (20:53)
[2021-08-21] VITALS: PULSE 61
[2021-08-21 01:00] VITALS: BP 96/60; PULSE 66; RESP 18; TEMP 36.4; O2SAT 100
[2021-08-21 04:00] VITALS: PULSE 66
[2021-08-21 05:24] VITALS: BP 94/62; PULSE 78; RESP 20; TEMP 36.4; O2SAT 98
[2021-08-21 08:00] VITALS: PULSE 78; O2SAT 98
[2021-08-21] MEDS: FLUTICASONE/SALMETEROL 230-21 MCG INHALER 1 PUFF 2 PUFF INHALATION (08:26)
[2021-08-21] MEDS: ALBUTEROL SULFATE (*SP) AEROSOL 1 PUFF 2 PUFF INHALATION (08:27)
[2021-08-21] MEDS: UMECLIDINIUM BROMIDE 62.5 MCG ELLIPTA 1 PUFF INHALATION (08:28)
[2021-08-21] MEDS: guaiFENesin 12 HR 600 MG TABCR PO (08:37)
[2021-08-21] MEDS: ETHAMBUTOL HCL 400 MG TABLET 800 MG PO (08:37)
[2021-08-21] MEDS: SACCHAROMYCES BOULARDII 250 MG CAPSULE PO (08:38)
[2021-08-21] MEDS: DEXAMETHASONE 2 MG TABLET 6 MG PO (08:38)
[2021-08-21] MEDS: SERTRALINE HCL 50 MG TABLET PO (08:38)
[2021-08-21] MEDS: METOPROLOL TARTRATE 50 MG TAB PO (08:38)
[2021-08-21] MEDS: CLARITHROMYCIN 500 MG TABLET PO (08:38)
[2021-08-21] MEDS: levoFLOXacin 750 MG TABLET PO (08:38)
[2021-08-21] MEDS: FAMOTIDINE 20 MG TABLET PO (08:38)
[2021-08-21] MEDS: rifAMPin 300 MG CAPSULE PO (08:38)
[2021-08-21] MEDS: polyethylene glycoL 3350 17 GM POWD.PACK PO (08:40)
[2021-08-21] MEDS: LORazepam (*CRX) 0.5 MG TABLET 0.25 MG PO (08:42)
[2021-08-21] MEDS: oxyCODONE HCL (*CRX) 5 MG TAB IR PO (08:43)
[2021-08-21 08:54] LABS: Basophils Absolute Auto 0.1 K/mm3 (0.0-0.1); Basophils Percent Auto 0.4 % (0.2-1.2); Eosinophils Absolute Auto 0.3 K/mm3 (0-0.3); Eosinophils Percent Auto 2.2 % (0-4.4); Hematocrit 32.3 % (42.0-52.0); Hemoglobin 9.7 g/dL (14.0-18.0); Immature Granulocyte Absolute 0.07 K/mm3 (0.00-0.031); Immature Granulocyte Percent A 0.6 % (0-0.5); Lymphocytes Percent Auto 7.7 % (18.3-44.2); Mean Corpuscular Hemoglobin 28.4 pg (26-34); Mean Corpuscular Volume 94.4 fl (80-100); Mean Platelet Volume 9.7 fl (7.4-10.4); Monocytes Percent Auto 8.2 % (2.6-8.5); Neutrophils Absolute Auto 9.5 K/mm3 (1.3-6.7); Neutrophils Percent Auto 80.9 % (45.5-73.1); Platelet Count Result 269 k/mm3 (150-375); Red Blood Count 3.42 M/mm3 (4.6-6.20); Red Cell Distribution Width 16.5 % (11.5-14.5); White Blood Count 11.7 K/mm3 (4.5-10.0)
[2021-08-21 09:06] LABS: Alanine Aminotransferase 19 U/L (6-50); Albumin Level 3.1 g/dL (3.5-5.1); Alkaline Phosphatase 83 U/L (38-126); Anion Gap 1 mmol/L (8-16); Aspartate Amino Transferase 21 U/L (17-59); Bilirubin,Total 0.2 mg/dL (0.2-1.3); Blood Urea Nitrogen 18 mg/dL (9-20); Calcium 8.7 mg/dL (8.4-10.2); Carbon Dioxide 36 mmol/L (22-30); Chloride 96 mmol/L (98-107); Estimated CRCL calculation 100 ml/min; Estimated Glomerular Filt Rate > 60; Glucose 97 mg/dL (65-110); Potassium 3.9 mmol/L (3.4-5.0); Sodium 133 mmol/L (137-145)
--- NOTE | 2021-08-21 11:05 | PM.DS ---
DS: Admitting Diagnosis Discharge Date 08/21/2021 Admitting Diagnosis COVID-19 pneumonia COPD Anemia Mycobacterium avium infection DS: Discharge Diagnosis Discharge Diagnosis (1) COVID-19: Code(s): U07.1 - COVID-19 Status: Acute Assessment and Plan: Place in [place] [id number] isolation precautions, cardiac monitoring, and continuous pulse ox Monitor serum electrolytes, CRP, Lactic acid, troponin, CBC, WBC, temperature curve and follow cultures Oxygen via NC; wean as tolerated. Keep spO2 greater than 91% Hold IV abx, minimal leuokocytosis, if patient appears to have a bacterial pneumonia, patient currently on antibiotics for MAC Pt is a candidate for Remdesivir and Dexamethasone, continue treatment according to suggested guidelines. Remdesivir 200 mg IV x1, then 100 mg IV x4 days, dexamethasone 6 mg IV daily x 10 days, or until discharge One more dose of remdesivir to complete 5 day course of remdesivir and transition to dexamethasone oral. Educated about 20 days of isolation diagnosis of COVID-19 PRN albuterol MDI and mucinex BID PO. GI prophylaxis: PPI --continue treatment. Patient is down to his home oxygen requirement. (2) Chronic respiratory failure with hypoxia, on home oxygen therapy: Code(s): J96.11 - Chronic respiratory failure with hypoxia; Z99.81 - Dependence on supplemental oxygen Status: Acute Assessment and Plan: Continue with oxygen supplementation (3) COPD with emphysema: Qualifiers: Emphysema type: unspecified Qualified Code(s): J43.9 - Emphysema, unspecified Code(s): J43.9 - Emphysema, unspecified Status: Acute Assessment and Plan: Monitor vital signs, I&Os, neuro status and patient is a fall risk Monitor serum electrolytes, cultures and CBC Monitor Oxygen saturation, Oxygen via NC; wean oxygen as tolerated, keep SpO2 greater than 88% (4) Anemia: Code(s): D64.9 - Anemia, unspecified Status: Acute Assessment and Plan: Occult stool negative Blood loss occurred, unknown etiology Patient has received 1 unit of packed red blood cells Gastroenterology was consulted due to the patient's acute anemia. Patient has had a esophageal bleed within the past 60 days. Patient was sent to [facility] at that time and was intubated. Continue to monitor for signs and symptoms of acute bleeding. Holding on anticoagulation due to the recent bleed And low hemoglobin. --resolved (5) Mycobacterium avium infection: Code(s): A31.0 - Pulmonary mycobacterial infection Status: Acute Assessment and Plan: Continue chronic antibiotic therapy (6) Protein-calorie malnutrition, severe: Code(s): E43 - Unspecified severe protein-calorie malnutrition Status: Acute Assessment and Plan: Consult our registered dietitian Patient's weight is 45.8 kg and 14.9 kg/M2 Albumin 2.8, obtain prealbumin Dietary supplements added to the patient's try and was changed to a regular diet. (7) Anxiety: Code(s): F41.9 - Anxiety disorder, unspecified Status: Acute Assessment and Plan: Decreased anxiety medications on 08/18/2021. The patient does not receive these medications by his primary care physician and he also does not receive narcotics by his primary care physician. Patient reports these medications are on his list due to multiple hospitalizations. DS: Summary Hospital Course Reason for hospitalization: COVID-19 pneumonia, shortness of breath Hospital Course: Patient is 66-year-old male with a past medical history of COPD, chronic respiratory failure on 3.5 L of nasal cannula, mac infection for the last 3 years patient has been on rifampin, ethambutol and clarithromycin daily. Patient also has a history of AFib who presents to the emergency department via EMS from [facility] for further evaluation of his shortness of breath. It should be noted that he tested positive for COVID while at [facility]
== END 2021-08-21 12:33 | disposition home or self-care (01) | DRG 177 ==
LOC: ANHED 15:31 → ANH3MED 21:44
PROVIDERS: Family Medicine; Physician Assistant; Admitting Provider Internal Medicine; Emergency Provider Nurse Practitioner Family; Visit Provider Nurse Practitioner Family
DX: U07.1 COVID-19 (principal); J12.82 Pneumonia due to coronavirus disease 2019; E43 Unspecified severe protein-calorie malnutrition; J15.6 Pneumonia due to other Gram-negative bacteria; J96.11 Chronic respiratory failure with hypoxia; Z68.1 Body mass index [BMI] 19.9 or less, adult; A31.0 Pulmonary mycobacterial infection; E46 Unspecified protein-calorie malnutrition; R64 Cachexia; R04.2 Hemoptysis; J43.9 Emphysema, unspecified; F41.9 Anxiety disorder, unspecified; R33.9 Retention of urine, unspecified; I48.0 Paroxysmal atrial fibrillation; N40.1 Benign prostatic hyperplasia with lower urinary tract symptoms; R33.8 Other retention of urine; R31.9 Hematuria, unspecified; F32.A Depression, unspecified; Z99.81 Dependence on supplemental oxygen; D64.9 Anemia, unspecified; Z87.891 Personal history of nicotine dependence; Z91.81 History of falling
CPT/HCPCS: 36415; 36430; 36600; 71045; 76775; 80053; 81001; 82140; 82274; 82565; 82607; 82728; 82805; 83540; 83550; 83605; 83615; 83735; 84134; 84145; 84460; 84484; 85014; 85018; 85025; 85027; 85380; 85610; 86140; 86850; 86900; 86901; 86920; 87070; 87077; 87186; 87205; 93005; 94640; 94667; 94668; 97161; 97166; 99285; A9270; J0248; J1100; J1650; J7030; J7050; J8540; P9016

== ENCOUNTER 2021-09-06 18:31 | Emergency (ER) | payer MEDICARE, MEDICAID, SELFPAY ==
[2021-09-06 18:33] VITALS: BP 104/79; PULSE 85; RESP 18; TEMP 36.5; O2SAT 100
[2021-09-06 18:52] VITALS: BP 107/72; PULSE 66; RESP 20; O2SAT 100
[2021-09-06] MEDS: LIDOCAINE HCL 2% GEL UROJET 10 ML PKG (18:54)
[2021-09-06 19:18] LABS: RBC Urine >75 /hpf (0-2)
[2021-09-06 19:24] LABS: Add Urine Microscopic? YES; Appearance Urine Turbid (Clear); Bilirubin Urine Negative (Negative); Blood Urine 2+ (Negative); Color Urine Red (Yellow); Glucose Urine UA Negative (Negative); Ketones Urine Negative (Negative); Leukocyte Esterase Ur Negative LEU/UL (Negative); Nitrate Urine Negative (Negative); Protein Urine 2+ mg/dL (Negative); Specific Grav Ur >= 1.030 (1.001-1.035); Urobilinogen Urine 0.2 mg/dL (<2.0)
--- NOTE | 2021-09-06 20:13 | ED.MALEGU ---
HPI - Male Genitourinary General Chief complaint: Urogenital-Male Stated complaint: bladder problems Time Seen by Provider: 09/06/21 19:05 History of Present Illness HPI Narrative: Patient is a 66-year-old male who presents ER for evaluation of his Mcdonnell catheter. Sent in by home health. He had blood in his catheter and was having some discomfort in his lower abdomen. The Mcdonnell could be flushed. Catheter was exchanged upon arrival to the ER. Minimal output but Mcdonnell is able to be flushed and is draining well. Denies fevers or chills or sweats. No abdominal distention. Had the Mcdonnell placed 2 weeks ago. He is on finasteride and Flomax for BPH. Patient reports he gets episode of burning pain that required intense that makes him feel like he needs to urinate. He has no discomfort around his urethral meatus. Patient had a prolonged hospitalization previously due to Mycobacterium avium complex causing bleeding in his lung. He is intubated [facility]. He has since been in rehabilitation and was discharged home. Has follow-up with urology on 09/18/2021. Related Data Home Medications Medication Instructions Recorded Confirmed famotidine 40 mg tablet (Pepcid) 20 mg PO BID 01/15/20 08/21/21 Saccharomyces boulardii 250 mg 250 mg PO DAILY 07/24/21 08/21/21 capsule (Florastor) acetaminophen 650 mg tablet 650 mg PO Q4H PRN Pain (Scale 08/15/21 08/21/21 Score 1-3) albuterol sulfate 90 mcg/actuation 2 inh inhalation Q4H PRN Shortness 08/15/21 08/21/21 aerosol inhaler (Ventolin HFA) Of Breath Or Wheezing lidocaine 4 % topical patch 1 patch topical DAILY PRN Pain 08/15/21 08/21/21 (Lidocaine Pain Relief) mometasone-formoterol HFA 200 2 puff inhalation Q12H 08/15/21 08/21/21 mcg-5 mcg/actuation aerosol inhaler polyethylene glycol 3350 17 gram 17 g PO DAILY 08/15/21 08/21/21 oral powder packet sennosides 8.6 mg tablet (senna) 8.6 mg PO HS 08/15/21 08/21/21 umeclidinium 62.5 mcg/actuation 1 inh inhalation DAILY 08/15/21 08/21/21 blister powder for inhalation Allergies Allergy/AdvReac Type Severity Reaction Status Date / Time No Known Allergies Allergy Verified 09/06/21 18:47 Review of Systems Review of Systems: All systems reviewed & are unremarkable except as noted in HPI and below Constitutional: Constitutional: Denies chills, Denies fatigue and Denies fever(s) Cardiovascular: Cardiovascular: Denies chest pain and Denies rapid heart rate Respiratory: Respiratory: Denies chest congestion, Denies cough and Denies dyspnea Gastrointestinal: Gastrointestinal: Denies abdominal pain, Denies bloating and Denies constipation Genitourinary: Genitourinary: Reports hematuria, Denies oliguria, Denies dysuria and Denies penile discharge [facility] Past Medical History Medical History Acute on chronic anemia Anxiety Chronic anemia Chronic respiratory failure with hypoxia, on home oxygen therapy COPD with emphysema Depression Mycobacterium avium infection Oxygen dependent Paroxysmal atrial fibrillation No longer on anticoagulation. Pulmonary Mycobacterium avium complex (MAC) infection Surgical History Surgical History History of lung biopsy History of recent vascular procedure (07/2021) Embolization of bleeding right bronchial artery. Family History Family History (System 08/29/21 @ 16:26 by Seth Root) Sibling Colon cancer Father Lymphoma Mother Uterine cancer Daughter Crohn's disease Social History Social History (System 08/29/21 @ 16:26 by Seth Root) Social History: Surrogate decision maker: Eileen Zavala, . Code status: Full code of 08/15/2021. Smoking packs per day: 2.5 Smoking cigarettes per day: 50.0 Years smoked: 40 Smoking pack-years: 100.00 Smoking status: Former smoker Tobacco type: cigarettes Alcohol intake: never Substance use: never Ad
[2021-09-06] MEDS: OXYBUTYNIN CHLORIDE 5 MG TABLET PO (20:33)
[2021-09-06 21:25] VITALS: BP 112/73; PULSE 68; RESP 18; O2SAT 100
== END 2021-09-06 20:50 | disposition home or self-care (01) ==
PROVIDERS: Family Medicine; Emergency Provider Emergency Medicine; PCP Family Medicine
DX: N32.89 Other specified disorders of bladder (principal); D64.9 Anemia, unspecified; J96.11 Chronic respiratory failure with hypoxia; J43.9 Emphysema, unspecified; I48.0 Paroxysmal atrial fibrillation; F41.9 Anxiety disorder, unspecified; F32.A Depression, unspecified; Z99.81 Dependence on supplemental oxygen; Z87.891 Personal history of nicotine dependence; Z79.82 Long term (current) use of aspirin
CPT/HCPCS: 81001; 99283; A9270

== ENCOUNTER 2021-12-27 11:46 | Inpatient (IN) | payer MEDICARE, MEDICAID, SELFPAY ==
[2021-12-27] VITALS (23 sets, daily range): BP systolic 94–121; BP diastolic 69–96; PULSE 78–185; RESP 24–44; TEMP 36.1–36.7; O2SAT 93–100; BMI 16.9
--- NOTE | ~2021-12-27 | XR_ITS ---
XR chest 1V portable DATE: 01/06/2022 14:51 INDICATION: Shortness of breath TECHNIQUE: Portable AP chest on 01/06/2022 at 1446 hours COMPARISON: 01/04/2022 portable AP chest at 0538 hours 01/03/2022 portable AP chest 01/02/2022 CT chest 08/18/2021 portable AP chest FINDINGS: Severe emphysematous changes of the lungs and very prominent scarring in the mid and upper lung zones and right lung base, also present on 08/18/2021. There is evidence of some superimposed patc hy mid and upper left lung infiltrate since 08/18/2021,, but mildly improved since 12/30/2021.. Normal heart size. No pleural effusion or pneumothorax is evident. Right upper stomach the catheter tip is situated in the lower superior vena cava. IMPRESSION: Severe emphysema and extensive bilateral chronic scarring. Patchy left mid and upper lung infiltrates, mildly improved since 12/30/2021 Reviewed, dictated and finalized at location A.
--- NOTE | ~2021-12-27 | XR_ITS ---
EXAMINATION: XR chest 1V portable DATE: 12/31/2021 05:28 INDICATION: Acute on chronic respiratory failure. Pneumonia. TECHNIQUE: A single frontal view of the chest was obtained on 2 radiographs. COMPARISON: Chest single view 12/30/2021 FINDINGS: There is severe emphysema. There are airspace opacities in the mid and upper lung zones pedro aterally, left worse than right. There is mild scarring in the lower lung zones. No pleural effusion or pneumothorax. The heart size is normal. A right upper extremity peripherally inserted central veno us catheter (PICC) is seen with tip in the superior vena cava. IMPRESSION: 1. Stable airspace opacities in the mid and upper lung zones, consistent with pneumonia. 2. Severe emphysema. Reviewed, dictated and finalized at location A. IMPRESSION: 1. Stable airspace opacities in the mid and upper lung zones, consistent with p neumonia. 2. Severe emphysema.
--- NOTE | ~2021-12-27 | XR_ITS ---
EXAMINATION: XR chest 1V portable DATE: 01/04/2022 05:57 INDICATION: Acute on chronic respiratory failure. Pneumonia. TECHNIQUE: A single frontal view of the chest was obtained. COMPARISON: Chest single view 01/03/2022 FINDINGS: There is severe emphysema. There are airspace opacities in all lung zones bilaterally, wors t in the upper lobes and right lower lobe. There is a small right pleural effusion. No pneumothorax. The heart size is normal. A right upper extremity peripherally inserted central venous catheter (PICC ) is seen with tip at the superior cavoatrial junction. IMPRESSION: 1. Diffuse lung disease with slight worsening in left lower lobe, consistent with pneumonia and scarr ing. 2. Severe emphysema. 3. Small right pleural effusion. Reviewed, dictated and finalized at location A. IMPRESSION: 1. Diffuse lung disease with slight worsening in left lower lobe, consistent wi th pneumonia and scarring. 2. Severe emphysema. 3. Small right pleural effusion.
--- NOTE | ~2021-12-27 | XR_ITS ---
EXAMINATION: XR chest PICC line Exam Date/Time: 12/30/2021 14:20 CDT HISTORY: picc line insertion RIGHT SIDE PLACEMENT Comparison: None available. RESULT: Lines, tubes, and devices: New right upper extremity PICC terminating in the distal SVC. Lungs and pleura: Upper lung bullae, more pronounced on the right. Upper lung scarring with hilar re traction. Bibasilar lung scarring. Airspace opacities left upper and midlung, and to a lesser extent in the parenchyma along the inferior aspect of the large right upper lung related. Cardiomediastinal silhouette: Stable. Other: No acute osseous or upper abdominal finding. IMPRESSION: New right upper extremity PICC, in good position. Unchanged pulmonary opacities. Reviewed, dictated and finalized at location K. IMPRESSION: New right upper extremity PICC, in good position. Unchanged pulmonary opacities .
--- NOTE | ~2021-12-27 | XR_ITS ---
EXAMINATION: XR chest 1V portable DATE: 01/02/2022 05:42 INDICATION: Acute on chronic respiratory failure. Pneumonia. TECHNIQUE: A single frontal view of the chest was obtained on 2 radiographs. COMPARISON: Chest single view 01/01/2022 FINDINGS: There is severe emphysema. There are airspace opacities in all lung zones bilaterally, wors t in the upper lobes. No pleural effusion or pneumothorax. The heart size is normal. A right upper ex tremity peripherally inserted central venous catheter (PICC) is seen with tip at the superior cavoatr ial junction. IMPRESSION: 1. Stable diffuse lung disease with an upper lobe predominance, consistent with pneumonia and scarrin g. 2. Severe emphysema. Reviewed, dictated and finalized at location A. IMPRESSION: 1. Stable diffuse lung disease with an upper lobe predominance, consistent with pneumonia and scarring. 2. Severe emphysema.
--- NOTE | ~2021-12-27 | XR_ITS ---
EXAMINATION: XR chest 1V portable DATE: 01/01/2022 05:19 INDICATION: Acute on chronic respiratory failure. Pneumonia. TECHNIQUE: A single frontal view of the chest was obtained on 2 radiographs. COMPARISON: Chest single view 12/31/2021 FINDINGS: There is severe emphysema. There are airspace opacities in the mid and upper lung zones, le ft worse than right, consistent with pneumonia. There is mild scarring in the lower lung zones. No pl eural effusion or pneumothorax. The heart size is normal. A right upper extremity peripherally insert ed central venous catheter (PICC) is seen with tip in the superior vena cava. IMPRESSION: 1. Stable airspace opacities in the mid and upper lung zones, consistent with pneumonia. 2. Severe emphysema. Reviewed, dictated and finalized at location A. IMPRESSION: 1. Stable airspace opacities in the mid and upper lung zones, consistent with p neumonia. 2. Severe emphysema.
--- NOTE | ~2021-12-27 | XR_ITS ---
EXAMINATION: XR chest 1V portable DATE: 01/03/2022 05:23 INDICATION: Acute on chronic respiratory failure. Pneumonia. TECHNIQUE: A single frontal view of the chest was obtained on 2 radiographs. COMPARISON: Chest single view 01/02/2022 FINDINGS: There is severe emphysema with architectural distortion. There are airspace opacities in al l lung zones, worst in the upper lobes and right lower lobe. No pleural effusion or pneumothorax. The heart size is normal. A right upper extremity peripherally inserted central venous catheter (PICC) i s seen with tip at the superior cavoatrial junction. IMPRESSION: 1. Stable diffuse lung disease, consistent with pneumonia and scarring. 2. Severe emphysema. Reviewed, dictated and finalized at location A.
--- NOTE | ~2021-12-27 | CT_ITS ---
EXAMINATION:CT diagnostic chest wo con DATE: 01/02/2022 15:05 INDICATION: Chronic obstructive pulmonary disease. Pneumonia. TECHNIQUE: Computed tomography (CT) of the chest was performed without intravenous contrast. Automate d exposure control and iterative reconstruction technique were employed. The dose-length product (DLP ) was 166.75 mGy-cm. COMPARISON: Chest CT 07/24/2021, chest single view 01/02/2022 FINDINGS: There is severe emphysema. There are airspace opacities with architectural distortion and v olume loss in right upper lobe, likely predominantly scarring. There are mild airspace opacities in r ight middle lobe, consistent with scarring. There are airspace opacities throughout right lower lobe with volume loss, bronchiectasis, and cavitation. There are airspace opacities in left upper lobe wit h air bronchograms with areas of cavitation. Calcified bilateral lung nodules and calcified right hil ar lymph nodes are consistent with old granulomatous disease. There are small pleural effusions. The heart size is normal. A right upper extremity peripherally inserted central venous catheter (PICC) is seen with tip at the superior cavoatrial junction. There is a 3.5 cm cyst in the liver. There is a 1 .8 cm cyst in right kidney. There is mild thoracic spondylosis and moderate lumbar spondylosis. IMPRESSION: 1. Multifocal pneumonia, predominantly involving right lower lobe and left upper lobe. 2. Severe emphysema. 3. Small pleural effusions. Reviewed, dictated and finalized at location A. IMPRESSION: 1. Multifocal pneumonia, predominantly involving right lower lobe and left uppe r lobe. 2. Severe emphysema. 3. Small pleural effusions.
--- NOTE | ~2021-12-27 | XR_ITS ---
EXAMINATION: XR chest 1V portable INDICATION: Shortness of breath TECHNIQUE: Portable AP chest at 1220 hours COMPARISON: 08/18/2021 FINDINGS: Again noted is chronic cavitation of the right lung apex. There are chronic airspace opacit ies in the upper lobes with superimposed opacities in the left upper lobe. No pleural effusion or pne umothorax. The cardiomediastinal silhouette is stable. IMPRESSION: 1. Left upper lobe airspace opacity superimposed on chronic opacities, likely pneumonia. Reviewed, dictated and finalized at location B. IMPRESSION: 1. Left upper lobe airspace opacity superimposed on chronic opacities, likely p neumonia.
--- NOTE | ~2021-12-27 | XR_ITS ---
EXAMINATION: XR chest 1V portable DATE: 12/30/2021 05:54 INDICATION: Acute on chronic respiratory failure. TECHNIQUE: A single frontal view of the chest was obtained. COMPARISON: Chest single view 12/29/2021 FINDINGS: There is severe emphysema. There are airspace opacities in the mid and upper lung zones pedro aterally, left worse than right. There is mild scarring lower lung zones. No pleural effusion or pneu mothorax. The heart size is normal. IMPRESSION: 1. Stable airspace opacities in the mid and upper lung zones, consistent with pneumonia. 2. Severe emphysema. Reviewed, dictated and finalized at location A. IMPRESSION: 1. Stable airspace opacities in the mid and upper lung zones, consistent with p neumonia. 2. Severe emphysema.
--- NOTE | ~2021-12-27 | XR_ITS ---
EXAMINATION: XR chest 1V portable DATE: 12/29/2021 05:52 INDICATION: Pneumonia. TECHNIQUE: A single frontal view of the chest was obtained on 2 radiographs. COMPARISON: Chest single view 12/27/2021, 08/18/2021, chest CT 07/24/2021 FINDINGS: There is severe emphysema. There are airspace opacities in the mid and upper lung zones pedro aterally, left worse than right. There is mild scarring in the lower lung zones. No pleural effusion or pneumothorax. The heart size is normal. IMPRESSION: 1. Airspace opacities in the mid and upper lungs bilaterally, left worse than right with mild worseni ng on the right, consistent with pneumonia. 2. Severe emphysema. Reviewed, dictated and finalized at location A. IMPRESSION: 1. Airspace opacities in the mid and upper lungs bilaterally, left worse than r ight with mild worsening on the right, consistent with pneumonia. 2. Severe emphysema.
--- NOTE | 2021-12-27 11:49 | ECG_ITS ---
Measurements Intervals [place] Rate: 206 P: [place]: 0 QRS: 89 QRSD: 96 T: 88 QT: 202 QTc: 374 Interpretive Statements ATRIAL FIBRILLATION WITH RAPID VENTRICULAR RESPONSE INCOMPLETE RIGHT BUNDLE BRANCH BLOCK NONSPECIFIC ST & T-WAVE ABNORMALITY- INF/HIGH LAT LEADS ABNORMAL ECG COMPARED TO ECG 08/15/2021 15:04:41 ATRIAL FIBRILLATION NOW PRESENT Electronically Signed On 12-27-2021 12:09:57 CDT by Odell Montero D.O.
[2021-12-27 12:18] LABS: Base Excess ABG 5.9 mEq/l (+/-2.0); Carboxyhemoglobin 0.6 % THb (0-2.0); Device NASAL CANNULA; Fractional Inspired Oxygen 36 %; HCO3 ABG 30.8 mEq/l (22.0-26.0); Methemoglobin ABG 0.1 %THb (0-1.5); Modified Allen's Test Pass; Oxygen Content ABG 15.5 %vol (16.0-22.0); Oxygen Saturation ABG 92.8 % (95.0-100.0); Oxyhemoglobin 90.1 % THb (90.0-100.0); PCO2 ABG 45.6 mmHg (35.0-45.0); PO2 ABG 62.8 mmHg (80.0-100.0); PO2 FiO2 Ratio Arterial Blood 1.74 %; Reduced Hemoglobin 9.2 %THb (0-5.0); Site Drawn LEFT RADIAL; Total Hemoglobin 12.2 g/dL (12.0-18.0); pH ABG 7.447 (7.350-7.450)
[2021-12-27] MEDS: dilTIAZem HCl INJ 25 MG/5 ML VIAL (12:18)
[2021-12-27] MEDS: dilTIAZem HCl INJ 25 MG/5 ML VIAL 10 MG IV PUSH (12:28)
[2021-12-27 12:30] LABS: Basophils Absolute Auto 0.1 K/mm3 (0.0-0.1); Basophils Percent Auto 0.3 % (0.2-1.2); Eosinophils Percent Auto 0.1 % (0-4.4); Hematocrit 36.8 % (42.0-52.0); Hemoglobin 11.5 g/dL (14.0-18.0); Immature Granulocyte Percent A 0.9 % (0-0.5); Lymphocytes Absolute Auto 1.26 K/mm3 (0.9-3.2); Lymphocytes Percent Auto 5.5 % (18.3-44.2); Mean Corpuscular HGB Conc 31.3 g/dl (32-36); Mean Corpuscular Volume 92.7 fl (80-100); Mean Platelet Volume 9.5 fl (7.4-10.4); Monocytes Absolute Auto 2.9 K/mm3 (0.1-0.6); Monocytes Percent Auto 12.5 % (2.6-8.5); Neutrophils Absolute Auto 18.4 K/mm3 (1.3-6.7); Neutrophils Percent Auto 80.7 % (45.5-73.1); Platelet Count Result 389 k/mm3 (150-375); Red Blood Count 3.97 M/mm3 (4.6-6.20); Red Cell Distribution Width 13.4 % (11.5-14.5); White Blood Count 22.8 K/mm3 (4.5-10.0)
[2021-12-27 12:38] LABS: Lactic Acid Reflex 2.5 mmol/L (0.7-2.0)
[2021-12-27 12:39] LABS: Alanine Aminotransferase 20 U/L (6-50); Albumin Level 3.9 g/dL (3.5-5.1); Alkaline Phosphatase 101 U/L (38-126); Anion Gap 15 mmol/L (8-16); Aspartate Amino Transferase 27 U/L (17-59); Bilirubin,Total 0.7 mg/dL (0.2-1.3); Blood Urea Nitrogen 28 mg/dL (9-20); Carbon Dioxide 35 mmol/L (22-30); Chloride 90 mmol/L (98-107); Estimated Glomerular Filt Rate > 60; Glucose 132 mg/dL (65-110); Potassium 3.9 mmol/L (3.4-5.0); Sodium 140 mmol/L (137-145)
[2021-12-27 12:40] LABS: INR 1.6; Prothrombin Time 18.3 Seconds (11.1-14.7)
[2021-12-27 12:41] LABS: Partial Thromboplastin Time 42.4 SECONDS (22.3-36.8)
--- NOTE | 2021-12-27 12:44 | PC.NURSE ---
edp at bedside, prepared to give 6mg adenosine.
--- NOTE | 2021-12-27 12:47 | PC.NURSE ---
EDP at bedside, prepared to give patient 12mg adenosine due to patient's HR of 179, BP at 111/89 Given at 1248
[2021-12-27] MEDS: SODIUM CHLORIDE 0.9% IV 1,000 ML 999 ML IV CONT (12:50)
[2021-12-27 12:51] LABS: NT Pro B Type Natriuretic Pept 1690 pg/mL (5-100); Troponin I < 0.012 ng/mL (0.000-0.034)
--- NOTE | 2021-12-27 12:52 | ECG_ITS ---
Measurements Intervals [place] Rate: 132 P: [place]: 0 QRS: 89 QRSD: 97 T: 82 QT: 282 QTc: 418 Interpretive Statements ATRIAL FIBRILLATION WITH RAPID VENTRICULAR RESPONSE INCOMPLETE RIGHT BUNDLE BRANCH BLOCK BORDERLINE ST-T WAVE ABNORMALITY- INF/HIGH LAT LEADS BASELINE ARTIFACT- I, II, III, AVR, AVL, AVF, V1-V6 ABNORMAL ECG COMPARED TO ECG 12/27/2021 12:04:50 HEART RATE HAS DECREASED Electronically Signed On 12-27-2021 16:44:47 CDT by Odell Montero D.O.
[2021-12-27] MEDS: AMIODARONE 150 MG/D5W 100 ML 150 MG/100 ML BAG 600 MG IV CONT (13:19)
[2021-12-27] MEDS: AMIODARONE 360 MG/D5W 200 ML 360 MG/200 ML BAG 33.33 MG IV CONT (13:24)
--- NOTE | 2021-12-27 13:40 | ED.SOB ---
HPI - SOB/Dyspnea General Chief Complaint: Shortness of Breath/Dyspnea Stated Complaint: coughing up blood Time Seen by Provider: 12/27/21 12:00 History of Present Illness HPI Narrative: Patient is a 66-year-old male who presents ER with cough and shortness of breath. Patient reports he began feeling ill 3 days ago. He has not been wanting to eat and he is only had a cracker. He is very tachypneic at this time. He wears 2 L of oxygen chronically but has had to turn it up to 4 L. Patient reports cough has been productive and has had some blood streaks in it. Patient called Dr. Wu and was instructed to come to the ER for further evaluation. Patient reports he has history of MAC infection for which she is treated with rifampin and clarithromycin. Patient is anticoagulated on Eliquis due to history of atrial fibrillation. Has chest pain at this time. Related Data Home Medications Medication Instructions Recorded Confirmed famotidine 40 mg tablet (Pepcid) 20 mg PO BID 01/15/20 08/21/21 Saccharomyces boulardii 250 mg 250 mg PO DAILY 07/24/21 08/21/21 capsule (Florastor) acetaminophen 650 mg tablet 650 mg PO Q4H PRN Pain (Scale 08/15/21 08/21/21 Score 1-3) polyethylene glycol 3350 17 gram 17 g PO DAILY 08/15/21 08/21/21 oral powder packet sennosides 8.6 mg tablet (senna) 8.6 mg PO HS 08/15/21 08/21/21 Allergies Allergy/AdvReac Type Severity Reaction Status Date / Time No Known Allergies Allergy Verified 10/22/21 10:26 Review of Systems Review of Systems: All systems reviewed & are unremarkable except as noted in HPI and below Constitutional: Constitutional: Denies chills, Reports fatigue, Denies fever(s) and Reports weakness ENT: Denies nasal congestion and Denies sore throat Cardiovascular: Cardiovascular: Denies chest pain, Reports rapid heart rate and Denies radiating jaw, neck or arm pain Respiratory: Respiratory: Reports cough, Reports dyspnea and Denies wheezing Gastrointestinal: Gastrointestinal: Denies abdominal pain, Denies diarrhea, Reports nausea and Reports vomiting Neurologic: Denies syncope and Denies headache(s) [facility] Past Medical History Medical History Acute on chronic anemia Anxiety Chronic anemia Chronic respiratory failure with hypoxia, on home oxygen therapy COPD with emphysema Depression Mycobacterium avium infection Oxygen dependent Paroxysmal atrial fibrillation No longer on anticoagulation. Pulmonary Mycobacterium avium complex (MAC) infection Surgical History Surgical History History of lung biopsy History of recent vascular procedure (07/2021) Embolization of bleeding right bronchial artery. Family History Family History Sibling Colon cancer Father Lymphoma Mother Uterine cancer Daughter Crohn's disease Social History Social History (Updated 12/27/21 @ 21:58 by Marli Boo NP) Social History: Surrogate decision maker: Eileen Zavala, who is his . They had 2 children but 1 . He is a former smoker. He is retired. Denies alcohol, marijuana or illicit drugs. Code status: Full code of 08/15/2021. Smoking packs per day: 2.5 Smoking cigarettes per day: 50.0 Years smoked: 40 Smoking pack-years: 100.00 Smoking status: Former smoker Tobacco type: cigarettes Alcohol intake: never Substance use: never Additional living arrangements comments: Lives with his in [place], [place]. 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 Spiritual care concerns: No Exam Narrative: GENERAL: Chronically ill-appearing, underweight, and in moderate acute distress. HEAD: Normocephalic, atraumatic. EYES: PERRL and EOMI. ENT: Mucous membranes moist. CHEST: Diminished lung sounds throughout with poor air movement related to patient's COPD. N
[2021-12-27 14:53] LABS: Lactic Acid Reflex 1.5 mmol/L (0.7-2.0)
[2021-12-27 15:25] LABS: Reflex Lactic Acid Yes or No Add Lactic
[2021-12-27 15:58] LABS: SARS-CoV-2 RNA PCR Negative
[2021-12-27] MEDS: SODIUM CHLORIDE 0.9% IV 1,000 ML 125 ML IV CONT (16:17)
--- NOTE | 2021-12-27 17:56 | PM.IMHP ---
H&P: HPI History of Present Illness Date/Time: 12/27/21 17:56 Chief Complaint: Shortness of breath/coughing up blood/fast heart rate Narrative: This is a 66-year-old male patient who has a history of MAC infection and has been on Myambutol and clarithromycin. Patient also has a history of atrial fibrillation and is on Eliquis. The patient is chronically on oxygen at 3 L per nasal cannula at home which he turned it up to 4 L per nasal cannula. The patient has been very ill for the last 3 days. He has not been eating or drinking very well at all. The gambreler helper Dr. Wu instructed the patient to go to the emergency room for further evaluation. The patient initially was placed on a BiPAP could not tolerated. The patient was placed back on his 4 L per nasal cannula and seems to be tolerating that well. When I entered the room the patient asked me for something to eat and drink. The patient appears to be very malnourished. A consult was placed for pulmonology as well as Cardiology. His initial EKG was read as AFib with rapid ventricular response. When I assessed the patient has heart rate was down in the 80s. His white count was noted to be 22.8. His H&H is 11.5 and 36.8. Patient appears to be dehydrated. ABGs his pH was 7.447. CO2 was 45.6. PO2 was 62.8. He also has a history of COPD. BNP was noted to be 1690. Chest x-ray was read as left upper lobe airspace opacities superimposed on chronic opacities likely pneumonia. The patient was started on azithromycin and Rocephin. The patient had also been given IV Cardizem, IV fluids and started on the Rocephin and azithromycin. At 1 time the patient converted into an SVT and was given adenosine. Then the patient was back in AFib RVR and started on an amiodarone drip. The patient is being admitted to inpatient status on the date of service of 12/27/2021. Review of Systems Review of Systems: See HPI All systems reviewed & are unremarkable except as noted in HPI and below Constitutional: Constitutional: Reports as per HPI and Reports no additional constitutional complaints Eyes: Eyes: Reports as per HPI and Reports no additional eye complaints ENT: Reports system reviewed and no additional complaints, except as documented and Reports Normal hearing present Cardiovascular: Cardiovascular: Reports no additional cardiovascular complaints Respiratory: Respiratory: Reports no additional respiratory complaints and Reports no additional respiratory complaints Gastrointestinal: Gastrointestinal: Reports as per HPI and Reports no additional gastrointestinal complaints Musculoskeletal: Musculoskeletal: Reports no additional musculoskeletal complaints Integumentary/Breasts: Skin/Breast: Reports system reviewed and no additional complaints, except as docu and Reports as per HPI Neurologic: Reports system reviewed and no additional complaints, except as documented, Reports as per HPI and Reports Normal hearing present Psychiatric: Psychiatric: Reports no additional psychiatric complaints and Reports as per HPI Endocrine: Endocrine: Reports no additional endocrine complaints Hematologic/Lymphatic: Hematologic/Lymphatic: Reports no additional hematologic/lymphatic complaints Allergic/Immunologic: Allergic/Immunologic: Reports no additional allergic/immunologic complaints [facility] Past Medical History Medical History (Updated 12/27/21 @ 22:05 by Marli Boo NP) Acute on chronic anemia Anxiety Anxiety Chronic anemia Chronic respiratory failure with hypoxia, on home oxygen therapy COPD with emphysema COVID-19 Depression History of tobacco use Mycobacterium avium infection Oxygen dependent Paroxysmal atrial fibrillation No longer on anticoagulation. Pneumonia Pulmonary Mycobacterium avium complex (MAC) infection Surgical History Surgical History History of lung biopsy History of recent vascular procedure (07/2021) Emboli
[2021-12-27] MEDS: HYDROcodone/acetaminophen (*CRX) 5-325 MG TABLET 1 TAB PO (19:03)
[2021-12-27] MEDS: AMIODARONE 360 MG/D5W 200 ML 360 MG/200 ML BAG 16.67 MG IV CONT (19:04)
--- NOTE | 2021-12-27 21:30 | ADMGEN ---
This patient, Nimisha Zavala, was admitted to IMU Room 213-01. Patient/family oriented to hospital policies and general routines including ID bracelet, bed and alarms, visiting hours, pain management, procedures, bathroom and other care routines, personal items, smoking policy, room service/diet, and visiting hours. Information on how to activate the Rapid Response Team has been discussed. Patient/Family are encouraged to report perceived risks to care and to ask questions if they do not understand what they are told or what they should do.
--- NOTE | 2021-12-27 21:57 | ECG_ITS ---
Rate [place] QRSd QT QTc P QRS T 88 147 101 396 481 93 85 8 SINUS RHYTHM ATRIAL TRIPLET AND ATRIAL PREMATURE COMPLEXES INCOMPLETE RIGHT BUNDLE BRANCH BLOCK BASELINE ARTIFACT- V5-V6 ABNORMAL ECG COMPARED TO ECG 12/27/2021 12:52:50 SINUS RHYTHM NOW PRESENT Electronically Signed On 12-29-2021 17:47:41 CDT by Odell ABAD
[2021-12-27] MEDS: TAMSULOSIN HCL 0.4 MG CAPSULE PO (23:21)
[2021-12-27] MEDS: APIXABAN 5 MG TABLET PO (23:22)
[2021-12-27] MEDS: FINASTERIDE 5 MG TABLET PO (23:22)
[2021-12-28] VITALS (23 sets, daily range): BP systolic 92–137; BP diastolic 59–82; PULSE 65–100; RESP 22–41; TEMP 36.4–36.7; O2SAT 94–99; BMI 16.8
[2021-12-28] MEDS: SODIUM CHLORIDE 0.9% IV 1,000 ML 125 ML IV CONT ×3 (00:31→17:03)
[2021-12-28] MEDS: HYDROcodone/acetaminophen (*CRX) 5-325 MG TABLET 1 TAB PO ×2 (03:37→13:48)
[2021-12-28 05:31] LABS: Basophils Percent Auto 0.2 % (0.2-1.2); Eosinophils Absolute Auto 0.2 K/mm3 (0-0.3); Eosinophils Percent Auto 1.4 % (0-4.4); Hematocrit 29.8 % (42.0-52.0); Hemoglobin 9.2 g/dL (14.0-18.0); Immature Granulocyte Absolute 0.11 K/mm3 (0.00-0.031); Immature Granulocyte Percent A 0.9 % (0-0.5); Lymphocytes Absolute Auto 0.81 K/mm3 (0.9-3.2); Lymphocytes Percent Auto 6.4 % (18.3-44.2); Mean Corpuscular HGB Conc 30.9 g/dl (32-36); Mean Platelet Volume 9.4 fl (7.4-10.4); Monocytes Absolute Auto 1.6 K/mm3 (0.1-0.6); Monocytes Percent Auto 12.2 % (2.6-8.5); Neutrophils Percent Auto 78.9 % (45.5-73.1); Platelet Count Result 265 k/mm3 (150-375); Red Blood Count 3.17 M/mm3 (4.6-6.20); Red Cell Distribution Width 13.5 % (11.5-14.5); White Blood Count 12.7 K/mm3 (4.5-10.0)
[2021-12-28 05:39] LABS: Lactic Acid Reflex 0.6 mmol/L (0.7-2.0)
[2021-12-28 05:42] LABS: Alanine Aminotransferase 14 U/L (6-50); Albumin Level 2.8 g/dL (3.5-5.1); Alkaline Phosphatase 72 U/L (38-126); Anion Gap 5 mmol/L (8-16); Aspartate Amino Transferase 17 U/L (17-59); Bilirubin,Total 0.2 mg/dL (0.2-1.3); Blood Urea Nitrogen 19 mg/dL (9-20); Carbon Dioxide 30 mmol/L (22-30); Chloride 102 mmol/L (98-107); Estimated CRCL calculation 90 ml/min; Estimated Glomerular Filt Rate > 60; Glucose 103 mg/dL (65-110); Magnesium 2.1 mg/dL (1.6-2.3); Potassium 3.6 mmol/L (3.4-5.0); Sodium 137 mmol/L (137-145)
[2021-12-28] MEDS: AMIODARONE 360 MG/D5W 200 ML 360 MG/200 ML BAG 16.67 MG IV CONT (07:34)
[2021-12-28] MEDS: FLUTICASONE/UMECLIDIN/VILANTER 100-62.5-25 MCG ELLIPTA 1 PUFF INHALATION (10:21)
[2021-12-28] MEDS: DOCUSATE SODIUM 100 MG CAPSULE PO (12:32)
[2021-12-28] MEDS: rifAMPin 300 MG CAPSULE PO (12:32)
[2021-12-28] MEDS: POTASSIUM CHLORIDE 20 MEQ PACKET (FOR LIQUID) 40 MEQ PO (12:32)
[2021-12-28] MEDS: APIXABAN 5 MG TABLET PO ×2 (12:32→20:39)
[2021-12-28] MEDS: ETHAMBUTOL HCL 400 MG TABLET 800 MG PO (12:33)
[2021-12-28] MEDS: CLARITHROMYCIN 500 MG TABLET PO (12:33)
[2021-12-28] MEDS: SERTRALINE HCL 50 MG TABLET 100 MG PO (12:33)
[2021-12-28] MEDS: FAMOTIDINE 20 MG TABLET PO (12:33)
[2021-12-28] MEDS: SACCHAROMYCES BOULARDII 250 MG CAPSULE PO (12:33)
--- NOTE | 2021-12-28 13:36 | PM.CNCAR ---
Assessment and Plan Assessment and plan (1) Paroxysmal atrial fibrillation: Code(s): I48.0 - Paroxysmal atrial fibrillation Status: Acute Plan This is a 66-year-old man who has paroxysmal atrial fibrillation on the basis of right sided cardiac dilation because of severe emphysema/chronic lung disease M AI. He has a recurrence of his atrial fibrillation which has been successfully addressed with IV amiodarone. He normally takes metoprolol and systemic anticoagulation with apixaban for this. I would hope to avoid placing this man with horrible lung disease on amiodarone for the [facility]. I am going to stop that now since he has converted to sinus rhythm and try a modest dose of sotalol. I will give him 80 mg now and then 40 mg q.12 hours starting this evening. Will follow with you during this hospitalization. Thank you for consulting us to participate in this challenging case Shadi Dc MD [facility] History of Present Illness History of Present Illness Consult date/time: 12/28/21 13:36 Reason For Visit: PNEUMONIA,SVT,AFIB RVR Narrative: This is a 66-year-old man I am seeing at the request of the hospitalist for assistance with the management of atrial fibrillation. The patient apparently has a history of paroxysmal atrial fibrillation and follows with my partner, Dr. Ibarra. Presumably his atrial fibrillation is on the basis of severe chronic lung disease and right ventricular dysfunction which he is known to have on previous evaluation. He came into the hospital yesterday with severe increase in chronic shortness of breath. The patient does have chronic severe COPD and chronic [place] infection in his lungs. He follows with pulmonology for these issues. He is on home oxygen and he felt it for 2 or 3 days much more short of breath than normal he was advised to come to the emergency room where he came yesterday afternoon. He was found to be very tachycardic with atrial fib and RVR. The original impression must have been that he was in SVT conceive was given adenosine which of course did not convert his rhythm. He was then given intravenous amiodarone and admitted to the IMU. The patient is anticoagulated with apixaban. He overnight converted to sinus rhythm and is in IMU room 2. Thirteen. He reports that he has feels short more short of breath than normal other than this he seems to be hemodynamically stable. In addition to apixaban he normally is maintained on metoprolol at home 25 mg b.i.d.. He had an echocardiogram done as recently as July of this year that demonstrates normal left ventricular systolic function no significant valvular disease but with severe right ventricular enlargement and systolic dysfunction. His chest x-ray clearly shows evidence of severe chronic lung disease/emphysema. Interestingly he was hospitalized here in July of this year with severe life-threatening hemoptysis and had to be transferred emergently to [facility] for a pulmonary arterial embolization to stop this life-threatening bleed. Obviously that was successful because following the procedure interestingly he has been placed back on anticoagulation. Review of Systems Constitutional: Constitutional: Reports lethargy Eyes: Eyes: Reports no additional eye complaints ENT: Reports epistaxis Cardiovascular: Cardiovascular: Reports no additional cardiovascular complaints Respiratory: Respiratory: Reports dyspnea Gastrointestinal: Gastrointestinal: Reports no additional gastrointestinal complaints Musculoskeletal: Musculoskeletal: Reports arthralgias Integumentary/Breasts: Skin/Breast: Reports system reviewed and no additional complaints, except as docu Neurologic: Reports system reviewed and no additional complaints, except as documented Endocrine: Endocrine: Reports no additional endocrine complaints Hematologic/Lymphatic: Hematologic/Lymphatic: Reports no additional hematologic/lymphatic complaints All
[2021-12-28] MEDS: SOTALOL HCL 80 MG TABLET PO (13:49)
--- NOTE | 2021-12-28 14:58 | PM.CNPUL ---
Assessment and Plan Assessment and plan (1) Pneumonia: Code(s): J18.9 - Pneumonia, unspecified organism Status: Acute Assessment and Plan: Patient with leukocytosis, worsening shortness of breath, chest x-ray with infiltrates and will treat Olea min for patient for community-acquired pneumonia with ceftriaxone and azithromycin (started 12/27). COVID RT PCR study negative. Blood cultures negative. 12/28 Patient remains afebrile, white blood cell count improved to 12.7. Blood cultures negative. Today when I walked into the room the patient was on BiPAP set rate of 14, pressures 10/5 with 40% FiO2 and saturations 100%. His respiratory rate was in the mid 30s and he said he was uncomfortable on the BiPAP. I changed him to noninvasive ventilation with the AVAPS mode and adjusted the settings for comfort which resulted in a rate of 20, tidal volume, 400, EPAP 4, minimal inspiratory pressure 5, maximal inspiratory pressure 25, inspiratory time 1.2, rise of 5 and 30%. His saturations remained 97%. Repeat CXR in morning. (2) COPD with emphysema: Qualifiers: Emphysema type: unspecified Qualified Code(s): J43.9 - Emphysema, unspecified Code(s): J43.9 - Emphysema, unspecified Status: Acute Assessment and Plan: 66-year-old with a history of tobacco use, 94 pack years, quit 2017, COPD with severe panlobular emphysema noted on the for CT scan in our system from 01/15/2020, I have no PFTs, hypoxemic respiratory failure on 3 L NC, pulmonary cachexia. I will change the patient to nebulized ipratropium 0.5 mg Q 6 hours, nebulized levalbuterol 1.25 mg q.6 hours and nebulized budesonide 0.5 mg nebulized twice a day and discontinue the trilogy. As above the patient is on noninvasive ventilation for work of breathing and does not have hypercarbic respiratory failure as evidence by his blood gas of 7.45/46/63 on 4 L nasal cannula. Given that the patient has no active wheezing currently and may have active bacterial infection is chronically infected with SEBASTIÁN at this time I will hold off on systemic steroids and reassess him on 12/29. 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 of note the patient has been restarted on apixaban 5 mg p.o. b.i.d.. He had to episodes of sputum mixed with blood 1 on 12/26 and 1 on 12/27 but none since then. Will follow him closely on anticoagulation will continue clarithromycin 500 mg p.o. q.day, rifampin 300 mg p.o. q.day and ethambutol 800 mg p.o. qday. History of Present Illness History of Present Illness Consult date: 12/28/21 Chief complaint: PNEUMONIA,SVT,AFIB RVR Narrative: 12/28/2021: This is a new Pulmonary consultation for COPD, pneumonia, history of SEBASTIÁN infection and shortness of breath. 66-year-old with a history of tobacco use, 94 pack years, quit 2017, COPD with severe panlobular emphysema noted on the for CT scan in our system from 01/15/2020, I have no PFTs, hypoxemic respiratory failure on 3 L NC, pulmonary cachexia, pulmonary mycobacterium avium complex diagnosed in 2019 with SEBASTIÁN on rifampin, clarithromycin and ethambutol with ADELA in BAL in July 2021 during an episode of life-threatening hemoptysis in which he was transferred to [facility] for pulmonary embolization. patient also has a history of atrial fibrillation currently on apixaban 5 mg p.o. b.i.d.. Patient is followed in the Pulmonary Clinic in last seen on 10/22/2021 with a CAT score of 23 and his Dulera and increased were changed to bread is tree. He had no
[2021-12-28] MEDS: PROMETHAZINE HCL 25 MG/ML AMPUL 12.5 MG IV PUSH (15:06)
--- NOTE | 2021-12-28 15:47 | ECG_ITS ---
Measurements Intervals [place] Rate: 64 P: 88 [place]: 153 QRS: 77 QRSD: 109 T: 67 QT: 445 QTc: 461 Interpretive Statements SINUS RHYTHM INCOMPLETE RIGHT BUNDLE BRANCH BLOCK BASELINE ARTIFACT- V5 BORDERLINE ECG COMPARED TO ECG 12/28/2021 09:17:21 NO SIGNIFICANT CHANGES Electronically Signed On 12-28-2021 21:30:07 CDT by Odell Montero D.O.
--- NOTE | 2021-12-28 16:51 | PM.IMPN ---
Progress Note: A&P Assessment and Plan (1) Pneumonia: Code(s): J18.9 - Pneumonia, unspecified organism Status: Acute Assessment and Plan: -the patient was started on antibiotics for community-acquired pneumonia with azithromycin and Rocephin. -awaiting sputum and blood cultures. -pulmonology has been consulted 12/28/2021 interval history: Patient with hx of Pulmonoary mycobactrium avium complex diagnosed in 2019 with SEBASTIÁN being treated with rifampin, clarithromycin and ethambutol with ADELA and BAL, patient present with SOB suspect patient may have secondary CAP and being treated with ceftriaoxone, when I saw patient on BIPAP and Dr. Bailey came in evaluated the patient as he appeared SOB and Dr. Bailey adjuested his BIPAP to noninvansive mode AVAP, will continue monitor and further recommendations to follow. Patient also has history of PAF and developed A. Fib with RVR and was placed on amiodorane IV drip, he converted to NSR, seen by sulfur chloride operator and stopped amiodorane as patient with severe lung disease amiodoran will worsen his lung disease, sulfur chloride operator has started the patient on Sotolol 80mg x1 and 40mg BID, patient is anticoagulated with apixaban 5mg BID, patient has history of hemoptysis needs close monitoring, will monitor and once clinically stable will have PT/OT ealuate the patient. (2) Pulmonary Mycobacterium avium complex (MAC) infection: Code(s): A31.0 - Pulmonary mycobacterial infection Status: Acute Assessment and Plan: -pulmonology has been consulted. -continue with home medications of clindamycin and Myambutol. And rifampin -the patient tells me that he is supposed to see some Infectious Disease doctor outpatient at [facility]. Patient is chronically on oxygen at 3-4 L at home. (3) Paroxysmal atrial fibrillation: Code(s): I48.0 - Paroxysmal atrial fibrillation Status: Acute Assessment and Plan: -cardiology has been consulted. -the patient was given Cardizem and then he went into an SVT and was given adenosine and went back in to atrial fibrillation -his rate is controlled at this time. -continue with Eliquis -I held his metoprolol for now since he is on a Cardizem drip. (4) Acute and chronic respiratory failure: Qualifiers: Respiratory failure complication: hypercapnia Qualified Code(s): J96.22 - Acute and chronic respiratory failure with hypercapnia Code(s): J96.20 - Acute and chronic respiratory failure, unspecified whether with hypoxia or hypercapnia Status: Acute Assessment and Plan: -the patient is chronically on oxygen at 3-4 L per nasal cannula. The patient was intolerant of the BiPAP machine. (5) Chronic anemia: Code(s): D64.9 - Anemia, unspecified Status: Acute Assessment and Plan: -H&H appears to be stable. MCv within normal limits. (6) Anxiety: Code(s): F41.9 - Anxiety disorder, unspecified Status: Inactive Assessment and Plan: -continue with sertraline (7) COPD with emphysema: Qualifiers: Emphysema type: unspecified Qualified Code(s): J43.9 - Emphysema, unspecified Code(s): J43.9 - Emphysema, unspecified Status: Acute Assessment and Plan: -pulmonary has been consulted. -continue with nebulizer treatments (8) Depression: Code(s): F32.A - Depression, unspecified Status: Acute Assessment and Plan: -continue with Zoloft (9) Chronic back pain: Code(s): M54.9 - Dorsalgia, unspecified; G89.29 - Other chronic pain Status: Acute Assessment and Plan: -continue tremor (10) Protein-calorie malnutrition, severe: Code(s): E43 - Unspecified severe protein-calorie malnutrition Status: Acute Assessment and Plan: -dietary consult has been placed. -continue with supplements (11) BPH (benign prostatic hyperplasia): Code(s): N40.0 - Benign prostatic hyperplasia without lower urin
[2021-12-28] MEDS: BUDESONIDE RESPULE NEB 0.5 MG/2 ML AMP INHALATION (20:25)
[2021-12-28] MEDS: IPRATROPIUM BR 0.02% INH SOLN 0.5 MG/2.5 ML VIAL INHALATION (20:26)
[2021-12-28] MEDS: FINASTERIDE 5 MG TABLET PO (20:39)
[2021-12-28] MEDS: TAMSULOSIN HCL 0.4 MG CAPSULE PO (20:39)
[2021-12-28] MEDS: SENNOSIDES 8.6 MG TABLET PO (20:39)
[2021-12-28] MEDS: SOTALOL HCL 40 MG TABLET PO (20:39)
[2021-12-28] MEDS: MORPHINE SULFATE (*CRX) 4 MG/ML INJ IV PUSH (20:44)
[2021-12-28 22:05] LABS: Carboxyhemoglobin 0.3 % THb (0-2.0); Fractional Inspired Oxygen 30 %; Methemoglobin ABG 0.2 %THb (0-1.5); Oxygen Content ABG 12.4 %vol (16.0-22.0); Total Hemoglobin 9.8 g/dL (12.0-18.0)
[2021-12-28 22:13] LABS: Base Excess ABG 0.1 mEq/l (+/-2.0); HCO3 ABG 26.6 mEq/l (22.0-26.0); PCO2 ABG 52.6 mmHg (35.0-45.0); PO2 ABG 64.2 mmHg (80.0-100.0); pH ABG 7.322 (7.350-7.450)
[2021-12-28 22:14] LABS: Alveolar/Arterial O2 Gradient 87.9 mmHg; Device OTHER DEVICE; Modified Allen's Test Pass; Oxygen Saturation ABG 90.6 % (95.0-100.0); Oxyhemoglobin 89.9 % THb (90.0-100.0); PO2 FiO2 Ratio Arterial Blood 2.14 %; Reduced Hemoglobin 9.6 %THb (0-5.0); Site Drawn LEFT RADIAL
--- NOTE | 2021-12-28 23:20 | ECG_ITS ---
Rate [place] QRSd QT QTc P QRS T 88 147 101 396 481 93 85 83 SINUS RHYTHM INCOMPLETE RIGHT BUNDLE BRANCH BLOCK [90+ ms QRS DURATION, TERMINAL R IN V1/V2, 40+ ms S IN I/aVL/V4/V5/V6] NONSPECIFIC T-WAVE ABNORMALITY COMPARED TO ECG 12/28/2021 15:50:42 T-WAVE ABNORMALITY NOW PRESENT Electronically Signed On 12-29-2021 17:47:41 CDT by Odell ABAD
--- NOTE | 2021-12-28 23:59 | PC.NURSE ---
This patient, Nimisha Zavala, was transferred to ICU bed 6 on 12/28/21 at 2345. Personal belongings sent with patient. Report given to JENNIFER Welsh. Appropriate documentation sent with patient.
--- NOTE | 2021-12-28 23:59 | PC.NURSE ---
pt transferred from rm 213 on bipap. pt tachypneic but appears to be comfortable answerers questions appropriately. report received.
[2021-12-29] VITALS (117 sets, daily range): BP systolic 93–137; BP diastolic 66–99; PULSE 67–96; RESP 20–38; TEMP 35.9–37; O2SAT 94–100
--- NOTE | 2021-12-29 | PC.NURSE ---
12/28/2021 @ 22:35 Spoke to patient and patients Eileen regarding patients current condition and Dr Campoverde's concern for need for possible intubation.
--- NOTE | 2021-12-29 00:09 | PCRCNOTE ---
Pt. transferred to ICU. Intercostal retractions noted upon transfer. Left worse than right. No wheezes appreciated at this time.
[2021-12-29] MEDS: MORPHINE SULFATE (*CRX) 4 MG/ML INJ IV PUSH (01:45)
[2021-12-29] MEDS: SODIUM CHLORIDE 0.9% IV 1,000 ML 125 ML IV CONT (01:57)
[2021-12-29] MEDS: IPRATROPIUM BR 0.02% INH SOLN 0.5 MG/2.5 ML VIAL INHALATION ×4 (02:04→20:30)
--- NOTE | 2021-12-29 02:20 | PCRCNOTE ---
Pt cont. with retractions and tachypnea (worsening when awake and talking). Left Upper lobe reveals fine inspiratory crackles as well as expiratory tight wheezes. Diminished throughout. Xoponex and Ipatropium given via nebulizer. Spo2: 96% RR: 28-36 HR: 82-89. RN/MD aware.
[2021-12-29 05:23] LABS: Alveolar/Arterial O2 Gradient 79.8 mmHg; Base Excess ABG 0.7 mEq/l (+/-2.0); Fractional Inspired Oxygen 30 %; HCO3 ABG 28.1 mEq/l (22.0-26.0); Oxygen Content ABG 16.8 %vol (16.0-22.0); Oxygen Saturation ABG 90.8 % (95.0-100.0); Oxyhemoglobin 91.1 % THb (90.0-100.0); PCO2 ABG 57.8 mmHg (35.0-45.0); PO2 ABG 66.2 mmHg (80.0-100.0); PO2 FiO2 Ratio Arterial Blood 2.21 %; Total Hemoglobin 13.1 g/dL (12.0-18.0); pH ABG 7.305 (7.350-7.450)
[2021-12-29 05:24] LABS: Site Drawn LEFT RADIAL
[2021-12-29 05:25] LABS: Device OTHER DEVICE; Modified Allen's Test Pass
[2021-12-29] MEDS: BUDESONIDE RESPULE NEB 0.5 MG/2 ML AMP INHALATION ×2 (07:45→20:30)
--- NOTE | 2021-12-29 09:17 | WPDCNINT ---
Assessment and Plan Assessment and plan (1) Acute and chronic respiratory failure: Qualifiers: Respiratory failure complication: hypercapnia Qualified Code(s): J96.22 - Acute and chronic respiratory failure with hypercapnia Code(s): J96.20 - Acute and chronic respiratory failure, unspecified whether with hypoxia or hypercapnia Status: Acute Assessment and Plan: Patient with acute on chronic respiratory failure likely related to pneumonia, COPD exacerbation, history of MAC (on ethambutol, rifampin, clarithromycin). -patient normally uses 2-4 L of oxygen at home -his oxygenation requirements have gone up and patient was placed on BiPAP after which he was switched to AVAPS mode by pulmonology -patient has been tachypneic, breathe between 24-40 times a minute -patient seems to be anxious -start patient on Precedex infusion -12/29 chest x-ray: Airspace opacities in the mid and upper lungs bilaterally, left worse than right with mild worsening on the right, consistent with pneumonia.. Severe emphysema. -continue azithromycin and ceftriaxone, will add vancomycin -discussed with patient at length and I did tell him that if he continues to be very tachycardic he is respiratory muscles will get fatigued and he may end up getting intubated and placed on mechanical ventilation, to which he is agreeable (2) Pneumonia: Code(s): J18.9 - Pneumonia, unspecified organism Status: Acute Assessment and Plan: Blood and sputum cultures have been obtained, pending report -continue antibiotics as above (3) Pulmonary Mycobacterium avium complex (MAC) infection: Code(s): A31.0 - Pulmonary mycobacterial infection Status: Acute Assessment and Plan: Patient has a history of pulmonary MAC, diagnosed in 2019 with SEBASTIÁN on rifampin, clarithromycin and ethambutol. EBL in July 2021 showed life-threatening hemoptysis and was transferred to [facility] pulmonary embolization. (4) Paroxysmal atrial fibrillation: Code(s): I48.0 - Paroxysmal atrial fibrillation Status: Acute Assessment and Plan: Patient presented with AFib RVR which converted to sinus rhythm with IV amiodarone -appreciate Cardiology evaluation recommendation, -since patient has had severe lung disease cardiology wanted keep away from amiodarone and started patient on sotalol -currently in sinus rhythm, rate control, continue to monitor (5) Anemia: Code(s): D64.9 - Anemia, unspecified Status: Acute Assessment and Plan: Patient's hemoglobin is at his baseline -will continue to monitor (6) Chronic back pain: Code(s): M54.9 - Dorsalgia, unspecified; G89.29 - Other chronic pain Status: Acute Assessment and Plan: Patient on Theresa at home, will continue Plan DVT prophylaxis: Eliquis Stress ulcer prophylaxis: Famotidine Nutrition: Heart healthy diet Code Status: Full code Critical Care Time Spent: 49 minutes Due to a high probability of clinically significant, life threatening deterioration, the patient required my highest level of preparedness to intervene emergently and I personally spent this critical care time directly and personally managing the patient. This critical care time included obtaining a history; examining the patient; pulse oximetry; ordering and review of studies; arranging urgent treatment with development of a management plan; evaluation of patient's response to treatment; frequent reassessment; and discussions with other providers. It was exclusive of separately billable procedures and treating other patients and teaching time. Please see Assessment and Plan section and the rest of the note for further information on patient assessment and treatment Stone Cutter Consult Note Consult date: 12/29/21 HPI: Nimisha Zavala is a 66 year old male with significant past medical history of MAC infection and help in a clarithromycin, ethambutol, rifampin, his
[2021-12-29] MEDS: dexmedeTOMIDine 400 MCG/100 ML 400 MCG/100 ML BAG IV CONT (09:30)
[2021-12-29] MEDS: ETHAMBUTOL HCL 400 MG TABLET 800 MG PO (09:31)
[2021-12-29] MEDS: FAMOTIDINE 20 MG TABLET PO ×2 (09:31→18:13)
[2021-12-29] MEDS: SOTALOL HCL 40 MG TABLET PO ×2 (09:31→21:18)
[2021-12-29] MEDS: DOCUSATE SODIUM 100 MG CAPSULE PO ×2 (09:32→18:13)
[2021-12-29] MEDS: SACCHAROMYCES BOULARDII 250 MG CAPSULE PO (09:32)
[2021-12-29] MEDS: SERTRALINE HCL 50 MG TABLET 100 MG PO (09:32)
[2021-12-29] MEDS: CLARITHROMYCIN 500 MG TABLET PO (09:32)
[2021-12-29] MEDS: APIXABAN 5 MG TABLET PO ×2 (09:32→21:18)
[2021-12-29] MEDS: rifAMPin 300 MG CAPSULE PO (09:32)
[2021-12-29] MEDS: HYDROcodone/acetaminophen (*CRX) 5-325 MG TABLET 1 TAB PO ×2 (09:37→18:12)
--- NOTE | 2021-12-29 09:45 | PM.PNCARD ---
Progress Note: A&P Assessment and Plan (1) Paroxysmal atrial fibrillation: Code(s): I48.0 - Paroxysmal atrial fibrillation Status: Acute Plan 66-year-old man with atrial fibrillation being driven by his chronic lung disease and right ventricular dysfunction. On a modest dose of sotalol he is maintaining sinus rhythm for the time being. Despite his history of life-threatening hemoptysis earlier this year he is back on anticoagulation treatment and thus far tolerating it without much difficulty. Shadi Dc MD [facility] Subjective Date/time seen: Date of service:12/29/21 09:45 Interval history: Follow-up visit in the 66-year-old man with: Paroxysmal atrial fibrillation resulting from underlying severe chronic lung disease. He converted to sinus rhythm with IV amiodarone now on a modest dose of oral sotalol. Exam Const: General: comfortable Other: Chronically ill frail-appearing man does not have any complaints he is tachypneic despite BiPAP in place in the ICU HENMT: Mouth: Yes moist mucous membranes Eyes: Sclera: sclerae normal Neck: Neck: supple Resp: Auscultation: diminished lung sounds Cardio: Rate: regular rate Rhythm: regular rhythm GI: GI Palp: Yes Soft to palpation Auscultation: normal bowel sounds Skin: General skin exam: normal color Neuro: Other: alert and oriented Objective Data Vital Signs Vital Signs: Vital Signs - 24 hr 12/28/21 10:00 12/28/21 12:00 12/28/21 12:00 Temperature 36.5 C Pulse Rate 86 82 Respiratory Rate 33 H Blood Pressure 106/70 Pulse Oximetry 99 99 Oxygen Delivery BiPAP Fraction of Inspired Oxygen 30 12/28/21 12:00 12/28/21 13:49 12/28/21 14:00 Temperature Pulse Rate 83 96 67 Respiratory Rate Blood Pressure Pulse Oximetry Oxygen Delivery Fraction of Inspired Oxygen 12/28/21 15:59 12/28/21 16:00 12/28/21 16:00 Temperature Pulse Rate 65 66 Respiratory Rate 28 H Blood Pressure Pulse Oximetry 98 96 Oxygen Delivery BiPAP BiPAP Fraction of Inspired Oxygen 40 12/28/21 16:00 12/28/21 18:00 12/28/21 20:00 Temperature 36.4 C L 36.6 C Pulse Rate 68 67 76 Respiratory Rate 28 H 41 H Blood Pressure 92/59 L 137/82 Pulse Oximetry 96 94 Oxygen Delivery Fraction of Inspired Oxygen 12/28/21 20:39 12/28/21 20:00 12/28/21 20:00 Temperature Pulse Rate 90 74 Respiratory Rate Blood Pressure Pulse Oximetry 94 Oxygen Delivery BiPAP Fraction of Inspired Oxygen 30 12/28/21 20:23 12/28/21 20:30 12/28/21 20:40 Temperature Pulse Rate 78 78 83 Respiratory Rate 37 H 37 H 32 H Blood Pressure Pulse Oximetry 97 Oxygen Delivery BiPAP Fraction of Inspired Oxygen 12/28/21 23:40 12/29/21 00:00 12/29/21 00:00 Temperature 36.6 C Pulse Rate 77 83 83 Respiratory Rate 36 H 32 H Blood Pressure 107/68 Pulse Oximetry 95 97 Oxygen Delivery BiPAP Fraction of Inspired Oxygen 30 12/29/21 00:00 12/28/21 23:30 12/29/21 00:07 Temperature 36.4 C Pulse Rate 80 77 81 Respiratory Rate 32 H 38 H 38 H Blood Pressure 123/94 H Pulse Oximetry 97 95 96 Oxygen Delivery BiPAP BiPAP Fraction of Inspired Oxygen 12/29/21 01:54 12/29/21 01:54 12/29/21 02:07 Temperature Pulse Rate 77 77 86 Respiratory Rate 25 H 33 H Blood Pressure 133/83 Pulse Oximetry 97 96 Oxygen Delivery BiPAP Fraction of Inspired Oxygen 12/29/21 02:08 12/28/21 20:55 12/29/21 02:19 Temperature Pulse Rate 85 88 89 Respiratory Rate 33 H 36 H 36 H Blood Pressure Pulse Oximetry Oxygen Delivery Fraction of Inspired Oxygen 12/29/21 04:00 12/29/21 04:00 12/29/21 04:00 Temperature 36.3 C L Pulse Rate 78 78 72 Respiratory Rate 24 H 24 H Blood Pressure 107/83 Pulse Oximetry 96 100 Oxygen Delivery BiPAP Fraction of Inspired Oxygen 30 12/29/21 05:01 12/29/21 05:26 12/29/21 05:26 Temperature 36.4 C Pulse Rate 72 8
[2021-12-29] MEDS: MIDODRINE HCL 2.5 MG TABLET 5 MG PO ×3 (11:30→18:14)
--- NOTE | 2021-12-29 14:31 | PM.IMPN ---
Progress Note: A&P Assessment and Plan (1) Acute and chronic respiratory failure: Qualifiers: Respiratory failure complication: hypercapnia Qualified Code(s): J96.22 - Acute and chronic respiratory failure with hypercapnia Code(s): J96.20 - Acute and chronic respiratory failure, unspecified whether with hypoxia or hypercapnia Status: Acute Assessment and Plan: Patient with acute on chronic respiratory failure likely related to pneumonia, COPD exacerbation, history of MAC (on ethambutol, rifampin, clarithromycin). -patient normally uses 2-4 L of oxygen at home -his oxygenation requirements have gone up and patient was placed on BiPAP after which he was switched to AVAPS mode by pulmonology -patient has been tachypneic, breathe between 24-40 times a minute -patient seems to be anxious -start patient on Precedex infusion -12/29 chest x-ray: Airspace opacities in the mid and upper lungs bilaterally, left worse than right with mild worsening on the right, consistent with pneumonia.. Severe emphysema. -continue azithromycin and ceftriaxone, will add vancomycin -discussed with patient at length and I did tell him that if he continues to be very tachycardic he is respiratory muscles will get fatigued and he may end up getting intubated and placed on mechanical ventilation, to which he is agreeable 12/29/2021 interval history:?Patient with hx of Pulmonoary mycobactrium avium complex diagnosed in 2019 with SEBASTIÁN being treated with rifampin, clarithromycin and ethambutol with ADELA and BAL, patient present with SOB suspect patient may have secondary CAP and being treated with ceftriaoxone, on 12/28 when I saw patient on BIPAP and Dr. Bailey came in evaluated the patient as he appeared SOB and Dr. Bailey adjuested his BIPAP to noninvansive mode AVAP, last night patient was transferred to ICU as patient was requiring continuous BIPAP patient will be seen by venetian blind worker and again nursing scheduler, will continue monitor and further recommendations to follow. Patient also has history of PAF and developed A. Fib with RVR and was placed on amiodorane IV drip, he converted to NSR, seen by hoop maker and stopped amiodorane as patient with severe lung disease amiodoran will worsen his lung disease, hoop maker has started the patient on Sotolol 80mg x1 and 40mg BID, patient is maintaining NSR, patient is anticoagulated with apixaban 5mg BID, patient has history of hemoptysis needs close monitoring,no bleeding, will monitor and once clinically stable will have PT/OT ealuate the patient.? (2) Pneumonia: Code(s): J18.9 - Pneumonia, unspecified organism Status: Acute Assessment and Plan: Blood and sputum cultures have been obtained, pending report -continue antibiotics as above (3) Pulmonary Mycobacterium avium complex (MAC) infection: Code(s): A31.0 - Pulmonary mycobacterial infection Status: Acute Assessment and Plan: Patient has a history of pulmonary MAC, diagnosed in 2019 with SEBASTIÁN on rifampin, clarithromycin and ethambutol. EBL in July 2021 showed life-threatening hemoptysis and was transferred to [facility] pulmonary embolization. (4) Paroxysmal atrial fibrillation: Code(s): I48.0 - Paroxysmal atrial fibrillation Status: Acute Assessment and Plan: Patient presented with AFib RVR which converted to sinus rhythm with IV amiodarone -appreciate Cardiology evaluation recommendation, -since patient has had severe lung disease cardiology wanted keep away from amiodarone and started patient on sotalol -currently in sinus rhythm, rate control, continue to monitor (5) Anemia: Code(s): D64.9 - Anemia, unspecified Status: Acute Assessment and Plan: Patient's hemoglobin is at his baseline -will continue to monitor (6) Chronic back pain: Code(s): M54.9 - Dorsalgia, unspecified; G89.29 - Other chronic pain Status: Acute Assessment and Plan: [place]
--- NOTE | 2021-12-29 15:13 | PM.PNPUL ---
Progress Note: A&P Assessment and Plan (1) Pneumonia: Code(s): J18.9 - Pneumonia, unspecified organism Status: Acute Assessment and Plan: He presented with leukocytosis, increased shortness of breath, chest x-ray with infiltrates, and is on Rx for community-acquired pneumonia with ceftriaxone and azithromycin (started 12/27).? COVID RT PCR study negative.? Blood cultures negative. 12/28 ? Patient remains afebrile, white blood cell count improved to 12.7. ? Blood cultures negative. BiPPA was not comfortable so this was switched to AVAPS with a rate of 20, TV 400 mL, on the BiPAP.? I changed him to noninvasive ventilation with the AVAPS mode and adjusted the settings for comfort which resulted in a rate of 20, tidal volume, 400,? EPAP 4, minimal inspiratory pressure 5, maximal inspiratory pressure 25, inspiratory time 1.2, rise of 5 and 30%His saturations remained 97%. 12/29 Feels better, hungry, needs enteral feeding; able to talk; would like to eat. Has little reserve and drops his saturation quickly with movement. RN will offer high protein shakes. (2) COPD with emphysema: Qualifiers: Emphysema type: unspecified Qualified Code(s): J43.9 - Emphysema, unspecified Code(s): J43.9 - Emphysema, unspecified Status: Acute Assessment and Plan: Long history of tobacco use, 94 pack years, quit 2018; has COPD with severe panlobular emphysema?noted on the for CT scan in our system from 01/15/2020. He does not have PFTS in our system. He has hypoxemic respiratory failure on 3 L NC,? pulmonary cachexia. He is now on nebulized ipratropium 0.5 mg Q 6 hours, nebulized levalbuterol 1.25 mg q.6 hours and nebulized budesonide 0.5 mg nebulized twice a day, and the Trelegy was stopped. He remains on noninvasive ventilation for work of breathing without hypercarbic respiratory failure as evidence by his blood gas of 7.45/46/63 on 4 L nasal cannula. ? He does not have wheezing. He may be infected with abacterial pathogen, so systemic steroids were not started. He is chronically infected with SEBASTIÁN. There is no reason to start systemic steroids. 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 Of note the patient has been restarted on apixaban 5 mg p.o. b.i.d.. He had to episodes of sputum mixed with blood on 12/26 and again on 12/27 but none since then.? He is stable without hemoptysis on anticoagulation with apixaban. Subjective Date/time seen: 12/29/21 15:13 Interval history: ESTABLISHED: Ramakrishna Zavala is a 66-year-old man seen in follow up for hemoptysis, COPD, pneumonia, history of SEBASTIÁN infection and shortness of breath. He is in ICU 6 on low dose Precedex 0.2 mcg/kg/hour, getting switched to oral alprazolam for anxiety. Anxiety has been a long sanding problem. Today, he is less anxious. He has a history of tobacco use, 94 pack years, quit 2017, COPD with severe panlobular emphysema? noted on the for CT scan in our system from 01/15/2020,? I have no PFTs, hypoxemic respiratory failure on 3 L NC,? pulmonary cachexia, pulmonary mycobacterium avium complex diagnosed in 2018 with SEBASTIÁN on rifampin, clarithromycin and ethambutol with ADELA in BAL in July 2021 during an episode of life-threatening hemoptysis in which he was transferred to [facility] for pulmonary embolization.? patient also has a history of atrial fibrilla
[2021-12-29] MEDS: ALPRAZolam (*CRX) 0.25 MG TABLET PO (18:12)
[2021-12-29] MEDS: FINASTERIDE 5 MG TABLET PO (21:18)
[2021-12-29] MEDS: TAMSULOSIN HCL 0.4 MG CAPSULE PO (21:18)
[2021-12-29] MEDS: SENNOSIDES 8.6 MG TABLET PO (21:19)
[2021-12-30] VITALS (56 sets, daily range): BP systolic 94–128; BP diastolic 67–87; PULSE 65–100; RESP 18–39; TEMP 35.9–36.8; O2SAT 92–100
[2021-12-30] MEDS: HYDROcodone/acetaminophen (*CRX) 5-325 MG TABLET 1 TAB PO ×3 (00:39→21:17)
[2021-12-30] MEDS: IPRATROPIUM BR 0.02% INH SOLN 0.5 MG/2.5 ML VIAL INHALATION ×4 (02:20→20:25)
[2021-12-30 04:47] LABS: Basophils Percent Auto 0.3 % (0.2-1.2); Eosinophils Absolute Auto 0.3 K/mm3 (0-0.3); Eosinophils Percent Auto 3.1 % (0-4.4); Hematocrit 29.7 % (42.0-52.0); Hemoglobin 8.9 g/dL (14.0-18.0); Immature Granulocyte Absolute 0.18 K/mm3 (0.00-0.031); Immature Granulocyte Percent A 1.7 % (0-0.5); Lymphocytes Absolute Auto 1.11 K/mm3 (0.9-3.2); Lymphocytes Percent Auto 10.5 % (18.3-44.2); Mean Corpuscular Hemoglobin 28.7 pg (26-34); Mean Corpuscular Volume 95.8 fl (80-100); Mean Platelet Volume 9.6 fl (7.4-10.4); Monocytes Absolute Auto 1.1 K/mm3 (0.1-0.6); Monocytes Percent Auto 9.9 % (2.6-8.5); Neutrophils Absolute Auto 7.9 K/mm3 (1.3-6.7); Neutrophils Percent Auto 74.5 % (45.5-73.1); Platelet Count Result 283 k/mm3 (150-375); Red Cell Distribution Width 13.5 % (11.5-14.5); White Blood Count 10.6 K/mm3 (4.5-10.0)
[2021-12-30 04:58] LABS: Alanine Aminotransferase 19 U/L (6-50); Albumin Level 2.6 g/dL (3.5-5.1); Alkaline Phosphatase 85 U/L (38-126); Anion Gap 9 mmol/L (8-16); Aspartate Amino Transferase 20 U/L (17-59); Bilirubin,Total 0.1 mg/dL (0.2-1.3); Blood Urea Nitrogen 20 mg/dL (9-20); Calcium 8.4 mg/dL (8.4-10.2); Carbon Dioxide 29 mmol/L (22-30); Chloride 100 mmol/L (98-107); Estimated CRCL calculation 90 ml/min; Estimated Glomerular Filt Rate > 60; Glucose 80 mg/dL (65-110); Magnesium 1.8 mg/dL (1.6-2.3); Phosphorus 3.2 mg/dL (2.5-4.5); Potassium 3.4 mmol/L (3.4-5.0); Sodium 138 mmol/L (137-145)
[2021-12-30 06:04] LABS: Alveolar/Arterial O2 Gradient 78.5 mmHg; Base Excess ABG 3.2 mEq/l (+/-2.0); Carboxyhemoglobin 0.3 % THb (0-2.0); Fractional Inspired Oxygen 30 %; HCO3 ABG 28.8 mEq/l (22.0-26.0); Methemoglobin ABG 0.4 %THb (0-1.5); Oxygen Content ABG 12.9 %vol (16.0-22.0); Oxygen Saturation ABG 95.1 % (95.0-100.0); PCO2 ABG 49.4 mmHg (35.0-45.0); PO2 ABG 77.4 mmHg (80.0-100.0); PO2 FiO2 Ratio Arterial Blood 2.58 %; Reduced Hemoglobin 5.3 %THb (0-5.0); Total Hemoglobin 9.7 g/dL (12.0-18.0); pH ABG 7.384 (7.350-7.450)
[2021-12-30 06:05] LABS: Site Drawn RIGHT BRACHIAL
[2021-12-30 06:06] LABS: Device BIPAP
[2021-12-30 06:07] LABS: Expiratory Pressure 4 cmH2O
--- NOTE | 2021-12-30 06:21 | PM.PNCARD ---
Progress Note: A&P Assessment and Plan (1) Paroxysmal atrial fibrillation: Code(s): I48.0 - Paroxysmal atrial fibrillation Status: Acute Plan 66-year-old man with paroxysmal atrial fibrillation resulting from his severe chronic lung disease and RV dilation. He is maintaining sinus rhythm with low dose of sotalol. He continues to be systemically anticoagulated with apixaban which he is interestingly tolerating well. He did have severe/ life-threatening hemoptysis about 5 months ago so he may not be able to tolerate anticoagulation indefinitely Shadi Dc MD [facility] Subjective Date/time seen: Date of service:12/30/21 06:21 Interval history: Follow-up visit in this 66-year-old man with: Paroxysmal atrial fibrillation which is resulting from his severe chronic lung disease. Patient has right ventricular enlargement and RV dysfunction by previous echo. Currently on sotalol and systemic anticoagulation and maintaining normal sinus rhythm. No events through the night no evidence of recurrence of atrial fibrillation for the last 48 hours Exam Const: General: comfortable and no acute distress Other: thin cachectic chronically ill-appearing man wearing BiPAP resting comfortably in bed HENMT: Mouth: Yes moist mucous membranes Eyes: Sclera: sclerae normal Neck: Neck: supple and no JVD Resp: Auscultation: diminished lung sounds Cardio: Rate: regular rate Rhythm: regular rhythm GI: GI Palp: Yes Soft to palpation Auscultation: normal bowel sounds Skin: General skin exam: normal color Extrem: Other: no edema Objective Data Vital Signs Vital Signs: Vital Signs - 24 hr 12/29/21 07:49 12/29/21 07:49 12/29/21 07:49 Temperature Pulse Rate 83 83 83 Respiratory Rate 25 H 25 H 25 H Blood Pressure Pulse Oximetry 95 95 Oxygen Delivery BiPAP BiPAP Fraction of Inspired Oxygen 30 12/29/21 08:07 12/29/21 08:00 12/29/21 09:30 Temperature 36.6 C Pulse Rate 85 84 94 Respiratory Rate 26 H 33 H 35 H Blood Pressure 125/95 H Pulse Oximetry 95 Oxygen Delivery Fraction of Inspired Oxygen 12/29/21 09:31 12/29/21 08:00 12/29/21 08:00 Temperature Pulse Rate 86 85 77 Respiratory Rate 33 H Blood Pressure Pulse Oximetry 95 Oxygen Delivery BiPAP Fraction of Inspired Oxygen 30 12/29/21 10:00 12/29/21 10:00 12/29/21 10:33 Temperature 35.9 C L Pulse Rate 89 83 85 Respiratory Rate 31 H 36 H Blood Pressure 126/87 Pulse Oximetry 99 96 Oxygen Delivery BiPAP Fraction of Inspired Oxygen 12/29/21 12:00 12/29/21 12:00 12/29/21 12:00 Temperature 37.0 C Pulse Rate 85 81 86 Respiratory Rate 28 H 35 H Blood Pressure 111/83 Pulse Oximetry 97 94 Oxygen Delivery BiPAP Fraction of Inspired Oxygen 30 12/29/21 06:30 12/29/21 06:31 12/29/21 06:45 Temperature Pulse Rate 75 77 76 Respiratory Rate 24 H 22 H 23 H Blood Pressure 113/80 Pulse Oximetry 97 97 98 Oxygen Delivery Fraction of Inspired Oxygen 12/29/21 07:00 12/29/21 07:01 12/29/21 07:15 Temperature Pulse Rate 75 76 74 Respiratory Rate 24 H 22 H 23 H Blood Pressure 111/84 Pulse Oximetry 98 98 98 Oxygen Delivery Fraction of Inspired Oxygen 12/29/21 07:30 12/29/21 07:31 12/29/21 07:45 Temperature Pulse Rate 76 74 90 Respiratory Rate 24 H 22 H 30 H Blood Pressure 107/81 Pulse Oximetry 98 98 99 Oxygen Delivery Fraction of Inspired Oxygen 12/29/21 08:00 12/29/21 08:01 12/29/21 08:15 Temperature Pulse Rate 86 96 85 Respiratory Rate 37 H 38 H 37 H Blood Pressure 125/95 H Pulse Oximetry 95 96 96 Oxygen Delivery Fraction of Inspired Oxygen 12/29/21 08:30 12/29/21 08:31 12/29/21 08:45 Temperature Pulse Rate 78 78 81 Respiratory Rate 26 H 28 H 33 H Blood Pressure 127/89 Pulse Oximetry 97 99 96 Oxygen Delivery Fraction of Inspired Oxygen 12/29/21 09:00 12/29/21 09:01 12/29/21 09:15 [place]a
[2021-12-30] MEDS: BUDESONIDE RESPULE NEB 0.5 MG/2 ML AMP INHALATION ×2 (08:03→20:26)
[2021-12-30] MEDS: MIDODRINE HCL 2.5 MG TABLET 5 MG PO ×3 (10:26→16:54)
[2021-12-30] MEDS: ETHAMBUTOL HCL 400 MG TABLET 800 MG PO (10:26)
[2021-12-30] MEDS: SOTALOL HCL 40 MG TABLET PO ×2 (10:26→21:18)
[2021-12-30] MEDS: ALPRAZolam (*CRX) 0.25 MG TABLET PO (10:26)
[2021-12-30] MEDS: DOCUSATE SODIUM 100 MG CAPSULE PO (10:26)
[2021-12-30] MEDS: rifAMPin 300 MG CAPSULE PO (10:27)
[2021-12-30] MEDS: SERTRALINE HCL 50 MG TABLET 100 MG PO (10:27)
[2021-12-30] MEDS: SACCHAROMYCES BOULARDII 250 MG CAPSULE PO (10:27)
[2021-12-30] MEDS: APIXABAN 5 MG TABLET PO ×2 (10:27→21:16)
[2021-12-30] MEDS: FAMOTIDINE 20 MG TABLET PO ×2 (10:28→16:54)
--- NOTE | 2021-12-30 11:00 | WPDINTPN ---
Progress Note: A&P Assessment and Plan (1) Acute and chronic respiratory failure: Qualifiers: Respiratory failure complication: hypercapnia Qualified Code(s): J96.22 - Acute and chronic respiratory failure with hypercapnia Code(s): J96.20 - Acute and chronic respiratory failure, unspecified whether with hypoxia or hypercapnia Status: Acute Assessment and Plan: Patient with acute on chronic respiratory failure likely related to pneumonia, COPD exacerbation, history of MAC (on ethambutol, rifampin, clarithromycin). -patient normally uses 2-4 L of oxygen at home -his oxygenation requirements have gone up and patient was placed on BiPAP after which he was switched to AVAPS mode by pulmonology -currently on 30% FiO2 -tachypnea has improved -anxiety is improved with p.r.n. Xanax -12/30 chest x-ray: Stable airspace opacities in the mid and upper lung zones, consistent with pneumonia.. Severe emphysema. 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 EBL in July 2021 showed life-threatening hemoptysis and was transferred to [facility] pulmonary embolization. (4) Paroxysmal atrial fibrillation: Code(s): I48.0 - Paroxysmal atrial fibrillation Status: Acute Assessment and Plan: Patient presented with AFib RVR which converted to sinus rhythm with IV amiodarone -appreciate Cardiology evaluation recommendation, -since patient has had severe lung disease cardiology wanted keep away from amiodarone and started patient on sotalol -currently in sinus rhythm, rate control, continue to monitor (5) Anemia: Code(s): D64.9 - Anemia, unspecified Status: Acute Assessment and Plan: Patient's hemoglobin is at his baseline -will continue to monitor (6) Chronic back pain: Code(s): M54.9 - Dorsalgia, unspecified; G89.29 - Other chronic pain Status: Acute Assessment and Plan: Patient on [place] at home, will continue Plan DVT prophylaxis: Eliquis Stress ulcer prophylaxis: Famotidine Nutrition: Heart healthy diet, decreased p.o. intake, will probably require supplements, if unable, will start him on TPN Code Status: Full code Critical Care Time Spent: 33 minutes Due to a high probability of clinically significant, life threatening deterioration, the patient required my highest level of preparedness to intervene emergently and I personally spent this critical care time directly and personally managing the patient. This critical care time included obtaining a history; examining the patient; pulse oximetry; ordering and review of studies; arranging urgent treatment with development of a management plan; evaluation of patient's response to treatment; frequent reassessment; and discussions with other providers. It was exclusive of separately billable procedures and treating other patients and teaching time. Please see Assessment and Plan section and the rest of the note for further information on patient assessment and treatment Subjective Date/time seen: 12/30/21 11:00 Interval history: Nimisha Zavala is a 66 year old male with significant past medical history of MAC infection and help in a clarithromycin, ethambutol, rifampin, history of COPD, his
[2021-12-30] MEDS: CLARITHROMYCIN 500 MG TABLET PO (12:26)
[2021-12-30] MEDS: LORazepam INJ (*CRX) 2 MG/ML VIAL 0.25 MG IV PUSH (12:49)
[2021-12-30] MEDS: SODIUM CHLORIDE 0.9% IV 1,000 ML 50 ML IV CONT (12:52)
--- NOTE | 2021-12-30 14:59 | PM.PNPUL ---
Progress Note: A&P Assessment and Plan (1) Pneumonia: Code(s): J18.9 - Pneumonia, unspecified organism Status: Acute Assessment and Plan: He presented with leukocytosis, increased shortness of breath, chest x-ray with infiltrates, and is on Rx for community-acquired pneumonia with ceftriaxone and azithromycin (started 12/27).? COVID RT PCR study negative.? Blood cultures negative. 12/28 ? Patient remains afebrile, white blood cell count improved to 12.7. ? Blood cultures negative. BiPPA was not comfortable so this was switched to AVAPS with a rate of 20, TV 400 mL, on the BiPAP.? I changed him to noninvasive ventilation with the AVAPS mode and adjusted the settings for comfort which resulted in a rate of 20, tidal volume, 400,? EPAP 4, minimal inspiratory pressure 5, maximal inspiratory pressure 25, inspiratory time 1.2, rise of 5 and 30%His saturations remained 97%. 12/29 Feels better, hungry, needs enteral feeding; able to talk; would like to eat. Has little reserve and drops his saturation quickly with movement. RN will offer high protein shakes. 12/30 : He is using AVAPS mode, FiO2 30%, eating more, has a PICC line. His CXR is stable. He has an appointment with Dr Guevara this Jan 03. If he is still in the hospital, he will not have to wait 3 more months for evaluation. WBC is down 10.6 k, better. ABG is acceptable. He has a loose coughing, not able to get many secretions out. Will add [place] valve to assist with clearing secretions. (2) COPD with emphysema: Qualifiers: Emphysema type: unspecified Qualified Code(s): J43.9 - Emphysema, unspecified Code(s): J43.9 - Emphysema, unspecified Status: Acute Assessment and Plan: Long history of tobacco use, 94 pack years, quit 2018; has COPD with severe panlobular emphysema?noted on the for CT scan in our system from 01/15/2020. He does not have PFTS in our system. He has hypoxemic respiratory failure on 3 L NC,? pulmonary cachexia. He is now on nebulized ipratropium 0.5 mg Q 6 hours, nebulized levalbuterol 1.25 mg q.6 hours and nebulized budesonide 0.5 mg nebulized twice a day, and the Trelegy was stopped. He remains on noninvasive ventilation for work of breathing without hypercarbic respiratory failure as evidence by his blood gas of 7.45/46/63 on 4 L nasal cannula. ? He does not have wheezing. He may be infected with abacterial pathogen, so systemic steroids were not started. He is chronically infected with SEBASTIÁN. There is no reason to start systemic steroids. 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 Of note the patient has been restarted on apixaban 5 mg p.o. b.i.d.. He had to episodes of sputum mixed with blood on 12/26 and again on 12/27 but none since then.? He is stable without hemoptysis on anticoagulation with apixaban. Subjective Date/time seen: 12/30/21 14:59 Interval history: ESTABLISHED: Ramakrishna Zavala is a 66-year-old man seen in follow up for hemoptysis, COPD, pneumonia, history of SEBASTIÁN infection and shortness of breath. He is in ICU 6 on low dose Precedex 0.2 mcg/kg/hour, getting switched to oral alprazolam for anxiety. Anxiety has been a long sanding problem. Today, he is less anxious. He has a history of tobacco use, 94 pack years, quit 2017, COPD with severe panlobular emphysema? noted on the for CT scan in our system from
--- NOTE | 2021-12-30 17:01 | PC.NURSE ---
Since 0.25mg of ativan administered , patient seems to becoming restless , incontinent, and disoriented won't keep airvo on , pulling off leads and pulse ox. Held scheduled xanax and placed patient back on bipap.
[2021-12-30] MEDS: TAMSULOSIN HCL 0.4 MG CAPSULE PO (21:16)
[2021-12-30] MEDS: FINASTERIDE 5 MG TABLET PO (21:16)
[2021-12-31] VITALS (29 sets, daily range): BP systolic 106–134; BP diastolic 73–86; PULSE 73–97; RESP 23–34; TEMP 36.4–36.6; O2SAT 94–100
[2021-12-31 00:04] LABS: Vancomycin Trough 6.7 ug/mL (10.0-20.0)
[2021-12-31] MEDS: IPRATROPIUM BR 0.02% INH SOLN 0.5 MG/2.5 ML VIAL INHALATION ×4 (02:20→20:03)
[2021-12-31 05:28] LABS: Alveolar/Arterial O2 Gradient 89.7 mmHg; Base Excess ABG 6.3 mEq/l (+/-2.0); Carboxyhemoglobin 0.3 % THb (0-2.0); Fractional Inspired Oxygen 30 %; Methemoglobin ABG 0.2 %THb (0-1.5); Oxygen Content ABG 14.3 %vol (16.0-22.0); Oxyhemoglobin 91.2 % THb (90.0-100.0); PCO2 ABG 51.9 mmHg (35.0-45.0); PO2 ABG 63.2 mmHg (80.0-100.0); PO2 FiO2 Ratio Arterial Blood 2.11 %; Reduced Hemoglobin 8.3 %THb (0-5.0); Total Hemoglobin 11.1 g/dL (12.0-18.0); pH ABG 7.408 (7.350-7.450)
[2021-12-31 05:29] LABS: Modified Allen's Test Pass; Site Drawn RIGHT RADIAL
[2021-12-31 05:30] LABS: Device NON-INVASIVE VENT
[2021-12-31 05:32] LABS: Non-Invasive Expiratory Pressure 4 CMH2O; Non-Invasive Vent Rate 20 /MIN
[2021-12-31 07:02] LABS: Basophils Absolute Auto 0.1 K/mm3 (0.0-0.1); Basophils Percent Auto 0.5 % (0.2-1.2); Eosinophils Absolute Auto 0.4 K/mm3 (0-0.3); Hematocrit 30.1 % (42.0-52.0); Hemoglobin 9.2 g/dL (14.0-18.0); Immature Granulocyte Absolute 0.34 K/mm3 (0.00-0.031); Immature Granulocyte Percent A 2.9 % (0-0.5); Lymphocytes Absolute Auto 1.04 K/mm3 (0.9-3.2); Lymphocytes Percent Auto 8.9 % (18.3-44.2); Mean Corpuscular HGB Conc 30.6 g/dl (32-36); Mean Corpuscular Hemoglobin 28.7 pg (26-34); Mean Corpuscular Volume 93.8 fl (80-100); Mean Platelet Volume 9.1 fl (7.4-10.4); Monocytes Absolute Auto 1.4 K/mm3 (0.1-0.6); Monocytes Percent Auto 11.6 % (2.6-8.5); Neutrophils Absolute Auto 8.6 K/mm3 (1.3-6.7); Neutrophils Percent Auto 73.1 % (45.5-73.1); Platelet Count Result 383 k/mm3 (150-375); Red Blood Count 3.21 M/mm3 (4.6-6.20); Red Cell Distribution Width 13.5 % (11.5-14.5); White Blood Count 11.8 K/mm3 (4.5-10.0)
[2021-12-31 07:04] LABS: Alanine Aminotransferase 17 U/L (6-50); Albumin Level 2.6 g/dL (3.5-5.1); Alkaline Phosphatase 82 U/L (38-126); Anion Gap 9 mmol/L (8-16); Aspartate Amino Transferase 19 U/L (17-59); Bilirubin,Total 0.1 mg/dL (0.2-1.3); Blood Urea Nitrogen 8 mg/dL (9-20); Calcium 8.1 mg/dL (8.4-10.2); Carbon Dioxide 33 mmol/L (22-30); Chloride 95 mmol/L (98-107); Estimated CRCL calculation 115 ml/min; Estimated Glomerular Filt Rate > 60; Glucose 107 mg/dL (65-110); Magnesium 1.6 mg/dL (1.6-2.3); Phosphorus 3.1 mg/dL (2.5-4.5); Potassium 3.2 mmol/L (3.4-5.0); Sodium 137 mmol/L (137-145)
[2021-12-31] MEDS: KCL 40 MEQ/WATER 100 ML 100 ML 25 ML IVPB (08:05)
[2021-12-31] MEDS: MAGNESIUM SULF 2 GM/WATER 50ML 2 GM/50 ML BAG IVPB (08:06)
--- NOTE | 2021-12-31 08:25 | WPDINTPN ---
Progress Note: A&P Assessment and Plan (1) Acute and chronic respiratory failure: Qualifiers: Respiratory failure complication: hypercapnia Qualified Code(s): J96.22 - Acute and chronic respiratory failure with hypercapnia Code(s): J96.20 - Acute and chronic respiratory failure, unspecified whether with hypoxia or hypercapnia Status: Acute Assessment and Plan: Patient with acute on chronic respiratory failure likely related to pneumonia, COPD exacerbation, history of MAC (on ethambutol, rifampin, clarithromycin). -patient normally uses 2-4 L of oxygen at home -his oxygenation requirements have gone up and patient was placed on BiPAP after which he was switched to AVAPS mode by pulmonology -currently on 30% FiO2 -12/30/2021: Patient tolerated high-flow therapy with Airvo and feels that that is more comfortable. -will place patient again on air was so he can eat, overnight he will be placed on AVAPS. -tachypnea has improved -anxiety is improved with p.r.n. Xanax -12/31 chest x-ray: Stable airspace opacities in the mid and upper lung zones, consistent with pneumonia.. Severe emphysema. 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 EBL in July 2021 showed life-threatening hemoptysis and was transferred to [facility] pulmonary embolization. (4) Paroxysmal atrial fibrillation: Code(s): I48.0 - Paroxysmal atrial fibrillation Status: Acute Assessment and Plan: Patient presented with AFib RVR which converted to sinus rhythm with IV amiodarone -since patient has had severe lung disease cardiology wanted keep away from amiodarone and started patient on sotalol -currently in sinus rhythm, rate control, continue to monitor -continue Eliquis -appreciate cardiology following the patient (5) Anemia: Code(s): D64.9 - Anemia, unspecified Status: Acute Assessment and Plan: Patient's hemoglobin is at his baseline -will continue to monitor (6) Chronic back pain: Code(s): M54.9 - Dorsalgia, unspecified; G89.29 - Other chronic pain Status: Acute Assessment and Plan: Patient on [place] at home, will continue Plan DVT prophylaxis: Eliquis Stress ulcer prophylaxis: Famotidine Nutrition: Heart healthy diet, tolerating p.o. diet high-flow therapy with Airvo Code Status: Full code Critical Care Time Spent: 32 minutes Due to a high probability of clinically significant, life threatening deterioration, the patient required my highest level of preparedness to intervene emergently and I personally spent this critical care time directly and personally managing the patient. This critical care time included obtaining a history; examining the patient; pulse oximetry; ordering and review of studies; arranging urgent treatment with development of a management plan; evaluation of patient's response to treatment; frequent reassessment; and discussions with other providers. It was exclusive of separately billable procedures and treating other patients and teaching time. Please see Assessment and Plan section and the rest of the note for further information on patient assessment and treatment Subjective Date/time seen: 12/31/21 08:25 Interval history:
[2021-12-31] MEDS: ETHAMBUTOL HCL 400 MG TABLET 800 MG PO (08:26)
[2021-12-31] MEDS: ALPRAZolam (*CRX) 0.5 MG TABLET PO (08:26)
[2021-12-31] MEDS: APIXABAN 5 MG TABLET PO ×2 (08:26→20:47)
[2021-12-31] MEDS: CLARITHROMYCIN 500 MG TABLET PO (08:26)
[2021-12-31] MEDS: SERTRALINE HCL 50 MG TABLET 100 MG PO (08:27)
[2021-12-31] MEDS: MIDODRINE HCL 2.5 MG TABLET 5 MG PO ×3 (08:27→16:20)
[2021-12-31] MEDS: rifAMPin 300 MG CAPSULE PO (08:27)
[2021-12-31] MEDS: SOTALOL HCL 40 MG TABLET PO ×2 (08:27→20:46)
[2021-12-31] MEDS: FAMOTIDINE 20 MG TABLET PO ×2 (08:27→16:20)
[2021-12-31] MEDS: SACCHAROMYCES BOULARDII 250 MG CAPSULE PO (08:27)
[2021-12-31] MEDS: BUDESONIDE RESPULE NEB 0.5 MG/2 ML AMP INHALATION ×2 (08:29→20:03)
[2021-12-31] MEDS: HYDROcodone/acetaminophen (*CRX) 5-325 MG TABLET 1 TAB PO ×2 (08:53→20:46)
[2021-12-31] MEDS: SODIUM CHLORIDE 0.9% IV 1,000 ML 50 ML IV CONT (08:56)
--- NOTE | 2021-12-31 11:06 | PM.PNCARD ---
Progress Note: A&P Assessment and Plan (1) Paroxysmal atrial fibrillation: Code(s): I48.0 - Paroxysmal atrial fibrillation Status: Acute Assessment and Plan: Maintaining sinus rhythm on sotalol 40mg b.i.d. Sotalol loading is complete at this point. Avoid QT prolonging agents. Continue systemic a/c with apixaban. Monitor very closely for any s/s bleeding as he has a history of severe hemoptysis. Plan Subjective Date/time seen: 12/31/21 11:06 Interval history: Follow-up visit in this 66-year-old man with: Paroxysmal atrial fibrillation which is resulting from his severe chronic lung disease. Patient has right ventricular enlargement and RV dysfunction by previous echo. Currently on sotalol and systemic anticoagulation and maintaining normal sinus rhythm. No events through the night no evidence of recurrence of atrial fibrillation for the last 48 hours Date of service 12/31/21: Very sleepy this afternoon. Comfortable and without complaint. Review of Systems Constitutional: Constitutional: Reports lethargy Eyes: Eyes: Reports no additional eye complaints ENT: Reports epistaxis Cardiovascular: Cardiovascular: Reports no additional cardiovascular complaints and Reports dyspnea Respiratory: Respiratory: Reports dyspnea Gastrointestinal: Gastrointestinal: Reports no additional gastrointestinal complaints Musculoskeletal: Musculoskeletal: Reports arthralgias Integumentary/Breasts: Skin/Breast: Reports system reviewed and no additional complaints, except as docu Neurologic: Reports system reviewed and no additional complaints, except as documented Endocrine: Endocrine: Reports no additional endocrine complaints Hematologic/Lymphatic: Hematologic/Lymphatic: Reports no additional hematologic/lymphatic complaints Allergic/Immunologic: Allergic/Immunologic: Reports no additional allergic/immunologic complaints Exam Const: General: comfortable, no acute distress and uncomfortable Other: thin cachectic chronically ill-appearing man resting comfortably in bed with nasal cannula oxygen in pace. HENMT: Mouth: Yes moist mucous membranes Eyes: Sclera: sclerae normal Neck: Neck: supple and no JVD Resp: Auscultation: diminished lung sounds Other: diminished breath sounds throughout both lung [place] Cardio: Rate: regular rate Rhythm: regular rhythm Other: No significant murmur or gallop GI: Auscultation: normal bowel sounds Skin: General skin exam: normal color Neuro: Other: sleepy but awakens to stimuli Extrem: Other: no edema Objective Data Vital Signs Vital Signs: Vital Signs - 24 hr 12/30/21 13:55 12/30/21 12:45 12/30/21 13:55 Temperature Pulse Rate 89 Respiratory Rate 31 H Blood Pressure Pulse Oximetry 100 100 Oxygen Delivery High Flow Therapy with Na High Flow Therapy with Na Oxygen Flow Rate 60 60 Fraction of Inspired Oxygen 50 50 12/30/21 14:04 12/30/21 14:45 12/30/21 12:00 Temperature Pulse Rate 92 69 Respiratory Rate 31 H 24 H Blood Pressure Pulse Oximetry 97 100 Oxygen Delivery High Flow Therapy with Na High Flow Therapy with Na Oxygen Flow Rate 60 60 Fraction of Inspired Oxygen 40 40 12/30/21 12:00 12/30/21 12:00 12/30/21 12:01 Temperature Pulse Rate 69 68 68 Respiratory Rate 25 H 25 H Blood Pressure 113/75 Pulse Oximetry 99 99 Oxygen Delivery Oxygen Flow Rate Fraction of Inspired Oxygen 12/30/21 14:22 12/30/21 14:00 12/30/21 16:00 Temperature Pulse Rate 90 93 68 Respiratory Rate 30 H 18 Blood Pressure Pulse Oximetry 100 98 Oxygen Delivery High Flow Therapy with Na Oxygen Flow Rate 60 Fraction of Inspired Oxygen 40 12/30/21 16:00 12/30/21 16:00 12/30/21 18:00 Temperature Pulse Rate 68 68 81 Respiratory Rate 18 32 H Blood Pressure 127/85 106/79 Pulse Oximetry 98 98 Oxygen Delivery Oxygen Flow Rate Fraction of Inspired Oxygen
--- NOTE | 2021-12-31 11:08 | PCFNICU ---
ICU Rounding Note: Pt current nutrition is Regular. Last recorded weight is 54.6 kg, up from 51.8 kg on admit. Bowel Motility:FMS Labs Reviewed:Cr 0.4,K 3.2,Alb 2.6,Hct 30.1,Hgb 9.2 Meds Noted:Zoloft,Vancomycin, Florastor, Pepcid, Atrovent Skin: WNL Additional Notes: Patient seen today. Now on Airvo. PICC placed. Diet order regular diet. Oral Intake today 75% of breakfast. Discussed diet supplements with patient today. Orders for Ensure Enlive TID providing an additional 350 kcals and 20 gms protein and Nutritional Ice cream TID providing 290 kcals and 9 gms protein. Agree with diet orders. Following daily in ICU rounds. Monitoring intakes, labs, plan of care. Follow up in 5 days.
--- NOTE | 2021-12-31 12:02 | PM.PNPUL ---
Progress Note: A&P Assessment and Plan (1) Pneumonia: Code(s): J18.9 - Pneumonia, unspecified organism Status: Acute Assessment and Plan: He presented with leukocytosis, increased shortness of breath, chest x-ray with infiltrates, and is on Rx for community-acquired pneumonia with ceftriaxone and azithromycin (started 12/27).? COVID RT PCR study negative.? Blood cultures negative. 12/28 ? Patient remains afebrile, white blood cell count improved to 12.7. ? Blood cultures negative. BiPPA was not comfortable so this was switched to AVAPS with a rate of 20, TV 400 mL, on the BiPAP.? I changed him to noninvasive ventilation with the AVAPS mode and adjusted the settings for comfort which resulted in a rate of 20, tidal volume, 400,? EPAP 4, minimal inspiratory pressure 5, maximal inspiratory pressure 25, inspiratory time 1.2, rise of 5 and 30%His saturations remained 97%. 12/29 Feels better, hungry, needs enteral feeding; able to talk; would like to eat. Has little reserve and drops his saturation quickly with movement. RN will offer high protein shakes. 12/30 : He is using AVAPS mode, FiO2 30%, eating more, has a PICC line. His CXR is stable. He has an appointment with Dr Guevara this Jan 03. If he is still in the hospital, he will not have to wait 3 more months for evaluation. WBC is down 10.6 k, better. ABG is acceptable. He has a loose coughing, not able to get many secretions out. Will add Cornet valve to assist with clearing secretions. 12/31 Patient wore noninvasive ventilation with the AVAPS mode overnight. ABG was 7.41/52/63 on AVAPS. He has been off AVAPS since 09:30 this morning and is currently on 6 L nasal cannula saturations 100%. The patient states he is feeling better and can take deeper breaths. The cough is improved. His white blood cell count is 11.0. His creatinine is 1.0. Chest x-ray shows unchanged bilateral lung infiltrates and severe emphysema. will attempt off of a VATS as tolerated and out of bed to chair if possible. Continue p.o. nutrition. (2) COPD with emphysema: Qualifiers: Emphysema type: unspecified Qualified Code(s): J43.9 - Emphysema, unspecified Code(s): J43.9 - Emphysema, unspecified Status: Acute Assessment and Plan: Long history of tobacco use, 94 pack years, quit 2018; has COPD with severe panlobular emphysema?noted on the for CT scan in our system from 01/15/2020. He does not have PFTS in our system. He has hypoxemic respiratory failure on 3-4 L NC,? pulmonary cachexia. He is now on nebulized ipratropium 0.5 mg Q 6 hours, nebulized levalbuterol 1.25 mg q.6 hours and nebulized budesonide 0.5 mg nebulized twice a day, and the Trelegy was stopped. He remains on noninvasive ventilation for work of breathing without hypercarbic respiratory failure as evidence by his blood gas of 7.45/46/63 on 4 L nasal cannula. ? He does not have wheezing. He may be infected with abacterial pathogen, so systemic steroids were not started. He is chronically infected with SEBASTIÁN. There is no reason to start systemic steroids. 12/31 no wheezing on left albuterol and ipratropium nebulizers. Will continue for now. 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 Of note the patient has been restarted on apixaban 5 mg p.o. b.i.d.. He had to episodes of sputum mixed with blood on 12/26 and again on 12/27 but none since then.? He is stable without hemoptysi
[2021-12-31] MEDS: PROMETHAZINE HCL 25 MG/ML AMPUL 12.5 MG IV PUSH (13:16)
[2021-12-31] MEDS: CENTRAL LINE FLUSH 10 ML IV PUSH ×2 (13:22→20:47)
[2021-12-31] MEDS: TAMSULOSIN HCL 0.4 MG CAPSULE PO (20:46)
[2021-12-31] MEDS: FINASTERIDE 5 MG TABLET PO (20:46)
[2022-01-01] VITALS (29 sets, daily range): BP systolic 93–144; BP diastolic 64–93; PULSE 67–91; RESP 20–34; TEMP 36.4–36.6; O2SAT 96–100
[2022-01-01] MEDS: HYDROcodone/acetaminophen (*CRX) 5-325 MG TABLET 1 TAB PO ×3 (02:43→19:54)
[2022-01-01 04:41] LABS: Alveolar/Arterial O2 Gradient 76.6 mmHg; Base Excess ABG 12.1 mEq/l (+/-2.0); Carboxyhemoglobin 0.3 % THb (0-2.0); Fractional Inspired Oxygen 30 %; HCO3 ABG 38.5 mEq/l (22.0-26.0); Methemoglobin ABG 0.3 %THb (0-1.5); Oxygen Content ABG 16.7 %vol (16.0-22.0); Oxyhemoglobin 93.2 % THb (90.0-100.0); PCO2 ABG 58.1 mmHg (35.0-45.0); Reduced Hemoglobin 6.2 %THb (0-5.0); Total Hemoglobin 12.7 g/dL (12.0-18.0); pH ABG 7.439 (7.350-7.450)
[2022-01-01 04:43] LABS: Device NON-INVASIVE VENT; Modified Allen's Test Pass; Non-Invasive Vent Rate 24 /MIN; Site Drawn LEFT RADIAL
[2022-01-01 04:44] LABS: Non-Invasive Expiratory Pressure 4 CMH2O
[2022-01-01 04:48] LABS: Basophils Percent Auto 0.3 % (0.2-1.2); Eosinophils Absolute Auto 0.4 K/mm3 (0-0.3); Eosinophils Percent Auto 4.2 % (0-4.4); Hematocrit 29.3 % (42.0-52.0); Hemoglobin 8.9 g/dL (14.0-18.0); Immature Granulocyte Absolute 0.24 K/mm3 (0.00-0.031); Immature Granulocyte Percent A 2.5 % (0-0.5); Lymphocytes Absolute Auto 1.16 K/mm3 (0.9-3.2); Lymphocytes Percent Auto 12.1 % (18.3-44.2); Mean Corpuscular HGB Conc 30.4 g/dl (32-36); Mean Corpuscular Volume 95.4 fl (80-100); Mean Platelet Volume 8.7 fl (7.4-10.4); Monocytes Absolute Auto 1.1 K/mm3 (0.1-0.6); Monocytes Percent Auto 11.9 % (2.6-8.5); Neutrophils Absolute Auto 6.6 K/mm3 (1.3-6.7); Platelet Count Result 340 k/mm3 (150-375); Red Blood Count 3.07 M/mm3 (4.6-6.20); Red Cell Distribution Width 13.5 % (11.5-14.5); White Blood Count 9.6 K/mm3 (4.5-10.0)
[2022-01-01] MEDS: ALPRAZolam (*CRX) 0.5 MG TABLET PO ×2 (04:49→21:49)
[2022-01-01 05:03] LABS: Alanine Aminotransferase 17 U/L (6-50); Albumin Level 2.5 g/dL (3.5-5.1); Alkaline Phosphatase 85 U/L (38-126); Anion Gap 3 mmol/L (8-16); Aspartate Amino Transferase 18 U/L (17-59); Bilirubin,Total 0.2 mg/dL (0.2-1.3); Blood Urea Nitrogen 6 mg/dL (9-20); Calcium 8.3 mg/dL (8.4-10.2); Carbon Dioxide 39 mmol/L (22-30); Chloride 95 mmol/L (98-107); Estimated CRCL calculation 115 ml/min; Estimated Glomerular Filt Rate > 60; Glucose 99 mg/dL (65-110); Phosphorus 3.2 mg/dL (2.5-4.5); Potassium 3.6 mmol/L (3.4-5.0); Sodium 137 mmol/L (137-145)
--- NOTE | 2022-01-01 05:36 | PCRCNOTE ---
Window of time for administration has passed. See next scheduled administration.
[2022-01-01] MEDS: CENTRAL LINE FLUSH 10 ML IV PUSH ×3 (06:45→21:49)
--- NOTE | 2022-01-01 08:08 | PM.PNPUL ---
Progress Note: A&P Assessment and Plan (1) Pneumonia: Code(s): J18.9 - Pneumonia, unspecified organism Status: Acute Assessment and Plan: He presented with leukocytosis, increased shortness of breath, chest x-ray with infiltrates, and is on Rx for community-acquired pneumonia with ceftriaxone and azithromycin (started 12/27).? COVID RT PCR study negative.? Blood cultures negative. 12/28 ? Patient remains afebrile, white blood cell count improved to 12.7. ? Blood cultures negative. BiPPA was not comfortable so this was switched to AVAPS with a rate of 20, TV 400 mL, on the BiPAP.? I changed him to noninvasive ventilation with the AVAPS mode and adjusted the settings for comfort which resulted in a rate of 20, tidal volume, 400,? EPAP 4, minimal inspiratory pressure 5, maximal inspiratory pressure 25, inspiratory time 1.2, rise of 5 and 30%His saturations remained 97%. 12/29 Feels better, hungry, needs enteral feeding; able to talk; would like to eat. Has little reserve and drops his saturation quickly with movement. RN will offer high protein shakes. 12/30 : He is using AVAPS mode, FiO2 30%, eating more, has a PICC line. His CXR is stable. He has an appointment with Dr Guevara this Jan 03. If he is still in the hospital, he will not have to wait 3 more months for evaluation. WBC is down 10.6 k, better. ABG is acceptable. He has a loose coughing, not able to get many secretions out. Will add Cornet valve to assist with clearing secretions. 12/31 Patient wore noninvasive ventilation with the AVAPS mode overnight. ABG was 7.41/52/63 on AVAPS. He has been off AVAPS since 09:30 this morning and is currently on 6 L nasal cannula saturations 100%. The patient states he is feeling better and can take deeper breaths. The cough is improved. His white blood cell count is 11.0. His creatinine is 1.0. Chest x-ray shows unchanged bilateral lung infiltrates and severe emphysema. will attempt off of a VATS as tolerated and out of bed to chair if possible. Continue p.o. nutrition. Off BiPAP from 9:30 p.m. until bedtime on 6 L nasal cannula but did require an increase to 10 L nasal cannula later in the day 01/01 Slow improvement. He is improving but still has shortness of breath at rest and extreme dyspnea on exertion. States he is 36% back to his baseline. His phlegm is present but has improved from green to khan. Patient wore noninvasive ventilator with the AVAPS mode overnight. rate of 24, tidal volume, 450,? EPAP 4, minimal inspiratory pressure 5, maximal inspiratory pressure 25, inspiratory time 0.8, rise of 5 and 30%. ABG 7.44/58/69 on AVAPS this morning. white blood cell count is 9.6. Creatinine is 0.4. Currently he is on 6 L nasal cannula saturations 98%. Continue day 6 ceftriaxone and azithromycin, started 12/27, and day 4 vancomycin started 12/29. DC azithromycin after today's dose. If clinically stable will obtain CT scan of the chest tomorrow. (2) COPD with emphysema: Qualifiers: Emphysema type: unspecified Qualified Code(s): J43.9 - Emphysema, unspecified Code(s): J43.9 - Emphysema, unspecified Status: Acute Assessment and Plan: Long history of tobacco use, 94 pack years, quit 2018; has COPD with severe panlobular emphysema?noted on the for CT scan in our system from 01/15/2020. He does not have PFTS in our system. He has hypoxemic respiratory failure on 3-4 L NC,? pulmonary cachexia. He is now on nebulized ipratropium 0.5 mg Q 6 hours, nebulized levalbuterol 1.25 mg q.6 hours and nebulized budesonide 0.5 mg nebulized twice a day, and the Trelegy was stopped. He remains on noninvasive ventilation for work of breathing without hypercarbic respiratory failure as evidence by his blood gas of 7.45/46/63 on 4 L nasal cannula. ? He does not have wheezing. He may be infected with a bacterial pathogen, so systemic steroids were no
[2022-01-01] MEDS: IPRATROPIUM BR 0.02% INH SOLN 0.5 MG/2.5 ML VIAL INHALATION ×3 (08:16→20:22)
[2022-01-01] MEDS: BUDESONIDE RESPULE NEB 0.5 MG/2 ML AMP INHALATION ×2 (08:16→20:22)
--- NOTE | 2022-01-01 08:58 | PM.IMPN ---
Progress Note: A&P Assessment and Plan (1) Acute and chronic respiratory failure: Qualifiers: Respiratory failure complication: hypercapnia Qualified Code(s): J96.22 - Acute and chronic respiratory failure with hypercapnia Code(s): J96.20 - Acute and chronic respiratory failure, unspecified whether with hypoxia or hypercapnia Status: Acute Assessment and Plan: Patient with acute on chronic respiratory failure likely related to pneumonia, COPD exacerbation, history of MAC (on ethambutol, rifampin, clarithromycin). -patient normally uses 2-4 L of oxygen at home -his oxygenation requirements have gone up and patient was placed on BiPAP after which he was switched to AVAPS mode by pulmonology -currently on 30% FiO2 -12/30/2021: Patient tolerated high-flow therapy with Airvo and feels that that is more comfortable. -will place patient again on air was so he can eat, overnight he will be placed on AVAPS. -tachypnea has improved -anxiety is improved with p.r.n. Xanax -01/01 chest x-ray: Stable airspace opacities in the mid and upper lung zones, consistent with pneumonia. Severe emphysema -continue azithromycin and ceftriaxone (12/28), vancomycin (12/29) -patient was switched to 6 L nasal cannula on 12/31/2021, tolerated well all day. 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 EBL in July 2021 showed life-threatening hemoptysis and was transferred to [facility] pulmonary embolization. (4) Paroxysmal atrial fibrillation: Code(s): I48.0 - Paroxysmal atrial fibrillation Status: Acute Assessment and Plan: Patient presented with AFib RVR which converted to sinus rhythm with IV amiodarone -since patient has had severe lung disease cardiology wanted keep away from amiodarone and started patient on sotalol -currently in sinus rhythm, rate control, continue to monitor -continue Eliquis -appreciate cardiology following the patient (5) Anemia: Code(s): D64.9 - Anemia, unspecified Status: Acute Assessment and Plan: Patient's hemoglobin is at his baseline -will continue to monitor (6) Chronic back pain: Code(s): M54.9 - Dorsalgia, unspecified; G89.29 - Other chronic pain Status: Acute Assessment and Plan: Patient on [place] at home, will continue Plan DVT prophylaxis: Eliquis Stress ulcer prophylaxis: Famotidine Nutrition: Heart healthy diet, tolerating p.o. diet Code Status: Full code Due to a high probability of clinically significant, life threatening deterioration, the patient required my highest level of preparedness to intervene emergently and I personally spent this critical care time directly and personally managing the patient. This critical care time included obtaining a history; examining the patient; pulse oximetry; ordering and review of studies; arranging urgent treatment with development of a management plan; evaluation of patient's response to treatment; frequent reassessment; and discussions with other providers. It was exclusive of separately billable procedures and treating other patients and teaching time. Please see Assessment and Plan section and the rest of the note for further information on patient assessment and treatment Subjective Date/time seen: 01/01/22 08:58 Inte
[2022-01-01] MEDS: FAMOTIDINE 20 MG TABLET PO ×2 (09:32→17:26)
[2022-01-01] MEDS: MIDODRINE HCL 2.5 MG TABLET 5 MG PO ×3 (09:32→17:26)
[2022-01-01] MEDS: APIXABAN 5 MG TABLET PO ×2 (09:33→21:48)
[2022-01-01] MEDS: SACCHAROMYCES BOULARDII 250 MG CAPSULE PO (09:33)
[2022-01-01] MEDS: DOCUSATE SODIUM 100 MG CAPSULE PO (09:33)
[2022-01-01] MEDS: SERTRALINE HCL 50 MG TABLET 100 MG PO (09:33)
[2022-01-01] MEDS: CLARITHROMYCIN 500 MG TABLET PO (09:33)
[2022-01-01] MEDS: ETHAMBUTOL HCL 400 MG TABLET 800 MG PO (09:33)
[2022-01-01] MEDS: SOTALOL HCL 40 MG TABLET PO ×2 (09:33→21:48)
[2022-01-01] MEDS: rifAMPin 300 MG CAPSULE PO (09:33)
--- NOTE | 2022-01-01 10:27 | PM.PNCARD ---
Progress Note: A&P Assessment and Plan (1) Paroxysmal atrial fibrillation: Code(s): I48.0 - Paroxysmal atrial fibrillation Status: Acute Assessment and Plan: Maintaining sinus rhythm on sotalol 40mg b.i.d. Sotalol loading is complete at this point. Avoid QT prolonging agents. Continue systemic a/c with apixaban. Monitor very closely for any s/s bleeding as he has a history of severe hemoptysis. Plan Subjective Date/time seen: 01/01/22 10:27 Interval history: Follow-up visit in this 66-year-old man with: Paroxysmal atrial fibrillation which is resulting from his severe chronic lung disease. Patient has right ventricular enlargement and RV dysfunction by previous echo. Currently on sotalol and systemic anticoagulation and maintaining normal sinus rhythm. No events through the night no evidence of recurrence of atrial fibrillation for the last 48 hours Date of service 12/31/21: Very sleepy this afternoon. Comfortable and without complaint. Date of service 01/01/2022: Feeling better this morning. More alert, conversant. Does not have any specific complaints. Review of Systems Constitutional: Constitutional: Reports lethargy Eyes: Eyes: Reports no additional eye complaints ENT: Reports epistaxis Cardiovascular: Cardiovascular: Reports no additional cardiovascular complaints and Reports dyspnea Respiratory: Respiratory: Reports dyspnea Gastrointestinal: Gastrointestinal: Reports no additional gastrointestinal complaints Musculoskeletal: Musculoskeletal: Reports arthralgias Integumentary/Breasts: Skin/Breast: Reports system reviewed and no additional complaints, except as docu Neurologic: Reports system reviewed and no additional complaints, except as documented Endocrine: Endocrine: Reports no additional endocrine complaints Hematologic/Lymphatic: Hematologic/Lymphatic: Reports no additional hematologic/lymphatic complaints Allergic/Immunologic: Allergic/Immunologic: Reports no additional allergic/immunologic complaints Exam Const: General: comfortable, no acute distress and uncomfortable Other: thin cachectic chronically ill-appearing man resting comfortably in bed with nasal cannula oxygen in pace. HENMT: Mouth: Yes moist mucous membranes Eyes: Sclera: sclerae normal Neck: Neck: supple and no JVD Other: Patient has about 2 cm of jugular venous distention/normal carotid pulses Resp: Auscultation: diminished lung sounds Other: diminished breath sounds throughout both lung darby Cardio: Rate: regular rate Rhythm: regular rhythm Other: No significant murmur or gallop GI: Auscultation: normal bowel sounds Skin: General skin exam: normal color Neuro: Other: sleepy but awakens to stimuli Extrem: Other: no edema Objective Data Vital Signs Vital Signs: Vital Signs - 24 hr 12/31/21 10:30 12/31/21 11:42 12/31/21 12:00 Temperature 36.6 C Pulse Rate 75 Respiratory Rate 25 H Blood Pressure 109/73 Pulse Oximetry 99 100 100 Oxygen Delivery High Flow Nasal Cannula High Flow Nasal Cannula Oxygen Flow Rate 6 6 Fraction of Inspired Oxygen 12/31/21 12:00 12/31/21 14:26 12/31/21 14:10 Temperature Pulse Rate 73 83 Respiratory Rate 29 H Blood Pressure Pulse Oximetry 100 Oxygen Delivery High Flow Nasal Cannula Oxygen Flow Rate 5 Fraction of Inspired Oxygen 12/31/21 14:27 12/31/21 14:00 12/31/21 16:00 Temperature 36.4 C L Pulse Rate 84 78 74 Respiratory Rate 29 H 26 H Blood Pressure 108/75 Pulse Oximetry 100 Oxygen Delivery Oxygen Flow Rate Fraction of Inspired Oxygen 12/31/21 16:00 12/31/21 16:00 12/31/21 18:00 Temperature Pulse Rate 74 82 Respiratory Rate Blood Pressure Pulse Oximetry 100 Oxygen Delivery High Flow Nasal Cannula Oxygen Flow Rate 6 Fraction of Inspired Oxygen 12/31/21 20:07 12/31/21 20:46 12/31/21 20:00 Temperature Pulse Rate
[2022-01-01] MEDS: PROMETHAZINE HCL 25 MG/ML AMPUL 12.5 MG IV PUSH (12:48)
[2022-01-01 13:10] LABS: Vancomycin Trough 8.3 ug/mL (10.0-20.0)
[2022-01-01 13:27] LABS: IFOB Positive Control Positive; Immunochemical Fecal Occult Bl Negative (N)
[2022-01-01 13:48] LABS: Toxigenic C. Diff NEGATIVE (NEGATIVE)
[2022-01-01] MEDS: FINASTERIDE 5 MG TABLET PO (21:48)
[2022-01-01] MEDS: SENNOSIDES 8.6 MG TABLET PO (21:48)
[2022-01-01] MEDS: TAMSULOSIN HCL 0.4 MG CAPSULE PO (21:48)
[2022-01-02] VITALS (20 sets, daily range): BP systolic 101–132; BP diastolic 62–91; PULSE 60–88; RESP 22–29; TEMP 35.9–36.6; O2SAT 96–100
[2022-01-02] MEDS: IPRATROPIUM BR 0.02% INH SOLN 0.5 MG/2.5 ML VIAL INHALATION ×2 (02:16→07:49)
[2022-01-02] MEDS: HYDROcodone/acetaminophen (*CRX) 5-325 MG TABLET 1 TAB PO ×4 (03:53→20:19)
[2022-01-02] MEDS: ALPRAZolam (*CRX) 0.5 MG TABLET PO ×2 (05:06→16:15)
[2022-01-02] MEDS: CENTRAL LINE FLUSH 10 ML IV PUSH ×3 (05:07→20:21)
[2022-01-02 05:17] LABS: Basophils Absolute Auto 0.1 K/mm3 (0.0-0.1); Basophils Percent Auto 0.6 % (0.2-1.2); Eosinophils Absolute Auto 0.5 K/mm3 (0-0.3); Eosinophils Percent Auto 4.6 % (0-4.4); Hematocrit 30.6 % (42.0-52.0); Hemoglobin 9.2 g/dL (14.0-18.0); Immature Granulocyte Absolute 0.24 K/mm3 (0.00-0.031); Immature Granulocyte Percent A 2.4 % (0-0.5); Lymphocytes Absolute Auto 1.23 K/mm3 (0.9-3.2); Lymphocytes Percent Auto 12.5 % (18.3-44.2); Mean Corpuscular HGB Conc 30.1 g/dl (32-36); Mean Corpuscular Hemoglobin 29.1 pg (26-34); Mean Corpuscular Volume 96.8 fl (80-100); Mean Platelet Volume 8.7 fl (7.4-10.4); Monocytes Absolute Auto 1.1 K/mm3 (0.1-0.6); Monocytes Percent Auto 11.4 % (2.6-8.5); Neutrophils Absolute Auto 6.7 K/mm3 (1.3-6.7); Neutrophils Percent Auto 68.5 % (45.5-73.1); Platelet Count Result 350 k/mm3 (150-375); Red Blood Count 3.16 M/mm3 (4.6-6.20); Red Cell Distribution Width 13.6 % (11.5-14.5); White Blood Count 9.8 K/mm3 (4.5-10.0)
[2022-01-02 05:54] LABS: Alanine Aminotransferase 15 U/L (6-50); Albumin Level 2.7 g/dL (3.5-5.1); Alkaline Phosphatase 78 U/L (38-126); Aspartate Amino Transferase 19 U/L (17-59); Bilirubin,Total < 0.1 mg/dL (0.2-1.3); Blood Urea Nitrogen 5 mg/dL (9-20); Calcium 8.4 mg/dL (8.4-10.2); Carbon Dioxide > 40 mmol/L (22-30); Chloride 90 mmol/L (98-107); Estimated CRCL calculation 116 ml/min; Estimated Glomerular Filt Rate > 60; Glucose 104 mg/dL (65-110); Magnesium 2.1 mg/dL (1.6-2.3); Phosphorus 3.8 mg/dL (2.5-4.5); Potassium 3.7 mmol/L (3.4-5.0); Sodium 139 mmol/L (137-145)
--- NOTE | 2022-01-02 06:32 | PC.NURSE ---
This patient, Nimisha Zavala, was transferred to [facility] on 01/02/22 at 0632. Personal belongings sent with patient. Report will be given to day shift, this nurse still taking care of patient. Appropriate documentation sent with patient.
[2022-01-02] MEDS: BUDESONIDE RESPULE NEB 0.5 MG/2 ML AMP INHALATION (07:49)
--- NOTE | 2022-01-02 09:32 | PM.PNPUL ---
Progress Note: A&P Assessment and Plan (1) Pneumonia: Code(s): J18.9 - Pneumonia, unspecified organism Status: Acute Assessment and Plan: He presented with leukocytosis, increased shortness of breath, chest x-ray with infiltrates, and is on Rx for community-acquired pneumonia with ceftriaxone and azithromycin (started 12/27).? COVID RT PCR study negative.? Blood cultures negative. 12/28 ? Patient remains afebrile, white blood cell count improved to 12.7. ? Blood cultures negative. BiPPA was not comfortable so this was switched to AVAPS with a rate of 20, TV 400 mL, on the BiPAP.? I changed him to noninvasive ventilation with the AVAPS mode and adjusted the settings for comfort which resulted in a rate of 20, tidal volume, 400,? EPAP 4, minimal inspiratory pressure 5, maximal inspiratory pressure 25, inspiratory time 1.2, rise of 5 and 30%His saturations remained 97%. 12/29 Feels better, hungry, needs enteral feeding; able to talk; would like to eat. Has little reserve and drops his saturation quickly with movement. RN will offer high protein shakes. 12/30 : He is using AVAPS mode, FiO2 30%, eating more, has a PICC line. His CXR is stable. He has an appointment with Dr Guevara this Jan 03. If he is still in the hospital, he will not have to wait 3 more months for evaluation. WBC is down 10.6 k, better. ABG is acceptable. He has a loose coughing, not able to get many secretions out. Will add Cornet valve to assist with clearing secretions. 12/31 Patient wore noninvasive ventilation with the AVAPS mode overnight. ABG was 7.41/52/63 on AVAPS. He has been off AVAPS since 09:30 this morning and is currently on 6 L nasal cannula saturations 100%. The patient states he is feeling better and can take deeper breaths. The cough is improved. His white blood cell count is 11.0. His creatinine is 1.0. Chest x-ray shows unchanged bilateral lung infiltrates and severe emphysema. will attempt off of a VATS as tolerated and out of bed to chair if possible. Continue p.o. nutrition. Off BiPAP from 9:30 p.m. until bedtime on 6 L nasal cannula but did require an increase to 10 L nasal cannula later in the day 01/01 Slow improvement. He is improving but still has shortness of breath at rest and extreme dyspnea on exertion. States he is 36% back to his baseline. His phlegm is present but has improved from green to khan. Patient wore noninvasive ventilator with the AVAPS mode overnight. rate of 24, tidal volume, 450,? EPAP 4, minimal inspiratory pressure 5, maximal inspiratory pressure 25, inspiratory time 0.8, rise of 5 and 30%. ABG 7.44/58/69 on AVAPS this morning. white blood cell count is 9.6. Creatinine is 0.4. Currently he is on 6 L nasal cannula saturations 98%. Continue day 6 ceftriaxone and azithromycin, started 12/27, and day 4 vancomycin started 12/29. DC azithromycin after today's dose. If clinically stable will obtain CT scan of the chest tomorrow. 01/02 Patient states the AVAPS was uncomfortable and he could only wear it for an hour last night. Overall he feels about the same. He is very weak. He has no hemoptysis and is producing a little bit of phlegm. White blood cell count is 9.8, creatinine is 0.4. Saturations were 100% on 3 L nasal cannula. I Adjusted the AVAPS settings to make it more comfortable. I decreased the rate to 16 and increased his inspiratory time to 1.0 and he said this felt more comfortable. they 7 ceftriaxone, day 5 vancomycin, status post 6 days of azithromycin. I will obtain CT of the chest without contrast. (2) COPD with emphysema: Qualifiers: Emphysema type: unspecified Qualified Code(s): J43.9 - Emphysema, unspecified Code(s): J43.9 - Emphysema, unspecified Status: Acute Assessment and Plan: Long history of tobacco use, 94 pack years, quit 2018; has COPD with severe panlobular emphysema?note
[2022-01-02] MEDS: PROMETHAZINE HCL 25 MG/ML AMPUL 12.5 MG IV PUSH (10:23)
[2022-01-02] MEDS: FLUTICASONE/UMECLIDIN/VILANTER 100-62.5-25 MCG ELLIPTA 1 PUFF INHALATION (10:24)
[2022-01-02] MEDS: SOTALOL HCL 40 MG TABLET PO ×2 (10:28→20:19)
[2022-01-02] MEDS: APIXABAN 5 MG TABLET PO ×2 (10:28→20:21)
[2022-01-02] MEDS: SERTRALINE HCL 50 MG TABLET 100 MG PO (10:30)
[2022-01-02] MEDS: DOCUSATE SODIUM 100 MG CAPSULE PO ×2 (10:30→16:14)
[2022-01-02] MEDS: ETHAMBUTOL HCL 400 MG TABLET 800 MG PO (10:31)
[2022-01-02] MEDS: SACCHAROMYCES BOULARDII 250 MG CAPSULE PO (10:31)
[2022-01-02] MEDS: rifAMPin 300 MG CAPSULE PO (10:31)
[2022-01-02] MEDS: guaiFENesin 12 HR 600 MG TABCR PO ×2 (10:31→20:20)
[2022-01-02] MEDS: FAMOTIDINE 20 MG TABLET PO ×2 (10:31→16:14)
[2022-01-02] MEDS: CLARITHROMYCIN 500 MG TABLET PO (10:32)
--- NOTE | 2022-01-02 11:00 | PCPTNOTE ---
Attempted PT evaluation, pt refused stating he has a headach and nausea. RN aware. Will follow.
--- NOTE | 2022-01-02 14:39 | PCOTNOTE ---
Attempted to see patient for OT evaluation. Patient going down for testing at this time. Will continue to attempt.
[2022-01-02 15:52] LABS: Alveolar/Arterial O2 Gradient 92.5 mmHg; Base Excess ABG 10.3 mEq/l (+/-2.0); Fractional Inspired Oxygen 34 %; HCO3 ABG 37.1 mEq/l (22.0-26.0); Oxygen Content ABG 13.7 %vol (16.0-22.0); Oxygen Saturation ABG 94.8 % (95.0-100.0); Oxyhemoglobin 94.1 % THb (90.0-100.0); PO2 ABG 76.6 mmHg (80.0-100.0); PO2 FiO2 Ratio Arterial Blood 2.25 %; Total Hemoglobin 10.3 g/dL (12.0-18.0); pH ABG 7.389 (7.350-7.450)
[2022-01-02 15:55] LABS: PCO2 ABG 62.9 mmHg (35.0-45.0)
[2022-01-02 15:56] LABS: Device NASAL CANNULA; Liters per Minute 3.5 LPM; Site Drawn LEFT BRACHIAL
--- NOTE | 2022-01-02 17:55 | PM.IMPN ---
Progress Note: A&P Assessment and Plan (1) Acute and chronic respiratory failure: Qualifiers: Respiratory failure complication: hypercapnia Qualified Code(s): J96.22 - Acute and chronic respiratory failure with hypercapnia Code(s): J96.20 - Acute and chronic respiratory failure, unspecified whether with hypoxia or hypercapnia Status: Acute Assessment and Plan: -the patient is chronically on oxygen at 3-4 L per nasal cannula. (2) Pneumonia: Code(s): J18.9 - Pneumonia, unspecified organism Status: Acute Assessment and Plan: -the patient was started on antibiotics for community-acquired pneumonia with azithromycin and Rocephin. -sputum and blood cultures are negative. 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 -continue with home medications of clindamycin and Myambutol. And rifampin pt sees Infectious Disease doctor outpatient at [facility]. Patient is chronically on oxygen at 3-4 L at home. (4) Paroxysmal atrial fibrillation: Code(s): I48.0 - Paroxysmal atrial fibrillation Status: Acute (5) Anemia: Code(s): D64.9 - Anemia, unspecified Status: Acute (6) Chronic back pain: Code(s): M54.9 - Dorsalgia, unspecified; G89.29 - Other chronic pain Status: Acute Assessment and Plan: -continue tremor Plan Pt is on eliquis for DVT prop Subjective Date/time seen: 01/02/22 17:55 Pt looks better today back to 3.5 liters of oxygen which is her baseline. Patient with hx of Pulmonary mycobacterium avium complex diagnosed in 2019 with SEBASTIÁN being treated with rifampin, clarithromycin and ethambutol with ADELA and BAL, patient present with SOB suspect patient may have secondary CAP and being treated with ceftriaoxone, on 12/28 when I saw patient on BIPAP and Dr. Bailey came in evaluated the patient as he appeared SOB and Dr. Bailey adjuested his BIPAP to noninvansive mode AVAP, last night patient was transferred to ICU as patient was requiring continuous BIPAP patient will be seen by fish cutter and again placement director, will continue monitor and further recommendations to follow. Patient also has history of PAF and developed A. Fib with RVR and was placed on amiodorane IV drip, he converted to NSR, seen by epic [facility] specialist and stopped amiodorane as patient with severe lung disease amiodoran will worsen his lung disease, epic [facility] specialist has started the patient on Sotolol 80mg x1 and 40mg BID, patient is maintaining NSR, patient is anticoagulated with apixaban 5mg BID, patient has history of hemoptysis needs close monitoring,no bleeding,? will monitor. Objective Data Vital Signs Vital Signs: Vital Signs - 24 hr 01/01/22 18:00 01/01/22 20:00 01/01/22 20:00 Temperature 36.6 C Pulse Rate 83 76 83 Respiratory Rate 26 H Blood Pressure 144/87 H Pulse Oximetry 100 Oxygen Delivery Oxygen Flow Rate Fraction of Inspired Oxygen 01/01/22 20:24 01/01/22 20:24 01/01/22 21:48 Temperature Pulse Rate 75 70 Respiratory Rate 30 H Blood Pressure Pulse Oximetry 100 Oxygen Delivery High Flow Nasal Cannula Oxygen Flow Rate 4 Fraction of Inspired Oxygen 01/01/22 21:00 01/01/22 22:00 01/02/22 00:00 Temperature Pulse Rate 72 73 Respiratory Rate Blood Pressure Pulse Oximetry 100 Oxygen Delivery Nasal Cannula Oxygen Flow Rate 4 Fraction of Inspired Oxygen 01/02/22 00:00 01/02/22 00:00 01/02/22 02:17 Temperature 36.4 C Pulse Rate 72 85 Respiratory Rate 27 H 29 H Blood Pressure 130/85 Pulse Oximetry 100 96 Oxygen Delivery BiPAP Oxygen Flow Rate Fraction of Inspired Oxygen 30 01/02/22 02:19 01/01/22 20:40 01/02/22 04:00 Temperature Pulse Rate 81 79 Respi
[2022-01-02] MEDS: SENNOSIDES 8.6 MG TABLET PO (20:19)
[2022-01-02] MEDS: TAMSULOSIN HCL 0.4 MG CAPSULE PO (20:20)
[2022-01-02] MEDS: FINASTERIDE 5 MG TABLET PO (20:20)
[2022-01-03] VITALS (21 sets, daily range): BP systolic 100–127; BP diastolic 61–82; PULSE 61–115; RESP 20–36; TEMP 36.2–36.8; O2SAT 94–99
[2022-01-03] MEDS: HYDROcodone/acetaminophen (*CRX) 5-325 MG TABLET 1 TAB PO ×4 (02:14→20:17)
[2022-01-03] MEDS: ALPRAZolam (*CRX) 0.5 MG TABLET PO ×3 (02:14→20:17)
[2022-01-03 03:07] LABS: Vancomycin Trough 14.4 ug/mL (10.0-20.0)
[2022-01-03 04:58] LABS: Alveolar/Arterial O2 Gradient 86.5 mmHg; Base Excess ABG 13.4 mEq/l (+/-2.0); Fractional Inspired Oxygen 32 %; HCO3 ABG 39.9 mEq/l (22.0-26.0); Oxygen Content ABG 12.8 %vol (16.0-22.0); Oxygen Saturation ABG 93.4 % (95.0-100.0); PO2 ABG 68.4 mmHg (80.0-100.0); PO2 FiO2 Ratio Arterial Blood 2.14 %; Total Hemoglobin 9.7 g/dL (12.0-18.0); pH ABG 7.422 (7.350-7.450)
[2022-01-03 05:00] LABS: Device OTHER DEVICE; Modified Allen's Test Pass; PCO2 ABG 62.6 mmHg (35.0-45.0); Site Drawn RIGHT RADIAL
[2022-01-03 05:01] LABS: Basophils Absolute Auto 0.1 K/mm3 (0.0-0.1); Basophils Percent Auto 0.4 % (0.2-1.2); Eosinophils Absolute Auto 0.4 K/mm3 (0-0.3); Eosinophils Percent Auto 3.4 % (0-4.4); Hematocrit 29.5 % (42.0-52.0); Hemoglobin 8.7 g/dL (14.0-18.0); Immature Granulocyte Absolute 0.21 K/mm3 (0.00-0.031); Immature Granulocyte Percent A 1.8 % (0-0.5); Lymphocytes Absolute Auto 1.26 K/mm3 (0.9-3.2); Lymphocytes Percent Auto 11.1 % (18.3-44.2); Mean Corpuscular HGB Conc 29.5 g/dl (32-36); Mean Corpuscular Hemoglobin 28.6 pg (26-34); Mean Platelet Volume 8.6 fl (7.4-10.4); Neutrophils Absolute Auto 8.4 K/mm3 (1.3-6.7); Neutrophils Percent Auto 74.3 % (45.5-73.1); Platelet Count Result 346 k/mm3 (150-375); Red Blood Count 3.04 M/mm3 (4.6-6.20); Red Cell Distribution Width 13.6 % (11.5-14.5); White Blood Count 11.4 K/mm3 (4.5-10.0)
[2022-01-03 05:25] LABS: Alanine Aminotransferase 14 U/L (6-50); Albumin Level 2.7 g/dL (3.5-5.1); Alkaline Phosphatase 73 U/L (38-126); Aspartate Amino Transferase 19 U/L (17-59); Bilirubin,Total 0.2 mg/dL (0.2-1.3); Blood Urea Nitrogen 9 mg/dL (9-20); Calcium 8.3 mg/dL (8.4-10.2); Carbon Dioxide > 40 mmol/L (22-30); Chloride 88 mmol/L (98-107); Estimated CRCL calculation 96 ml/min; Estimated Glomerular Filt Rate > 60; Glucose 123 mg/dL (65-110); Phosphorus 3.5 mg/dL (2.5-4.5); Potassium 3.5 mmol/L (3.4-5.0); Sodium 135 mmol/L (137-145)
[2022-01-03] MEDS: CENTRAL LINE FLUSH 10 ML IV PUSH ×3 (06:12→20:18)
[2022-01-03] MEDS: FAMOTIDINE 20 MG TABLET PO ×2 (09:00→17:05)
[2022-01-03] MEDS: SERTRALINE HCL 50 MG TABLET 100 MG PO (09:00)
[2022-01-03] MEDS: guaiFENesin 12 HR 600 MG TABCR PO ×2 (09:00→20:18)
[2022-01-03] MEDS: rifAMPin 300 MG CAPSULE PO (09:00)
[2022-01-03] MEDS: SOTALOL HCL 40 MG TABLET PO ×2 (09:00→20:17)
[2022-01-03] MEDS: APIXABAN 5 MG TABLET PO ×2 (09:01→20:18)
[2022-01-03] MEDS: DOCUSATE SODIUM 100 MG CAPSULE PO ×2 (09:01→17:05)
[2022-01-03] MEDS: SACCHAROMYCES BOULARDII 250 MG CAPSULE PO (09:01)
[2022-01-03] MEDS: ETHAMBUTOL HCL 400 MG TABLET 800 MG PO (09:01)
[2022-01-03] MEDS: CLARITHROMYCIN 500 MG TABLET PO (09:01)
[2022-01-03] MEDS: FLUTICASONE/UMECLIDIN/VILANTER 100-62.5-25 MCG ELLIPTA 1 PUFF INHALATION (09:12)
--- NOTE | 2022-01-03 09:16 | PCPTNOTE ---
Attempted PT evaluation, pt refused stating he feels played out. Pt educated on benfits of mobility, but continued to refuse to participate. RN aware. Will follow.
--- NOTE | 2022-01-03 09:55 | PCOTNOTE ---
Attempted to see pt. for occupational therapy evaluation. Pt. declined at this time, requesting later return for therapy. Pt. educated on benefits of therapy, and is agreeable to later participation. Nursing updated. Following.
--- NOTE | 2022-01-03 13:44 | PC.NURSE ---
On 01/03/22, the student, [Cally Jeronimo], provided care and completed [facility] documentation on this patient. I have reviewed the student's documentation and agree with the findings.
--- NOTE | 2022-01-03 14:37 | PM.PNCARD ---
Progress Note: A&P Assessment and Plan (1) Paroxysmal atrial fibrillation: Code(s): I48.0 - Paroxysmal atrial fibrillation Status: Acute Assessment and Plan: Maintaining sinus rhythm on sotalol 40mg b.i.d. Sotalol loading is complete at this point. Avoid QT prolonging agents. Continue systemic a/c with apixaban. Monitor very closely for any s/s bleeding as he has a history of severe hemoptysis. Cardiology will sign off. Please do not hesitate to contact us with any questions. Plan Subjective Date/time seen: 01/03/22 14:37 cardiology follow up for atrial fibrillation No acute events overnight. Remains in NSR. Still has shortness of breath. No palpitations or chest pain. Review of Systems Constitutional: Constitutional: Reports lethargy Eyes: Eyes: Reports no additional eye complaints ENT: Reports epistaxis Cardiovascular: Cardiovascular: Reports no additional cardiovascular complaints and Reports dyspnea Respiratory: Respiratory: Reports dyspnea Gastrointestinal: Gastrointestinal: Reports no additional gastrointestinal complaints Musculoskeletal: Musculoskeletal: Reports arthralgias Integumentary/Breasts: Skin/Breast: Reports system reviewed and no additional complaints, except as docu Neurologic: Reports system reviewed and no additional complaints, except as documented Endocrine: Endocrine: Reports no additional endocrine complaints Hematologic/Lymphatic: Hematologic/Lymphatic: Reports no additional hematologic/lymphatic complaints Allergic/Immunologic: Allergic/Immunologic: Reports no additional allergic/immunologic complaints Exam Const: General: comfortable, no acute distress and uncomfortable Other: thin cachectic chronically ill-appearing man resting comfortably in bed with nasal cannula oxygen in pace. HENMT: Mouth: Yes moist mucous membranes Eyes: Sclera: sclerae normal Neck: Neck: supple and no JVD Resp: Auscultation: diminished lung sounds Other: diminished breath sounds throughout both lung darby Cardio: Rate: regular rate Rhythm: regular rhythm Other: No significant murmur or gallop GI: Auscultation: normal bowel sounds Skin: General skin exam: normal color Neuro: Other: sleepy but awakens to stimuli Extrem: Other: no edema Objective Data Vital Signs Vital Signs: Vital Signs - 24 hr 01/02/22 16:00 01/02/22 16:00 01/02/22 16:00 Temperature 35.9 C L Pulse Rate 72 65 Respiratory Rate 22 H Blood Pressure 126/74 Pulse Oximetry 100 100 Oxygen Delivery High Flow Nasal Cannula Oxygen Flow Rate 3.5 Fraction of Inspired Oxygen 01/02/22 18:00 01/02/22 20:00 01/02/22 20:19 Temperature Pulse Rate 64 64 77 Respiratory Rate 22 H Blood Pressure Pulse Oximetry 100 Oxygen Delivery High Flow Nasal Cannula Oxygen Flow Rate 4 Fraction of Inspired Oxygen 01/02/22 20:00 01/02/22 20:00 01/02/22 22:00 Temperature 36.5 C Pulse Rate 73 63 60 Respiratory Rate 22 H Blood Pressure 132/83 Pulse Oximetry 100 Oxygen Delivery Oxygen Flow Rate Fraction of Inspired Oxygen 01/02/22 22:37 01/02/22 22:37 01/03/22 00:00 Temperature 36.8 C Pulse Rate 68 61 Respiratory Rate 25 H 27 H Blood Pressure 100/82 Pulse Oximetry 100 100 94 Oxygen Delivery BiPAP BiPAP Oxygen Flow Rate Fraction of Inspired Oxygen 01/03/22 00:00 01/03/22 00:00 01/03/22 02:00 Temperature Pulse Rate 61 62 75 Respiratory Rate 27 H Blood Pressure Pulse Oximetry 94 Oxygen Delivery BiPAP Oxygen Flow Rate Fraction of Inspired Oxygen 01/03/22 02:55 01/03/22 04:00 01/03/22 04:00 Temperature Pulse Rate 64 64 65 Respiratory Rate 29 H 29 H Blood Pressure Pulse Oximetry 97 97 Oxygen Delivery BiPAP BiPAP Oxygen Flow Rate Fraction of Inspired Oxygen 01/03/22 04:00 01/03/22 05:02 01/03/22 06:00 Temperature 36.6 C Pulse Rate 69 72 67 Respirator
--- NOTE | 2022-01-03 14:44 | ECG_ITS ---
Measurements Intervals [place] Rate: 71 P: 97 AK: 142 QRS: 94 QRSD: 102 T: -64 QT: 392 QTc: 428 Interpretive Statements SINUS RHYTHM INCOMPLETE RIGHT BUNDLE BRANCH BLOCK ST-T WAVE ABNORMALITY IN INFERIOR LEADS- CONSIDER ISCHEMIA BASELINE ARTIFACT- V4 ABNORMAL ECG COMPARED TO ECG 12/28/2021 22:26:08 NO SIGNIFICANT CHANGES Electronically Signed On 01-03-2022 15:30:22 CDT by Odell Montero D.O.
--- NOTE | 2022-01-03 17:33 | PM.IMPN ---
Progress Note: A&P Assessment and Plan (1) Acute and chronic respiratory failure: Qualifiers: Respiratory failure complication: hypercapnia Qualified Code(s): J96.22 - Acute and chronic respiratory failure with hypercapnia Code(s): J96.20 - Acute and chronic respiratory failure, unspecified whether with hypoxia or hypercapnia Status: Acute Assessment and Plan: -the patient is chronically on oxygen at 3-4 L per nasal cannula. Not requiring BiPAP support COVID test negative CT chest with multifocal pneumonia On ceftriaxone and azithromycin (2) Pneumonia: Code(s): J18.9 - Pneumonia, unspecified organism Status: Acute Assessment and Plan: -the patient was started on antibiotics for community-acquired pneumonia with azithromycin and Rocephin. -sputum and blood cultures are negative. 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 -continue with home medications of clindamycin and Myambutol. And rifampin pt sees Infectious Disease doctor outpatient at [facility]. Patient is chronically on oxygen at 3-4 L at home. (4) Paroxysmal atrial fibrillation: Code(s): I48.0 - Paroxysmal atrial fibrillation Status: Acute Assessment and Plan: presented with AFib with RVR on admission Switched to sotalol and has converted to sinus rhythm Remains on sotalol 40 mg b.i.d. On chronic anticoagulation with apixaban Cardiology was consulted (5) Anemia: Code(s): D64.9 - Anemia, unspecified Status: Acute Assessment and Plan: chronic stable counts (6) Chronic back pain: Code(s): M54.9 - Dorsalgia, unspecified; G89.29 - Other chronic pain Status: Acute Assessment and Plan: -continue tremor Plan Pt is on eliquis for DVT prop Subjective Date/time seen: 01/03/22 17:33 Interval history: Nimisha Zavala is a 66 year old male with significant past medical history of MAC infection and help in a clarithromycin, ethambutol, rifampin, history of COPD, history of atrial fibrillation on Eliquis, chronic respiratory failure on home oxygen 3-4 L per nasal cannula, history of tobacco use, 94 pack year history, recent history of hemoptysis requiring pulmonary embolization [facility] in August 03, his pneumonia, depression, anxiety, chronic presented to the ER on 12/27/2021 with complains of shortness of breath, cough, decreased p.o. intake, take.? Patient had to increase his oxygen from 2-4 L.?patient also had some AFib RVR and converted to sinus rhythm with amiodarone infusion. Patient was transferred to the ICU as he was tachypneic and pulmonology requested is transferred to ICU. 01/03/2022 no overnight events. Remains on BiPAP. Ongoing shortness of breath with minimal exertion. Denies any cough. Review of Systems Review of Systems: All systems reviewed & are unremarkable except as noted in HPI and below Exam Narrative: General: Cachectic, on BiPAP mask with AVAPs settings HEENT:? Pupils equal reactive, sclera is clear, BiPAP mask in place Neck:? Supple, no cervical lymphadenopathy Respiratory:? Barrel chested, coarse breath sounds bilaterally, decreased at bases, no wheezing Cardiac:? Normal sinus rhythm, S1-S2 normal Abdomen:? Soft, nondistended, nontender, normoactive bowel sounds Extremities:? No edema, palpable pedal pulses Neuro:, patient is awake, alert, oriented, nonfocal, answers to questions and follows simple commands appropriately Skin:? Warm and dry, Psych:? Normal mentation normal affect Objective Data Vital Signs Vital Signs: Vital Signs - 24 hr 01/02/22 18:00 01/02/22 20:00 01/02/22 20:19 Temperature Pulse Rate 64 64 77 Respiratory Rate 22 H Blood Pressure P
[2022-01-03] MEDS: TAMSULOSIN HCL 0.4 MG CAPSULE PO (20:18)
[2022-01-03] MEDS: SENNOSIDES 8.6 MG TABLET PO (20:18)
[2022-01-03] MEDS: FINASTERIDE 5 MG TABLET PO (20:18)
[2022-01-04] VITALS (13 sets, daily range): BP systolic 105–126; BP diastolic 66–82; PULSE 62–94; RESP 20–34; TEMP 36–36.8; O2SAT 97–100
[2022-01-04 04:10] LABS: Alveolar/Arterial O2 Gradient 85.6 mmHg; Base Excess ABG 14.2 mEq/l (+/-2.0); Fractional Inspired Oxygen 32 %; HCO3 ABG 40.7 mEq/l (22.0-26.0); Oxygen Content ABG 14.1 %vol (16.0-22.0); Oxygen Saturation ABG 94.2 % (95.0-100.0); Oxyhemoglobin 93.5 % THb (90.0-100.0); PO2 ABG 70.4 mmHg (80.0-100.0); Total Hemoglobin 10.7 g/dL (12.0-18.0); pH ABG 7.437 (7.350-7.450)
[2022-01-04 04:12] LABS: Device OTHER DEVICE; Modified Allen's Test Pass; PCO2 ABG 61.7 mmHg (35.0-45.0); Site Drawn LEFT RADIAL
[2022-01-04] MEDS: CENTRAL LINE FLUSH 10 ML IV PUSH ×3 (04:35→20:47)
[2022-01-04] MEDS: ALPRAZolam (*CRX) 0.5 MG TABLET PO ×4 (04:45→22:58)
[2022-01-04] MEDS: HYDROcodone/acetaminophen (*CRX) 5-325 MG TABLET 1 TAB PO ×4 (04:45→22:58)
[2022-01-04 05:05] LABS: Basophils Absolute Auto 0.1 K/mm3 (0.0-0.1); Basophils Percent Auto 0.5 % (0.2-1.2); Eosinophils Absolute Auto 0.4 K/mm3 (0-0.3); Eosinophils Percent Auto 2.8 % (0-4.4); Hematocrit 31.7 % (42.0-52.0); Hemoglobin 9.6 g/dL (14.0-18.0); Immature Granulocyte Absolute 0.24 K/mm3 (0.00-0.031); Immature Granulocyte Percent A 1.9 % (0-0.5); Lymphocytes Absolute Auto 1.16 K/mm3 (0.9-3.2); Mean Corpuscular HGB Conc 30.3 g/dl (32-36); Mean Corpuscular Hemoglobin 28.8 pg (26-34); Mean Corpuscular Volume 95.2 fl (80-100); Mean Platelet Volume 8.9 fl (7.4-10.4); Monocytes Absolute Auto 1.1 K/mm3 (0.1-0.6); Monocytes Percent Auto 8.2 % (2.6-8.5); Neutrophils Percent Auto 77.6 % (45.5-73.1); Platelet Count Result 433 k/mm3 (150-375); Red Blood Count 3.33 M/mm3 (4.6-6.20); Red Cell Distribution Width 13.5 % (11.5-14.5); White Blood Count 12.9 K/mm3 (4.5-10.0)
[2022-01-04 05:20] LABS: Alanine Aminotransferase 15 U/L (6-50); Albumin Level 2.9 g/dL (3.5-5.1); Alkaline Phosphatase 91 U/L (38-126); Aspartate Amino Transferase 20 U/L (17-59); Bilirubin,Total 0.1 mg/dL (0.2-1.3); Blood Urea Nitrogen 10 mg/dL (9-20); Calcium 8.7 mg/dL (8.4-10.2); Carbon Dioxide > 40 mmol/L (22-30); Chloride 93 mmol/L (98-107); Estimated CRCL calculation 96 ml/min; Estimated Glomerular Filt Rate > 60; Glucose 101 mg/dL (65-110); Phosphorus 3.8 mg/dL (2.5-4.5); Potassium 3.9 mmol/L (3.4-5.0); Sodium 137 mmol/L (137-145)
[2022-01-04] MEDS: FLUTICASONE/UMECLIDIN/VILANTER 100-62.5-25 MCG ELLIPTA 1 PUFF INHALATION (08:14)
--- NOTE | 2022-01-04 08:22 | PM.IMPN ---
Progress Note: A&P Assessment and Plan (1) Acute and chronic respiratory failure: Qualifiers: Respiratory failure complication: hypercapnia Qualified Code(s): J96.22 - Acute and chronic respiratory failure with hypercapnia Code(s): J96.20 - Acute and chronic respiratory failure, unspecified whether with hypoxia or hypercapnia Status: Acute Assessment and Plan: -the patient is chronically on oxygen at 3-4 L per nasal cannula. Not requiring BiPAP support COVID test negative CT chest with multifocal pneumonia On ceftriaxone and vancomycin planned bipap support at discharge (2) Pneumonia: Code(s): J18.9 - Pneumonia, unspecified organism Status: Acute Assessment and Plan: -the patient was started on antibiotics for community-acquired pneumonia with azithromycin and Rocephin. -sputum and blood cultures are negative. 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 -continue with home medications of clindamycin and Myambutol. And rifampin pt sees Infectious Disease doctor outpatient at [facility]. Patient is chronically on oxygen at 3-4 L at home. (4) Paroxysmal atrial fibrillation: Code(s): I48.0 - Paroxysmal atrial fibrillation Status: Acute Assessment and Plan: presented with AFib with RVR on admission Switched to sotalol and has converted to sinus rhythm Remains on sotalol 40 mg b.i.d. On chronic anticoagulation with apixaban Cardiology was consulted (5) Anemia: Code(s): D64.9 - Anemia, unspecified Status: Acute Assessment and Plan: chronic stable counts (6) Chronic back pain: Code(s): M54.9 - Dorsalgia, unspecified; G89.29 - Other chronic pain Status: Acute Assessment and Plan: -continue tremor Plan Pt is on eliquis for DVT prop Subjective Date/time seen: 01/04/22 10:22 Interval history: Nimisha Zavala is a 66 year old male with significant past medical history of MAC infection and help in a clarithromycin, ethambutol, rifampin, history of COPD, history of atrial fibrillation on Eliquis, chronic respiratory failure on home oxygen 3-4 L per nasal cannula, history of tobacco use, 94 pack year history, recent history of hemoptysis requiring pulmonary embolization [facility] in August 03, his pneumonia, depression, anxiety, chronic presented to the ER on 12/27/2021 with complains of shortness of breath, cough, decreased p.o. intake, take.? Patient had to increase his oxygen from 2-4 L.?patient also had some AFib RVR and converted to sinus rhythm with amiodarone infusion. Patient was transferred to the ICU as he was tachypneic and pulmonology requested is transferred to ICU. 01/03/2022 no overnight events. Remains on BiPAP. Ongoing shortness of breath with minimal exertion. Denies any cough. 01/04/2022: NO OVERNIGHT EVENTS. USING BIPAP AT NIGHT, USED FROM 12 TO 4. FEELS BREATHING IS A BIT BETTER. DISCUSSED WITH PULMONARY Review of Systems Review of Systems: All systems reviewed & are unremarkable except as noted in HPI and below Exam Narrative: General: Cachectic, on BiPAP mask with AVAPs settings HEENT:? Pupils equal reactive, sclera is clear, BiPAP mask in place Neck:? Supple, no cervical lymphadenopathy Respiratory:? Barrel chested, coarse breath sounds bilaterally, decreased at bases, no wheezing Cardiac:? Normal sinus rhythm, S1-S2 normal Abdomen:? Soft, nondistended, nontender, normoactive bowel sounds Extremities:? No edema, palpable pedal pulses Neuro:, patient is awake, alert, oriented, nonfocal, answers to questions and follows simple commands appropriately Skin:? Warm and dry, Psych:? Normal mentation normal affect Objective Data Vital Signs Vital
[2022-01-04] MEDS: rifAMPin 300 MG CAPSULE PO (09:56)
[2022-01-04] MEDS: DOCUSATE SODIUM 100 MG CAPSULE PO ×2 (09:57→17:54)
[2022-01-04] MEDS: SERTRALINE HCL 50 MG TABLET 100 MG PO (09:57)
[2022-01-04] MEDS: SACCHAROMYCES BOULARDII 250 MG CAPSULE PO (09:57)
[2022-01-04] MEDS: APIXABAN 5 MG TABLET PO ×2 (09:57→20:46)
[2022-01-04] MEDS: CLARITHROMYCIN 500 MG TABLET PO (09:57)
[2022-01-04] MEDS: guaiFENesin 12 HR 600 MG TABCR PO ×2 (09:57→20:46)
[2022-01-04] MEDS: SOTALOL HCL 40 MG TABLET PO ×2 (09:57→20:47)
[2022-01-04] MEDS: ETHAMBUTOL HCL 400 MG TABLET 800 MG PO (09:57)
[2022-01-04] MEDS: FAMOTIDINE 20 MG TABLET PO ×2 (09:57→17:56)
--- NOTE | 2022-01-04 10:12 | PM.PNPUL ---
Progress Note: A&P Assessment and Plan (1) Pneumonia: Code(s): J18.9 - Pneumonia, unspecified organism Status: Acute Assessment and Plan: He presented with leukocytosis, increased shortness of breath, chest x-ray with infiltrates, and is on Rx for community-acquired pneumonia with ceftriaxone and azithromycin (started 12/27).? COVID RT PCR study negative.? Blood cultures negative. 12/28 ? Patient remains afebrile, white blood cell count improved to 12.7. ? Blood cultures negative. BiPPA was not comfortable so this was switched to AVAPS with a rate of 20, TV 400 mL, on the BiPAP.? I changed him to noninvasive ventilation with the AVAPS mode and adjusted the settings for comfort which resulted in a rate of 20, tidal volume, 400,? EPAP 4, minimal inspiratory pressure 5, maximal inspiratory pressure 25, inspiratory time 1.2, rise of 5 and 30%His saturations remained 97%. 12/29 Feels better, hungry, needs enteral feeding; able to talk; would like to eat. Has little reserve and drops his saturation quickly with movement. RN will offer high protein shakes. 12/30 : He is using AVAPS mode, FiO2 30%, eating more, has a PICC line. His CXR is stable. He has an appointment with Dr Guevara this Jan 03. If he is still in the hospital, he will not have to wait 3 more months for evaluation. WBC is down 10.6 k, better. ABG is acceptable. He has a loose coughing, not able to get many secretions out. Will add Cornet valve to assist with clearing secretions. 12/31 Patient wore noninvasive ventilation with the AVAPS mode overnight. ABG was 7.41/52/63 on AVAPS. He has been off AVAPS since 09:30 this morning and is currently on 6 L nasal cannula saturations 100%. The patient states he is feeling better and can take deeper breaths. The cough is improved. His white blood cell count is 11.0. His creatinine is 1.0. Chest x-ray shows unchanged bilateral lung infiltrates and severe emphysema. will attempt off of a VATS as tolerated and out of bed to chair if possible. Continue p.o. nutrition. Off BiPAP from 9:30 p.m. until bedtime on 6 L nasal cannula but did require an increase to 10 L nasal cannula later in the day 01/01 Slow improvement. He is improving but still has shortness of breath at rest and extreme dyspnea on exertion. States he is 36% back to his baseline. His phlegm is present but has improved from green to khan. Patient wore noninvasive ventilator with the AVAPS mode overnight. rate of 24, tidal volume, 450,? EPAP 4, minimal inspiratory pressure 5, maximal inspiratory pressure 25, inspiratory time 0.8, rise of 5 and 30%. ABG 7.44/58/69 on AVAPS this morning. white blood cell count is 9.6. Creatinine is 0.4. Currently he is on 6 L nasal cannula saturations 98%. Continue day 6 ceftriaxone and azithromycin, started 12/27, and day 4 vancomycin started 12/29. DC azithromycin after today's dose. If clinically stable will obtain CT scan of the chest tomorrow. 01/02 Patient states the AVAPS was uncomfortable and he could only wear it for an hour last night. Overall he feels about the same. He is very weak. He has no hemoptysis and is producing a little bit of phlegm. White blood cell count is 9.8, creatinine is 0.4. Saturations were 100% on 3 L nasal cannula. I Adjusted the AVAPS settings to make it more comfortable. I decreased the rate to 16 and increased his inspiratory time to 1.0 and he said this felt more comfortable. they 7 ceftriaxone, day 5 vancomycin, status post 6 days of azithromycin. I will obtain CT of the chest without contrast. 01/03 day 7. Ceftriaxone and day 5. Vancomycin. Overall clinically he is improved. He is afebrile his white count is 11.4 today. I will continue these medicines for now. His CT scan shows severe panlobular emphysema, consolidative border infiltrates left upper lobe, left lower lobe and an improved but persistent right lower lobe consolidative infiltrate. 01/04 Day 8 ceftriaxone and day
--- NOTE | 2022-01-04 11:26 | PCNFU ---
Nutrition Follow-Up Complete: Severe malnutrition related to chronic lung disease as evidenced by BMI 17, no intakes about 5 days, and possible need for full tube feeding Goal: Increase meal intake to at least 50% - Goal being met mostly Tolerate tube feeding if indicated - Not indicated Pt current nutrition is Regular diet. Nutrition recommendation: Continue current regular diet and supplements: Ensure Enlive TID and nutritional ice cream BID. Last recorded weight is 54.2 kg. Bowel Motility: +2 BMs 01/01/22. Labs Reviewed:Alb 2.9, K+ 3.9, BUN 10, Creat 0.5 Meds Noted: [place], Eliquis, Rocephin, pepcid, phenergan Skin: WNL Additional Notes: Pt says he is not able to eat 3 full meals per day. Complains of some early satiety and says if he eats much at breakfast, he cannot eat another meal until dinner. He will drink an Ensure at lunch. Recommended drinking Ensure at home and smaller, more frequent meals. Pt agreeable, voices understanding. Says he is feeling better today. Monitoring intakes, labs, plan of care. Follow up in 5 days.
--- NOTE | 2022-01-04 14:23 | PCRCNOTE ---
HOME TRILOGY UNIT IS IN APPROVAL PROCESS WITH PT INSURANCE. DME IS [employer]. CONTACT NAME IS ESSIE, CELL# SHE WILL BE IN CONTACT TO SEE WHEN PT IS DISCHARGING, TO ARRANGE WITH RT FOR HOME INSTRUCT AND SET-UP.
[2022-01-04] MEDS: DORNASE ALFA INH SOLN 1 MG/ML 2.5 ML AMP 2.5 MG INHALATION (20:20)
[2022-01-04] MEDS: ALBUTEROL SULFATE (*SP) AEROSOL 1 PUFF INHALATION (20:20)
[2022-01-04] MEDS: FINASTERIDE 5 MG TABLET PO (20:46)
[2022-01-04] MEDS: TAMSULOSIN HCL 0.4 MG CAPSULE PO (20:46)
[2022-01-04] MEDS: SENNOSIDES 8.6 MG TABLET PO (20:47)
[2022-01-05] VITALS (14 sets, daily range): BP systolic 101–124; BP diastolic 62–82; PULSE 63–88; RESP 18–24; TEMP 36–37.2; O2SAT 96–100
[2022-01-05] MEDS: HYDROcodone/acetaminophen (*CRX) 5-325 MG TABLET 1 TAB PO ×3 (06:12→22:36)
[2022-01-05] MEDS: ALPRAZolam (*CRX) 0.5 MG TABLET PO ×3 (06:12→22:36)
[2022-01-05] MEDS: FLUTICASONE/UMECLIDIN/VILANTER 100-62.5-25 MCG ELLIPTA 1 PUFF INHALATION (08:29)
[2022-01-05] MEDS: DORNASE ALFA INH SOLN 1 MG/ML 2.5 ML AMP 2.5 MG INHALATION ×2 (09:06→20:34)
[2022-01-05] MEDS: APIXABAN 5 MG TABLET PO ×2 (10:28→20:32)
[2022-01-05] MEDS: CENTRAL LINE FLUSH 10 ML IV PUSH ×3 (10:28→20:32)
[2022-01-05] MEDS: DOCUSATE SODIUM 100 MG CAPSULE PO ×2 (10:28→16:30)
[2022-01-05] MEDS: CLARITHROMYCIN 500 MG TABLET PO (10:28)
[2022-01-05] MEDS: SOTALOL HCL 40 MG TABLET PO ×2 (10:29→20:32)
[2022-01-05] MEDS: ETHAMBUTOL HCL 400 MG TABLET 800 MG PO (10:29)
[2022-01-05] MEDS: FAMOTIDINE 20 MG TABLET PO ×2 (10:30→16:31)
[2022-01-05] MEDS: guaiFENesin 12 HR 600 MG TABCR PO ×2 (10:30→20:32)
[2022-01-05] MEDS: SACCHAROMYCES BOULARDII 250 MG CAPSULE PO (10:30)
[2022-01-05] MEDS: rifAMPin 300 MG CAPSULE PO (10:30)
[2022-01-05] MEDS: SERTRALINE HCL 50 MG TABLET 100 MG PO (10:30)
[2022-01-05] MEDS: PROMETHAZINE HCL 25 MG/ML AMPUL 12.5 MG IV PUSH (11:15)
--- NOTE | 2022-01-05 14:14 | PC.NURSE ---
This patient, Nimisha Zavala, was transferred to [[id number] ] on 01/05/22 at 1410. Personal belongings sent with patient. Report given to [Citlaly ]. Appropriate documentation sent with patient.
--- NOTE | 2022-01-05 16:43 | PM.IMPN ---
Progress Note: A&P Assessment and Plan (1) Acute and chronic respiratory failure: Qualifiers: Respiratory failure complication: hypercapnia Qualified Code(s): J96.22 - Acute and chronic respiratory failure with hypercapnia Code(s): J96.20 - Acute and chronic respiratory failure, unspecified whether with hypoxia or hypercapnia Status: Acute Assessment and Plan: -the patient is chronically on oxygen at 3-4 L per nasal cannula. Not requiring BiPAP support COVID test negative CT chest with multifocal pneumonia On ceftriaxone and vancomycin planned bipap support at discharge (2) Pneumonia: Code(s): J18.9 - Pneumonia, unspecified organism Status: Acute Assessment and Plan: -the patient was started on antibiotics for community-acquired pneumonia with azithromycin and Rocephin. -sputum and blood cultures are negative. 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 -continue with home medications of clindamycin and Myambutol. And rifampin pt sees Infectious Disease doctor outpatient at [facility]. Patient is chronically on oxygen at 3-4 L at home. (4) Paroxysmal atrial fibrillation: Code(s): I48.0 - Paroxysmal atrial fibrillation Status: Acute Assessment and Plan: presented with AFib with RVR on admission Switched to sotalol and has converted to sinus rhythm Remains on sotalol 40 mg b.i.d. On chronic anticoagulation with apixaban Cardiology was consulted (5) Anemia: Code(s): D64.9 - Anemia, unspecified Status: Acute Assessment and Plan: chronic stable counts (6) Chronic back pain: Code(s): M54.9 - Dorsalgia, unspecified; G89.29 - Other chronic pain Status: Acute Assessment and Plan: -continue tremor Plan Pt is on eliquis for DVT prop Subjective Date/time seen: 01/05/22 16:43 Interval history: Nimisha Zavala is a 66 year old male with significant past medical history of MAC infection and help in a clarithromycin, ethambutol, rifampin, history of COPD, history of atrial fibrillation on Eliquis, chronic respiratory failure on home oxygen 3-4 L per nasal cannula, history of tobacco use, 94 pack year history, recent history of hemoptysis requiring pulmonary embolization [facility] in August 03, his pneumonia, depression, anxiety, chronic presented to the ER on 12/27/2021 with complains of shortness of breath, cough, decreased p.o. intake, take.? Patient had to increase his oxygen from 2-4 L.?patient also had some AFib RVR and converted to sinus rhythm with amiodarone infusion. Patient was transferred to the ICU as he was tachypneic and pulmonology requested is transferred to ICU. 01/03/2022 no overnight events. Remains on BiPAP. Ongoing shortness of breath with minimal exertion. Denies any cough. 01/04/2022: NO OVERNIGHT EVENTS. USING BIPAP AT NIGHT, USED FROM 12 TO 4. FEELS BREATHING IS A BIT BETTER. DISCUSSED WITH PULMONARY 01/05/2022: No overnight events. Continues BiPAP as much yesterday. Breathing is getting better still feels weak. Review of Systems Review of Systems: All systems reviewed & are unremarkable except as noted in HPI and below Exam Narrative: General: Cachectic, Not in acute distress HEENT:? Pupils equal reactive, sclera is clear, BiPAP mask in place Neck:? Supple, no cervical lymphadenopathy Respiratory:? Barrel chested, coarse breath sounds bilaterally, decreased at bases, no wheezing mild conversational dyspnea Cardiac:? Normal sinus rhythm, S1-S2 normal Abdomen:? Soft, nondistended, nontender, normoactive bowel sounds Extremities:? No edema, palpable pedal pulses Neuro:, patient is awake, alert, oriented, nonfocal, answers to questions and
[2022-01-05] MEDS: TAMSULOSIN HCL 0.4 MG CAPSULE PO (20:32)
[2022-01-05] MEDS: FINASTERIDE 5 MG TABLET PO (20:32)
[2022-01-05] MEDS: SENNOSIDES 8.6 MG TABLET PO (20:32)
[2022-01-06] VITALS (16 sets, daily range): BP systolic 102–127; BP diastolic 69–83; PULSE 64–89; RESP 20–34; TEMP 36.1–36.5; O2SAT 96–100
[2022-01-06] MEDS: CENTRAL LINE FLUSH 10 ML IV PUSH ×3 (05:38→21:32)
[2022-01-06] MEDS: ALPRAZolam (*CRX) 0.5 MG TABLET PO ×3 (05:42→18:45)
[2022-01-06] MEDS: HYDROcodone/acetaminophen (*CRX) 5-325 MG TABLET 1 TAB PO ×3 (05:42→17:20)
[2022-01-06] MEDS: FLUTICASONE/UMECLIDIN/VILANTER 100-62.5-25 MCG ELLIPTA 1 PUFF INHALATION (09:05)
[2022-01-06] MEDS: guaiFENesin 12 HR 600 MG TABCR PO ×2 (09:42→21:13)
[2022-01-06] MEDS: SACCHAROMYCES BOULARDII 250 MG CAPSULE PO (09:42)
[2022-01-06] MEDS: APIXABAN 5 MG TABLET PO ×2 (09:42→21:13)
[2022-01-06] MEDS: DOCUSATE SODIUM 100 MG CAPSULE PO ×2 (09:42→17:21)
[2022-01-06] MEDS: rifAMPin 300 MG CAPSULE PO (09:42)
[2022-01-06] MEDS: FAMOTIDINE 20 MG TABLET PO ×2 (09:42→17:21)
[2022-01-06] MEDS: CLARITHROMYCIN 500 MG TABLET PO (09:43)
[2022-01-06] MEDS: SOTALOL HCL 40 MG TABLET PO ×2 (09:43→21:13)
[2022-01-06] MEDS: ETHAMBUTOL HCL 400 MG TABLET 800 MG PO (09:43)
[2022-01-06] MEDS: SERTRALINE HCL 50 MG TABLET 100 MG PO (09:43)
--- NOTE | 2022-01-06 15:56 | PM.IMPN ---
Progress Note: A&P Assessment and Plan (1) Acute and chronic respiratory failure: Qualifiers: Respiratory failure complication: hypercapnia Qualified Code(s): J96.22 - Acute and chronic respiratory failure with hypercapnia Code(s): J96.20 - Acute and chronic respiratory failure, unspecified whether with hypoxia or hypercapnia Status: Acute Assessment and Plan: -the patient is chronically on oxygen at 3-4 L per nasal cannula. Not requiring BiPAP support COVID test negative CT chest with multifocal pneumonia On ceftriaxone and vancomycin planned bipap support at discharge (2) Pneumonia: Code(s): J18.9 - Pneumonia, unspecified organism Status: Acute Assessment and Plan: -the patient was started on antibiotics for community-acquired pneumonia with azithromycin and Rocephin. -sputum and blood cultures are negative. 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 -continue with home medications of clindamycin and Myambutol. And rifampin pt sees Infectious Disease doctor outpatient at [facility]. Patient is chronically on oxygen at 3-4 L at home. (4) Paroxysmal atrial fibrillation: Code(s): I48.0 - Paroxysmal atrial fibrillation Status: Acute Assessment and Plan: presented with AFib with RVR on admission Switched to sotalol and has converted to sinus rhythm Remains on sotalol 40 mg b.i.d. On chronic anticoagulation with apixaban Cardiology was consulted (5) Anemia: Code(s): D64.9 - Anemia, unspecified Status: Acute Assessment and Plan: chronic stable counts (6) Chronic back pain: Code(s): M54.9 - Dorsalgia, unspecified; G89.29 - Other chronic pain Status: Acute Assessment and Plan: -continue tremor Plan Pt is on eliquis for DVT prop Subjective Date/time seen: 01/06/22 15:56 Interval history: Nimisha Zavala is a 66 year old male with significant past medical history of MAC infection and help in a clarithromycin, ethambutol, rifampin, history of COPD, history of atrial fibrillation on Eliquis, chronic respiratory failure on home oxygen 3-4 L per nasal cannula, history of tobacco use, 94 pack year history, recent history of hemoptysis requiring pulmonary embolization [facility] in August 03, his pneumonia, depression, anxiety, chronic presented to the ER on 12/27/2021 with complains of shortness of breath, cough, decreased p.o. intake, take.? Patient had to increase his oxygen from 2-4 L.?patient also had some AFib RVR and converted to sinus rhythm with amiodarone infusion. Patient was transferred to the ICU as he was tachypneic and pulmonology requested is transferred to ICU. 01/03/2022 no overnight events. Remains on BiPAP. Ongoing shortness of breath with minimal exertion. Denies any cough. 01/04/2022: NO OVERNIGHT EVENTS. USING BIPAP AT NIGHT, USED FROM 12 TO 4. FEELS BREATHING IS A BIT BETTER. DISCUSSED WITH PULMONARY 01/05/2022: No overnight events. Continues BiPAP as much yesterday. Breathing is getting better still feels weak. 01/06/2022: No overnight events. Breathing well the same. Use BiPAP last night for over 5 hours. Review of Systems Review of Systems: All systems reviewed & are unremarkable except as noted in HPI and below Exam Narrative: General: Cachectic, Not in acute distress HEENT:? Pupils equal reactive, sclera is clear, BiPAP mask in place Neck:? Supple, no cervical lymphadenopathy Respiratory:? Barrel chested, coarse breath sounds bilaterally, decreased at bases, no wheezing mild conversational dyspnea Cardiac:? Normal sinus rhythm, S1-S2 normal Abdomen:? Soft, nondistended, nontender, normoactive bowel sounds Extremities:? No edema
[2022-01-06 17:45] LABS: Vancomycin Trough 14.8 ug/mL (10.0-20.0)
[2022-01-06] MEDS: DORNASE ALFA INH SOLN 1 MG/ML 2.5 ML AMP 2.5 MG INHALATION (20:44)
[2022-01-06] MEDS: TAMSULOSIN HCL 0.4 MG CAPSULE PO (21:14)
[2022-01-06] MEDS: FINASTERIDE 5 MG TABLET PO (21:14)
[2022-01-06] MEDS: SENNOSIDES 8.6 MG TABLET PO (21:17)
[2022-01-07] VITALS (16 sets, daily range): BP systolic 99–116; BP diastolic 55–78; PULSE 70–90; RESP 16–31; TEMP 36.1–36.5; O2SAT 90–100
[2022-01-07] MEDS: ALPRAZolam (*CRX) 0.5 MG TABLET PO ×3 (02:47→18:25)
--- NOTE | 2022-01-07 03:03 | PC.NURSE ---
Patient called to have BIPAP removed at 0245 am. Patient stated that he did not want to keep it on any longer.
[2022-01-07] MEDS: CENTRAL LINE FLUSH 10 ML IV PUSH ×3 (06:18→21:01)
[2022-01-07 06:31] LABS: Estimated CRCL calculation 89 ml/min; Estimated Glomerular Filt Rate > 60
--- NOTE | 2022-01-07 08:51 | PCRCNOTE ---
Addendum entered by Graciela Duncan, SHELL MACHINE OPERATOR 01/07/22 08:56: UPDATED DR. VICTOR ON TRILOGY. Original Note: SPOKE WITH ESSIE WITH [facility] THIS MORNING. TRILOGY HAS BEEN APPROVED AND THEY ARE READY FOR SET UP ONCE PATIENT IS DISCHARGED.
[2022-01-07] MEDS: FLUTICASONE/UMECLIDIN/VILANTER 100-62.5-25 MCG ELLIPTA 1 PUFF INHALATION (09:00)
[2022-01-07] MEDS: DORNASE ALFA INH SOLN 1 MG/ML 2.5 ML AMP 2.5 MG INHALATION ×2 (09:16→20:45)
[2022-01-07] MEDS: CLARITHROMYCIN 500 MG TABLET PO (09:35)
[2022-01-07] MEDS: ETHAMBUTOL HCL 400 MG TABLET 800 MG PO (09:35)
[2022-01-07] MEDS: APIXABAN 5 MG TABLET PO ×2 (09:35→20:49)
[2022-01-07] MEDS: SACCHAROMYCES BOULARDII 250 MG CAPSULE PO (09:36)
[2022-01-07] MEDS: rifAMPin 300 MG CAPSULE PO (09:36)
[2022-01-07] MEDS: HYDROcodone/acetaminophen (*CRX) 5-325 MG TABLET 1 TAB PO ×2 (09:36→17:09)
[2022-01-07] MEDS: SOTALOL HCL 40 MG TABLET PO ×2 (09:36→20:48)
[2022-01-07] MEDS: guaiFENesin 12 HR 600 MG TABCR PO ×2 (09:36→20:48)
[2022-01-07] MEDS: FAMOTIDINE 20 MG TABLET PO ×2 (09:36→16:50)
[2022-01-07] MEDS: SERTRALINE HCL 50 MG TABLET 100 MG PO (09:36)
[2022-01-07] MEDS: DOCUSATE SODIUM 100 MG CAPSULE PO ×2 (09:37→17:09)
[2022-01-07] MEDS: ALBUTEROL SULFATE (*SP) AEROSOL 1 PUFF INHALATION ×2 (11:24→18:35)
--- NOTE | 2022-01-07 11:54 | PM.PNPUL ---
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 The patient has been treated for atrial fibrillation as well as for community-acquired pneumonia with clinical improvement. patient continues to have shortness of breath with any activities which is his baseline. He has minimal sputum production. He has been chronically on 3 antibiotics for NMT infection. chest CT shows chronic cavitary consolidations in the right lower lobe and also left upper lobe which are related to chronic NMT infection.Plan: Will continue with current treatment for now. Will consider discontinuing vancomycin. We will get sputum for AFBs. patient has appointment to see infection Disease reporting consultant within the next 2 weeks. He will continue with home ventilatory support at home. (2) Paroxysmal atrial fibrillation: Code(s): I48.0 - Paroxysmal atrial fibrillation Status: Acute (3) Oxygen dependent: Code(s): Z99.81 - Dependence on supplemental oxygen Status: Acute (4) Pulmonary Mycobacterium avium complex (MAC) infection: Code(s): A31.0 - Pulmonary mycobacterial infection Status: Acute (5) Pneumonia: Code(s): J18.9 - Pneumonia, unspecified organism Status: Acute Subjective Date/time seen: 01/07/22 11:54 66-year-old man with chronic hypoxemic respiratory failure related to end-stage emphysema, history of NMT infection presented with increasing shortness of breath. The patient had no fever chills hemoptysis. he was found to be in atrial fibrillation with rapid ventricular response. In addition to treatment for atrial fibrillation has received treatment with antibiotics for possible community-acquired pneumonia. The patient has been chronically on 3 antibiotics for NMT infection. Since admission to the hospital his respiratory status has improved. Currently he has no fever chills hemoptysis. He occasionally coughs up clear sputum. He has no wheezing. he has been on noninvasive ventilatory support and efforts are underway to send him home on home ventilator for end-stage COPD. He has an appointment to see a new infection Disease reporting consultant regarding his chronic NMT infection. Review of Systems Review of Systems: all system review is negative except as noted in HPI and below. Exam Narrative: GENERAL APPEARANCE: Well developed, malnourished elderly man, alert and cooperative, and appears to be in no [id number] respiratory distress 1 supplemental oxygen SKIN: Inspection of the skin reveals no rashes, ulcerations or petechiae. HEENT: Sclerae anicteric and conjunctivae pink and moist. Extraocular movements were intact and pupils were equal, round. edentulous. NECK: Supple. There was no thyroid enlargement, and no tenderness, or masses were felt. LUNGS: Auscultation of the lungs distant breath sounds bilaterally no wheezing CARDIAC: There was a regular rate and rhythm without any murmurs ABDOMEN: Soft and nontender with normal bowel sounds. There was no organomegaly. LYMPH NODES: No lymphadenopathy was appreciated in the neck EXTREMITIES: No cyanosis, clubbing or edema. NEUROLOGIC: Alert and oriented x 3. Normal affect. Objective Data Vital Signs Vital Signs: Vital Signs - 24 hr 01/06/22 14:35 01/06/22 12:00 01/06/22 16:00 Temperature 36.5 C Pulse Rate 70 64 72 Respiratory Rate 32 H Blood Pressure 102/69 Pulse Oximetry 98 Oxygen Delivery Oxygen Flow Rate 01/06/22 20:47 01/06/22 20:49 01/06/22 20:46 Temperature 36.1 C L Pulse Rate 75 78 Respiratory Rate 20
--- NOTE | 2022-01-07 12:57 | PCOTNOTE ---
Attempted patient at 12:20, however RN requested to come back in 20 minute stating I just gave him a Xanax, so hopefully he can calm down. Attempted at this time, however patient declined due to fatigue. at bedside stated, I think they gave him something that's making him sleepy.
--- NOTE | 2022-01-07 14:48 | PM.DS ---
DS: Admitting Diagnosis Discharge Date 01/07/2022 Admitting Diagnosis shortness of breath DS: Discharge Diagnosis Discharge Diagnosis (1) Acute and chronic respiratory failure: Qualifiers: Respiratory failure complication: hypercapnia Qualified Code(s): J96.22 - Acute and chronic respiratory failure with hypercapnia Code(s): J96.20 - Acute and chronic respiratory failure, unspecified whether with hypoxia or hypercapnia Status: Acute (2) Pneumonia: Code(s): J18.9 - Pneumonia, unspecified organism Status: Acute (3) Pulmonary Mycobacterium avium complex (MAC) infection: Code(s): A31.0 - Pulmonary mycobacterial infection Status: Acute (4) Paroxysmal atrial fibrillation: Code(s): I48.0 - Paroxysmal atrial fibrillation Status: Acute (5) Anemia: Code(s): D64.9 - Anemia, unspecified Status: Acute (6) Chronic back pain: Code(s): M54.9 - Dorsalgia, unspecified; G89.29 - Other chronic pain Status: Acute DS: Summary Hospital Course Reason for hospitalization: Nimisha Zavala is a 66 year old male with significant past medical history of MAC infection and help in a clarithromycin, ethambutol, rifampin, history of COPD, history of atrial fibrillation on Eliquis, chronic respiratory failure on home oxygen 3-4 L per nasal cannula, history of tobacco use, 94 pack year history, recent history of hemoptysis requiring pulmonary embolization [facility] in August 03, his pneumonia, depression, anxiety, chronic presented to the ER on 12/27/2021 with complains of shortness of breath, cough, decreased p.o. intake, take.? Patient had to increase his oxygen from 2-4 L.?patient also had some AFib RVR and converted to sinus rhythm with amiodarone infusion.? Patient was transferred to the ICU as he was tachypneic and pulmonology requested is transferred to ICU. Hospital Course: # acute on chronic respiratory failure: -the patient is chronically on oxygen at 3-4 L per nasal cannula. Not requiring BiPAP support At home prior to this. COVID test negative ?CT chest with multifocal pneumonia Treated with ceftriaxone azithromycin and vancomycin and completed the course of treatment during the hospital stay. His deemed to require noninvasive ventilatory support at discharge and was arranged with [facility] at the time of discharge. he had ongoing discussion about hospice care as well which the family is receptive of # multifocal pneumonia: -the patient was started on antibiotics for community-acquired pneumonia with azithromycin and Rocephin. -sputum and blood cultures are negative. -pulmonology has been consulted, Dr Díaz on the case # Pulmonary Mycobacterium avium complex (MAC) infection: -pulmonology has been consulted. -continue with home medications of clarithromycin, ethambutol? And rifampin pt sees? Infectious Disease doctor outpatient at [facility]. which he has yet to see in February. Will refill until he gets to the infectious disease Patient is chronically on oxygen at 3-4 L at home. # proximal atrial fibrillation with rapid ventricular rate on admission: ?presented with AFib with RVR on admission Cardiology was consulted and started on sotalol and he has has since then converted to sinus rhythm Remains on sotalol 40 mg b.i.d. On chronic anticoagulation with apixaban Cardiology was consulted. Follow-up with Cardiology on outpatient basis # anemia: Chronic and stable counts # chronic back pain: Continue tramadol # anxiety continue alprazolam # DVT prophylaxis on Eliquis Time Spent with Patient Time attestation: Total time spent providing and/or coordinating discharge services: 50 minutes Exam Narrative: General: Cachectic, Not in acute distress HEENT:? Pupils equal reactive, sclera is clear Neck:? Supple, no cervical lymphadenopathy Respiratory:? Barrel chested, coarse breath sounds bilat
--- NOTE | 2022-01-07 15:35 | PCRCNOTE ---
FAXED TRILOGY ORDER TO [facility] [phone]
--- NOTE | 2022-01-07 15:40 | PM.IMPN ---
Progress Note: A&P Assessment and Plan (1) Acute and chronic respiratory failure: Qualifiers: Respiratory failure complication: hypercapnia Qualified Code(s): J96.22 - Acute and chronic respiratory failure with hypercapnia Code(s): J96.20 - Acute and chronic respiratory failure, unspecified whether with hypoxia or hypercapnia Status: Acute Assessment and Plan: -the patient is chronically on oxygen at 3-4 L per nasal cannula. Not requiring BiPAP support COVID test negative CT chest with multifocal pneumonia On ceftriaxone and vancomycin planned bipap support at discharge Now with hospice (2) Pneumonia: Code(s): J18.9 - Pneumonia, unspecified organism Status: Acute Assessment and Plan: -the patient was started on antibiotics for community-acquired pneumonia with azithromycin and Rocephin. -sputum and blood cultures are negative. 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 -continue with home medications of clindamycin and Myambutol. And rifampin pt sees Infectious Disease doctor outpatient at [facility]. Patient is chronically on oxygen at 3-4 L at home. (4) Paroxysmal atrial fibrillation: Code(s): I48.0 - Paroxysmal atrial fibrillation Status: Acute Assessment and Plan: presented with AFib with RVR on admission Switched to sotalol and has converted to sinus rhythm Remains on sotalol 40 mg b.i.d. On chronic anticoagulation with apixaban Cardiology was consulted (5) Anemia: Code(s): D64.9 - Anemia, unspecified Status: Acute Assessment and Plan: chronic stable counts (6) Chronic back pain: Code(s): M54.9 - Dorsalgia, unspecified; G89.29 - Other chronic pain Status: Acute Assessment and Plan: -continue tremor Plan Pt is on eliquis for DVT prop Subjective Date/time seen: 01/07/22 15:40 Interval history: Nimisha Zavala is a 66 year old male with significant past medical history of MAC infection and help in a clarithromycin, ethambutol, rifampin, history of COPD, history of atrial fibrillation on Eliquis, chronic respiratory failure on home oxygen 3-4 L per nasal cannula, history of tobacco use, 94 pack year history, recent history of hemoptysis requiring pulmonary embolization [facility] in August 03, his pneumonia, depression, anxiety, chronic presented to the ER on 12/27/2021 with complains of shortness of breath, cough, decreased p.o. intake, take.? Patient had to increase his oxygen from 2-4 L.?patient also had some AFib RVR and converted to sinus rhythm with amiodarone infusion. Patient was transferred to the ICU as he was tachypneic and pulmonology requested is transferred to ICU. 01/03/2022 no overnight events. Remains on BiPAP. Ongoing shortness of breath with minimal exertion. Denies any cough. 01/04/2022: NO OVERNIGHT EVENTS. USING BIPAP AT NIGHT, USED FROM 12 TO 4. FEELS BREATHING IS A BIT BETTER. DISCUSSED WITH PULMONARY 01/05/2022: No overnight events. Continues BiPAP as much yesterday. Breathing is getting better still feels weak. 01/06/2022: No overnight events. Breathing well the same. Use BiPAP last night for over 5 hours. 01/07/2022 no overnight events. at bedside discussed with him. Decided on hospice. [facility] has been arranged. Arrangements for hospice being made. Review of Systems Review of Systems: All systems reviewed & are unremarkable except as noted in HPI and below Exam Narrative: General: Cachectic, Not in acute distress HEENT:? Pupils equal reactive, sclera is clear Neck:? Supple, no cervical lymphadenopathy Respiratory:? Barrel chested, coarse breath sounds bilaterally, decreased at bases, no wheezing mild c
[2022-01-07] MEDS: SENNOSIDES 8.6 MG TABLET PO (20:56)
[2022-01-07] MEDS: TAMSULOSIN HCL 0.4 MG CAPSULE PO (20:58)
[2022-01-07] MEDS: FINASTERIDE 5 MG TABLET PO (20:58)
[2022-01-08] VITALS (12 sets, daily range): BP systolic 85–107; BP diastolic 56–74; PULSE 72–89; RESP 16–38; TEMP 35.8–36.6; O2SAT 94–100
[2022-01-08] MEDS: ALPRAZolam (*CRX) 0.5 MG TABLET PO ×4 (00:32→17:10)
[2022-01-08] MEDS: HYDROcodone/acetaminophen (*CRX) 5-325 MG TABLET 1 TAB PO ×5 (00:32→20:43)
[2022-01-08] MEDS: CENTRAL LINE FLUSH 10 ML IV PUSH (06:26)
--- NOTE | 2022-01-08 07:12 | PCNEURO ---
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
[2022-01-08] MEDS: ALBUTEROL SULFATE (*SP) AEROSOL 1 PUFF INHALATION ×2 (07:15→12:49)
[2022-01-08] MEDS: FLUTICASONE/UMECLIDIN/VILANTER 100-62.5-25 MCG ELLIPTA 1 PUFF INHALATION (08:21)
[2022-01-08] MEDS: DORNASE ALFA INH SOLN 1 MG/ML 2.5 ML AMP 2.5 MG INHALATION ×2 (08:21→21:02)
[2022-01-08] MEDS: APIXABAN 5 MG TABLET PO ×2 (10:49→20:42)
[2022-01-08] MEDS: ETHAMBUTOL HCL 400 MG TABLET 800 MG PO (10:49)
[2022-01-08] MEDS: FAMOTIDINE 20 MG TABLET PO ×2 (10:49→19:13)
[2022-01-08] MEDS: DOCUSATE SODIUM 100 MG CAPSULE PO ×2 (10:49→19:13)
[2022-01-08] MEDS: SACCHAROMYCES BOULARDII 250 MG CAPSULE PO (10:50)
[2022-01-08] MEDS: guaiFENesin 12 HR 600 MG TABCR PO ×2 (10:50→20:43)
[2022-01-08] MEDS: CLARITHROMYCIN 500 MG TABLET PO (10:50)
[2022-01-08] MEDS: SOTALOL HCL 40 MG TABLET PO ×2 (10:50→20:42)
[2022-01-08] MEDS: rifAMPin 300 MG CAPSULE PO (10:51)
[2022-01-08] MEDS: SERTRALINE HCL 50 MG TABLET 100 MG PO (12:41)
--- NOTE | 2022-01-08 14:26 | PCOTNOTE ---
Patient refused OT services this date, stated I really need to rest and get my breathing caught up they dropped me down to 4 on my oxygen.
--- NOTE | 2022-01-08 15:55 | PM.DS ---
DS: Admitting Diagnosis Discharge Date 01/08/2022 Admitting Diagnosis shortness of breath DS: Summary Hospital Course Hospital Course: Nimisha Zavala is a 66 year old male with significant past medical history of MAC infection and help in a clarithromycin, ethambutol, rifampin, history of COPD, history of atrial fibrillation on Eliquis, chronic respiratory failure on home oxygen 3-4 L per nasal cannula, history of tobacco use, 94 pack year history, recent history of hemoptysis requiring pulmonary embolization [facility] in August 03, his pneumonia, depression, anxiety, chronic presented to the ER on 12/27/2021 with complains of shortness of breath, cough, decreased p.o. intake, take.? Patient had to increase his oxygen from 2-4 L.?patient also had some AFib RVR and converted to sinus rhythm with amiodarone infusion.? Patient was transferred to the ICU as he was tachypneic and pulmonology requested is transferred to ICU. Hospital Course: ?# acute on chronic respiratory failure: -the patient is chronically on oxygen at 3-4 L per nasal cannula. Not requiring BiPAP support? At home prior to this. COVID test negative ?CT chest with multifocal pneumonia ? Treated with ceftriaxone? azithromycin and vancomycin and completed the course of treatment during the hospital stay.? His deemed to require noninvasive ventilatory support at discharge and was arranged with [facility] at the time of discharge.? ?he had ongoing discussion about hospice care as well which the family is receptive of. Eventually chose to go home with hospice which was arranged at the time of discharge. BiPAP arrangement from hospice care was done during the hospitalization. # multifocal pneumonia: -the patient was started on antibiotics for community-acquired pneumonia with azithromycin and Rocephin. -sputum and blood cultures are negative. -pulmonology has been consulted, Dr Díaz on the case # Pulmonary Mycobacterium avium complex (MAC) infection: -pulmonology has been consulted. -continue with home medications of? clarithromycin, ethambutol? And rifampin pt sees? Infectious Disease doctor outpatient at [facility]. which he has yet to see in February.? Will refill until he gets to the? infectious disease Patient is chronically on oxygen at 3-4 L at home. # proximal atrial fibrillation with rapid ventricular rate on admission: ?presented with AFib with RVR on admission ? Cardiology was consulted and started on sotalol and he has has? since then converted to sinus rhythm Remains on sotalol 40 mg b.i.d. On chronic anticoagulation with apixaban Cardiology was consulted.? Follow-up with Cardiology on outpatient basis # anemia: Chronic and stable counts # chronic back pain: Continue tramadol # anxiety ?continue alprazolam # DVT prophylaxis on Eliquis Time Spent with Patient Time attestation: Total time spent providing and/or coordinating discharge services: 50 minutes Exam Narrative: General:? Cachectic,? Not in acute distress HEENT:? Pupils equal reactive, sclera is clear Neck:? Supple, no cervical lymphadenopathy Respiratory:? Barrel chested, coarse breath sounds bilaterally, decreased at bases, no wheezing mild conversational dyspnea Cardiac:? Normal sinus rhythm, S1-S2 normal Abdomen:? Soft, nondistended, nontender, normoactive bowel sounds Extremities:? No edema, palpable pedal pulses Neuro:, patient is awake, alert, oriented, nonfocal, answers to questions and follows simple commands appropriately Skin:? Warm and dry, Psych:? Normal mentation normal affect DS: Data Imaging Radiologist's impression: ITS Impressions Chest X-Ray 12/27/21 12:25 IMPRESSION: 1. Left upper lobe airspace opacity superimposed on chronic opacities, likely pneumonia. Chest X-Ray 12/29/21 07:30 IMPRESSION: 1. Airspace opacities in the mid and upper lungs bilaterally, left worse than right with mild worsening on the right, consistent wi
[2022-01-08] MEDS: NEOMYCIN/POLYMYXIN/BACITRACIN OINTMENT PACKET 1 PACKET (19:18)
[2022-01-08] MEDS: FINASTERIDE 5 MG TABLET PO (20:42)
[2022-01-08] MEDS: TAMSULOSIN HCL 0.4 MG CAPSULE PO (20:43)
[2022-01-08] MEDS: SENNOSIDES 8.6 MG TABLET PO (20:46)
== END 2022-01-08 21:25 | disposition hospice, home (50) | DRG 193 ==
LOC: ANHED 12:35 → ANH2MED 16:01 → ANHIMU 20:56 → ANHICU 12-28 23:41 → ANHIMU 01-02 06:13 → ANH3MEDSUR 01-05 14:02
PROVIDERS: Emergency Medicine; Internal Medicine; Internal Medicine Pulmonary Disease; Nurse Practitioner; Admitting Provider Internal Medicine; Emergency Provider Emergency Medicine; PCP Family Medicine; Visit Provider Internal Medicine
DX: J18.9 Pneumonia, unspecified organism (principal); E43 Unspecified severe protein-calorie malnutrition; J96.21 Acute and chronic respiratory failure with hypoxia; J96.22 Acute and chronic respiratory failure with hypercapnia; Z68.1 Body mass index [BMI] 19.9 or less, adult; J43.1 Panlobular emphysema; Z99.81 Dependence on supplemental oxygen; A31.0 Pulmonary mycobacterial infection; I48.0 Paroxysmal atrial fibrillation; D64.9 Anemia, unspecified; F32.A Depression, unspecified; F41.9 Anxiety disorder, unspecified; M54.9 Dorsalgia, unspecified; G89.29 Other chronic pain; N40.0 Benign prostatic hyperplasia without lower urinary tract symptoms; Z20.822 Contact with and (suspected) exposure to COVID-19; Z79.01 Long term (current) use of anticoagulants; Z79.2 Long term (current) use of antibiotics; Z87.891 Personal history of nicotine dependence; Z79.899 Other long term (current) drug therapy
CPT/HCPCS: 36415; 36569; 36600; 71045; 71250; 80053; 80202; 82274; 82375; 82565; 82805; 83050; 83605; 83735; 83880; 84100; 84484; 85025; 85610; 85730; 87040; 87045; 87070; 87177; 87205; 87209; 87269; 87272; 87427; 87493; 89055; 93005; 94002; 94003; 94640; 94667; 94762; 96365; 96375; 97110; 97116; 97161; 97166; 97530; 97535; 99285; A9270; C1751; C9803; J0153; J0282; J0456; J0696; J2060; J2270; J2550; J3370; J3475; J3480; J7030; U0003; U0005

== ENCOUNTER 2022-03-20 09:58 | Outpatient (CLI) | payer OTHER, MEDICARE, MEDICAID, SELFPAY | END 2022-03-20 09:59 | disposition home or self-care (01) | PROVIDERS: PCP Family Medicine; Visit Provider Internal Medicine Critical Care Medicine | DX: A31.0 Pulmonary mycobacterial infection (principal) | CPT/HCPCS: 87015; 87116; 87149; 87206 ==

== ENCOUNTER 2022-03-21 08:26 | Outpatient (CLI) | payer OTHER, MEDICARE, MEDICAID, SELFPAY | END 2022-03-21 08:27 | disposition home or self-care (01) | PROVIDERS: PCP Family Medicine; Visit Provider Internal Medicine Critical Care Medicine | DX: A31.0 Pulmonary mycobacterial infection (principal) | CPT/HCPCS: 87015; 87116; 87149; 87206 ==

== ENCOUNTER 2022-03-22 10:22 | Outpatient (CLI) | payer OTHER, MEDICARE, MEDICAID, SELFPAY | END 2022-03-22 10:23 | disposition home or self-care (01) | LOC: ANHLAB 10:26 | PROVIDERS: PCP Family Medicine; Visit Provider Internal Medicine Critical Care Medicine | DX: A31.0 Pulmonary mycobacterial infection (principal) | CPT/HCPCS: 87015; 87116; 87149; 87206 ==